=== PATIENT | female | born 1955 | race Caucasian/White ===

== ENCOUNTER 2017-01-21 05:43 | Day surgery (SDC) | payer OTHER ==
[~2017-01-21] VITALS: Ht 165.1 cm; Wt 63.5 kg
--- NOTE | ~2017-01-21 | OR ---
[facility] [address], [place] [address] Draft DATE OF OPERATION: 01/21/2017 SURGEON: Ivan Bobo MD PREOPERATIVE DIAGNOSIS: Chronic sinusitis. POSTOPERATIVE DIAGNOSIS: Chronic sinusitis with intranasal scar tissue. PROCEDURES: Exam under anesthesia, sinus lavage, bilateral and excision of intranasal lesion. ANESTHESIA: General LMA, DIANA, Chriss. PREOPERATIVE HISTORY: Ms. Etienne is a 61-year-old lady with chronic sinus problems. She has had multiple operations on her sinuses. She has had continued infections, extensive crusting, buildup of debris, filling the nasal cavities and sinuses and she has been having a difficult time lavaging this out. She is taken to the operating room for the above-mentioned procedures. OPERATIVE PROCEDURE AND FINDINGS: After informed consent, the patient was taken to the operating room, placed in a supine position, where general LMA anesthesia was induced. The patient and procedure were verified. Intranasal inspection with the headlight and speculum showed extensive greenish crusting filling the nasal cavities. The nasal cavities were cleansed with suctioning Alona, all foreign material removed. The maxillary sinus was lavaged on each side with a curved suction total of 100+ mL of saline. Copious purulent greenish material removed from the maxillary sinus in this manner. There was some scar tissue superiorly on both side, which was excised with Alona. No other abnormalities were seen. The nasal cavity and sinuses were completely cleared of foreign material. The pharynx was suctioned, clear of the debris saline and minimal bleeding occurred throughout. No packing was placed. No specimen. The patient was awakened, extubated, and transported to recovery room in good condition. No complications. Blood loss minimal. PATIENT NAME: TEREZA ETIENNE OPERATIVE REPORT DATE OF : 55 PHYSICIAN: IVAN BOBO MD REPORT #: [id number] REPORT IS CONFIDENTIAL AND NOT TO BE RELEASED WITHOUT AUTHORIZATION [address] [place] [address] Draft Ivan Bobo MD /ANTIONETTEL /[id number] PATIENT NAME: TEREZA ETIENNE OPERATIVE REPORT DATE OF : 55 PHYSICIAN: IVAN BOBO MD REPORT #: [id number] REPORT IS CONFIDENTIAL AND NOT TO BE RELEASED WITHOUT AUTHORIZATION
[~2017-01-21 05:43] MED LIST: ACYCLOVIR400 MG PO; ALBUTEROL SULFAT4 MG PO; ALLOPURINOL100 MG PO; ATIVAN1 MG PO; ATORVASTATIN CA10 MG PO; BONIVA IV; BUPROPION HCL200 MG PO; CARISOPRODOL350 MG PO; DENTIVA SOFT L1 EACH MM; DILAUDID2 MG PO; DILAUDID4 MG PO; DILAUDID8 MG PO; DOXYCYCLINE HY100 MG PO; ERY-TAB250 MG PO; ESCITALOPRAM OX10 MG PO; FUROSEMIDE80 MG PO; GABAPENTIN100 MG PO; GEMFIBROZIL600 MG PO; HYDROMORPHONE HC4 MG PO; HYDROMORPHONE HC8 MG PO; LASIX80 MG PO; LEXAPRO10 MG PO; LIDOCAINE HCL100 ML MT; MAXALT10 MG PO; METANX CAPSULE1 EACH PO; METHYLPHENIDATE20 MG PO; METOPROLOL SUC100 MG PO; METOPROLOL SUCC25 MG PO; METOPROLOL SUCC50 MG PO; MINOCYCLINE HC100 M1 PO; MIRAPEX0.125 MG PO; MIRAPEX0.25 MG PO; NADOLOL40 MG PO; NEURONTIN100 MG PO; NORCO 5-325 TA1 EACH PO; NYSTATIN100000 UN1 PO; OMEGA 3 FISH O1 EACH PO; OMEPRAZOLE40 MG PO; ONDANSETRON ODT8 MG PO; OXYCODONE HCL10 MG PO; OXYCONTIN20 MG PO; PERCOCET 7.5-31 EACH PO; POTASSIUM CHLO10 ME1 PO; PRAMIPEXOLE D0.25 MG PO; PROAIR HFA8.5 GM IH; PROMETHAZINE HC25 M1 PO; PROTONIX40 MG PO; PSEUDOEPHEDRINE60 MG PO; RIZATRIPTAN10 MG PO; SUDAFED30 MG PO; TESSALON PERLE100 MG PO; TOPROL XL50 MG PO; TRAMADOL HCL50 MG PO; TRIAMCINOLONE AC5 GM DT; ULTRAM50 MG PO; UROCIT-K10 MEQ PO; VALACYCLOVIR500 MG PO; VALTREX1000 MG; VALTREX500 MG PO; VASOTEC5 MG PO; VICTOZA 3-0.6 MG/0.1 SUB-Q; VOSPIRE ER4 MG PO; ZALEPLON10 MG PO; ZOFRAN8 MG PO; ZOFRAN8 MG SC/PO; ZYLOPRIM300 MG PO
--- NOTE | 2017-01-21 09:25 | NUR ---
PT ARRIVED FROM PACU. PT REPORTS 6/10 BURNING PAIN IN LEFT NOSTRIL BUT STATES THAT SHE DOES NOT NEED PAIN MEDCATION AT THIS TIME. PTS FAMILY CALLED TO BEDSIDE. PT RESPONDING APPROPRATLY TO QUESTIONS AND TOLERATING PO FLUIDS. BED RAILS UP. CALL LIGHT WITHIN REACH.
--- NOTE | 2017-01-21 09:48 | NUR ---
PT UP TO RESTROOM. PT STEADY ON FEET WITH ONE PERSON STAND BY ASSIST. PT ABLE TO VOID 400ML WITHOUT DIFFICULTY. PT BACK TO BED. WARM AIR ON. BED RAILS UP. CALL LIGHT WITHIN REACH
--- NOTE | 2017-01-21 10:17 | NUR ---
PT RESTING AND WATCHING TV. PT REPORTS 4/10 IMPROVED PAIN THAT "SEEMS TO BE GETTING BETTER. PT TOLERATING PO FOOD AND FLUID. BED RAILS UP. CALL LIGHT WITHIN REACH. HERE TO VISIT.
--- NOTE | 2017-01-21 10:58 | NUR ---
1055: PATIENT DRESSED AND READY TO GO HOME. IV DC'D WNL. TIP INTACT. DRESSING APPLIED. DISCHARGE INSTRUCTIONS GIVEN TO PATIENT AND . PATIENT DISCHARGED TO HOME VIA WHEELCHAIR WITH .
--- NOTE | 2017-01-22 07:14 | NUR ---
PT RESTING IN BED, WATCHING TV. SHE IS ALERT AND ORIENTED. SEEMED PREPARED, AND UNDERSTOOD HER PROCEDURE FOR TODAY. PT REQUESTED PRAYER, WILL CONTINUE TO FOLLOW
== END 2017-01-21 10:55 | disposition home or self-care (01) ==
LOC: DS 05:43 → OPS 05:43 → DS 06:45 → OPS 10:55
PROVIDERS: Otolaryngology
PROC: 0HB1XZZ Excision of Face Skin, External Approach (ICD-10-PCS; 2017-01-21)
PROC: 3E1F78Z Irrigation of Respiratory Tract using Irrigating Substance, Via Natural or Artificial Opening (ICD-10-PCS; principal; 2017-01-21 06:45)
DX: J32.9 Chronic sinusitis, unspecified (principal); J45.909 Unspecified asthma, uncomplicated; F11.90 Opioid use, unspecified, uncomplicated; I13.0 Hypertensive heart and chronic kidney disease with heart failure and stage 1 through stage 4 chronic kidney disease, or unspecified chronic kidney disease; I50.9 Heart failure, unspecified; N18.9 Chronic kidney disease, unspecified; I25.2 Old myocardial infarction; Z86.73 Personal history of transient ischemic attack (TIA), and cerebral infarction without residual deficits; Z87.891 Personal history of nicotine dependence; Z79.899 Other long term (current) 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; Z90.710 Acquired absence of both cervix and uterus; Z98.42 Cataract extraction status, left eye; Z98.41 Cataract extraction status, right eye; Z98.890 Other specified postprocedural states
CPT/HCPCS: 00160; J1100; J1720; J1885; J2250; J2405; J2704; J2765; J3010; J7120

== ENCOUNTER → 2018-01-15 | Emergency (ER) | payer BC ==
[~2018-01-15] VITALS: Ht 165.1 cm; Wt 63.5 kg
--- OUTSIDE RECORDS SUMMARY | ~2018-01-15 | XMS | Encounter Summary ---
Demographics + + + | Address | [address] | | | [place] [address] | + + + | Home Phone | | + + + | Preferred Language | Unknown | + + + | Marital Status | | + + + | Pentecostalism Affiliation | Unknown | + + + | Race | Unknown | + + + | Ethnic Group | Unknown | + + + Author + + + | Author | [facility] | | | and [place] | + + + | Organization | [facility] | | | and [place] | + + + | Address | Unknown | + + + | Phone | Unavailable | + + + Support + + + + + | Name | Relationship | Address | Phone | + + + + + | Natasha Patino J | ECON | [address] | | | Md | | [place] | | | | | [address] | | + + + + + | Danita Smart | ECON | Unknown | | + + + + + | Briseida Pedroza | ECON | Unknown | | + + + + + Care Team Providers + +------+ + | Care Military Science Instructor Name | Role | Phone | + +------+ + | Jayson Walton MD | PCP | | + +------+ + Reason for Visit + + + | Reason | Comments | + + + | Appointment | | + + + Encounter Details +--------+ + + + + | Date | Type | Department | Care Team | Description | +--------+ + + + + | 12/05/ | Telephone | [facility] | Deysi Martel | Appointment | | 2017 | | NEPHROLOGY [address] | M, DO [address] | | | | | [address] [facility] | [place], [facility] 100 | | | | | [place], [place] | [place], [place] | | | | | [address] | [address] | | | | | [phone] | | | +--------+ + + + [...] on file | | + + + as of this encounter Plan of Treatment +--------+ + + + + | Date | Type | Specialty | Care Team | Description | +--------+ + + + + | 01/19/ | Off-Site | Nephrology | Deysi Martel | | | 2017 | Visit | | DO Mega [address] [place] [address] | | | | | | [address] | | | | | | [place], [place] | | | | | | [address] | | | | | | | | +--------+ + + + + as of this encounter Visit Diagnoses Not on filein this encounter"
--- OUTSIDE RECORDS SUMMARY | ~2018-01-15 | XMS | Encounter Summary ---
Demographics + + + | Address | [address] | | | [place] [address] | + + + | Home Phone | | + + + | Preferred Language | Unknown | + + + | Marital Status | | + + + | Islam Affiliation | Unknown | + + + | Race | Unknown | + + + | Ethnic Group | Unknown | + + + Author + + + | Author | [facility] | | | and [place] | + + + | Organization | [facility] | | | and [place] | + + + | Address | Unknown | + + + | Phone | Unavailable | + + + Support + + + + + | Name | Relationship | Address | Phone | + + + + + | Natasha Patino J | ECON | [address] | | | [place] | | [place] | | | | | [address] | | + + + + + | Danita Smart | ECON | Unknown | | + + + + + | Briseida Pedroza | ECON | Unknown | | + + + + + Care Team Providers + +------+ + | Care Vine Pruner Name | Role | Phone | + +------+ + | Jayson Walton MD | PCP | | + +------+ + Reason for Visit + + + | Reason | Comments | + + + | Medication Refill | | + + + Encounter Details +--------+--------+ + + + | Date | Type | Department | Care Team | Description | +--------+--------+ + + + | 12/15/ | Refill | [facility] | Deysi Martel | Medication Refill | | 2017 | | NEPHROLOGY [address] | M, DO [address] | | | | | [address] [facility] | [place], [facility] 100 | | | | | [place], [place] | [place] | | | | | [address] | [address] | | | | | [phone] | | | +--------+--------+ + + + [...] 2017 | Visit | | DO Mega [address] [place] [address] | | | | | | [address] | | | | | | [place] | | | | | | [address] | | | | | | | | +--------+ + + + + as of this encounter Visit Diagnoses Not on filein this encounter"
--- OUTSIDE RECORDS SUMMARY | ~2018-01-15 | XMS | Clinical Summary ---
Demographics + + + | Address | [address] | | | [place] [address] | + + + | Home Phone | | + + + | Preferred Language | Unknown | + + + | Marital Status | | + + + | Sikhism Affiliation | 1013 | + + + | Race | Unknown | + + + | Ethnic Group | Unknown | + + + Author + + + | Author | [facility] | + + + | Organization | [facility] | + + + | Address | Unknown | + + + | Phone | Unavailable | + + + Support + + + + + | Name | Relationship | Address | Phone | + + + + + | Josef Patino M.D. | ECON | [address] | | | | | [place] | | | | | [address] | | + + + + + | Briseida Pedroza | ECON | [place] | | | | | [address] | | + + + + + Care Team Providers + +------+ + | Care Towel Sewer Name | Role | Phone | + [...] | ODS HEALTH PLAN | ODS | [id number] | | | | | | HEALTH [...] | Self | [birth year] | Home: | [address] | | | al/Fam | | 1955 | [phone] | [place] | | | don | | | [phone] | [address] | + +--------+ +--------+ + +
--- OUTSIDE RECORDS SUMMARY | ~2018-01-15 | XMS | Clinical Summary ---
Demographics + + + | Address | [address] | | | [place] [address] | + + + | Home Phone | | + + + | Preferred Language | Unknown | + + + | Marital Status | | + + + | Yarsanism Affiliation | CHR | + + + | Race | White | + + + | Ethnic Group | Not or | + + + Author + + + | Author | [facility] | + + + | Organization | [facility] | + + + | Address | Unknown | + + + | Phone | Unavailable | + + + Support + + + + + | Name | Relationship | Address | Phone | + + + + + | LIZETTE ETIENNE | [address] | [place] | | | | | [address] | | + + + + + Care Team Providers + +------+ + | Care Microfilm Processor Name | Role | Phone | + +------+ + PP | Unavailable | + +------+ + Source Comments GAYATRI is fully live on both [facility] Ambulatory and [facility] InPatient.[facility] Allergies + + + + + + | Active Allergy | Reactions | Severity | Noted | Comments | | | | | Date | | + + + + + + | Ibuprofen | | | 05/23/19 | | | | | | 12 | | + + + + + + | Aspirin | | | 07/16/19 | Asthma | | | | | 07 | | + + + + + + | Codeine | | | 05/23/19 | | | | | | 12 | | + + + + + + | Cephalexin | Nausea/Vomiting | Low | 07/16/19 | | | | | | 07 | | + + + + + + | Nsaids | Wheez/Dyspnea | | 07/16/19 | | | (Non-Steroidal | | | 07 | | | Anti-Inflammatory | | | | | | Drug) | | | | | + + + + + + | Prednisone | | | 05/23/19 | | | | | | 12 | | + + + + + + | Sulfa (Sulfonamide | Hives, Rash | Low | 07/16/19 | | | Antibiotics) | | | 07 | | + + + + + + Current Medications + + +--------+---------+------+------+-------+ | Prescription | Sig. | Disp. | Refills | Star | End | Statu | | | | | | t | Date | s | | | | | | Date | | | + + +--------+---------+------+------+-------+ | Tramadol HCl | take 1-2 tablet (50 | 60 | 0 | 11/2 | | Activ | | (ULTRAM) 50 mg Oral | mg) by oral route | | | 0/20 | | e | | TabletIndications: | every 6 hours as | | | 07 | | | | Hip pain | needed | | | | | | + + +--------+---------+------+------+-------+ | Bupropion HCl | 1 tab po bid | 60 | 12 | 11/2 | | Activ | | (WELLBUTRIN SR) 200 | | | | 0/20 | | e | | mg Oral Tablet | | | | 07 | | | | Sustained | | | | | | | | ReleaseIndications: | | | | | | | | Depression | | | | | | | + + +--------+---------+------+------+-------+ | albuterol 4 mg | Take 4 mg by mouth | | | | | Activ | | Oral Tablet | every twelve hours. | | | | | e | | | | | | | | | + + +--------+---------+------+------+-------+ | | Take 25 mg by mouth | | | | | Activ | | hydrochlorothiazide | once daily. | | | | | e | | 25 mg Oral Tablet | | | | | | | + + +--------+---------+------+------+-------+ | metFORMIN 500 mg | Take 500 mg by mouth | | | | | Activ | | Oral Tablet | two times daily. | | | | | e | + + +--------+---------+------+------+-------+ | pramipexole 0.25 | Take 0.125 mg by | | | | | Activ | | mg Oral Tablet | mouth once daily at | | | | | e | | | bedtime. | | | | | | + + +--------+---------+------+------+-------+ | furosemide 40 mg | Take 40 mg by mouth | | | | | Activ | | Oral Tablet | two times daily. | | | | | e | + + +--------+---------+------+------+-------+ | CARISOPRODOL (SOMA | Take by mouth. | | | | | Activ | | ORAL) | | | | | | e | + + +--------+---------+------+------+-------+ | metoprolol | Take 100 mg by mouth | | | | | Activ | | tartrate 100 mg Oral | once daily. | | | | | e | | Tablet | | | | | | | + + +--------+---------+------+------+-------+ | LORazepam 2 mg | Take 2 mg by mouth | | | | | Activ | | Oral Tablet | once daily at | | | | | e | | | bedtime. | | | | | | + + +--------+---------+------+------+-------+ | montelukast 10 mg | Take 10 mg by mouth | | | | | Activ | | Oral Tablet | once daily in the | | | | | e | | | evening. | | | | | | + + +--------+---------+------+------+-------+ | clobetasol 0.05 % | Apply to affected | 45 g | 0 | 03/1 | | Activ | | Topical Ointment | area two times | | | 5/20 | | e | | | daily. Apply for up | | | 12 | | | | | to 2 weeks. | | | | | | + + +--------+---------+------+------+-------+ Active Problems + + + | Problem | Noted Date | + + + | Depression | 12/09/2006 | + + + | Opioid dependence (HCC) | 08/27/2006 | + + + | Herpes zoster | 08/27/2006 | + + + Immunizations +------+ + + | Name | Dates Previously Given | Next Due | +------+ + + | Tdap | 01/27/2007 | | +------+ + + Family History + + +------+ + | Medical History | Relation | Name | Comments | + + +------+ + | Alcohol/Drug | Daughter | | | + + +------+ + | Alcohol/Drug | Maternal | | | | | Grandfath | | | | | er | | | + + +------+ + | Diabetes | Maternal | | | | | Grandfath | | | | | er | | | + + +------+ + | Alcohol/Drug | Maternal | | | | | Grandmoth | | | | | er | | | + + +------+ + | Heart Disease | Maternal | | | | | Grandmoth | | | | | er | | | + + +------+ + | Cancer | Mother | | Breast | + + +------+ + | Diabetes | Mother | | | + + +------+ + | Alcohol/Drug | Sister | | | + + +------+ + + +------+--------+ + | Relation | Name | Status | Comments | + +------+--------+ + | Daughter | | | | + +------+--------+ + | Maternal Grandfather | | | | + +------+--------+ + | Maternal Grandmother | | | | + +------+--------+ + | Mother | | | | + +------+--------+ + | Sister | | | | + +------+--------+ + Social History + + + +--------+ [...] + +---------+ + | No | 0 | 0.0 | | | | Standard | | | | | drinks or | | | | | | | | | | equivalen | | | | | t | | | + + +---------+ + + + + | Sex Assigned at | Date Recorded | | | | + + + | Not on file | | + + + Last Filed Vital Signs + + + + | Vital Sign | Reading | Time Taken | + + + + | Blood Pressure | 112/66 | 05/23/2011 9:53 AM PDT | + + + + | Pulse | 72 | 05/23/2011 9:53 AM PDT | + + + + | Temperature | 36.8 C (98.2 F) | 01/27/2007 10:17 AM PST | + + + + | Respiratory Rate | 16 | 10/28/2006 8:28 AM PDT | + + + + | Oxygen Saturation | - | - | + + + + | Inhaled Oxygen | - | - | | Concentration | | | + + + + | Weight | 64.4 kg (142 lb) | 05/23/2011 9:53 AM PDT | + + + + | Height | 170.8 cm (5' 7.25") | 05/23/2011 9:53 AM PDT | + + + + | Body Mass Index | 22.08 | 05/23/2011 9:53 AM PDT | + + + + Plan of Treatment + + + + + | Health Maintenance | Due Date | Last Done | Comments | + + + + + | Influenza (Flu) | | | | | vaccination (#1) | 8 | | | + + + + + Results Not on filefrom Last 3 Months Insurance + +--------+ +------+ + + | Payer | Benefi | Subscriber | Type | Phone | Address | | | t Plan | ID | | | | | | / | | | | | | | Group | | | | | + +--------+ +------+ + + | [employer] | PACIFI | [id number] | PPO | [id number] | [facility] [address] | | | [address] | | | [phone] | [place], [place] | | | E | | | | [address] | + +--------+ +------+ + + + +--------+ +--------+ + + | Guarantor Name | Accoun | Relation to | Date | Phone | Billing Address | | | t Type | Patient | of | | | | | | | | | | + +--------+ +--------+ + + | BEVERLY ETIENNE | Person | Self | [birth year] | Home: | [address] | | | al/Fam | | 1956 | [phone] | [place] [address] | | | don | | | [phone] | | + +--------+ +--------+ + +
--- OUTSIDE RECORDS SUMMARY | ~2018-01-15 | XMS | Encounter Summary ---
Demographics + + + | Address | [address] | | | [place] [address] | + + + | Home Phone | | + + + | Preferred Language | Unknown | + + + | Marital Status | | + + + | Denominational Affiliation | Unknown | + + + | Race | Unknown | + + + | Ethnic Group | Unknown | + + + Author + + + | Author | [facility] | | | and [place] | + + + | Organization | [facility] | | | and [place] | + + + | Address | Unknown | + + + | Phone | Unavailable | + + + Support + + + + + | Name | Relationship | Address | Phone | + + + + + | Natasha Patino J | ECON | [address] | | | [place] | | [place] | | | | | [address] | | + + + + + | Danita Smart | ECON | Unknown | | + + + + + | Briseida Pedroza | ECON | Unknown | | + + + + + Care Team Providers + +------+ + | Care Prize Fighter Name | Role | Phone | + +------+ + | Jayson Waltno MD | PCP | | + +------+ + Reason for Visit + + + | Reason | Comments | + + + | Medication Refill | | + + + Encounter Details +--------+--------+ + + + | Date | Type | Department | Care Team | Description | +--------+--------+ + + + | 12/15/ | Refill | [facility] | Deysi Martel | Medication Refill | | 2017 | | NEPHROLOGY [address] | M, DO [address] | | | | | [address] [facility] 100 | [place], [facility] 100 | | | | | [place], [place] | [place] | | | | | [address] | [address] | | | | | [phone] | | | +--------+--------+ + + + [...] | Visit | | DO Mega [address] [place] [address] | | | | | | [address] | | | | | | [place] | | | | | | [address] | | | | | | | | +--------+ + + + + as of this encounter Visit Diagnoses Not on filein this encounter"
--- OUTSIDE RECORDS SUMMARY | ~2018-01-15 | XMS | Encounter Summary ---
Demographics + + + | Address | [address] | | | [place] [address] | + + + | Home Phone | | + + + | Preferred Language | Unknown | + + + | Marital Status | | + + + | Presybeterian Affiliation | Unknown | + + + | Race | Unknown | + + + | Ethnic Group | Unknown | + + + Author + + + | Author | [facility] | | | and [place] | + + + | Organization | [facility] | | | and [place] | + + + | Address | Unknown | + + + | Phone | Unavailable | + + + Support + + + + + | Name | Relationship | Address | Phone | + + + + + | Natasha Patino J | ECON | [address] | | | [place] | | [place] | | | | | [address] | | + + + + + | Danita Smart | ECON | Unknown | | + + + + + | Briseida Pedroza | ECON | Unknown | | + + + + + Care Team Providers + +------+ + | Care Design Director Name | Role | Phone | + +------+ + | Jayson Walton MD | PCP | | + +------+ + Encounter Details +--------+ + + + + | Date | Type | Department | Care Team | Description | +--------+ + + + + | 11/18/ | Orders Only | [facility] [place] | Deysi Martel | CHRONIC KIDNEY | | 2018 | | NEPHROLOGY [address] | M, DO [address] | DISEASE STAGE III | | | | [address] | [place] | (MODERATE) (Primary | | | | [place], [place] | [place], [place] | Dx) | | | | [address] | [id number] | | | | | [phone] | | | +--------+ + + + [...] + + + as of this encounter Progress Carrie Zelaya RN - 11/18/2017 1632 PDTLabs for upcoming nephrology appointment sent to: Xochitl this encounter Plan of Treatment +--------+ + + + + | Date | Type | Specialty | Care Team | Description | +--------+ + + + + | 01/19/ | Off-Site | Nephrology | Deysi Martel | | | 2017 | Visit | | DO [address] | | | | | | [address] | | | | | | [place] | | | | | | [address] | | | | | | | | +--------+ + + + + + +--------+ + + | Name | Priori | Associated Diagnoses | Order Schedule | | | ty | | | + +--------+ + + | CBC with Differential | Routin | CHRONIC KIDNEY | Expected: | | | e | DISEASE STAGE III | 01/15/2018, Expires: | | | | (MODERATE) | 11/18/2018 | + +--------+ + + | Comprehensive Metabolic Panel | Routin | CHRONIC KIDNEY | Expected: | | | e | DISEASE STAGE III | 01/15/2018, Expires: | | | | (MODERATE) | 11/18/2018 | + +--------+ + + | Phosphorus | Routin | CHRONIC KIDNEY | Expected: | | | e | DISEASE STAGE III | 01/15/2018, Expires: | | | | (MODERATE) | 11/18/2018 | + +--------+ + + | Parathyroid Hormone, Intact | Routin | CHRONIC KIDNEY | Expected: | | | e | DISEASE STAGE III | 01/15/2018, Expires: | | | | (MODERATE) | 11/18/2018 | + +--------+ + + | Vitamin D, Deficiency Screen | Routin | CHRONIC KIDNEY | Expected: | | (25-Hydroxy) | e | DISEASE STAGE III | 01/15/2018, Expires: | | | | (MODERATE) | 11/18/2018 | + +--------+ + + | Protein/Creatinine Ratio, Urine | Routin | CHRONIC KIDNEY | Expected: | | | e | DISEASE STAGE III | 01/15/2018, Expires: | | | | (MODERATE) | 11/18/2018 | + +--------+ + + as of this encounter Visit Diagnoses + + | Diagnosis | + + | CHRONIC KIDNEY DISEASE STAGE III (MODERATE) - Primary | + + | Chronic kidney disease, Stage III (moderate) | + +"
--- OUTSIDE RECORDS SUMMARY | ~2018-01-15 | XMS | Clinical Summary ---
Demographics + + + | Address | [address] | | | [place] [address] | + + + | Home Phone | | + + + | Preferred Language | Unknown | + + + | Marital Status | | + + + | Voodoo Affiliation | 1013 | + + + | Race | Unknown | + + + | Ethnic Group | Unknown | + + + Author + + + | Author | [facility] | + + + | Organization | [facility] | + + + | Address | Unknown | + + + | Phone | Unavailable | + + + Support + + + + + | Name | Relationship | Address | Phone | + + + + + | Josef Patino M.D. | ECON | [address] | | | | | [place] | | | | | [address] | | + + + + + | Briseida Pedroza | ECON | [place] | | | | | [address] | | + + + + + Care Team Providers + +------+ + | Care Fast Food Crew Lead Name | Role | Phone | + [...] | ODS HEALTH PLAN | ODS | [id number] | | | | | | HEALTH [...] | Self | [birth year] | Home: | [address] | | | al/Fam | | 1955 | [phone] | [place] | | | don | | | [phone] | [address] | + +--------+ +--------+ + +
--- OUTSIDE RECORDS SUMMARY | ~2018-01-15 | XMS | Encounter Summary ---
Demographics + + + | Address | [address] | | | [place] [address] | + + + | Home Phone | | + + + | Preferred Language | Unknown | + + + | Marital Status | | + + + | Islam Affiliation | Unknown | + + + | Race | Unknown | + + + | Ethnic Group | Unknown | + + + Author + + + | Author | [facility] | | | and [place] | + + + | Organization | [facility] | | | and [place] | + + + | Address | Unknown | + + + | Phone | Unavailable | + + + Support + + + + + | Name | Relationship | Address | Phone | + + + + + | Natasha Patino J | ECON | [address] | | | Md | | [place] | | | | | [address] | | + + + + + | Danita Smart | ECON | Unknown | | + + + + + | Briseida Pedroza | ECON | Unknown | | + + + + + Care Team Providers + +------+ + | Care Digital Recruiter Name | Role | Phone | + [...] + + | 11/26/ | Ref[facility] | [facility] | Deysi Martel | Medication Refill | | 2017 | | NEPHROLOGY [address] | M, DO [address] [place] | | | | | [address] [facility] | [place], [facility] 100 | | | | | [place], [place] | [place] | | | | | [address] | [address] | | | | | [phone] | | | +--------+--------+ + + + [...] 2017 | Visit | | DO Mega [address] [place] [address] | | | | | | [address] [place] [address] | | | | | | [place] | | | | | | [address] | | | | | | | | +--------+ + + + + as of this encounter Visit Diagnoses Not on filein this encounter"
--- OUTSIDE RECORDS SUMMARY | ~2018-01-15 | XMS | Encounter Summary ---
Demographics + + + | Address | [address] | | | [place] [address] | + + + | Home Phone | | + + + | Preferred Language | Unknown | + + + | Marital Status | | + + + | Restoration Affiliation | Unknown | + + + | Race | Unknown | + + + | Ethnic Group | Unknown | + + + Author + + + | Author | [facility] | | | and [place] | + + + | Organization | [facility] | | | and [place] | + + + | Address | Unknown | + + + | Phone | Unavailable | + + + Support + + + + + | Name | Relationship | Address | Phone | + + + + + | Natasha Patino J | ECON | [address] | | | [place] | | [place] | | | | | [address] | | + + + + + | Danita Smart | ECON | Unknown | | + + + + + | Briseida Pedroza | ECON | Unknown | | + + + + + Care Team Providers + +------+ + | Care Environmental Compliance Manager Name | Role | Phone | + +------+ + | Jayson Walton MD | PCP | | + +------+ + Encounter Details +--------+ + + + + | Date | Type | Department | Care Team | Description | +--------+ + + + + | 01/15/ | Abstract | [facility] [place] | Deysi Martel | | | 2017 | | NEPHROLOGY [address] | M, DO [address] [place] | | | | | [address] [facility] 100 | [place], [facility] 100 | | | | | [place], [place] | [place] | | | | | [address] | [address] | | | | | [phone] | | | +--------+ + + + [...] 2017 | Visit | | DO Mega [address] [place] [address] | | | | | | [address] | | | | | | [place] | | | | | | [address] | | | | | | | | +--------+ + + + + as of this encounter Visit Diagnoses Not on filein this encounter"
--- OUTSIDE RECORDS SUMMARY | ~2018-01-15 | XMS | Encounter Summary ---
Demographics + + + | Address | [address] | | | [place] [address] | + + + | Home Phone | | + + + | Preferred Language | Unknown | + + + | Marital Status | | + + + | Sabianist Affiliation | Unknown | + + + | Race | Unknown | + + + | Ethnic Group | Unknown | + + + Author + + + | Author | [facility] | | | and [place] | + + + | Organization | [facility] | | | and [place] | + + + | Address | Unknown | + + + | Phone | Unavailable | + + + Support + + + + + | Name | Relationship | Address | Phone | + + + + + | Natasha Patino J | ECON | [address] | | | Md | | [place] | | | | | [address] | | + + + + + | Danita Smart | ECON | Unknown | | + + + + + | Briseida Pedroza | ECON | Unknown | | + + + + + Care Team Providers + +------+ + | Care Web Ui Software Engineer Name | Role | Phone | [...] + + | 12/05/ | Telephone | [facility] | Deysi Martel | Appointment | | 2017 | | NEPHROLOGY [address] | M, DO [address] [place] | | | | | [address] [facility] 100 | [place], [facility] 100 | | | | | [place], [place] | [place], [place] | | | | | [address] | [address] | | | | | [phone] | | | +--------+ + + + [...] 2017 | Visit | | DO Mega [address] [place] [address] | | | | | | [place] [address] | | | | | | [place], [place] | | | | | | [address] | | | | | | | | +--------+ + + + + as of this encounter Visit Diagnoses Not on filein this encounter"
--- OUTSIDE RECORDS SUMMARY | ~2018-01-15 | XMS | Encounter Summary ---
Demographics + + + | Address | [address] | | | [place] [address] | + + + | Home Phone | | + + + | Preferred Language | Unknown | + + + | Marital Status | | + + + | Sabianism Affiliation | Unknown | + + + | Race | Unknown | + + + | Ethnic Group | Unknown | + + + Author + + + | Author | [facility] | | | and [place] | + + + | Organization | [facility] | | | and [place] | + + + | Address | Unknown | + + + | Phone | Unavailable | + + + Support + + + + + | Name | Relationship | Address | Phone | + + + + + | Natasha Patino J | ECON | [address] | | | [place] | | [place] | | | | | [address] | | + + + + + | Danita Smart | ECON | Unknown | | + + + + + | Briseida Pedroza | ECON | Unknown | | + + + + + Care Team Providers + +------+ + | Care Screwhead Polisher Name | Role | Phone | + [...] Description | +--------+--------+ + + + | 11/10/ | Refill | [facility] | Deysi Martel | Medication Refill | | 2017 | | NEPHROLOGY [address] | M, DO [address] [place] | | | | | [address] [facility] 100 | [place], [facility] 100 | | | | | [place], [place] | [place] | | | | | [address] | [address] | | | | | [phone] | | | +--------+--------+ + + + [...] 2017 | Visit | | DO Mega [address] [place] [address] | | | | | | [address] | | | | | | [place] | | | | | | [address] | | | | | | | | +--------+ + + + + as of this encounter Visit Diagnoses Not on filein this encounter"
--- OUTSIDE RECORDS SUMMARY | ~2018-01-15 | XMS | Encounter Summary ---
Demographics + + + | Address | [address] | | | [place] [address] | + + + | Home Phone [...] Author | [facility] | | | and [place] | + + + | Organization | [facility] | | | and [place] | + + + | Address | Unknown | + + + | Phone | Unavailable | + + + Support + + + + + | Name | Relationship | Address | Phone | + + + + + | Natasha Patino J | ECON | [address] | | | Md | | [place] | | | | | [address] | | + + + + + | Danita Smart | ECON | Unknown | | + + + + + | Briseida Pedroza | ECON | Unknown | | + + + + + Care Team Providers + +------+ + | Care Driver Operator Name | Role | Phone | [...] NEPHROLOGY [address] | M, DO [address] [place] | DISEASE STAGE III | | | | [address] [facility] [address] | [place], [place] [address] | (MODERATE) (Primary | | | | [place], [place] | [place], [place] | Dx) | | | | [address] | [id number] | | | | | [phone] | | | +--------+ + + + [...] | Visit | | DO Mega [address] [place] | | | | | | [address] | | | | | | [place] | | | | | | [id number] | | | | | | | [...]
--- OUTSIDE RECORDS SUMMARY | ~2018-01-15 | XMS | Encounter Summary ---
Demographics + + + | Address | [address] | | | [place] [address] | + + + | Home Phone | | + + + | Preferred Language | Unknown | + + + | Marital Status | | + + + | Mormon Affiliation | Unknown | + + + | Race | Unknown | + + + | Ethnic Group | Unknown | + + + Author + + + | Author | [facility] | | | and [place] | + + + | Organization | [facility] | | | and [place] | + + + | Address | Unknown | + + + | Phone | Unavailable | + + + Support + + + + + | Name | Relationship | Address | Phone | + + + + + | Natasha Patino J | ECON | [address] | | | [place] | | [place] | | | | | [address] | | + + + + + | Danita Smart | ECON | Unknown | | + + + + + | Briseida Pedroza | ECON | Unknown | | + + + + + Care Team Providers + +------+ + | Care Aerospace Stress Engineer Name | Role | Phone | [...] + | 11/10/ | Refill | [facility] | Deysi Martel | Medication Refill | | 2017 | | NEPHROLOGY [address] | M, DO [address] [place] | | | | | [address] [facility] 100 | [place], [facility] 100 | | | | | [place], [place] | [place] | | | | | [address] | [address] | | | | | [phone] | | | +--------+--------+ + + + [...] 2017 | Visit | | DO Mega [address] [place] [address] | | | | | | [address] | | | | | | [place] | | | | | | [address] | | | | | | | | +--------+ + + + + as of this encounter Visit Diagnoses Not on filein this encounter"
--- OUTSIDE RECORDS SUMMARY | ~2018-01-15 | XMS | Encounter Summary ---
Demographics + + + | Address | [address] | | | [place] [address] | + + + | Home Phone | | + + + | Preferred Language | Unknown | + + + | Marital Status | | + + + | Shinto Affiliation | Unknown | + + + | Race | Unknown | + + + | Ethnic Group | Unknown | + + + Author + + + | Author | [facility] | | | and [place] | + + + | Organization | [facility] | | | and [place] | + + + | Address | Unknown | + + + | Phone | Unavailable | + + + Support + + + + + | Name | Relationship | Address | Phone | + + + + + | Natasha Patino J | ECON | [address] | | | Md | | [place] | | | | | [address] | | + + + + + | Danita Smart | ECON | Unknown | | + + + + + | Briseida Pedroza | ECON | Unknown | | + + + + + Care Team Providers + +------+ + | Care Cryptologist Name | Role | Phone | + [...] NEPHROLOGY [address] | M, DO [address] [place] | | | | | [address] [facility] 100 | [place], [facility] 100 | | | | | [place], [place] | [place] | | | | | [address] | [address] | | | | | [phone] | | | +--------+ + + + [...] 2017 | Visit | | DO Mega [address] [place] [address] | | | | | | [address] | | | | | | [place] | | | | | | [address] | | | | | | | | +--------+ + + + + as of this encounter Visit Diagnoses Not on filein this encounter"
--- OUTSIDE RECORDS SUMMARY | ~2018-01-15 | XMS | Encounter Summary ---
Demographics + + + | Address | [address] | | | [place] [address] | + + + | Home Phone | | + + + | Preferred Language | Unknown | + + + | Marital Status | | + + + | Yazidi Affiliation | Unknown | + + + | Race | Unknown | + + + | Ethnic Group | Unknown | + + + Author + + + | Author | [facility] | | | and [place] | + + + | Organization | [facility] | | | and [place] | + + + | Address | Unknown | + + + | Phone | Unavailable | + + + Support + + + + + | Name | Relationship | Address | Phone | + + + + + | Natasha Patino J | ECON | [address] | | | Md | | [place] | | | | | [address] | | + + + + + | Danita Smart | ECON | Unknown | | + + + + + | Briseida Pedroza | ECON | Unknown | | + + + + + Care Team Providers + +------+ + | Care Brim Pouncer Name | Role | Phone | + [...] + + | 11/26/ | Refill | [facility] | Deysi Martel | Medication Refill | | 2017 | | NEPHROLOGY [address] | M, DO [address] [place] | | | | | [address] [place] [address] | [place], [facility] 100 | | | | | [place], [place] | [place] | | | | | [address] | [address] | | | | | [phone] | | | +--------+--------+ + + + [...] 2017 | Visit | | DO Mega [address] [place] [address] | | | | | | [address] | | | | | | [place] | | | | | | [address] | | | | | | | | +--------+ + + + + as of this encounter Visit Diagnoses Not on filein this encounter"
--- OUTSIDE RECORDS SUMMARY | ~2018-01-15 | XMS | Clinical Summary ---
Demographics + + + | Address | [address] | | | [place] [address] | + + + | Home Phone | | + + + | Preferred Language | Unknown | + + + | Marital Status | | + + + | Baptism Affiliation | Unknown | + + + | Race | Unknown | + + + | Ethnic Group | Unknown | + + + Author + + + | Author | [facility] | | | and [place] | + + + | Organization | [facility] | | | and [place] | + + + | Address | Unknown | + + + | Phone | Unavailable | + + + Support + + + + + | Name | Relationship | Address | Phone | + + + + + | Natasha Patino J | ECON | [address] | | | Md | | [place] | | | | | [address] | | + + + + + | Danita Etienne | ECON | Unknown | | + + + + + | Briseida Pedroza | ECON | Unknown | | + + + + + Care Team Providers + +------+ + | Care Records Technician Name | Role | Phone | [...] Take 200 mg by mouth | | | 10/0 | | Activ | | (WELLBUTRIN SR) 200 | 2 times daily. | | | 5/20 | | e | | MG 12 hr tablet | | | | 12 | | | + + + +---------+------+------+-------+ | [place]-3 Fatty | Take 2 tablets by | | | | | Activ | | Acids (OMEGA 3 PO) | mouth 2 times daily. | | | | | e | + + + +---------+------+------+-------+ | pramipexole | Take 0.25 mg by | | | | | [...] Take 1 tablet by | 30 | PRN | 06/08 | | Activ | | (MAXALT) 10 mg | mouth as needed | tablet | | 05/27 | | e | | tabletIndications: | [...] + + +---------+------+------+-------+ | albuterol | Take 4 mg by mouth 2 | | | | | Activ | | (PROVENTIL) 4 MG | times daily. | | | | | e | | tabletIndications: | | | | | | | | Chronic kidney | | | | | | | | disease, stage III | | | | | | | | (moderate) (HCC), | | | | | | | | Acute kidney failure | | | | | | | | with lesion of | | | | | | | | tubular necrosis | | | | | | [...] Activ | | (ZYLOPRIM) 100 mg | Daily. | | | | | e | | tabletIndications: | | | | | | | | Chronic kidney | | | | | | | | disease, stage III | | | | | | | | (moderate) (HCC), | | | | | | | | Acute kidney failure | | | | | | | | with lesion of | | | | | | | | tubular necrosis | | | | | | [...] + + + +---------+------+------+-------+ | pantoprazole | take 1 tablet by | 90 | 3 | 10/ | | Activ | | (PROTONIX) 40 mg | mouth every morning | tablet | | 6/20 | | e | | tablet | before BREAKFAST | | | 17 | | | + + + +---------+------+------+-------+ | liraglutide | Inject 1.2 mg under | | | | | Activ | | (VICTOZA) 18 mg/3 mL | the skin Daily. | | | | | e | | | | | | | | | | injectionIndications | | | | [...] 1 suppository | 12 | 3 | 06/ | | Activ | | (PHENERGAN) 25 mg | rectally every 6 | supposito | | 8/ | | e | | suppositoryIndicatio | [...] tablet by | 30 | 4 | 06/2 | | Activ | | (ZOFRAN) 8 MG tablet | mouth every 8 hours | tablet | | 7/20 | | e | | | as needed for | | | 18 | | | | | Nausea. | | | | | | + + + +---------+------+------+-------+ | furosemide (LASIX) | Take 2 tablets by | 180 | 3 | 06/ | | Activ | | 80 mg | mouth Daily. | tablet | | 7/20 | | e | | tabletIndications: | [...] | Secondary hyperparathyroidism of renal origin (HCC) | 08/25/2017 | + + + | Combined hyperlipidemia | 06/28/2014 | + + + | Chronic pain syndrome | 06/28/2014 | + + + | Acute kidney failure with lesion of tubular necrosis (HCC) | 03/15/2014 | + + + | Chronic pancreatitis (HCC) | 11/15/2013 | + + + | Foot ulceration (HCC) | 08/24/2012 | + + + | [...] DM type 2 (diabetes mellitus, type 2) ([facility]) | | + +---+ + + | [...] Other and unspecified hyperlipidemia | 03/15/19 | 04/21/201 | | | 15 | 5 | [...] + + + + | Overview: PLRU [id number] Decision | + + + + + [...] + + | 01/15/ | Abstract | | Deysi Martel | | | 2017 | | | M, DO | | +--------+ + + + + | 12/15/ | Refill | | Deysi Martel | Medication Refill | | 2017 | | | M, DO | | +--------+ + + + + | 12/05/ | Telephone | | Deysi Maretl | Appointment | | 2017 | | | M, DO | | +--------+ + + + + | 11/26/ | Refill | | Deysi Martel | Medication Refill | | 2017 | | | M, DO | | +--------+ + + + + | 11/18/ | Orders Only | | Deysi Martel | CHRONIC KIDNEY | | 2017 | | | M, DO | DISEASE STAGE III | | | | | | (MODERATE) (Primary | | | | | | Dx) | +--------+ + + + + | 11/10/ | Refill | | Deysi Martel | Medication Refill | | 2017 | | | M, DO | | +--------+ + + + + from [...] + + + | Blood Pressure | 130/70 | 08/25/20171629 PDT | + + + + | Pulse | 73 | 05/17/20131034 PDT | + + + + | Temperature | 35.6 C (96 F) | 08/25/20171629 PDT | + + + + | Respiratory Rate | 16 | 05/17/20131034 PDT | + + + + | Oxygen Saturation | 97% | 05/17/20131034 PDT | + + + + | Inhaled Oxygen | - | - | | Concentration | | | + + + + | Weight | 68.7 kg (151 lb 7.3 | 08/25/20171629 PDT | | | oz) | | + + + + | Height | 167.6 cm (5' 6") | 05/17/2013 0828 PDT | + + + + | Body Mass Index | 24.45 | 08/25/20171629 PDT | + + + + Plan of Treatment +--------+ + + + + | Date | Type | Specialty | Care Team | Description | +--------+ + + + + | 01/19/ | Off-Site | | Deysi Martel | | | 2017 | Visit | | DO Mega [address] [place] | | | | | | [place], [place] [address] | | | | | | [place] | | | | | | [address] | | | | | | | [...] | + + + + + | BREAST CANCER | | | | | SCREENING (MAMM Q2 | 6 | | | | YEARS 50-74) | | | | + + + + + | Colorectal Cancer | | | | | Screening | 6 | | | | (Colonoscopy) | | | | + + + + + | Vaccine: Zoster (1 | | | | | of 2) | 6 | | | + + + + + | Vaccine: | | 01/27/2007 | | | Dtap/Tdap/Td (2 - | 7 | | | | Td) | | | | + + + + + | Hemoglobin A1c Q6 | | 04/20/2017, 11/07/2016, | | | Months | 8 | 05/02/2016, Additional history | | | | | exists | | + + + + + | Vaccine: Influenza | | 12/09/2015 | | | (#1) | 8 | | | + + + + + Results Not on filefrom Last 3 Months Insurance +-------+--------+ +------+-------+---------+ | Payer | Benefi | Subscriber | Type | Phone | Address | | | t Plan | ID | | | | | | / | | | | | | | Group | | | | | +-------+--------+ +------+-------+---------+ | BCBS | BCBS | [id number] | PPO | | | | | OUT OF | 5 | | | | | | STATE | | | | | | | PPO | | | | | +-------+--------+ +------+-------+---------+ + +--------+ +--------+ + + | Guarantor Name | Accoun | Relation to | Date | Phone | Billing Address | | | t Type | Patient | of | | | | | | | | | | + +--------+ +--------+ + + | BEVERLY ETIENNE | Person | Self | [birth year] | Home: | [address] | | | al/Fam | | 1956 | [phone] | [place] [address] | | | don | | | [phone] | | + +--------+ +--------+ + +
--- OUTSIDE RECORDS SUMMARY | ~2018-01-15 | XMS | Clinical Summary ---
Demographics + + + | Address | [address] | | | [place] [address] | + + + | Home Phone | | + + + | Preferred Language | Unknown | + + + | Marital Status | | + + + | Hinduism Affiliation | Unknown | + + + | Race | Unknown | + + + | Ethnic Group | Unknown | + + + Author + + + | Author | [facility] | | | and [place] | + + + | Organization | [facility] | | | and [place] | + + + | Address | Unknown | + + + | Phone | Unavailable | + + + Support + + + + + | Name | Relationship | Address | Phone | + + + + + | Natasha Patino J | ECON | [address] | | | Md | | [place] | | | | | [address] | | + + + + + | Danita Etienne | ECON | Unknown | | + + + + + | Briseida Pedroza | ECON | Unknown | | + + + + + Care Team Providers + +------+ + | Care Client Business Manager Name | Role | Phone | [...] | | + + + +---------+------+------+-------+ | [place]-3 Fatty | Take 2 tablets by | [...] DM type 2 (diabetes mellitus, type 2) ([facility]) | | + +---+ + + [...] + + + + | Overview: PLRU [id number] Decision | + + + + + [...] | 12/05/ | Telephone | | Deysi Martel | Appointment | | [...] | Visit | | DO [address] [place] | | | | | | [place], [address] | | | | | | [place] | | | | | | [address] | | | | | | | [...] +-------+--------+ +------+-------+---------+ | BCBS | BCBS | [id number] | PPO | | | | | [...] | Self | [birth year] | Home: | [address] | | | al/Fam | | 1956 | [phone] | [place] [address] | | | don | | | [phone] | | + +--------+ +--------+ + +
--- OUTSIDE RECORDS SUMMARY | ~2018-01-15 | XMS | Clinical Summary ---
Demographics + + + | Address | [address] | | | [place] [address] | + + + | Home Phone [...] [place] | | | | | [address] | | + + + + + Care Team Providers + +------+ + | Care Front Office Developer Name | Role | Phone | + +------+ + PP | Unavailable | + +------+ + Source Comments GAYATRI is fully live on both [facility] and [facility] InPatient.[facility] Allergies + + + + + [...] | PACIFI | [phone] | PPO | [id number] | [facility] [address] | | | [address] | | | [address] | [place], [place] | | | E | | | | [address] | + +--------+ +------+ + + + +--------+ +--------+ + + | Guarantor Name | Accoun | Relation to | Date | Phone | Billing Address | | | t Type | Patient | of | | | | | | | | | | + +--------+ +--------+ + + | BEVERLY ETIENNE | Person | Self | [birth year] | Home: | [address] | | | al/Fam | | 1956 | [phone] | [place] [address] | | | don | | | [phone] | | + +--------+ +--------+ + +
--- OUTSIDE RECORDS SUMMARY | 2018-01-15 19:32 | XMS ---
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 Karen [facility] ([address] [facility] TOTAL 3 NOTE: Visits indicate total known visits. ED/UCC VISIT TRACKING (12 MO.) 01/15/2018 19:29 [facility] [place] TYPE: Emergency COMPLAINT: - HIP PAIN 01/13/2018 06:35 [facility] [place] TYPE: Emergency DIAGNOSES: - Hip Injury - C1 - Unspecified dislocation of left hip, initial encounter 10/06/2017 16:49 [facility] [place] TYPE: Emergency COMPLAINT: - MULTIPLE FALLS DIAGNOSES: - Unspecified fall, initial encounter - Type 2 diabetes mellitus without complications - Allergy status to analgesic agent status - Hypertensive heart disease with heart failure - Unspecified abnormalities of gait and mobility - Allergy status to other drugs, medicaments and biological substances status - Allergy status to narcotic agent status - Allergy status to sulfonamides status - Other halfway (current) 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 - Personal history of nicotine dependence - Heart failure, unspecified - Pain in left hip INPATIENT VISIT TRACKING (12 MO.) 01/14/2018 05:19 [facility] [place] TYPE: Neuro Surgery DIAGNOSES: - (Idiopathic) normal pressure hydrocephalus 12/29/2017 17:30 [facility] [place] TYPE: Orthopedic DIAGNOSES: - L hip fracture 03/31/2017 08:54 [facility] TYPE: Orthopedic DIAGNOSES: - Traumatic arthropathy, left shoulder - 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
== END ==
LOC: ED 19:29
DX: T84.021A Dislocation of internal left hip prosthesis, initial encounter (principal); X58.XXXA Exposure to other specified factors, initial encounter; I10 Essential (primary) hypertension; I50.9 Heart failure, unspecified; E11.9 Type 2 diabetes mellitus without complications; Z87.891 Personal history of nicotine dependence; Z88.6 Allergy status to analgesic agent; Z88.5 Allergy status to narcotic agent; Z88.8 Allergy status to other drugs, medicaments and biological substances; Z79.899 Other long term (current) 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; Z79.891 Long term (current) use of opiate analgesic
CPT/HCPCS: 27250; 73502; 96374; 99152; 99283; J1170; J2704

== ENCOUNTER 2018-03-07 12:06 | Emergency (ER) | payer BC ==
[~2018-03-07] VITALS: Ht 165.1 cm; Wt 71.7 kg
[~2018-03-07 12:06] MED LIST changes: +PYRIDIUM200 MG PO
--- OUTSIDE RECORDS SUMMARY | 2018-03-07 12:10 | XMS ---
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 Care History Medical/Surgical 01/16/2018 [facility] - Patient is currently established with [facility]. If patient is seen in the ED during business hours. Please contact CHWs at [facility]. Care Recommendation: This patient has had 5 or more Emergency Department visits in the last 12 months.\T\nbsp; Patient requires education on the scope and purpose of the ED as an acute care provider not a Primary Care Provider and should not be utilized for chronic conditions.\T\nbsp; These are guidelines and the provider should exercise clinical judgment when providing care. [facility] MO[facility] [address] [place] [address]. TOTAL 5 NOTE: Visits indicate total known visits. ED/UCC VISIT TRACKING (12 MO.) 03/07/2018 12:06 [facility] [place] TYPE: Emergency COMPLAINT: - POST OP PAIN 01/23/2018 12:43 [facility] [place] TYPE: Emergency COMPLAINT: - POSS KIDNEY INFECTION DIAGNOSES: - Hypertensive heart disease with heart failure - Allergy status to sulfonamides status - Allergy status to analgesic agent status - Allergy status to other drugs, medicaments and biological substances status - Type 2 diabetes mellitus without complications - Personal history of nicotine dependence - Allergy status to narcotic agent status - Other custodial (current) 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 - Dysuria - Heart failure, unspecified - Other symptoms and signs involving the genitourinary system 01/15/2018 19:29 [facility] [place] TYPE: Emergency COMPLAINT: - HIP PAIN DIAGNOSES: - Type 2 diabetes mellitus without complications - Other buttermaker continuous churn (current) 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 - Allergy status to other drugs, medicaments and biological substances status - Dislocation of internal left hip prosthesis, initial encounter - Dislocation of internal left hip prosthesis, initial encounter - residential (current) use of opiate analgesic - Essential (primary) hypertension - Allergy status to analgesic agent status - Heart failure, unspecified - Exposure to other specified factors, initial encounter - Personal history of nicotine dependence - Allergy status to narcotic agent status 01/13/2018 06:35 [facility] TYPE: Emergency DIAGNOSES: - Hip Injury - [...] Allergy status to sulfonamides status - Other buttermaker continuous churn (current) 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 - Personal history of nicotine dependence - Heart failure, unspecified - Pain in left hip INPATIENT VISIT TRACKING (12 MO.) 02/02/2018 15:30 [facility] TYPE: Surgery 01/14/2018 05:19 [facility] TYPE: Neuro Surgery DIAGNOSES: - (Idiopathic) normal pressure hydrocephalus 12/29/2017 17:30 [facility] TYPE: Orthopedic DIAGNOSES: - L hip fracture [facility] DIAGNOSES: - Traumatic arthropathy, left shoulder - 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
[2018-03-07] MEDS ORDERED: HYDROMORPHONE HC2 MG PO (14:38)
== END 2018-03-07 16:06 | disposition home or self-care (01) ==
LOC: ED 12:06
PROC: 0SWBXJZ Revision of Synthetic Substitute in Left Hip Joint, External Approach (ICD-10-PCS; principal; 2018-03-07)
DX: T84.021A Dislocation of internal left hip prosthesis, initial encounter (principal); R60.0 Localized edema; E11.9 Type 2 diabetes mellitus without complications; I11.0 Hypertensive heart disease with heart failure; I50.9 Heart failure, unspecified; N19 Unspecified kidney failure; G43.909 Migraine, unspecified, not intractable, without status migrainosus; Z87.891 Personal history of nicotine dependence; Z90.710 Acquired absence of both cervix and uterus; Z96.642 Presence of left artificial hip joint; Z88.6 Allergy status to analgesic agent; Z88.2 Allergy status to sulfonamides; Z88.5 Allergy status to narcotic agent; Z88.8 Allergy status to other drugs, medicaments and biological substances; Z79.899 Other long term (current) 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; W19.XXXA Unspecified fall, initial encounter
CPT/HCPCS: 27265; 71045; 72170; 73502; 80053; 83880; 84484; 85025; 96374; 96375; 96376; 99152; 99283-25; J2060; J2270; J2405; J2704

== ENCOUNTER 2018-07-10 16:47 | Emergency (ER) | payer BC ==
[~2018-07-10] VITALS: Ht 165.1 cm; Wt 72.6 kg
--- OUTSIDE RECORDS SUMMARY | ~2018-07-10 | XMS | Clinical Summary ---
Demographics + + + | Address | [address] | | | [place] [phone] | + + + | Home Phone | | + + + | Preferred Language | Unknown | + + + | Marital Status | | + + + | Evangelical Affiliation | [id number] | + + + | Race | Unknown | + + + | Ethnic Group | Unknown | + + + Author + + + | Author | [facility] | + + + | Organization | [facility] | + + + | Address | Unknown | + + + | Phone | Unavailable | + + + Support + + + + + | Name | Relationship | Address | Phone | + + + + + | Josef Patino M.D. | ECON | [address] | | | | | [place] | | | | | [phone] | | + + + + + | Briseida Pedroza | ECON | [place] | | | | | [phone] | | + + + + + Care Team Providers + +------+ + | Care Seo Consultant Name | Role | Phone | + [...] | [employer] | ODS | [id number] | | | | | | HEALTH [...] | Self [birth year] | Home: | [address] | | | al/Fam | | [phone] | [phone] [place] | | | don | | | [phone] | [phone] | + +--------+ +--------+ + +
--- OUTSIDE RECORDS SUMMARY | ~2018-07-10 | XMS | Clinical Summary ---
Demographics + + + | Address | [address] | | | [place] [address] | + + + | Home Phone | | + + + | Preferred Language | Unknown | + + + | Marital Status | | + + + | Zoroastrianism Affiliation | Unknown | + + + | Race | Unknown | + + + | Ethnic Group | Unknown | + + + Author + + + | Author | [facility] | | | and [place] | + + + | Organization | [facility] | | | and [place] | + + + | Address | Unknown | + + + | Phone | Unavailable | + + + Support + + + + + | Name | Relationship | Address | Phone | + + + + + | Natasha Patino J | ECON | [address] | | | [place] | | [place] | | | | | [address] | | + + + + + | Danita Smart | ECON | Unknown | | + + + + + | Briseida Pedroza | ECON | Unknown | | + + + + + Care Team Providers + +------+ + | Care Electromechanical Engineer Name | Role | Phone | + +------+ + | Jayson Walton MD | PP | | + +------+ + Allergies + + + + + + | Active Allergy | Reactions | Severity | Noted | Comments | | | | | Date | | + + + + + + | Aspirin | | | | | + + + + + + | Codeine Sulfate | | | 07/02/19 | | | | | | 12 | | + + + + + + | Nsaids | | | | | + + + + + + | Propoxyphene | | | | | + + + + + + | Statins | | | 02/20 | | | | | | 16 | | + + + + + + | Sulfa Antibiotics | | | | | + + + + + + Medications + + + +---------+------+------+-------+ | Medication | Sig | Dispensed | Refills | Star | End | Statu | | | | | | t | Date | s | | | | | | Date | | | + + + +---------+------+------+-------+ | [place]-3 Fatty | Take 2 tablets by | | 0 | | | Activ | | Acids (OMEGA 3 PO) | mouth 2 times daily. | | | | | e | + + + +---------+------+------+-------+ | pramipexole | Take 0.25 mg by | | 0 | | | Activ | | (MIRAPEX) 0.25 mg | mouth nightly. | | | | | e | | tabletIndications: | | | | | | | | Chronic kidney | | | | | | | | disease, stage III | | | | | | | | (moderate) (HCC), | | | | | | | | Unspecified | | | | | | | | hypertensive kidney | | | | | | | | disease with chronic | | | | | | | | kidney disease | | | | | | | | stage I through | | | | | | | | stage IV, or | | | | | | | | unspecified(403.90), | | | | | | | | Other and | | | | | | | | unspecified | | | | | | | | hyperlipidemia, Type | | | | | | | | 2 diabetes mellitus | | | | | | | | with diabetic | | | | | | | | chronic kidney | | | | | | | | disease (HCC) | | | | | | | + + + +---------+------+------+-------+ | rizatriptan | Take 1 tablet by | 30 | 0 | 04/ | | Activ | | (MAXALT) 10 mg | mouth as needed | tablet | | 3/20 | | e | | tabletIndications: | (migraines.). May | | | 15 | | | | Chronic kidney | repeat in 2 hours if | | | | | | | disease, stage III | needed | | | | | | | (moderate) (HCC), | | | | | | | | Essential | | | | | | | | hypertension, | | | | | | | | Combined | | | | | | | | hyperlipidemia, | | | | | | | | Chronic pain | | | | | | | | syndrome | | | | | | | + + + +---------+------+------+-------+ | promethazine | Place 1 suppository | 12 | 3 | 08/08 | | Activ | | (PHENERGAN) 25 mg | rectally every 6 | supposito | | 10/27 | | e | | suppositoryIndicatio | hours as needed for | ry | | 18 | | | | ns: Chronic kidney | Nausea. | | | | | | | disease, stage III | | | | | | | | (moderate) (HCC), | | | | | | | | Secondary | | | | | | | | hyperparathyroidism | | | | | | | | of renal origin | | | | | | | | (HCC), Essential | | | | | | | | hypertension, Type 2 | | | | | | | | diabetes mellitus | | | | | | | | with hyperosmolarity | | | | | | | | without coma, | | | | | | | | without long-term | | | | | | | | current use of | | | | | | | | insulin (HCC) | | | | | | | + + + +---------+------+------+-------+ | furosemide (LASIX) | Take 2 tablets by | 180 | 3 | 08/09 | | Activ | | 80 mg | mouth Daily. | tablet | | 09/26 | | e | | tabletIndications: | | | | 18 | | | | Essential | | | | | | | | hypertension, | | | | | | | | Chronic kidney | | | | | | | | disease, stage III | | | | | | | | (moderate) (HCC), | | | | | | | | Type 2 diabetes | | | | | | | | mellitus with | | | | | | | | hyperosmolarity | | | | | | | | without coma, | | | | | | | | without long-term | | | | | | | | current use of | | | | | | | | insulin (HCC), | | | | | | | | Secondary | | | | | | | | hyperparathyroidism | | | | | | | | of renal origin | | | | | | | | (HCC) | | | | | | | + + + +---------+------+------+-------+ | ondansetron | Take 1 tablet by | 30 | 4 | 12/0 | | Activ | | (ZOFRAN) 8 MG tablet | mouth every 8 hours | tablet | | 3/20 | | e | | | as needed for | | | 18 | | | | | Nausea. | | | | | | + + + +---------+------+------+-------+ | DULoxetine | Take 20 mg by mouth | | 0 | | | Activ | | (CYMBALTA) [address] | Daily. | | | | | e | | capsuleIndications: | | | | | | | | Chronic kidney | | | | | | | | disease, stage III | | | | | | | | (moderate) (HCC), | | | | | | | | Essential | | | | | | | | hypertension with | | | | | | | | goal blood pressure | | | | | | | | less than 140/90, | | | | | | | | Combined | | | | | | | | hyperlipidemia | | | | | | | + + + +---------+------+------+-------+ | allopurinol | Take 3 tablets by | 30 | 0 | 03/0 | | Activ | | (ZYLOPRIM) 100 mg | mouth Daily. | tablet | | 4/20 | | e | | tabletIndications: | | | | 19 | | | | Chronic kidney | | | | | | | | disease, stage III | | | | | | | | (moderate) (HCC), | | | | | | | | Essential | | | | | | | | hypertension with | | | | | | | | goal blood pressure | | | | | | | | less than 140/90, | | | | | | | | Combined | | | | | | | | hyperlipidemia | | | | | | | + + + +---------+------+------+-------+ | NIFEdipine (ADALAT | Take 30 mg by mouth | | 0 | | | Activ | | CC) 30 mg 24 hr | Daily. | | | | | e | | tablet | | | | | | | + + + +---------+------+------+-------+ | buPROPion | Take 200 mg by mouth | | 0 | 10/0 | 04/2 | Disco | | (WELLBUTRIN SR) 200 | 2 times daily. | | | 07/27 | 9/20 | ntinu | | MG 12 hr tablet | | | | 12 | 19 | ed | + + + +---------+------+------+-------+ | liraglutide | Inject 1.2 mg under | | 0 | | 04/2 | Disco | | (VICTOZA) 18 mg/3 mL | the skin Daily. | | | | /20 | ntinu | | | | | | | 19 | ed | | injectionIndications | | | | | | | | : Chronic kidney | | | | | | | | disease, stage III | | | | | | | | (moderate) (HCC), | | | | | | | | Essential | | | | | | | | hypertension, Type 2 | | | | | | | | diabetes mellitus | | | | | | | | with stage 3 chronic | | | | | | | | kidney disease, | | | | | | | | without long-term | | | | | | | | current use of | | | | | | | | insulin (HCC), S/P | | | | | | | | shoulder surgery | | | | | | | + + + +---------+------+------+-------+ Active Problems + + + | Problem | Noted Date | + + + | Secondary hyperparathyroidism of renal origin | 08/25/2017 | + + + | Combined hyperlipidemia | 06/28/2014 | + + + | Chronic pain syndrome | 06/28/2014 | + + + | Acute kidney failure with lesion of tubular necrosis | 03/15/2014 | + + + | Chronic pancreatitis | 11/15/2013 | + + + | Foot ulceration | 08/24/2012 | + + + | Nausea with vomiting | 07/19/2011 | + + + + + | Overview: Early satiety. On Domperidone. | + + + + + | Hypokalemia | 07/02/2011 | + + + + + | Overview: On potassium supplementation 20meq per day. | + + + +---+ | HYPERTENSION | | + +---+ | CHRONIC KIDNEY DISEASE STAGE III (MODERATE) | | + +---+ + + | Overview: Likely due to diabetic nephropathy and hypertensive | | nephrosclerosis. Renal ultrasound (06/20/11): R 10.0cm, L 9.3cm | + + + +---+ | DM type 2 (diabetes mellitus, type 2) | | + +---+ + + | Overview: On Metformin. | + + + +---+ | Depression | | + +---+ | Restless leg syndrome | | + +---+ | History of tobacco use | | + +---+ | Osteopenia | | + +---+ Resolved Problems + + + + | Problem | Noted | Resolved | | | Date | Date | + + + + | Other and unspecified hyperlipidemia | 03/15/19 | | | | 15 | 5 | + + + + | Unspecified hypertensive kidney disease with chronic kidney | 08/25/19 | | | disease stage I through stage IV, or unspecified(403.90) | 13 | 5 | + + + + | UTI (urinary tract infection) | 08/01/19 | | | | 12 | 2 | + + + + + + | Overview: PLRU [id number] Decision | + + + + + + | ABDOMINAL PAIN-EPIGASTRIC | 07/19/19 | | | | 12 | 2 | + + + + | Anemia | | | | | | 2 | + + + + | Hypomagnesemia | | | | | | 2 | + + + + Encounters +--------+ + + + + | Date | Type | Specialty | Care Team | Description | +--------+ + + + + | 07/07/ | Abstract | | Deysi Martel | | | 2018 | | | M, DO | | +--------+ + + + + | 07/06/ | Off-Site | | Deysi Martel | CHRONIC KIDNEY | | 2018 | Visit | | M, DO | DISEASE STAGE III | | | | | | (MODERATE) (Primary | | | | | | Dx); Essential | | | | | | hypertension; Edema | | | | | | due to hypervolemia; | | | | | | Chronic pain | | | | | | syndrome | +--------+ + + + + | 07/02/ | Telephone | | Deysi Martel | Edema | | 2018 | | | M, DO | | +--------+ + + + + | 06/29/ | Telephone | | Deysi Martel | Edema | | 2018 | | | M, DO | | +--------+ + + + + | 05/11/ | Off-Site | | Deysi Martel | CHRONIC KIDNEY | | 2018 | Visit | | M, DO | DISEASE STAGE III | | | | | | (MODERATE); | | | | | | Essential | | | | | | hypertension with | | | | | | goal blood pressure | | | | | | less than 140/90; | | | | | | Combined | | | | | | hyperlipidemia | +--------+ + + + + from Last 3 Months Family History + + + + + | Medical History | Relation | Name | Comments | + + + + + | Diabetes | Brother | | | + + + + + | Rheum arthritis | Father | | | + + + + + | Kidney disease | Maternal | | | | | Grandmoth | | | | | er | | | + + + + + | Osteoporosis | Mother | | | + + + + + | Heart disease | Other | Family | | | | | history: | | + + + + + | Stroke | Paternal | | | | | Uncle | | | + + + + + + + + + + | Relation | Name | Status | Comments | + + + + + | Brother | | Alive | | + + + + + | Father | | | possible pneumonia | | | | (Age | | | | | 77) | | + + + + + | Maternal Grandmother | | | | + + + + + | Mother | | | | | | | (Age | | | | | 50) | | + + + + + | Other | Family | Alive | | | | history: | | | + + + + + | Paternal Uncle | | | | + + + + + Social History + [...] recent travel history available. | + + Last Filed Vital Signs + + + + | Vital Sign | Reading | Time Taken | + + + + | Blood Pressure | 142/80 | 07/06/20181655 PDT | + + + + | Pulse | 73 | 05/17/20131034 PDT | + + + + | Temperature | 36.4 C (97.6 F) | 07/06/20181655 PDT | + + + + | Respiratory Rate | 16 | 05/17/20131034 PDT | + + + + | Oxygen Saturation | 97% | 05/17/2013 1035 PDT | + + + + | Inhaled Oxygen | - | - | | Concentration | | | + + + + | Weight | 73.6 kg (162 lb 4.1 | 07/06/2018 1656 PDT | | | oz) | | + + + + | Height | 167.6 cm (5' 6") | 05/17/2013827 PDT | + + + + | Body Mass Index | 26.19 | 05/17/2013827 PDT | + + + + Plan of Treatment +--------+ + + + + | Date | Type | Specialty | Care Team | Description | +--------+ + + + + | 08/31/ | Off-Site | | Deysi Martel | | | 2018 | Visit | | DO [address] | | | | | | [address] | | | | | | [place] | | | | | | [id number] | | | | | | | | +--------+ + + + + + + + + + | Health Maintenance | Due Date | Last Done | Comments | + + + + + | Hepatitis C | | | | | Screening | 6 | | | + + + + + | Diabetic Eye Exam | | | | | | 4 | | | + + + + + | Diabetic Foot Exam | | | | | | 4 | | | + + + + + | Vaccine: | | | | | Dtap/Tdap/Td (1 - | 5 | | | | Tdap) | | | | + + + + + | Vaccine: | | | | | Pneumococcal 19-64 | 5 | | | | (PPSV23 only) Medium | | | | | Risk (1 of 1 - | | | | | PPSV23) | | | | + + + + + | Breast Cancer | | | | | Screening (Ages | 6 | | | | 50-74) | | | | + + + + + | Colorectal Cancer | | | | | Screening | 6 | | | | (Colonoscopy) | | | | + + + + + | Vaccine: Zoster (1 | | | | | of 2) | 6 | | | + + + + + | Hemoglobin A1c | | 04/20/2017, 11/07/2016, | | | Screening | 8 | 05/02/2016, Additional history | | | | | exists | | + + + + + | Vaccine: Influenza | | | | | (Season Ended) | 9 | | | + + + + + Procedures + +--------+ + + + | Procedure Name | Priori | Date/Time | Associated Diagnosis | Comments | | | ty | | | | + +--------+ + + + | EXTERNAL LAB: | Routin | 07/03/2018 | | Results for this | | PROTEIN/CREATININE | e | | | procedure are in the | | RATIO | | | | results section. | + +--------+ + + + | EXTERNAL LAB: | Routin | 07/03/2018 | | Results for this | | PROTEIN/CREATININE | e | | | procedure are in the | | RATIO | | | | results section. | + +--------+ + + + | EXTERNAL LAB: EGFR | Routin | 07/03/2018 | | Results for this | | | e | | | procedure are in the | | | | | | results section. | + +--------+ + + + | EXTERNAL LAB: CBC | Routin | 07/03/2018 | | Results for this | | | e | | | procedure are in the | | | | | | results section. | + +--------+ + + + | EXTERNAL LAB: | Routin | 07/03/2018 | | Results for this | | PHOSPHORUS | e | | | procedure are in the | | | | | | results section. | + +--------+ + + + | EXTERNAL LAB: | Routin | 07/03/2018 | | Results for this | | CALCIUM | e | | | procedure are in the | | | | | | results section. | + +--------+ + + + | EXTERNAL LAB: | Routin | 07/03/2018 | | Results for this | | GLUCOSE | e | | | procedure are in the | | | | | | results section. | + +--------+ + + + | EXTERNAL LAB: | Routin | 07/03/2018 | | Results for this | | CREATININE | e | | | procedure are in the | | | | | | results section. | + +--------+ + + + | EXTERNAL LAB: BUN | Routin | 07/03/2018 | | Results for this | | | e | | | procedure are in the | | | | | | results section. | + +--------+ + + + | EXTERNAL LAB: CARBON | Routin | 07/03/2018 | | Results for this | | DIOXIDE | e | | | procedure are in the | | | | | | results section. | + +--------+ + + + | EXTERNAL LAB: | Routin | 07/03/2018 | | Results for this | | CHLORIDE | e | | | procedure are in the | | | | | | results section. | + +--------+ + + + | EXTERNAL LAB: | Routin | 07/03/2018 | | Results for this | | POTASSIUM | e | | | procedure are in the | | | | | | results section. | + +--------+ + + + | EXTERNAL LAB: SODIUM | Routin | 07/03/2018 | | Results for this | | [...] section. | + +--------+ + + + from Last 3 Months Results External Lab: BUN (07/03/2018) + +-------+ + + + | Component | Value | Ref Range | Performed | Pathologist | | | | | At | Signature | + +-------+ + + + | BUN, | 28 | | | | | External | | | | | + +-------+ + + + + + | Specimen | + + | | + + External Lab: Glucose (07/03/2018) + +-------+ + + + | Component | Value | Ref Range | Performed | Pathologist | | | | | At | Signature | + +-------+ + + + | Glucose, | 108 | | | | | External | | | | | + +-------+ + + + + + | Specimen | + + | | + + External Lab: Phosphorus (07/03/2018) + +-------+ + + + | Component | Value | Ref Range | Performed | Pathologist | | | | | At | Signature | + +-------+ + + + | Phosphorus, | 4.3 | | | | | External | | | | | + +-------+ + + + + + | Specimen | + + | | + + External Lab: Calcium (07/03/2018) + +-------+ + + + | Component | Value | Ref Range | Performed | Pathologist | | | | | At | Signature | + +-------+ + + + | Calcium, | 9.8 | | | | | External | | | | | + +-------+ + + + + + | Specimen | + + | | + + External Lab: Carbon Dioxide (07/03/2018) + +-------+ + + + | Component | Value | Ref Range | Performed | Pathologist | | | | | At | Signature | + +-------+ + + + | Carbon | 31 | | | | | Dioxide, | | | | | | External | | | | | + +-------+ + + + + + | Specimen | + + | | + + External Lab: Chloride (07/03/2018) + +-------+ + + + | Component | Value | Ref Range | Performed | Pathologist | | | | | At | Signature | + +-------+ + + + | Chloride, | 96 | | | | | External | | | | | + +-------+ + + + + + | Specimen | + + | | + + External Lab: Potassium (07/03/2018) + +-------+ + + + | Component | Value | Ref Range | Performed | Pathologist | | | | | At | Signature | + +-------+ + + + | Potassium, | 3.7 | | | | | External | | | | | + +-------+ + + + + + | Specimen | + + | | + + External Lab: Sodium (07/03/2018) + +-------+ + + + | Component | Value | Ref Range | Performed | Pathologist | | | | | At | Signature | + +-------+ + + + | Sodium, | 138 | | | | | External | | | | | + +-------+ + + + + + | Specimen | + + | | + + External Lab: Protein/Creatinine Ratio (07/03/2018)Only the most recent of 2 results within the time period is included. + + + + + + | Component | Value | Ref Range | Performed | Pathologist | | | | | At | Signature | + + + + + + | Protein/Cre | <4Comment: To low to | mg/dl | | | | atinine | perform. | | | | | Ratio, | | | | | | External | | | | | + + + + + + + + | Specimen | + + | | + + External Lab: CBC (07/03/2018) + +-------+ + + + | Component | Value | Ref Range | Performed | Pathologist | | | | | At | Signature | + +-------+ + + + | WBC, | 12.1 | | | | | External | | | | | + +-------+ + + + | HGB, | 10.9 | | | | | External | | | | | + +-------+ + + + | HCT, | 35.1 | | | | | External | | | | | + +-------+ + + + | PLT, | 648 | K/ul | | | | External | | | | | + +-------+ + + + + + | Specimen | + + | | + + External Lab: eGFR (07/03/2018) + +-------+ + + + | Component | Value | Ref Range | Performed | Pathologist | | | | | At | Signature | + +-------+ + + + | eGFR, | 37 | ml /min. | | | | External | | | | | + +-------+ + + + | eGFR, | | | | | | | | | | | | [place], | | | | | | External | | | | | + +-------+ + + + + + | Specimen | + + | Blood | + + External Lab: Creatinine (07/03/2018) + +-------+ + + + | Component | Value | Ref Range | Performed | Pathologist | | | | | At | Signature | + +-------+ + + + | Creatinine, | 1.43 | | | | | External | | | | | + +-------+ + + + + + | Specimen | + + | Blood | + + LABS - EXTERNAL SCAN (05/05/2018 0:00 PST) + + + | Narrative | Performed At | + + + | Ordered by an | | | unspecified provider. | | + + + from Last 3 Months Insurance +-------+--------+ +--------+-------+---------+------+ | Payer | Benefi | Subscriber | Effect | Phone | Address | Type | | | t Plan | ID | nicole | | | | | | / | | Dates | | | | | | Group | | | | | | +-------+--------+ +--------+-------+---------+------+ | BCBS | BCBS | [id number] | 03/10/19 | | | PPO | | | OOS | 5 | 18-Pre | | | | | | PPO | | sent | | | | +-------+--------+ +--------+-------+---------+------+ + +--------+ +--------+ + + | Guarantor Name | Accoun | Relation to | Date | Phone | Billing Address | | | t Type | Patient | of | | | | | | | | | | + +--------+ +--------+ + + | Beverly Smart | Person | Self | [birth year] | [address] | | | al/Fam | | 1956 | [phone] | [place] [address] | | | don | | | 3 (Home) | | + +--------+ +--------+ + + Advance Directives Patient has advance care planning documents on file. For more information, please contact:[facility] [place] [address]
--- OUTSIDE RECORDS SUMMARY | ~2018-07-10 | XMS | Encounter Summary ---
Demographics + + + | Address | [address] | | | [place] [address] | + + + | Home Phone | | + + + | Preferred Language | Unknown | + + + | Marital Status | | + + + | Zoroastrian Affiliation | Unknown | + + + | Race | Unknown | + + + | Ethnic Group | Unknown | + + + Author + + + | Author | [facility] | | | and [place] | + + + | Organization | [facility] | | | and [place] | + + + | Address | Unknown | + + + | Phone | Unavailable | + + + Support + + + + + | Name | Relationship | Address | Phone | + + + + + | Natasha Patino J | ECON | [address] | | | [place] | | [place] | | | | | [address] | | + + + + + | Danita Smart | ECON | Unknown | | + + + + + | Briseida Pedroza | ECON | Unknown | | + + + + + Care Team Providers + +------+ + | [facility] Winder Name | Role | Phone | + +------+ + | Jayson Walton MD | PCP | | + +------+ + Encounter Details +--------+ + + + + | Date | Type | Department | Care Team | Description | +--------+ + + + + | 07/07/ | Abstract | [facility] | Deysi Martel | | | 2019 | | NEPHROLOGY [address] | M, DO [address] | | | | | [address] [facility] [address] | [place], [facility] [address] | | | | | [place], [place] | [place] | | | | | [address] | [address] | | | | | [phone] | | | +--------+ + + + [...] 2018 | Visit | | DO Mega [address] [place] [address] | | | | | | [address] | | | | | | [place] | | | | | | [address] | | | | | | | | +--------+ + + + + documented as of this encounter Visit Diagnoses Not on filedocumented in this encounter"
--- OUTSIDE RECORDS SUMMARY | ~2018-07-10 | XMS | Encounter Summary ---
Demographics + + + | Address | [address] | | | [place] [address] | + + + | Home Phone | | + + + | Preferred Language | Unknown | + + + | Marital Status | | + + + | Orthodoxy Affiliation | Unknown | + + + | Race | Unknown | + + + | Ethnic Group | Unknown | + + + Author + + + | Author | [facility] | | | and [place] | + + + | Organization | [facility] | | | and [place] | + + + | Address | Unknown | + + + | Phone | Unavailable | + + + Support + + + + + | Name | Relationship | Address | Phone | + + + + + | Natasha Patino J | ECON | [address] | | | [place] | | [place] | | | | | [address] | | + + + + + | Danita Smart | ECON | Unknown | | + + + + + | Briseida Pedroza | ECON | Unknown | | + + + + + Care Team Providers + +------+ + | Care Installer Name | Role | Phone | + [...] + + | 06/29/ | Telephone | [facility] | Deysi Martel | Edema | | 2019 | | NEPHROLOGY [address] | M, DO [address] | | | | | [address] [facility] [address] | [place], [facility] [address] | | | | | [place], [place] | [place], [place] | | | | | [address] | [address] | | | | | [phone] | | | +--------+ + + + [...] 2019 | Visit | | DO Mega [address] [place] [address] | | | | | | [address] | | | | | | [place] | | | | | | [phone] | | | | | | | | +--------+ + + + + documented as of this encounter Visit Diagnoses Not on filedocumented in this encounter"
--- OUTSIDE RECORDS SUMMARY | ~2018-07-10 | XMS | Clinical Summary ---
Demographics + + + | Address | [address] | | | [place] [address] | + + + | Home Phone [...] [place] | | | | | [address] | | + + + + + Care Team Providers + +------+ + | Care Service Desk Agent Name | Role | Phone | + +------+ + PP | Unavailable | + +------+ + Source Comments GAYATRI is fully live on both [facility] and [facility] InPatient.[facility] Allergies + + + + + + [...] | PACIFI | xxxxxxxxxxx | PPO | [phone] [facility] [address] | | | [address] | | | [phone] | [place], [place] | | | E | | | | [phone] | + +--------+ +------+ + + + +--------+ +--------+ + + | Guarantor Name | Accoun | Relation to | Date | Phone | Billing Address | | | t Type | Patient | of | | | | | | | | | | + +--------+ +--------+ + + | BEVERLY ETIENNE | Person | Self | [birth year] | Home: | [address] | | | al/Fam | | 1956 | [phone] | [place] [address] | | | don | | | [phone] | | + +--------+ +--------+ + +
--- OUTSIDE RECORDS SUMMARY | ~2018-07-10 | XMS | Encounter Summary ---
Demographics + + + | Address | [address] | | | [place] [address] | + + + | Home Phone | | + + + | Preferred Language | Unknown | + + + | Marital Status | | + + + | Moravian Affiliation | Unknown | + + + | Race | Unknown | + + + | Ethnic Group | Unknown | + + + Author + + + | Author | [facility] | | | and [place] | + + + | Organization | [facility] | | | and [place] | + + + | Address | Unknown | + + + | Phone | Unavailable | + + + Support + + + + + | Name | Relationship | Address | Phone | + + + + + | Natasha Patino J | ECON | [address] | | | [place] | | [place] | | | | | [address] | | + + + + + | Danita Smart | ECON | Unknown | | + + + + + | Briseida Pedroza | ECON | Unknown | | + + + + + Care Team Providers + +------+ + | Care Finish Grinder Name | Role | Phone | + [...] kidney | Shereen Carrington NP | [address] | | | | | disease, | [address] | [place] | | | | | stage 3 | [address] | 100 [facility] | | | | | (moderate) | [facility], | [facility], [place] | | | | | (HCC) | [place] [address] | [address] Phone: | | | | | Hypertension | Phone: | [phone] | | | | | Acute | [phone] | Fax: | | | | | kidney | Fax: | [phone] | | | | | failure with | [phone] | | | | | | lesion of | | | | | | | tubular | | | | | | | necrosis | | | | | | | (HCC) | | | | | | | Procedures | | | | | | | [place] OFFICE | | | | | | [...] NEPHROLOGY [address] | M, DO [address] | DISEASE STAGE III | | | | [address] | [place], [place] [address] | (MODERATE); | | | | [place], [place] | [place] | Essential | | | | [address] | [address] | hypertension with | | | | [phone] | | goal blood pressure | | [...] an ORIF of the left shoulder at [facility], on , which went well. She also underwent a minimally invasive laminectomy, L4-L5, 06/20/2017. She denies increased edema, SOB, nausea, anorexia or hiccups. 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 Additionally, she sustained a left femoral [...] tablets by mouth Daily. 180 tablet 3 [place]-3 Fatty Acids (OMEGA 3 PO) Take 2 [...] 12. 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 [...] Beverly and her Caregiver, to avoid NSAID's nursing home ,which could comp romise renal blood flow and acutely worsen her GFR. 4. Will plan to see her back in 5 months at the CKD Clinic at [place], [place]. She will have a CBC, CMP, PO4, HbA1c, iPTH, Vitamin D level, lipid profile, and spot Urine Pro/ Cr ratio one week prior to that. : MD Ricky Herrera MD, MD, [facility] documented in this e ncounter Plan of Treatment +--------+ + + + + | Date | Type | Specialty | Care Team | Description | +--------+ + + + + | 08/31/ | Off-Site | Nephrology | Deysi Martel | | | 2018 | Visit | | DO Mega [address] [place] [address] | | | | | | [place] [facility] 100 | | | | | | [place] | | | | | | [phone] | | | | | | | [...]
--- OUTSIDE RECORDS SUMMARY | ~2018-07-10 | XMS | Encounter Summary ---
Demographics + + + | Address | [address] | | | [place] [address] | + + + | Home Phone | | + + + | Preferred Language | Unknown | + + + | Marital Status | | + + + | Pentecostal Affiliation | Unknown | + + + | Race | Unknown | + + + | Ethnic Group | Unknown | + + + Author + + + | Author | [facility] | | | and [place] | + + + | Organization | [facility] | | | and [place] | + + + | Address | Unknown | + + + | Phone | Unavailable | + + + Support + + + + + | Name | Relationship | Address | Phone | + + + + + | Natasha Patino J | ECON | [address] | | | [place] | | [place] | | | | | [address] | | + + + + + | Danita Smart | ECON | Unknown | | + + + + + | Briseida Pedroza | ECON | Unknown | | + + + + + Care Team Providers + +------+ + | Care Certified Meeting Professional Name | Role | Phone | + [...] NEPHROLOGY [address] | M, DO [address] | | | | | [address] [facility] 100 | [place], [facility] 100 | | | | | [place], [place] | [place] | | | | | [address] | [address] | | | | | [phone] | | | +--------+ + + + [...] 2018 | Visit | | DO Mega [address] [place] [address] | | | | | | [place] [facility] | | | | | | [place] | | | | | | [address] | | | | | | | | +--------+ + + + + documented as of this encounter Visit Diagnoses Not on filedocumented in this encounter"
--- OUTSIDE RECORDS SUMMARY | ~2018-07-10 | XMS | Encounter Summary ---
Demographics + + + | Address | [address] | | | [place] [address] | + + + | Home Phone | | + + + | Preferred Language | Unknown | + + + | Marital Status | | + + + | Mormonism Affiliation | Unknown | + + + | Race | Unknown | + + + | Ethnic Group | Unknown | + + + Author + + + | Author | [facility] | | | and [place] | + + + | Organization | [facility] | | | and [place] | + + + | Address | Unknown | + + + | Phone | Unavailable | + + + Support + + + + + | Name | Relationship | Address | Phone | + + + + + | Natasha Patino J | ECON | [address] | | | [place] | | [place] | | | | | [address] | | + + + + + | Danita Smart | ECON | Unknown | | + + + + + | Briseida Pedroza | ECON | Unknown | | + + + + + Care Team Providers + +------+ + | Care Strategic Debriefing Officer Name | Role | Phone | + [...] kidney | Shereen Joe NP | [address] | | | | | disease, | [address] | [place] | | | | | stage 3 | [address] | 100 [facility] | | | | | (moderate) | [facility], | [facility], [place] | | | | | (HCC) | [place] [address] | [address] Phone: | | | | | Hypertension | Phone: | [phone] | | | | | Acute | [phone] | Fax: | | | | | kidney | Fax: | [phone] | | | | | failure with | [phone] | | | | | | lesion of | | | | | | | tubular | | | | | | | necrosis | | | | | | | (HCC) | | | | | | | Procedures | | | | | | | [place] OFFICE | | | | | | [...] | | [address] | [place], [place] [address] | (MODERATE) (Primary | | | | [place], [place] | [place], [place] | Dx); Essential | | | | [address] | [address] | hypertension; Edema | | | | [phone] | | due to hypervolemia; | | [...] 07/06/2018 14:00 PDTat the CKD Clinic at [place], [place]. documented in this encounter Progress Notes [...] her left hip " prosthesis per her survey field technician, Georgie. Beverly is disappointed as she wan ts to be more active. Denies GODDARD, hiccups, or nausea. She states that she underwent an ORIF of the left shoulder at [facility], on . . She also underwent a minimally invasive laminectomy, L4-L5, 06/20/2017. She denies i ncreased edema, SOB, nausea, anorexia or hiccups. 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 A dditionally, she sustained a left [...] tablet Take 30 mg by mouth Daily. [place]-3 Fatty Acids (OMEGA 3 PO) Take 2 [...] 07/03/2018 MGEX 2.3 10/21/2015 PTHEX 46.13 03/30/2018 IUL0OZW 5.1 04/20/2017 Lab Results Component Value Date [...] 10. Osteoporosis-- on Vitamin D. 11. s/p ASSEMBLER CORNCOB PIPES shunt, 01/14/2018-- improved clinically. Plan: 1. I [...] 2 months at the CKD Clinic at [place], [place]. She w ill have a CBC, CMP, PO4, Mg++, spot Urine Pro/Cr ratio one week prior to that. : MD Ricky Herrera MD, MD, [facility] documented in this e ncounter Plan of Treatment +--------+ + + + + | Date | Type | Specialty | Care Team | Description | +--------+ + + + + | 08/31/ | Off-Site | Nephrology | Deysi Martel | | | 2018 | Visit | | M, DO [address] | | | | | | [place] [address] | | | | | | [place] | | | | | | [address] | | | | | | | [...] | | | | | | | Macedonian, | | | | | | External [...]
--- OUTSIDE RECORDS SUMMARY | ~2018-07-10 | XMS | Encounter Summary ---
Demographics + + + | Address | [address] | | | [place] [address] | + + + | Home Phone | | + + + | Preferred Language | Unknown | + + + | Marital Status | | + + + | Sabianist Affiliation | Unknown | + + + | Race | Unknown | + + + | Ethnic Group | Unknown | + + + Author + + + | Author | [facility] | | | and [place] | + + + | Organization | [facility] | | | and [place] | + + + | Address | Unknown | + + + | Phone | Unavailable | + + + Support + + + + + | Name | Relationship | Address | Phone | + + + + + | Natasha Patino J | ECON | [address] | | | [place] | | [place] | | | | | [address] | | + + + + + | Danita Smart | ECON | Unknown | | + + + + + | Briseida Pedroza | ECON | Unknown | | + + + + + Care Team Providers + +------+ + | Care System Technologist Name | Role | Phone | [...] kidney | Shereen Joe NP | [address] | | | | | disease, | [address] | [place] | | | | | stage 3 | [address] | 100 [facility] | | | | | (moderate) | [facility], | [facility], [place] | | | | | (HCC) | [place] [address] | [address] Phone: | | | | | Hypertension | Phone: | [phone] | | | | | Acute | [phone] | Fax: | | | | | kidney | Fax: | [phone] | | | | | failure with | [phone] | | | | | | lesion of | | | | | | | tubular | | | | | | | necrosis | | | | | | | (HCC) | | | | | | | Procedures | | | | | | | CT OFFICE | | | | | | [...] | | [address] | [place], [place] [address] | (MODERATE) (Primary | | | | [place], [place] | [place], [place] | Dx); Essential | | | | [address] | [address] | hypertension; Edema | | | | [phone] | | due to hypervolemia; | | [...] 07/06/2018 14:00 PDTat the CKD Clinic at [place], [place]. documented in this encounter Progress Notes [...] her left hip " prosthesis per her histology tech, Georgie. Beverly is disappointed as she wan ts to be more active. Denies GODDARD, hiccups, or nausea. She states that she underwent an ORIF of the left shoulder at [facility], on . . She also underwent a minimally invasive laminectomy, L4-L5, 06/20/2017. She denies i ncreased edema, SOB, nausea, anorexia or hiccups. 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 A dditionally, she sustained a left [...] tablet Take 30 mg by mouth Daily. [place]-3 Fatty Acids (OMEGA 3 PO) Take 2 [...] 07/03/2018 MGEX 2.3 10/21/2015 PTHEX 46.13 03/30/2018 NNR6TEB 5.1 04/20/2017 Lab Results Component Value Date [...] 10. Osteoporosis-- on Vitamin D. 11. s/p GARMENT CUTTER shunt, 01/14/2018-- improved clinically. Plan: 1. I [...] 2 months at the CKD Clinic at [place], [place]. She w ill have a CBC, CMP, PO4, Mg++, spot Urine Pro/Cr ratio one week prior to that. : MD Ricky Herrera MD, MD, [facility] documented in this e ncounter Plan of Treatment +--------+ + + + + | Date | Type | Specialty | Care Team | Description | +--------+ + + + + | 08/31/ | Off-Site | Nephrology | Deysi Martel | | | 2018 | Visit | | M, DO [address] | | | | | | [place] [address] | | | | | | [place] | | | | | | [address] | | | | | | | [...] | | | | | | | [place]ic, | | | | | | External [...]
--- OUTSIDE RECORDS SUMMARY | ~2018-07-10 | XMS | Encounter Summary ---
Demographics + + + | Address | [address] | | | [place] [address] | + + + | Home Phone | | + + + | Preferred Language | Unknown | + + + | Marital Status | | + + + | Orthodox Affiliation | Unknown | + + + | Race | Unknown | + + + | Ethnic Group | Unknown | + + + Author + + + | Author | [facility] | | | and [place] | + + + | Organization | [facility] | | | and [place] | + + + | Address | Unknown | + + + | Phone | Unavailable | + + + Support + + + + + | Name | Relationship | Address | Phone | + + + + + | Natasha Patino J | ECON | [address] | | | [place] | | [place] | | | | | [address] | | + + + + + | Danita Smart | ECON | Unknown | | + + + + + | Briseida Pedroza | ECON | Unknown | | + + + + + Care Team Providers + +------+ + | Care Wood Flooring Specialist Name | Role | Phone | [...] + + | 07/02/ | Telephone | [facility] | Deysi Martel | [place] | | 2019 | | NEPHROLOGY [address] | M, DO [address] [place] | | | | | [address] [facility] 100 | [place], [facility] 100 | | | | | [place], [place] | [place], [place] | | | | | [address] | [address] | | | | | [phone] | | | +--------+ + + + [...] | Visit | | DO Mega [address] [place] | | | | | | [place], [address] | | | | | | [place] | | | | | | [id number] | | | | | | | [...]
--- OUTSIDE RECORDS SUMMARY | ~2018-07-10 | XMS | Encounter Summary ---
Demographics + + + | Address | [address] | | | [place] [address] | + + + | Home Phone | | + + + | Preferred Language | Unknown | + + + | Marital Status | | + + + | Jehovah'S Witness Affiliation | Unknown | + + + | Race | Unknown | + + + | Ethnic Group | Unknown | + + + Author + + + | Author | [facility] | | | and [place] | + + + | Organization | [facility] | | | and [place] | + + + | Address | Unknown | + + + | Phone | Unavailable | + + + Support + + + + + | Name | Relationship | Address | Phone | + + + + + | Natasha Patino J | ECON | [address] | | | [place] | | [place] | | | | | [address] | | + + + + + | Danita Smart | ECON | Unknown | | + + + + + | Briseida Pedroza | ECON | Unknown | | + + + + + Care Team Providers + +------+ + | Care Livestock Haulier Name | Role | Phone | + [...] + + | 07/02/ | Telephone | [facility] | Deysi Martel | [place] | | 2019 | | NEPHROLOGY [address] | M, DO [address] [place] | | | | | [address] [facility] | [place], [facility] 100 | | | | | [place], [place] | [place], [place] | | | | | [address] | [address] | | | | | [phone] | | | +--------+ + + + [...] | Visit | | DO Mega [address] [place] | | | | | | [place], [address] | | | | | | [place] | | | | | | [phone] | | | | | | | [...]
--- OUTSIDE RECORDS SUMMARY | ~2018-07-10 | XMS | Clinical Summary ---
Demographics + + + | Address | [address] | | | [place] [address] | + + + | Home Phone | | + + + | Preferred Language | Unknown | + + + | Marital Status | | + + + | Sabianism Affiliation | 1013 | + + + | Race | Unknown | + + + | Ethnic Group | Unknown | + + + Author + + + | Author | [facility] | + + + | Organization | [facility] | + + + | Address | Unknown | + + + | Phone | Unavailable | + + + Support + + + + + | Name | Relationship | Address | Phone | + + + + + | Josef Patino M.D. | ECON | [address] | | | | | [place] | | | | | [address] | | + + + + + | Briseida Pedroza | ECON | [place] | | | | | [address] | | + + + + + Care Team Providers + +------+ + | Care Poultry Killer Name | Role | Phone | + [...] | [employer] | ODS | [id number] | | | | | | HEALTH [...] | Self | [birth year] | Home: | [address] | | | al/Fam | | 1955 | [phone] [place] | | | [place] | | | [address] | [address] | + +--------+ +--------+ + +
--- OUTSIDE RECORDS SUMMARY | ~2018-07-10 | XMS | Clinical Summary ---
Demographics + + + | Address | [address] | | | [place] [address] | + + + | Home Phone | | + + + | Preferred Language | Unknown | + + + | Marital Status | | + + + | Amish Affiliation | Unknown | + + + | Race | Unknown | + + + | Ethnic Group | Unknown | + + + Author + + + | Author | [facility] | | | and [place] | + + + | Organization | [facility] | | | and [place] | + + + | Address | Unknown | + + + | Phone | Unavailable | + + + Support + + + + + | Name | Relationship | Address | Phone | + + + + + | Natasha Patino J | ECON | [address] | | | [place] | | [place] | | | | | [address] | | + + + + + | Danita Smart | ECON | Unknown | | + + + + + | Briseida Pedroza | ECON | Unknown | | + + + + + Care Team Providers + +------+ + | Care Therapy Coordinator Name | Role | Phone | [...] | | + + + +---------+------+------+-------+ | [place]-3 Fatty | Take 2 tablets by | [...] + + + + | Overview: PLRU [id number] Decision | + + + + + [...] | Visit | | DO Mega [address] [place] | | | | | | [place] [address] | | | | | | [place] | | | | | | [address] | | | | | | | [...] | | | | | | | [place], | | | | | | External [...] +-------+--------+ +--------+-------+---------+------+ | BCBS | BCBS | [id number] | 03/10/19 | | | PPO | [...] Person | Self | [birth year] | [address] | | | al/Fam | | 1956 | [phone] | [place] [address] | | | don | | | 3 (Home) | | + +--------+ +--------+ + + Advance Directives Patient has advance care planning documents on file. For more information, please contact:[facility] [place] [address]
--- OUTSIDE RECORDS SUMMARY | ~2018-07-10 | XMS | Encounter Summary ---
Demographics + + + | Address | [address] | | | [place] [address] | + + + | Home Phone | | + + + | Preferred Language | Unknown | + + + | Marital Status | | + + + | Voodoo Affiliation | Unknown | + + + | Race | Unknown | + + + | Ethnic Group | Unknown | + + + Author + + + | Author | [facility] | | | and [place] | + + + | Organization | [facility] | | | and [place] | + + + | Address | Unknown | + + + | Phone | Unavailable | + + + Support + + + + + | Name | Relationship | Address | Phone | + + + + + | Natasha Patino J | ECON | [address] | | | [place] | | [place] | | | | | [address] | | + + + + + | Danita Smart | ECON | Unknown | | + + + + + | Briseida Pedroza | ECON | Unknown | | + + + + + Care Team Providers + +------+ + | Care Autobody Technician Name | Role | Phone | [...] + + | 06/29/ | Telephone | [facility] | Deysi Martel | [place] | | 2019 | | NEPHROLOGY [address] | M, DO [address] [place] | | | | | [address] [facility] 100 | [place], [facility] 100 | | | | | [place], [place] | [place], [place] | | | | | [address] | [address] | | | | | [phone] | | | +--------+ + + + [...] 2019 | Visit | | DO Mega [address] [place] [address] | | | | | | [place] 100 | | | | | | [place] | | | | | | [phone] | | | | | | | | +--------+ + + + + documented as of this encounter Visit Diagnoses Not on filedocumented in this encounter"
--- OUTSIDE RECORDS SUMMARY | ~2018-07-10 | XMS | Encounter Summary ---
Demographics + + + | Address | [address] | | | [place] [address] | + + + | Home Phone | | + + + | Preferred Language | Unknown | + + + | Marital Status | | + + + | Confucianist Affiliation | Unknown | + + + | Race | Unknown | + + + | Ethnic Group | Unknown | + + + Author + + + | Author | [facility] | | | and [place] | + + + | Organization | [facility] | | | and [place] | + + + | Address | Unknown | + + + | Phone | Unavailable | + + + Support + + + + + | Name | Relationship | Address | Phone | + + + + + | Natasha Patino J | ECON | [address] | | | [place] | | [place] | | | | | [address] | | + + + + + | Danita Smart | ECON | Unknown | | + + + + + | Briseida Pedroza | ECON | Unknown | | + + + + + Care Team Providers + +------+ + | Care Aluminum Pourer Name | Role | Phone | + [...] kidney | Shereen Carrington NP | [address] | | | | | disease, | [address] | [place] | | | | | stage 3 | [address] | 100 [facility] | | | | | (moderate) | [facility], | [facility], [place] | | | | | (HCC) | [place] [address] | [address] Phone: | | | | | Hypertension | Phone: | [phone] | | | | | Acute | [phone] | Fax: | | | | | kidney | Fax: | [phone] | | | | | failure with | [phone] | | | | | | lesion [...] NEPHROLOGY [address] | M, DO [address] | DISEASE STAGE III | | | | [address] | [place], [place] [address] | (MODERATE); | | | | [place], [place] | [place] | Essential | | | | [address] | [address] | hypertension with | | | | [phone] | | goal blood pressure | | [...] an ORIF [facility] left shoulder at [facility], on , which went well. She also underwent a minimally invasive laminectomy, L4-L5, 06/20/2017. She denies increased edema, SOB, nausea, anorexia or hiccups. 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 Additionally, she sustained a left femoral [...] tablets by mouth Daily. 180 tablet 3 [place]-3 Fatty Acids (OMEGA 3 PO) Take 2 [...] 12. Dementia 2 to idiopathic NPH, s/p CLOCK REPAIRER shunt, 01/14/2018-- improved clinically and by Hx? Plan: 1. I reviewed with Beverly and her RN, Caregiver, that her GFR is relatively stable for now . 2. It would be ideal to target her senior care BP goal < 130/80 mmHg. She will begin a home BP log and bring it with her at next visit, or when seen by her PCP, Dr. [place]. She may require an additional agent if her readings are not consistently at t his goal? 3. I reiterated with Beverly and her Caregiver, to avoid NSAID's senior care ,which could comp romise renal blood flow and acutely worsen her GFR. 4. Will plan to see her back in 5 months at the CKD Clinic at [place], [place]. She will have a CBC, CMP, PO4, HbA1c, iPTH, Vitamin D level, lipid profile, and spot Urine Pro/ Cr ratio one week prior to that. : MD Ricky Herrera MD, MD, [facility] documented in this e ncounter Plan of Treatment +--------+ + + + + | Date | Type | Specialty | Care Team | Description | +--------+ + + + + | 08/31/ | Off-Site | Nephrology | Deysi Martel | | | 2018 | Visit | | DO Mega [address] [place] [address] | | | | | | [facility] 100 | | | | | | [place] | | | | | | [id number] | | | | | | | [...]
--- OUTSIDE RECORDS SUMMARY | ~2018-07-10 | XMS | Clinical Summary ---
Demographics + + + | Address | [address] | | | [place] [address] | + + + | Home Phone [...] [place] | | | | | [address] | | + + + + + Care Team Providers + +------+ + | Care Melt Supervisor Name | Role | Phone | + +------+ + PP | Unavailable | + +------+ + Source Comments GAYATRI is fully live on both [facility] Ambulatory and [facility] InPatient.[facility] Allergies + + + + [...] | PACIFI | [phone] | PPO | [phone] | [facility] [address] | | | [address] | | | [address] | [place], [place] | | | E | | | | [address] | + +--------+ +------+ + + + +--------+ +--------+ + + | Guarantor Name | Accoun | Relation to | Date | Phone | Billing Address | | | t Type | Patient | of | | | | | | | | | | + +--------+ +--------+ + + | BEVERLY ETIENNE | Person | Self | [birth year] | Home: | [address] | | | al/Fam | | 1956 | [phone] | [place] [address] | | | don | | | [phone] | | + +--------+ +--------+ + +
[~2018-07-10 16:47] MED LIST changes: +HYDROMORPHONE HC2 MG PO
--- OUTSIDE RECORDS SUMMARY | 2018-07-10 16:50 | XMS ---
PreManage Notification: TEREZA ETIENNE Security Regulator Tester Events No recent Security Events currently on file CRITERIA MET - [facility] Guidelines - [facility] CARE PROVIDERS [facility]Current PHONE: Unknown Les Watkins MD Primary Care Current PHONE: [phone] KRIS BRITTON Primary Care Current PHONE: Unknown [place] MATHEWS Primary Care [facility] PHONE: Unknown or_carlos Case or Spot Billing Clerk Current PHONE: Unknown Wandy has no Care Guidelines for this patient. Care History Medical/Surgical 01/16/2018 [facility] - Patient is currently established with [facility]. If patient is seen in the ED during business hours. Please contact CHWs at [facility]. Care Recommendation: This patient has had [...] care. E.D. VISIT COUNT (12 MO.) [address] TOTAL 6 NOTE: Visits indicate total known visits. ED/UCC VISIT TRACKING (12 MO.) 07/10/2018 16:48 [facility] [place] TYPE: Emergency COMPLAINT: - LEG SWELLING 03/07/2018 12:06 [facility] [place] TYPE: Emergency COMPLAINT: - POST OP PAIN DIAGNOSES: - Presence of left artificial hip joint - Dislocation of internal left hip prosthesis, initial encounter - Allergy status to analgesic agent status - Pain in left hip - Localized edema - Unspecified kidney failure - Migraine, unspecified, not intractable, without status migrainosus - Unspecified fall, initial encounter - Heart failure, unspecified - Hypertensive heart disease with heart failure - Other care home (current) 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 - Allergy status to other drugs, medicaments and biological substances status - Type 2 diabetes mellitus without complications - Personal history of nicotine dependence - Allergy status to sulfonamides status - Allergy status to narcotic agent status - Acquired absence of both cervix and uterus 01/23/2018 12:43 [facility] [place] TYPE: Emergency [...] status to narcotic agent status - Other care home (current) 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 - Dysuria - Heart failure, unspecified - Other symptoms and signs involving the genitourinary system 01/15/2018 19:29 [facility] TYPE: Emergency COMPLAINT: - HIP PAIN DIAGNOSES: - Type 2 diabetes mellitus without complications - 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) 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 - Allergy status to other drugs, medicaments and biological substances status - Dislocation of internal left hip prosthesis, initial encounter - Dislocation of internal left hip prosthesis, initial encounter - [facility] (current) use of opiate analgesic - Essential (primary) hypertension - Allergy status to analgesic agent status - Heart failure, unspecified - Exposure to other specified factors, initial encounter - Personal history of nicotine dependence - Allergy status to narcotic agent status 01/13/2018 06:35 [facility] TYPE: Emergency DIAGNOSES: - Hip Injury [...] Allergy status to sulfonamides status - 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
[2018-07-10] MEDS ORDERED: TRAMADOL HCL50 MG PO (20:01)
== END 2018-07-10 20:26 | disposition home or self-care (01) ==
LOC: ED 16:47
DX: R60.0 Localized edema (principal); E11.9 Type 2 diabetes mellitus without complications; I11.0 Hypertensive heart disease with heart failure; I50.9 Heart failure, unspecified; N19 Unspecified kidney failure; Z87.891 Personal history of nicotine dependence; Z90.710 Acquired absence of both cervix and uterus; Z88.6 Allergy status to analgesic agent; Z88.2 Allergy status to sulfonamides; Z88.5 Allergy status to narcotic agent; Z79.899 Other long term (current) 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
CPT/HCPCS: 80053; 81001; 85025; 96374; 99284-25

== ENCOUNTER 2018-07-26 18:24 | Emergency (ER) | payer BC ==
[~2018-07-26] VITALS: Ht 165.1 cm; Wt 70.3 kg
--- OUTSIDE RECORDS SUMMARY | ~2018-07-26 | XMS | Encounter Summary ---
Demographics + + + | Address | [address] | | | [place] [address] | + + + | Home Phone | | + + + | Preferred Language | Unknown | + + + | Marital Status | | + + + | Restorationism Affiliation | CHR | + + + | Race | White | + + + | Ethnic Group | Not or | + + + Author + + + | Author | [facility] | + + + | Organization | [facility] | + + + | Address | Unknown | + + + | Phone | Unavailable | + + + Support + + + + + | Name | Relationship | Address | Phone | + + + + + | Favio Smart | [address] | [place] | | | | | [address] | | + + + + + Care Team Providers + +------+ + | Care Fabric Worker Fitter Name | Role | Phone | + +------+ + | Riana Ko PA-C | PCP | | + +------+ + Encounter Details +--------+ + + + + | Date | Type | Department | Care Team | Description | +--------+ + + + + | 03/05/ | Results | Registration [id number] | | | | 1995 | Only | [address] | | | | | | [facility] Mailcode: | | | | | | [address] [place], [place] | | | | | | [address] | | | | | | [phone] | | | +--------+ + + + + Social History + +-------+ +--------+------+ | Tobacco Use | Types | Packs/Day | Years | Date | | | | | Used | | + +-------+ +--------+------+ | Never Assessed | | | | | + +-------+ +--------+------+ + + + | Sex Assigned at | Date Recorded | | | | + + + | Not on file | | + + + + + + + | Job Start Date | Occupation | Industry | + + + + | Not on file | Not on file | Not on file | + + + + + + + + | Travel History | Travel Start | Travel End | + + + + + + | No recent travel history available. | + + documented as of this encounter Plan of Treatment Not on filedocumented as of this encounter Procedures + +--------+ + + + | Procedure Name | Priori | Date/Time | Associated Diagnosis | Comments | | | ty | | | | + +--------+ + + + | MICROBIOLOGY TESTS 1 | Routin | 03/05/1996 | | Results for this | | | e | 8:35 AM | | procedure are in the | | | | PST | | results section. | + +--------+ + + + | MICROBIOLOGY TESTS 1 | Routin | 03/05/1996 | | Results for this | | | e | 8:35 AM | | procedure are in the | | | | PST | | results section. | + +--------+ + + + | SURGICAL PATHOLOGY | Routin | 03/05/1996 | | Results for this | | | e | | | procedure are in the | | | | | | results section. | + +--------+ + + + documented in this encounter Results MICROBIOLOGY TESTS 1 (03/05/1996 8:35 AM PST) + + + + + + | Component | Value | Ref Range | Performed | Pathologist | | | | | At | Signature | + + + + + + | CULTURE | Calcflr Wh Stain NO | | | | | RESULT | FUNGAL ELEMENTS | | | | | | SEENDiagnosis | | | | | | SINUSITISTest | | | | | | Ordered | | | | | | FUNGUS CULTUREOrdering | | | | | | Loc SSUSpec | | | | | | Set Up Date | | | | | | 03/05Spec Set Up | | | | | | Time 10:33Specimen | | | | | | Type SWABSpec | | | | | | imen | | | | | | Type LEFT | | | | | | MAXILLARY SINUSReport | | | | | | Status FINALP | | | | | | relim | | | | | | Result NO | | | | | | GROWTH TO DATECulture | | | | | | Result NO FUNGUS | | | | | | ISOLATED IN 4 WEEKSDate | | | | | | Of Final Re | | | | | | [id number] Culture | | | | | | # | | | | | | [id number] | | | | + + + + + + + + | Specimen | + + | | + + + + + + + | Performing | Address | City/State/Zipcode | Phone Number | | Organization | | | | + + + + + | [facility] | [address] | [place] [address] | | | PATHOLOGY | [address] | | | + + + + + MICROBIOLOGY TESTS 1 (03/05/1996 8:35 AM PST) + + + + + + | Component | Value | Ref Range | Performed | Pathologist | | | | | At | Signature | + + + + + + | CULTURE | Gram | | | | | RESULT | Smear:OrgA NO | | | | | | ORGANISMS | | | | | | SEEN | | | | | | WBC 1+Diagnos | | | | | | is SI | | | | | | NUSITISTest | | | | | | Ordered | | | | | | EXUDATE CULTUREOrdering | | | | | | Loc SSUSpec | | | | | | Set Up Date | | | | | | 03/05Spec Set Up | | | | | | Time 10:33Specimen | | | | | | Type SWABSpec | | | | | | imen | | | | | | Type LEFT | | | | | | MAXILLARY SINUSReport | | | | | | Status FINALC | | | | | | ulture Result | | | | | | GROWTH, SEE | | | | | | ISOLATE(S)Date Of Final | | | | | | Re [id number] | | | | | | ATE 01ISOLATE 01Final | | | | | | Isolate STAPH | | | | | | YLOCOCCUS SPECIES FROM | | | | | | ONE MEDIUM ONLYFinal | | | | | | Isolate FROM | | | | | | ONE MEDIUM ONLYFinal | | | | | | Isolate STAPH | | | | | | YLOCOCCUS COAGULASE | | | | | | NEGATIVE | | | | + + + + + + + + | Specimen | + + | | + + + + + + + | Performing | Address | City/State/Zipcode | Phone Number | | Organization | | | | + + + + + | [facility] | [address] | [place] [address] | | | PATHOLOGY | [address] | | | + + + + + SURGICAL PATHOLOGY (03/05/1996) + + + + + + | Component | Value | Ref Range | Performed | Pathologist | | | | | At | Signature | + + + + + + | SURGICAL | SOURCE OF SPECIMEN: SEE | | [facility] | | | PATHOLOGY | RESULTS | | DEPARTMENT | | | | Preliminary | | OF | | | | History:CLINICAL | | PATHOLOGY | | | | HISTORY Patient | | | | | | Age: [age] year old | | | | | | woman Patient | | | | | | with left axillary sinus | | | | | | fungal infection | | | | | | occurring | | | | | | insporonox. | | | | | | GROSS | | | | | | DESCRIPTION | | | | | | Specimens received: One | | | | | | in formalin #1 | | | | | | LEFT MAXILLARY SINUS | | | | | | CONTENTS: It consists of | | | | | | several fragments oftan | | | | | | to maroon, soft to bony | | | | | | tissue measuring 2 x 2 | | | | | | x 1.5 cm. inaggregate | | | | | | dimension. The specimen | | | | | | is submitted in toto in | | | | | | a singlecassette with | | | | | | decalcification | | | | | | requested. All | | | | | | tissue sections taken | | | | | | are submitted for | | | | | | microscopic | | | | | | evaluation.Dictated by: | | | | | | Ricardo Garcia MS | | | | | | III/dj FINAL | | | | | | DIAGNOSISLEFT MAXILLARY | | | | | | SINUS CONTENTS: MILD | | | | | | CHRONIC SINUSITIS NO | | | | | | FUNGUS NOTED | | | | | | Case reviewed by: Aron | | | | | | Kathryn Collins | | | | | | ModestaT:03/08/96/dj | | | | | | My electronic | | | | | | signature indicates that | | | | | | I have personally | | | | | | reviewed alldiagnostic | | | | | | slides, the gross and/or | | | | | | microscopic portion of | | | | | | thisreport and | | | | | | formulated the final | | | | | | diagnosis. | | | | + + + + + + + + | Specimen | + + | Other | + + + + + + + | Performing | Address | City/State/[facility] | Phone Number | | Organization | | | | + + + + + | [facility] | [address] | [place] [address] | | | PATHOLOGY | [address] | | | + + + + + documented in this encounter Visit Diagnoses Not on filedocumented in this encounter"
--- OUTSIDE RECORDS SUMMARY | ~2018-07-26 | XMS | Encounter Summary ---
Demographics + + + | Address | [address] | | | [place] [address] | + + + | Home Phone | | + + + | Preferred Language | Unknown | + + + | Marital Status | | + + + | Hoahaoism Affiliation | Unknown | + + + | Race | Unknown | + + + | Ethnic Group | Unknown | + + + Author + + + | Author | [facility] | | | and [place] | + + + | Organization | [facility] | | | and [place] | + + + | Address | Unknown | + + + | Phone | Unavailable | + + + Support + + + + + | Name | Relationship | Address | Phone | + + + + + | Natasha Patino J | ECON | [address] | | | [place] | | [place] | | | | | [address] | | + + + + + | Dainta Smart | ECON | Unknown | | + + + + + | Briseida Pedroza | ECON | Unknown | | + + + + + Care Team Providers + +------+ + | Care Ice Skater Name | Role | Phone | + +------+ + | Jayson Walton MD | PCP | | + +------+ + Reason for Visit Evaluate & Treat (Routine) + +--------+ + + + + | Status | Reason | Specialty | Diagnoses / | Referred By | Referred To | | | | | Procedures | Contact | Contact | + +--------+ + + + + | Authorized | | Nephrology | Diagnoses | | Stroemel, | | | | | Chronic | Marianne, | Deysi Ayoub DO | | | | | kidney | Shereen Carrington NP | [address] | | | | | disease, | [address] | [address] | | | | | stage 3 | [address] | [address] [facility] | | | | | (moderate) | [facility], | [facility], [place] | | | | | (HCC) | [place] [address] | [address] Phone: | | | | | Hypertension | Phone: | [phone] | | | | | Acute | [phone] | Fax: | | | | | kidney | Fax: | [phone] | | | | | failure with | [phone] | | | | | | lesion of | | | | | | | tubular | | | | | | | necrosis | | | | | | | (HCC) | | | | | | | Procedures | | | | | | | [place] OFFICE | | | | | | | OUTPATIENT | | | | | | | VISIT 25 | | | | | | | MINUTES | | | + +--------+ + + + + Encounter Details +--------+ + + + + | Date | Type | Department | Care Team | Description | +--------+ + + + + | 05/11/ | Off-Site | [facility] | Deysi Martel | CHRONIC KIDNEY | | 2019 | Visit | NEPHROLOGY [address] | M, DO [address] | DISEASE STAGE III | | | | [address] | [place] | (MODERATE); | | | | [place], [place] | [place] | Essential | | | | [address] | [address] | hypertension with | | | | [phone] | | goal blood pressure | | | | | | less than 140/90; | | | | | | Combined | | | | | | hyperlipidemia | +--------+ + + + + Social History + + + +--------+ + | Tobacco Use | Types | Packs/Day | Years | Date | | | | | Used | | + + + +--------+ + | Former Smoker | Cigarettes | 0.5 | 20 | Quit: 03/10/2005 | + + + +--------+ + + +---+---+---+ | Smokeless Tobacco: | | | | | Never Used | | | | + +---+---+---+ + + +---------+ + | Alcohol Use | Drinks/We | oz/Week | Comments | | | ek | | | + + +---------+ + | No | | | minimal | + + +---------+ + + + + | Sex Assigned at [...] + + documented as of this encounter Last Filed Vital Signs + + + + | Vital Sign | Reading | Time Taken | + + + + | Blood Pressure | 160/80 | 05/11/20181832 PST | + + + + | Pulse | - | - | + + + + | Temperature | 36 C (96.8 F) | 05/11/20181832 PST | + + + + | Respiratory Rate | - | - | + + + + | Oxygen Saturation | - | - | + + + + | Inhaled Oxygen | - | - | | Concentration | | | + + + + | Weight | 67.5 kg (148 lb 13 | 05/11/2018 1833 PST | | | oz) | | + + + + | Height | - | - | + + + + | Body Mass Index | 24.02 | 05/17/2013 0828 PDT | + + + + documented in this encounter Progress Notes Deysi Martel, DO - 05/11/2018 1400 PSTFormatting of this note might be different fro m the original. Subjective: NEPHROLOGY Patient ID: Beverly Smart is a 63 y.o. female. HPI Comments: Followup for this 63 YOWF with Stage 3 CKD, felt 2 to hypertensive nephros clerosis. She also has hypertension, asthma, refactory hyperlipidemia, Type II DM, diabeti c gastroparesis, history of acute pancreatitis, and chronic pain syndrome, with osteoporosis , s/p fx of her left shoulder, Jul, 2014. She states that she underwent an ORIF of the left shoulder at [facility], on , which went well. She also underwent a minimally invasive laminectomy, L4-L5, 06/20/2017. She denies increased edema, SOB, nausea, anorexia or hiccups. 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 Additionally, she sustained a left femoral neck Fx, and underwent an ORIF of th e same, on 12/30/17, prior to the shunt. Apparently, her cognitive function has improved sin ce the shunt placement. Outpatient Prescriptions Marked as Taking for the 05/11/18 encounter (Off-Site Visit) with Sven Martel, DO Medication Sig Dispense Refill allopurinol (ZYLOPRIM) 100 mg tablet Take 3 tablets by mouth Daily. 30 tablet buPROPion (WELLBUTRIN SR) 200 MG 12 hr tablet Take 200 mg by mouth 2 times daily. DULoxetine (CYMBALTA) [address] capsule Take 20 mg by mouth Daily. furosemide (LASIX) 80 mg tablet Take 2 tablets by mouth Daily. 180 tablet 3 [place]-3 Fatty Acids (OMEGA 3 PO) Take 2 tablets by mouth 2 times daily. ondansetron (ZOFRAN) 8 MG tablet Take 1 tablet by mouth every 8 hours as needed for Ryan sea. 30 tablet 4 [DISCONTINUED] pantoprazole (PROTONIX) 40 mg tablet take 1 tablet by mouth every mornin g before BREAKFAST 90 tablet 3 pramipexole (MIRAPEX) 0.25 mg tablet Take 0.25 mg by mouth nightly. promethazine (PHENERGAN) [address] 1 suppository rectally every 6 hours a s needed for Nausea. 12 suppository 3 rizatriptan (MAXALT) 10 mg tablet Take 1 tablet by mouth as needed (migraines.). May re peat in 2 hours if needed 30 tablet PRN Allergies Allergen Reactions Aspirin Codeine Sulfate Nsaids Propoxyphene Statins Sulfa Antibiotics Objective: BP 160/80 | Temp 36 C (96.8 F) | Wt 67.5 kg (148 lb 13 oz) | BMI 24.02 kg/m Heart: Regular rate and rhythm with no S3, S4, murmur or rub. Lungs: CTA in all bal. No rales or wheezes. Abdomen: soft, flat, no guarding, no rebound tenderness, NABS. Extremities: no clubbing, cyanosis, trace edema. No asterixis. LAB, (from 05/05/18): BUN 30, Cr 1.37, eGFR = 39 ml/min., K+ 4.2, HCO3 25, Ca++ 9.8, PO 4 *, GLU 103, Hbaic 5.4% %, Hb 11.0, Hct 35.6%, Vitamin D 25-OH 19, TSH 3.04. Assessment: 1. CKD Stage 3, secondary to diabetic nephropathy/ hypertension--GFR is relatively stable. 2. History of chronic pancreatitis-- clinically in remission. 3. Hypertension-- fair control. 4. Type II DM, controlled with diet-- good control. 5. History of Asthma--stable. 6. History of gastroparesis-- compensated. 7. SHPTH-- stable. 8. Hyperlipidemia-- intolerant to statins. 9. Chronic pain syndrome-- manageable on current regimen. 10. s/p left Total shoulder replacement, 03/31/17-- progressing well. 11. Osteoporosis-- may benefit form Vitamin D Rx? 12. 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 Plan: 1. I reviewed with Beverly and her RN, Caregiver, that her GFR is relatively stable for now . 2. It would be ideal to target her long-term BP goal < 130/80 mmHg. She will begin a home BP log and bring it with her at next visit, or when seen by her PCP, Dr. Walton. She may require an additional agent if her readings are not consistently at t his goal? 3. I reiterated with Beverly and her Caregiver, to avoid NSAID's halfway ,which could comp romise renal blood flow and acutely worsen her GFR. 4. Will plan to see her back in 5 months at the [facility] Clinic at [place], [place]. She will have a CBC, CMP, PO4, HbA1c, iPTH, Vitamin D level, lipid profile, and spot Urine Pro/ Cr ratio one week prior to that. : MD Ricky Herrera MD, MD, [place] [facility] documented in this e ncounter Plan of Treatment +--------+ + + + + | Date | Type | Specialty | Care Team | Description | +--------+ + + + + | 08/31/ | Off-Site | Nephrology | Deysi Martel | | | 2018 | Visit | | DO [facility] [address] [place] [address] | | | | | | [facility] [address] | | | | | | [place] | | | | | | [address] | | | | | | | | +--------+ + + + + documented as of this encounter Procedures + +--------+ + + + | Procedure Name | Priori | Date/Time | Associated Diagnosis | Comments | | | ty | | | | + +--------+ + + + | LABS - EXTERNAL SCAN | | 05/05/2018 | | Results for this | | | | 0:00 PST | | procedure are in the | | | | | | results section. | + +--------+ + + + documented in this encounter Results LABS - EXTERNAL SCAN (05/05/2018 0:00 PST) + + + | Narrative | Performed At | + + + | Ordered by an | | | unspecified provider. | | + + + documented in this encounter Visit Diagnoses + + | Diagnosis | + + | CHRONIC KIDNEY DISEASE STAGE III (MODERATE) Chronic kidney disease, Stage III | | (moderate) | + + | Essential hypertension with goal blood pressure less than 140/90 | + + | Combined hyperlipidemia Mixed hyperlipidemia | + + documented in this encounter"
--- OUTSIDE RECORDS SUMMARY | ~2018-07-26 | XMS | Encounter Summary ---
Demographics + + + | Address | [address] | | | [place] [address] | + + + | Home Phone | | + + + | Preferred Language | Unknown | + + + | Marital Status | | + + + | Restorationism Affiliation | CHR | + + + | Race | White | + + + | Ethnic Group | Not or | + + + Author + + + | Author | [facility] | + + + | Organization | [facility] | + + + | Address | Unknown | + + + | Phone | Unavailable | + + + Support + + + + + | Name | Relationship | Address | Phone | + + + + + | Favio Smart | [address] | [place] | | | | | [address] | | + + + + + Care Team Providers + +------+ + | Care Hotel And Dining Room Cashier Name | Role | Phone | + +------+ + | Riana Ko PA-C | PCP | | + +------+ + Reason for Visit + + + | Reason | Comments | + + + | Refill Request | | + + + Encounter Details +--------+--------+ + + + | Date | Type | Department | Care Team | Description | +--------+--------+ + + + | 11/26/ | Refill | Family Medicine at | Riana Ko, | Refill Request | | 2006 | | [address] | | | | | [address] | [facility] | | | | | Mailcode: NIKIA | [place], [place] | | | | | [facility] | [address] | | | | | [place], [place] | [phone] | | | | | [address] | | | | | | [phone] | | | +--------+--------+ + + + Social History + + + +--------+ + | Tobacco Use | Types | Packs/Day | Years | Date | | | | | Used | | + + + +--------+ + | Former Smoker | Cigarettes | 0.75 | 18 | Quit: 05/08/2006 | + + + +--------+ + + + +---------+ + | Alcohol Use | Drinks/Week | oz/Week | Comments | + + +---------+ + | No | 0 Standard drinks | 0.0 | | | | or equivalent | | | + + +---------+ + + + [...] Not on filedocumented as of this encounter Visit Diagnoses + + | Diagnosis | + + | Allergic rhinitis - Primary Allergic rhinitis, cause unspecified | + + documented in this encounter"
--- OUTSIDE RECORDS SUMMARY | ~2018-07-26 | XMS | Encounter Summary ---
Demographics + + + | Address | [address] | | | [place] [address] | + + + | Home Phone | | + + + | Preferred Language | Unknown | + + + | Marital Status | | + + + | Anabaptism Affiliation | CHR | + + + | Race | White | + + + | Ethnic Group | Not or | + + + Author + + + | Author | [facility] | + + + | Organization | [facility] | + + + | Address | Unknown | + + + | Phone | Unavailable | + + + Support + + + + + | Name | Relationship | Address | Phone | + + + + + | Favio Smart | [place]AINA | [place] | | | | | [address] | | + + + + + Care Team Providers + +------+ + | Care Notching Machine Operator Name | Role | Phone | + +------+ + PCP | Unavailable | + +------+ + Encounter Details +--------+ + + + + | Date | Type | Department | Care Team | Description | +--------+ + + + + | 03/12/ | Office | General Internal | Note, Outpatient | Progress Note | | 1996 | Visit-Trans | Medicine [address] | Clinic | | | | cribed | [address] | | | | | | Road Mailcode: L475 | | | | | | Outpatient Clinic | | | | | | [facility], [address] | | | | | | [place], [place] | | | | | | [address] | | | | | | [phone] | | | +--------+ + + + [...] + + documented as of this encounter Progress Notes Interface, Fire Apparatus Engineer In - 05/17/2006 3:10 AM [facility] CLINIC DATE: 03/12/96 OTOLARYNGOLOGY CLINIC SUBJECTIVE: This patient is status post a left Mars-Drew for 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 She has called several times since then. She has had expected swelling around the lips. She is complaining of numbness of her lip on the left. She says she is able to breathe through her nose. Her major complaint continues to be pain. This patient has had a rather long course of evaluation and treatment for recurrent headaches, facial pain. She lives in [place]. I talked to her yesterday on the telephone at which time she felt that her eye was nearly swollen shut, and she was still spitting up blood clots. OBJECTIVE: On examination today, patient actually looks relatively good. She has no swelling of the lower eyelid. She has some swelling inferiorly right above her left upper lip. The sutures are intact in the vestibule. Her intranasal exam shows some crusting along the inferior turbinate. This is carefully decongested, cocainized, suctioned. The upper and lower windows to the maxillary sinus are examined with a sinuscope. There appears to be minimal blood or mucus within the left maxillary sinus. Her airway actually looks relatively good. ASSESSMENT: Expected postop course. This patient is status post Mars-Drew. She seems to have extremely low threshold for pain. I did not find any fungus, and her results from Pathology so far have been negative for fungus. PLAN: 1. I did write her for Tylox. I gave her #30. I gave her #30 Vicodin. I told her to use the Tylox especially at bedtime, try to start weaning herself off. She has a contract actually with Dr. Long for a maximum of 30 Vicodin a month. We will need to get her back on this as soon as she is recovered from the postop problems. 2. Will have her return here in about two weeks. In the interim, she will continue guaifenesin and increase fluid intake. Dina Reinoso M.D. Sprigger, Otolaryngology/Head and Neck Surgery LH:xavier cc: Kameron Long M.D. Ph.D. Sprigger, Neurology and Otolaryngology LIAN VALLECILLO MD [address] [place] [address] [place] [id number] documented in this encounter Plan of Treatment Not on filedocumented as of this encounter Visit Diagnoses Not on filedocumented in this encounter"
--- OUTSIDE RECORDS SUMMARY | ~2018-07-26 | XMS | Encounter Summary ---
Demographics + + + | Address | [address] | | | [place] [address] | + + + | Home Phone | | + + + | Preferred Language | Unknown | + + + | Marital Status | | + + + | Mosque Affiliation | CHR | + + + | Race | White | + + + | Ethnic Group | Not or | + + + Author + + + | Author | [facility] | + + + | Organization | [facility] | + + + | Address | Unknown | + + + | Phone | Unavailable | + + + Support + + + + + | Name | Relationship | Address | Phone | + + + + + | Favio Smart | [place]A | [place] | | | | | [phone] | | + + + + + Care Team Providers + +------+ + | Care Manufacturing Manager Name | Role | Phone | + [...] Description | +--------+--------+ + + + | 10/30/ | Refill | Family Medicine at | Riana Ko, | Refill Request | | 2006 | | [address] | [address] | | | | | [address] | [facility] | | | | | Mailcode: NIKIA | [place], [place] | | | | | [address] [facility] | [address] | | | | | [place], [place] | [phone] | | | | | [address] | | | | | | [phone] | | | +--------+--------+ + + + [...] + | Diagnosis | + + | Depression - Primary Depressive disorder, not elsewhere classified | + + | Tobacco dependence Tobacco use disorder | + + documented in this encounter"
--- OUTSIDE RECORDS SUMMARY | ~2018-07-26 | XMS | Encounter Summary ---
Demographics + + + | Address | [address] | | | [place] [address] | + + + | Home Phone | | + + + | Preferred Language | Unknown | + + + | Marital Status | | + + + | Religion Affiliation | CHR | + + + | Race | White | + + + | Ethnic Group | Not or | + + + Author + + + | Author | [facility] | + + + | Organization | [facility] | + + + | Address | Unknown | + + + | Phone | Unavailable | + + + Support + + + + + | Name | Relationship | Address | Phone | + + + + + | Favio Smart | [place]A | [place] | | | | | [phone] | | + + + + + Care Team Providers + +------+ + | Care Software Release Manager Name | Role | Phone | + +------+ + PCP | Unavailable | + +------+ + Encounter Details +--------+ + + + + | Date | Type | Department | Care Team | Description | +--------+ + + + + | 03/17/ | Office | General Internal | Note, Outpatient | Progress Note | | 1995 | Visit-Trans | Medicine [address] | Clinic | | | | cribed | [address] | | | | | | Road Mailcode: L475 | | | | | | Outpatient Clinic | | | | | | [facility], [address] | | | | | | [place], [place] | | | | | | [address] | | | | | | [phone] | | | +--------+ + + + [...] as of this encounter Progress Notes Interface, Feedmobile Driver In - 06/12/2006 5:02 AM [place] CLINIC DATE: 03/17/95 OTOLARYNGOLOGY CLINIC SUBJECTIVE: This patient has called several times in the interim. She was seen initially on January 24 and had one return on February 14. Since that time I have talked to her on the phone several times and due to increasing symptoms I have placed her on Vantin, 200 milligrams b.i.d. She was on Prednisone, 15 milligrams a day. She states that she developed another upper respiratory infection (URI) around February 27 and developed exacerbation of the symptoms. The patient sounds extremely symptomatic over the phone with very hyponasal speech. Today she states she has cut her own Prednisone down to 10 milligrams a day because she felt too edgy. She has been using Seldane-D. She again asked for a refill of her pain medicine. PHYSICAL EXAMINATION: She is examined today, decongested, cocainized. The nasal airway is actually relatively widely patent in spite of the fact that she is very hyponasal in her speech. When she was seen last time she had obvious rhinosinusitis with mucopurulent debris. Her lower turbinates were injected with Kenalog. She says that she is not sure it made any difference. Her inferior turbinates are really not obstructive today. She has minimal postnasal drainage. Sinuses and mucosa are certainly more inflamed today, but none of them are totally obstructed. ASSESSMENT AND PLAN: Interesting apparently mucosal abnormality with minimal resistance to infection, sort of diffuse sinusitis in spite of excellent anatomy wide open sinuses. At this point, I strongly recommended that she obtain a Waterpic and I wrote her a prescription for this. I gave her Grossan nasal emerging technologies director tip. I would like the patient to use Floxin, 200 milligrams crushed in the normal saline irrigant at least once a day for her nose. I did refill her Vicodin, I gave her #20 tablets with one refill after that. She will be seeing Dr. Stringer in April. At this point I am quite amazed that the patient actually has not improved significantly for her nasal symptoms on steroids. I think that there is something that we are missing on this patient, but I am not sure what. At this point, we will have her return probably on the day she sees Dr. Stringer. She will call if she has problems prior to that. Dina Reinoso M.D. Bath Tester, Otolaryngology Head and Neck Surgery /[facility] cc: JOSÉ MIGUEL STRINGER MDTOE TRIMMER DEPARTMENT [facility] LIAN VALLECILLO MD [address] [place] [address] [address] [place] [address] documented in this encounter Plan of Treatment Not on filedocumented as of this encounter Visit Diagnoses Not on filedocumented in this encounter"
--- OUTSIDE RECORDS SUMMARY | ~2018-07-26 | XMS | Encounter Summary ---
Demographics + + + | Address | [address] | | | [place] [address] | + + + | Home Phone | | + + + | Preferred Language | Unknown | + + + | Marital Status | | + + + | Temple Affiliation | CHR | + + + | Race | White | + + + | Ethnic Group | Not or | + + + Author + + + | Author | [facility] | + + + | Organization | [facility] | + + + | Address | Unknown | + + + | Phone | Unavailable | + + + Support + + + + + | Name | Relationship | Address | Phone | + + + + + | Favio Smart | [place] | [place] | | | | | [phone] | | + + + + + Care Team Providers + +------+ + | Care Assistant To The Director Name | Role | Phone | + +------+ + | Unknown | PCP | Unavailable | + +------+ + Encounter Details +--------+ + + + + | Date | Type | Department | Care Team | Description | +--------+ + + + + | 05/22/ | Results | NON-[facility] | Tobias Gomez, | | | 2010 | Only | Department | MD | | +--------+ + + + + [...] | + +--------+ + + + | DERMATOPATHOLOGY(CON | Routin | 05/22/2010 | | Results for this | | SULT) | e | | | procedure are in the | | | | | | results section. | + +--------+ + + + documented in this encounter Results DERMATOPATHOLOGY(CONSULT) (05/22/2010) + + + + + + | Component | Value | Ref Range | Performed | Pathologist | | | | | At | Signature | + + + + + + | DERMATOPATH | SOURCE OF SPECIMEN:A | | [facility] | | | (CONSULT) | CONSULTATION | | DERMATOPATH | | | | CLINICAL | | OLOGY | | | | DESCRIPTION:Punch, Lt. | | | | | | calf; Rash persistent | | | | | | for months.1 outside | | | | | | slide and 1 block | | | | | | ([id number]) | | | | | | received. Dear | | | | | | Dr. Gomez: | | | | | | Thank you for | | | | | | asking us to review | | | | | | Beverly Smart's left | | | | | | calf biopsywhich is | | | | | | characterized by a | | | | | | sparse to moderately | | | | | | dense, superficial | | | | | | anddeep, perivascular | | | | | | and interstitial mixed | | | | | | infiltrate. The | | | | | | infiltrateconsists | | | | | | predominantly of | | | | | | neutrophils, many of | | | | | | them with fragmented | | | | | | nuclei,as well as | | | | | | lymphocytes. There | | | | | | are numerous | | | | | | extravasated red | | | | | | cells. Theepidermis | | | | | | is thinned with blurring | | | | | | of the dermal epidermal | | | | | | junction. | | | | | | DIAGNOSIS:SUPERFICIAL | | | | | | AND DEEP NEUTROPHILIC | | | | | | DERMATITIS WITH | | | | | | LEUKOCYTOCLASIS | | | | | | ANDEXTRAVASATED RED | | | | | | CELLS SUSPICIOUS FOR | | | | | | LEUKOCYTOCLASTIC | | | | | | VASCULITIS. The | | | | | | prominent | | | | | | leukocytoclasis and | | | | | | extravasated red cells | | | | | | are suspicious | | | | | | forleukocytoclastic | | | | | | vasculitis, despite the | | | | | | absence of fibrin | | | | | | deposition.Occasionally, | | | | | | urticaria may be | | | | | | characterized by | | | | | | leukocytoclasis | | | | | | althoughthe extravasated | | | | | | red cells are less | | | | | | characteristic. Arthr | | | | | | opod bitereaction is | | | | | | unlikely, with clinical | | | | | | correlation | | | | | | necessary. Thank | | | | | | you for referring this | | | | | | consultation.1 slide and | | | | | | 1 block ([id number]) | | | | | | returned to | | | | | | Jason. | | | | | | CRW:06/05/10 My | | | | | | electronic signature | | | | | | indicates that I have | | | | | | personally reviewed | | | | | | alldiagnostic slides, | | | | | | the gross and/or | | | | | | microscopic portion of | | | | | | thisreport and | | | | | | formulated the final | | | | | | diagnosis. | | | | | | Rendering | | | | | | Diagnostician: Clifto | | | | | | n Nina Felder Jr., | | | | | | M.CatyPathologistElectroni | | | | | | leisa Signed | | | | | | 06/05/2010 4:50PM | | | | + + + + + + + + | Specimen | + + | | + + + + + + + | Performing | Address | City/State/Zipcode | Phone Number | | Organization | | | | + + + + + | [facility] | [address], [address] | [place] [address] | | | DERMATOPATHOLOGY | [address] | | | + + + + + documented in this encounter Visit Diagnoses Not on filedocumented in this encounter"
--- OUTSIDE RECORDS SUMMARY | ~2018-07-26 | XMS | Encounter Summary ---
Demographics + + + | Address | [address] | | | [place] [address] | + + + | Home Phone | | + + + | Preferred Language | Unknown | + + + | Marital Status | | + + + | Sabianism Affiliation | CHR | + + + | Race | White | + + + | Ethnic Group | Not or | + + + Author + + + | Author | [facility] | + + + | Organization | [facility] | + + + | Address | Unknown | + + + | Phone | Unavailable | + + + Support + + + + + | Name | Relationship | Address | Phone | + + + + + | Favio Smart | [place] | [place] | | | | | [address] | | + + + + + Care Team Providers + +------+ + | Care Review Trainer Name | Role | Phone | + +------+ + PCP | Unavailable | + +------+ + Encounter Details +--------+ + + + + | Date | Type | Department | Care Team | Description | +--------+ + + + + | 06/10/ | Office | General Internal | Note, Outpatient | Progress Note | | 1995 | Visit-Trans | Medicine [address] | Clinic | | | | cribed | [address] | | | | | | Road Mailcode: L475 | | | | | | Outpatient Clinic | | | | | | [facility], [address] | | | | | | [place], [place] | | | | | | [address] | | | | | | [phone] | | | +--------+ + + + [...] as of this encounter Progress Notes Interface, Ordering Machine Operator In - 05/16/2006 6:56 AM [facility] CLINIC DATE: 06/11/95 OTOLARYNGOLOGY CLINIC SUBJECTIVE: The patient is seen as a pre-op evaluation for uvuloplasty, removal of nasopharyngeal cyst, possible inferior turbinoplasty. She has a long history of nasal obstruction, surprisingly, she has a hyponasal voice even when her sinus nasal airway look good. 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 She did have a scar in the nasopharynx as well as a left-sided nasopharyngeal cyst. IMPRESSION: PAR is discussed, permit is obtained. The patient is having a severe migraine today. It occurred on the drive up here. She is from [facility]. She was given Demerol, 50 mg, Vistaril, 25 mg, IM. Her paperwork is completed. She is not sent to the [facility]. Her brother comes by to pick her up. If she is having no other problems, we would like her to return in the morning. Her vital signs were stable while she was here. ADDENDUM: Surgery was performed on 06/12/95. The patient did have a uvuloplasty. The patient did have quite a long palate uvula. Nasopharyngeal cyst revealed a thick mucoid material that was yellow but not cloudy and a scar band was removed as well. Turbinates had almost a rebound effect from our decongestant. There they were injected with Kenalog diluted 40 mg per cc and also out-fractured. The patient had an uneventful recovery and was discharged home the same day. She is to return to my clinic in about 7-10 days. Dina Reinoso M.D. Hat And Cap Opener, Otolaryngology Head and Neck Surgery LH:kaylan cc: LIAN VALLECILLO MD [address] [place] [address] [address] [place] [address] JOSÉ MIGUEL STRINGER MD ALLERGY AND IMMUNOLOGY [facility] documented in this encounter Plan of Treatment Not on filedocumented as of this encounter Visit Diagnoses Not on filedocumented in this encounter"
--- OUTSIDE RECORDS SUMMARY | ~2018-07-26 | XMS | Encounter Summary ---
Demographics + + + | Address | [address] | | | [place] [address] | + + + | Home Phone | | + + + | Preferred Language | Unknown | + + + | Marital Status | | + + + | Bahai Affiliation | CHR | + + + | Race | White | + + + | Ethnic Group | Not or | + + + Author + + + | Author | [facility] | + + + | Organization | [facility] | + + + | Address | Unknown | + + + | Phone | Unavailable | + + + Support + + + + + | Name | Relationship | Address | Phone | + + + + + | Favio Smart | [place]A | [place] | | | | | [address] | | + + + + + Care Team Providers + +------+ + | Care Emergency Detail Driver Name | Role | Phone | + [...] Description | +--------+--------+ + + + | 11/22/ | Refill | Family Medicine at | Sosa Bhakta, | Refill Request | | 2006 | | [address] | Flaquito Gonzalez MD | | | | | Charly Fallon | | | | | | Mailcode: NIKIA | | | | | | [facility] | | | | | | [place], [place] | | | | | | [address] | | | | | | [phone] | | | +--------+--------+ + + + [...] + | Diagnosis | + + | Migraine - Primary Migraine, unspecified, without mention of intractable migraine | | without mention of status migrainosus | + + documented in this encounter"
--- OUTSIDE RECORDS SUMMARY | ~2018-07-26 | XMS | Encounter Summary ---
Demographics + + + | Address | [address] | | | [place] [address] | + + + | Home Phone | | + + + | Preferred Language | Unknown | + + + | Marital Status | | + + + | Faith Affiliation | Unknown | + + + | Race | Unknown | + + + | Ethnic Group | Unknown | + + + Author + + + | Author | [facility] | | | and [place] | + + + | Organization | [facility] | | | and [place] | + + + | Address | Unknown | + + + | Phone | Unavailable | + + + Support + + + + + | Name | Relationship | Address | Phone | + + + + + | Natasha Patino J | ECON | [address] | | | [place] | | [place] | | | | | [address] | | + + + + + | Danita Smart | ECON | Unknown | | + + + + + | Briseida Pedroza | ECON | Unknown | | + + + + + Care Team Providers + +------+ + | Care Performance Improvement Coordinator Name | Role | Phone | + +------+ + | Jayson Walton MD | PCP | | + +------+ + Reason for Visit +--------+ + | Reason | Comments | +--------+ + | Edema | | +--------+ + Encounter Details +--------+ + + + + | Date | Type | Department | Care Team | Description | +--------+ + + + + | 06/29/ | Telephone | [facility] | Deysi Martel | Edema | | 2019 | | NEPHROLOGY [address] | M, DO [address] | | | | | [facility] [address] | [place] [address] | | | | | [place], [place] | [place], [place] | | | | | [address] | [address] | | | | | [phone] | | | +--------+ + + + [...] as of this encounter Plan of Treatment +--------+ + + + + | Date | Type | Specialty | Care Team | Description | +--------+ + + + + | 08/31/ | Off-Site | Nephrology | Deysi Martel | | | 2019 | Visit | | DO [facility] [address] [place] [address] | | | | | | [address] | | | | | | [place] | | | | | | [phone] | | | | | | | | +--------+ + + + + documented as of this encounter Visit Diagnoses Not on filedocumented in this encounter"
--- OUTSIDE RECORDS SUMMARY | ~2018-07-26 | XMS | Encounter Summary ---
Demographics + + + | Address | [address] | | | [place] [address] | + + + | Home Phone | | + + + | Preferred Language | Unknown | + + + | Marital Status | | + + + | Advent Affiliation | CHR | + + + | Race | White | + + + | Ethnic Group | Not or | + + + Author + + + | Author | [facility] | + + + | Organization | [facility] | + + + | Address | Unknown | + + + | Phone | Unavailable | + + + Support + + + + + | Name | Relationship | Address | Phone | + + + + + | Favio Smart | [address] | [place] | | | | | [address] | | + + + + + Care Team Providers + +------+ + | Care Telephone Interviewer Name | Role | Phone | + +------+ + | Riana Ko PA-C | PCP | | + +------+ + Encounter Details +--------+ + + + + | Date | Type | Department | Care Team | Description | +--------+ + + + + | 11/12/ | Results | Registration [id number] | | | | 1994 | Only | [facility] [place] | | | | | | [facility] Mailcode: | | | | | | [address] [place], [place] | | | | | | [address] | | | | | | [phone] | | | +--------+ + + + [...] | + +--------+ + + + | PULMONARY FUNCTION | Routin | 11/12/1994 | | Results for this | | TESTS | e | 4:51 PM | | procedure are in the | | | | PDT | | results section. | + +--------+ + + + | CHEMISTRY TESTS 4 | Routin | 11/12/1994 | | Results for this | | | e | 12:28 PM | | procedure are in the | | | | PDT | | results section. | + +--------+ + + + | CBC TESTS 2 | Routin | 11/12/1994 | | Results for this | | | e | 12:28 PM | | procedure are in the | | | | PDT | | results section. | + +--------+ + + + | CHEMISTRY TESTS 2 | Routin | 11/12/1994 | | Results for this | | | e | 12:28 PM | | procedure are in the | | | | PDT | | results section. | + +--------+ + + + | IMMUNOLOGY TESTS 1 | Routin | 11/12/1994 | | Results for this | | | e | 12:28 PM | | procedure are in the | | | | PDT | | results section. | + +--------+ + + + | MISCELLANEOUS | Routin | 11/12/1994 | | Results for this | | CHEMISTRY TESTS | e | 12:28 PM | | procedure are in the | | | | PDT | | results section. | + +--------+ + + + | MISCELLANEOUS | Routin | 11/12/1994 | | Results for this | | HEMATOLOGY TESTS | e | 12:28 PM | | procedure are in the | | | | PDT | | results section. | + +--------+ + + + documented in this encounter Results PULMONARY FUNCTION TESTS (11/12/1994 4:51 PM PDT) + + + + + + | Component | Value | Ref Range | Performed | Pathologist | | | | | At | Signature | + + + + + + | FVC | 3.21 | L | | | | MEASURED | | | | | + + + + + + | FVC % PRED | 79. | % | | | + + + + + + | FEV1 | 2.25 | L/S | | | | MEASURED | | | | | + + + + + + | FEV1 % PRED | 67. | % | | | + + + + + + | FEV1/FVC | 70. | % | | | | MEASURED | | | | | + + + + + + | FEF(25-75) | 1.42 | L/S | | | + + + + + + | FEF(25-75) | 40. | % | | | | % PRED | | | | | + + + + + + | FVC POST | 3.5 | L | | | | BD'S | | | | | | MEASURED | | | | | + + + + + + | FVC POST | 86. | % | | | | BD'S % PRED | | | | | + + + + + + | FEV1 POST | 2.53 | L | | | | BD'S | | | | | | MEASURED | | | | | + + + + + + | FEV1 POST | 76. | % | | | | BD'S % PRED | | | | | + + + + + + | FEV1/FVC | 72. | % | | | | POST BD'S | | | | | | MEASURD | | | | | + + + + + + | FEF() | 1.72 | L/S | | | | POST BD'S | | | | | | MEASURD | | | | | + + + + + + | FEF() | 48. | % | | | | POST BD'S % | | | | | | PRED | | | | | + + + + + + | FEV1 BD'S % | 12. | % | | | | CHANGE | | | | | + + + + + + | REST SAT | 97. | % | | | + + + + + + + + | Specimen | + + | | + + + + + + + | Performing | Address | City/State/Zipcode | Phone Number | | Organization | | | | + + + + + | [facility] | [address] | [place] [address] | | | PATHOLOGY | [address] | | | + + + + + IMMUNOLOGY TESTS 1 (11/12/1994 12:28 PM PDT) + + + + + + | Component | Value | Ref Range | Performed | Pathologist | | | | | At | Signature | + + + + + + | JUDSON SCREEN | NEGATIVE | | | | | ON HEP | | | | | | 2,SERUM | | | | | + + + + + + | JUDSON SCRN | HEP2 CELL | | | | | SUBSTRATE | | | | | + + + + + + + + | Specimen | + + | | + + + + + + + | Performing | Address | City/State/Zipcode | Phone Number | | Organization | | | | + + + + + | [facility] | [address] | [place] [address] | | | PATHOLOGY | [address] | | | + + + + + CHEMISTRY TESTS 2 (11/12/1994 12:28 PM PDT) + + + + + + | Component | Value | Ref Range | Performed | Pathologist | | | | | At | Signature | + + + + + + | CHOLESTEROL | 151. | mg/dL | | | | (LAB) | | | | | + + + + + + + + | Specimen | + + | | + + + + + + + | Performing | Address | City/State/Zipcode | Phone Number | | Organization | | | | + + + + + | [facility] | [address] | [place] [address] | | | PATHOLOGY | [address] | | | + + + + + CHEMISTRY TESTS 4 (11/12/1994 12:28 PM PDT) + + + + + + | Component | Value | Ref Range | Performed | Pathologist | | | | | At | Signature | + + + + + + | SODIUM, | 140. | mmol/l | | | | PLASMA | | | | | | (LAB) | | | | | + + + + + + | POTASSIUM, | 4.3 | mmol/l | | | | PLASMA | | | | | | (LAB) | | | | | + + + + + + | CHLORIDE, | 105. | mmol/l | | | | PLASMA | | | | | | (LAB) | | | | | + + + + + + | TOTAL CO2, | 27. | mmol/l | | | | PLASMA | | | | | | (LAB) | | | | | + + + + + + | BUN, PLASMA | 6. | mg/dL | | | | (LAB) | | | | | + + + + + + | CREATININE | 0.9 | mg/dL | | | | PLASMA | | | | | | (LAB) | | | | | + + + + + + | GLUCOSE, | 86. | mg/dL | | | | PLASMA | | | | | | (LAB) | | | | | + + + + + + | CALCIUM, | 9.6 | mg/dL | | | | PLASMA | | | | | | (LAB) | | | | | + + + + + + | MAGNESIUM,P | 2.2 | mg/dL | | | | LASMA | | | | | + + + + + + | PHOSPHORUS, | 3.4 | mg/dL | | | | PLASMA | | | | | | (LAB) | | | | | + + + + + + | URIC ACID, | 4.1 | mg/dL | | | | PLASMA | | | | | | (LAB) | | | | | + + + + + + | AST(SGOT) | 15. | U/L | | | + + + + + + | ALT (SGPT) | 16. | U/L | | | + + + + + + | ALK PHOS | 49. | U/L | | | + + + + + + | LD TOTAL, | 119. | U/L | | | | PLASMA | | | | | + + + + + + | BILIRUBIN | 0. | mg/dL | | | | DIRECT | | | | | + + + + + + | BILIRUBIN | 0.2 | mg/dL | | | | TOTAL | | | | | + + + + + + | TOTAL | 7. | GM/DL | | | | PROTEIN, | | | | | | PLASMA | | | | | | (LAB) | | | | | + + + + + + | ALBUMIN, | 4.7 | GM/DL | | | | PLASMA | | | | | | (LAB) | | | | | + + + + + + + + | Specimen | + + | | + + + + + + + | Performing | Address | City/State/Zipcode | Phone Number | | Organization | | | | + + + + + | [facility] | [address] | [place] [address] | | | PATHOLOGY | [address] | | | + + + + + MISCELLANEOUS CHEMISTRY TESTS (11/12/1994 12:28 PM PDT) + + + + + + | Component | Value | Ref Range | Performed | Pathologist | | | | | At | Signature | + + + + + + | IGG SERUM | 705. | mg/dL | | | + + + + + + + + | Specimen | + + | | + + + + + + + | Performing | Address | City/State/Zipcode | Phone Number | | Organization | | | | + + + + + | [facility] | [address] | [place] [address] | | | PATHOLOGY | [address] | | | + + + + + CBC TESTS 2 (11/12/1994 12:28 PM PDT) + + + + + + | Component | Value | Ref Range | Performed | Pathologist | | | | | At | Signature | + + + + + + | WHITE CELL | 6.6 | K/CU MM | | | | COUNT | | | | | + + + + + + | RED CELL | 4.24 | M/CU MM | | | | COUNT | | | | | + + + + + + | HEMOGLOBIN | 13.9 | GM/DL | | | + + + + + + | HEMATOCRIT | 40.2 | % | | | + + + + + + | MCV | 94.9 | FL | | | + + + + + + | MCH | 32.8 (H) | PG | | | + + + + + + | MCHC | 34.5 (H) | GM/DL | | | + + + + + + | RDW | 12. | % | | | + + + + + + | PLATELET | 375. | K/CU MM | | | | COUNT | | | | | + + + + + + | MPV | 8.4 | FL | | | + + + + + + | NEUTROPHIL | 30. (L) | % | | | | % | | | | | + + + + + + | NEUTROPHIL | FINAL DIFF, SMEAR | % | | | | % | REVIEWED (L) | | | | + + + + + + | LYMPHOCYTE | 37. | % | | | | % | | | | | + + + + + + | MONOCYTE % | 9. | % | | | + + + + + + | EOS % | 24. (H) | % | | | + + + + + + | BASO % | 1. | % | | | + + + + + + | NEUTROPHIL | 2. | K/CU MM | | | | # | | | | | + + + + + + | LYMPHOCYTE | 2.4 | K/CU MM | | | | # | | | | | + + + + + + | MONOCYTE # | 0.6 | K/CU MM | | | + + + + + + | EOS # | 1.6 (H) | K/CU MM | | | + + + + + + | BASO # | 0. | K/CU MM | | | + + + + + + | SEDIMENTATI | 2. | MM/HR | | | | ON RATE | | | | | + + + + + + + + | Specimen | + + | | + + + + + + + | Performing | Address | City/State/Zipcode | Phone Number | | Organization | | | | + + + + + | [facility] | [address] | [place] [address] | | | PATHOLOGY | [address] | | | + + + + + MISCELLANEOUS HEMATOLOGY TESTS (11/12/1994 12:28 PM PDT) + + + + + + | Component | Value | Ref Range | Performed | Pathologist | | | | | At | Signature | + + + + + + | EOSINOPHIL | 1558. (H) | CU MM | | | | COUNT | | | | | + + + + + + + + | Specimen | + + | | + + + + + + + | Performing | Address | City/State/Zipcode | Phone Number | | Organization | | | | + + + + + | [facility] | [address] | [place] [address] | | | PATHOLOGY | [address] | | | + + + + + documented in this encounter Visit Diagnoses Not on filedocumented in this encounter"
--- OUTSIDE RECORDS SUMMARY | ~2018-07-26 | XMS | Clinical Summary ---
Demographics + + + | Address | [address] | | | [place] [address] | + + + | Home Phone | | + + + | Preferred Language | Unknown | + + + | Marital Status | | + + + | Christianity Affiliation | 1013 | + + + | Race | Unknown | + + + | Ethnic Group | Unknown | + + + Author + + + | Author | [facility] | + + + | Organization | [facility] | + + + | Address | Unknown | + + + | Phone | Unavailable | + + + Support + + + + + | Name | Relationship | Address | Phone | + + + + + | Josef Patino M.D. | ECON | [address] | | | | | [place] | | | | | [address] | | + + + + + | Briseida Pedroza | ECON | [place] | | | | | [address] | | + + + + + Care Team Providers + +------+ + | Care Rn Liaison Name | Role | Phone | + +------+ + | Les Watkins MD | PP | | + +------+ + Allergies + + + + + + | Active Allergy | Reactions | Severity | Noted | Comments | | | | | Date | | + + + + + + | Ibuprofen | Anaphylaxis | High | 01/16/20 | | | | | | 13 | | + + + + + + | Aspirin | Shortness of Breath | High | 07/15/19 | Induced asthma | | | | | 12 | throat closes | + + + + + + | Codeine | Itching, Nausea and | Medium | 07/15/19 | Pt states it also | | | Vomiting, Swelling | | 12 | make her in a bad | | | | | | mood | + + + + + + | Hydrocodone-Acetamin | Itching, Nausea and | Medium | 07/15/19 | Bad mood | | ophen | Vomiting | | 12 | | + + + + + + | Sulfacetamide | Itching, Swelling | Medium | 07/15/19 | | | | | | 12 | | + + + + + + Current Medications + + + +---------+------+------+-------+ | Prescription | Sig. | Disp. | Refills | Star | End | Statu | | | | | | t | Date | s | | | | | | Date | | | + + + +---------+------+------+-------+ | pseudoephedrine | Take 60 mg by mouth | | | | | Activ | | (SUDOGEST) 60 MG | every 4 (four) hours | | | | | e | | tablet | as needed. | | | | | | + + + +---------+------+------+-------+ | pramipexole | Take 0.125 mg by | | | | | Activ | | (MIRAPEX) 0.25 MG | mouth daily. | | | | | e | | tablet | | | | | | | + + + +---------+------+------+-------+ | albuterol | Take by mouth 2 | | | | | Activ | | (PROVENTIL) 4 MG | (two) times daily. | | | | | e | | tablet | | | | | | | + + + +---------+------+------+-------+ | buPROPion | Take 1 tablet by | 60 | 1 | 11/2 | | Activ | | (WELLBUTRIN SR) 200 | mouth 2 (two) times | tablet | | 2/20 | | e | | MG 12 hr tablet | daily. | | | 13 | | | + + + +---------+------+------+-------+ | docosanol (ABREVA) | Apply topically 5 | 1 Tube | 1 | 11/2 | | Activ | | 10 % CREA | (five) times daily. | | | 2/20 | | e | | | | | | 13 | | | + + + +---------+------+------+-------+ | ondansetron | Take 1 tablet by | 30 | 1 | 11/2 | | Activ | | (ZOFRAN) 4 MG tablet | mouth 3 (three) | tablet | | 2/20 | | e | | | times daily as | | | 13 | | | | | needed for Nausea. | | | | | | + + + +---------+------+------+-------+ | rizatriptan | Take 1 tablet by | 30 | 1 | 11/2 | | Activ | | (MAXALT) 10 MG | mouth as needed. May | tablet | | 2/20 | | e | | tablet | repeat in 2 hours | | | 13 | | | | | if needed | | | | | | + + + +---------+------+------+-------+ | pantoprazole | Take 40 mg by mouth | | | | | Activ | | (PROTONIX) 40 MG | every morning before | | | | | e | | tablet | breakfast. | | | | | | + + + +---------+------+------+-------+ | allopurinol | Take 100 mg by mouth | | | | | Activ | | (ZYLOPRIM) 100 MG | daily. | | | | | e | | tablet | | | | | | | + + + +---------+------+------+-------+ | gabapentin | Take 100 mg by mouth | | | | | Activ | | (NEURONTIN) 100 MG | 3 (three) times | | | | | e | | capsule | daily. | | | | | | + + + +---------+------+------+-------+ | escitalopram | Take 10 mg by mouth | | | | | Activ | | (LEXAPRO) 10 MG | daily. | | | | | e | | tablet | | | | | | | + + + +---------+------+------+-------+ | acyclovir | Take 1 capsule by | 20 | 0 | 10/0 | | Activ | | (ZOVIRAX) 200 MG | mouth 5 (five) times | capsule | | 4/20 | | e | | capsuleIndications: | daily. 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 | | | 4/20 | | e | | | | | | 16 | | | + + + +---------+------+------+-------+ | metoprolol | Take 1 tablet by | 30 | 0 | 10/0 | | Activ | | (TOPROL-XL) 100 MG | mouth daily. | tablet | | 4/20 | | e | | 24 hr tablet | | | | 16 | | | + + + +---------+------+------+-------+ Active Problems + + + | Problem | Noted Date | + + + | Spleen hematoma | 12/03/2015 | + + + | SIRS (systemic inflammatory response syndrome) | 01/15/2013 | + + + | UTI (lower urinary tract infection) | 01/15/2013 | + + + | Renal failure (ARF), acute on chronic | 01/15/2013 | + + + | Thrombocytopenia, unspecified | 01/15/2013 | + + + | Leukocytosis, unspecified | 01/15/2013 | + + + | Abdominal pain, acute | 01/15/2013 | + + + | Nausea alone | 01/15/2013 | + + + | Edema | 01/15/2013 | + + + | Oliguria | 01/15/2013 | + + + | Asthma | 01/15/2013 | + + + | CKD (chronic kidney disease), stage III | 07/15/2011 | + + + | Hypokalemia | 07/15/2011 | + + + | Anemia | 07/15/2011 | + + + | Proteinuria | 07/15/2011 | + + + + + | Overview: Minimal. | + + + + + | Diabetes mellitus (HCC) | 07/15/2011 | + + + | Essential hypertension, benign | 07/15/2011 | + + + | Leukocytoclastic vasculitis (HCC) | 07/15/2011 | + + + | Migraine | 07/15/2011 | + + + | Depression | 07/15/2011 | + + + | Fibromyalgia | 07/15/2011 | + + + | GERD (gastroesophageal reflux disease) | | + + + | Gastroparesis | | + + + | Chronic pain disorder | | + + + + + | Overview: right hip | + + + +---+ | Diabetes mellitus (HCC) | | + +---+ | Hypertension | | + +---+ Resolved Problems + + + + | Problem | Noted | Resolved | | | Date | Date | + + + + | RICKEY (acute kidney injury) | 12/03/19 | | | | 16 | 6 | + + + + | Colitis | 12/03/19 | | | | 16 | 6 | + + + + | Acute pancreatitis | 01/16/20 | | | | 13 | 6 | + + + + Immunizations + + + + | Name | Dates Previously Given | Next Due | + + + + | INFLUENZA PF, | 12/09/2015 | | | QUADRIVALENT | | | | (PED/ADOL/ADULT) | | | + + + + Family History + + +------+ + | Medical History | Relation | Name | Comments | + + +------+ + | Parkinson's disease | Father | | | + + +------+ + | Cancer | Mother | | | + + +------+ + | Diabetes | Mother | | | + + +------+ + | Heart disease | Mother | | | + + +------+ + | Hypertension | Mother | | | + + +------+ + + +------+ + + | Relation | Name | Status | Comments | + +------+ + + | Father | | | | + +------+ + + | Mother | | Alive | | + +------+ + + Social History + +-------+ +--------+ + | Tobacco Use | Types | Packs/Day | Years | Date | | | | | Used | | + +-------+ +--------+ + | Former Smoker | | 1 | 20 | Quit: 01/15/2006 | + +-------+ +--------+ + + +---+---+---+ | Smokeless Tobacco: | | | | | Never Used | | | | + +---+---+---+ + + | Tobacco Cessation: Counseling Given: No | | Comments: quit 2005 | + + + + +---------+ + | Alcohol Use | Drinks/We | oz/Week | Comments | | | ek | | | + + +---------+ + | No | | | | + + +---------+ + + + + | Sex Assigned at | Date Recorded | | | | + + + | Not on file | | + + + Last Filed Vital Signs + + + + | Vital Sign | Reading | Time Taken | + + + + | Blood Pressure | 109/73 | 12/12/2015 12:21 PM PDT | + + + + | Pulse | 75 | 12/12/2015 12:21 PM PDT | + + + + | Temperature | 36.6 C (97.9 F) | 12/12/2015 12:21 PM PDT | + + + + | Respiratory Rate | 16 | 12/12/2015 12:21 PM PDT | + + + + | Oxygen Saturation | 98% | 12/12/2015 12:21 PM PDT | + + + + | Inhaled Oxygen | - | - | | Concentration | | | + + + + | Weight | 100.1 kg (220 lb | 12/11/2015 4:34 AM PDT | | | 10.9 oz) | | + + + + | Height | 167.6 cm (5' 6") | 12/03/2015 4:22 PM PDT | + + + + | Body Mass Index | 35.62 | 12/11/2015 4:34 AM PDT | + + + + Plan of Treatment Not on file Results Not on filefrom Last 3 Months Insurance + +--------+ +------+-------+---------+ | Payer | Benefi | Subscriber | Type | Phone | Address | | | t Plan | ID | | | | | | / | | | | | | | Group | | | | | + +--------+ +------+-------+---------+ | [employer] | [employer] | [id number] | | | | | | HEALTH | | | | | | | PLAN | | | | | + +--------+ +------+-------+---------+ + +--------+ +--------+ + + | Guarantor Name | Accoun | Relation to | Date | Phone | Billing Address | | | t Type | Patient | of | | | | | | | | | | + +--------+ +--------+ + + | BEVERLY ETIENNE | Person | Self [birth year] | Home: | [address] | | | al/Fam | | 1955 | [phone] [place] | | | don | | | [phone] | [phone] | + +--------+ +--------+ + +
--- OUTSIDE RECORDS SUMMARY | ~2018-07-26 | XMS | Encounter Summary ---
Demographics + + + | Address | [address] | | | [place] [address] | + + + | Home Phone | | + + + | Preferred Language | Unknown | + + + | Marital Status | | + + + | Caodaism Affiliation | CHR | + + + | Race | White | + + + | Ethnic Group | Not or | + + + Author + + + | Author | [facility] | + + + | Organization | [facility] | + + + | Address | Unknown | + + + | Phone | Unavailable | + + + Support + + + + + | Name | Relationship | Address | Phone | + + + + + | Favio Smart | [place] | [place] | | | | | [address] | | + + + + + Care Team Providers + +------+ + | Care Doughnut Icer Machine Name | Role | Phone | + +------+ + PCP | Unavailable | + +------+ + Encounter Details +--------+ + + + + | Date | Type | Department | Care Team | Description | +--------+ + + + + | 01/24/ | Office | General Internal | Note, Outpatient | Progress Note | | 1994 | Visit-Trans | Medicine [address] | Clinic | | | | cribed | [address] | | | | | | Road Mailcode: L475 | | | | | | Outpatient Clinic | | | | | | [facility], [address] | | | | | | [place], [place] | | | | | | [address] | | | | | | [phone] | | | +--------+ + + + [...] as of this encounter Progress Notes Interface, Muck Miner In - 06/16/2006 3:09 AM PDT CLINIC DATE: 01/24/95 OTOLARYNGOLOGY CLINIC REFERRAL SOURCE: Ismael Jacob M.D. CHIEF COMPLAINT: Exacerbating asthma with probable sinusitis. SUBJECTIVE: This 39-year-old, white female was referred by Dr. Ismael Jacob for evaluation of sinusitis. She has been evaluated by Dr. Jacob for postnasal drainage, continued cough, poor control of her asthma. She has had IgG subclasses drawn and a repeat sinus computed tomography (CT) scan is scheduled for this afternoon. She is currently on AeroBid inhaler along with Serevent and was recently placed on Zithromax for exacerbation of sinusitis. She has used intranasal steroids with little benefit. This patient has had three surgeries previously by Dr. Joaquín Nath at the [facility]. She feels that she really had no significant improvement with surgery. She says she does have a history of nasal polyps. She had a CT scan after her last surgery in July and that CT scan apparently was dated August which she was told looked fine. She does not have both films. Her original surgery on the sinuses was bilateral and she has had the left side revised twice. She has had no Emergency Room visits for asthma. She has had an apparent allergy evaluation which the patient describes as being negative for allergens. The patient feels that she may have recently developed a very mild flu-like upper respiratory infection (URI). She now is having thick, yellow mucus with her cough. She is having a lot of left facial pain and pressure. She has a paroxysmal cough sometimes exacerbated by eating. The patient describes the sensation of a brick on her chest and she has been up for the last two nights without any sleep. She looks exhausted. Her was up with her all night last night. She ran out of her Hydromet cough syrup and was unable to have it refilled. She saw Dr. Jacob in December. ALLERGIES TO MEDICATIONS: Sulfa and Codeine. CURRENT MEDICATIONS: 1. Flonase, two puffs to each nostril twice a day. 2. Serevent, two puffs per mouth twice a day. 3. AeroBid, two puffs per mouth twice a day. 4. Seldane D, twice a day. 5. Estrace, two milligrams once a day. 6. Zithromax, five day course, the patient is on day three. PRIOR SURGERIES: Intranasal ethmoid maxillary surgery in April of 1993, left-sided ethmoid maxillary surgery in June of 1993, July of 1994. The patient is a nonsmoker. She avoids all alcohol. Her last dental exam was . She had no dental problems diagnosed at that time. MEDICAL PROBLEMS: Asthma. The patient denies heart, kidney, liver or gastrointestinal (GI) disease. PHYSICAL EXAMINATION: Cranial nerves III-XII are grossly intact. Intranasal exam shows yellow mucus coming from the anterior ethmoid region on the left. Her mucosa actually looks very healthy posteriorly bilaterally, no evidence of polypoid disease. Maxillary sinuses also look healthy from upper lower windows, no postnasal drainage is seen. The patient has a frequent cough throughout the examination which sounds moist. She does not bring up mucus, however. Her neck has no adenopathy. Tympanic membranes are entirely normal. Teeth are in good repair. Larynx is not examined due to her severe cough. Her voice is minimally hoarse today. Lungs are very tight with wheezing, slightly worse on the left. Dr. Mora was contacted, Dr. Jacob and Dr. Vallejo are both out of town. The patient is ordered to have an Albuterol treatment, 0.5 cc in two and a half cc of Normal Saline. A respiratory therapist is called. She is given Lortab elixir for cough control, 5 milligrams. The patient is given 60 milligrams of Prednisone orally. She is observed. Lung tightness does improve somewhat. She still continues to wheeze. The patient actually looks quite exhausted. She, however, is moving air. After about one hour she is sent to the CT scanner and has the CT scan done. The patient returns to the clinic after I have left for another commitment. Phone conversation the patient is feeling better. She and her will head back to [place]. She is written for Prednisone, 20 milligrams tonight, then 20 milligrams b.i.d. for two days, 20 milligrams once a day for two days. I also wrote her for Hydrocodone elixir to be used ten cc po q4-6 hours as needed for cough. She will finish the Zithromax. I will review the CT scan. I asked the patient to call if she has any escalation of symptoms or does not improve. CT scan is reviewed from January 24, 1995. This shows surprisingly clear sinuses. The patient has a very minimal residual ethmoid tissue in the anterior ethmoid region on the left. Her maxillary sinuses actually look very clear. Natural ostia are widely patent. She has a small perforation in her septum high, slightly posterior. The right side actually looks completely free of disease. The sphenoid sinuses are also widely patent. ASSESSMENT AND PLAN: Acute exacerbation of asthma today with very worrisome cough, probable bronchitis perpetuating the problem as well. The patient was treated acutely. She is now on a steroid taper. I will need to contact Dr. Jacob and inform her of the results. At this point, I really feel the patient has minimal sinus disease. She has a very small amount of residual ethmoid tissue on the left, possibly this could be improved with surgery, although at this point I also put her on Gentamicin and saline to be used as a spray twice a day. I would like to follow her clinically for a period of time and see if we really think any additional surgery on her sinuses would be beneficial. After looking at her CT today, I feel strongly that 95 percent of her sinuses are actually widely patent and draining well. Dina Reinoso M.D. Reeling Machine Setup Operator, Otolaryngology Head and Neck Surgery/bm cc: Ismael Jacob M.D. Allergy Clinic [facility] [address] [place] [address] [place] [address] documented in this encounter Plan of Treatment Not on filedocumented as of this encounter Visit Diagnoses Not on filedocumented in this encounter"
--- OUTSIDE RECORDS SUMMARY | ~2018-07-26 | XMS | Encounter Summary ---
Demographics + + + | Address | [address] | | | [place] [address] | + + + | Home Phone | | + + + | Preferred Language | Unknown | + + + | Marital Status | | + + + | Sikh Affiliation | CHR | + + + | Race | White | + + + | Ethnic Group | Not or | + + + Author + + + | Author | [facility] | + + + | Organization | [facility] | + + + | Address | Unknown | + + + | Phone | Unavailable | + + + Support + + + + + | Name | Relationship | Address | Phone | + + + + + | Favio Smart | [place] | [place] | | | | | [address] | | + + + + + Care Team Providers + +------+ + | Care Heel Cementer Name | Role | Phone | + +------+ + | Unknown | PCP | Unavailable | + +------+ + Reason for Visit + + + | Reason | Comments | + + + | Medical Records | | | Review | | + + + Encounter Details +--------+ + + + + | Date | Type | Department | Care Team | Description | +--------+ + + + + | 04/01/ | Abstract | Digestive Health | Clinic, | Medical Records | | 2011 | | [place] [facility] [address] | Gastroenterology | Review | | | | [place] | | | | | | Mailcode: Center | | | | | | [facility] and | | | | | | [facility] [address] | | | | | | [place], [place] | | | | | | [address] | | | | | | [phone] | | | +--------+ + + + [...]
--- OUTSIDE RECORDS SUMMARY | ~2018-07-26 | XMS | Encounter Summary ---
Demographics + + + | Address | [address] | | | [place] [address] | + + + | Home Phone | | + + + | Preferred Language | Unknown | + + + | Marital Status | | + + + | Adventist Affiliation | CHR | + + + | Race | White | + + + | Ethnic Group | Not or | + + + Author + + + | Author | [facility] | + + + | Organization | [facility] | + + + | Address | Unknown | + + + | Phone | Unavailable | + + + Support + + + + + | Name | Relationship | Address | Phone | + + + + + | Favio Smart | [place] | [place] | | | | | [address] | | + + + + + Care Team Providers + +------+ + | Care Barrel Tester Name | Role | Phone | + +------+ + | Riana Ko PA-C | PCP | | + +------+ + Encounter Details +--------+ + + + + | Date | Type | Department | Care Team | Description | +--------+ + + + + | 01/27/ | Orders Only | Family Medicine at | Riana Ko, | Fatigue; Need for | | 2006 | | [address] | Tdap Vaccination; | | | | [address] [place] | [facility] | Shopping Centre Manager Exam; Screen for | | | | Mailcode: G[facility] | [place], [place] | Colon Cancer; Hip | | | | [facility] | [address] | Pain; Depression; | | | | [place], [place] | [phone] | Screening | | | | [address] | | Cholesterol Level | | | | [phone] | | | +--------+ + + + [...] as of this encounter Plan of Treatment + + +--------+ + + | Name | Type | Priori | Associated Diagnoses | Order Schedule | | | | ty | | | + + +--------+ + + | [place] | Procedures | Routin | Fatigue Need for | Ordered: 01/27/2007 | | VENIPUNCTURE | | e | Tdap Vaccination | | | | | | Shopping Centre Manager Exam Screen for | | | | | | Colon Cancer Hip | | | | | | Pain Depression | | | | | | Screening | | | | | | Cholesterol Level | | + + +--------+ + + documented as of this encounter Procedures + +--------+ + + + | Procedure Name | Priori | Date/Time | Associated Diagnosis | Comments | | | ty | | | | + +--------+ + + + | COMPLETE METABOLIC | Routin | 01/27/2007 | Fatigue | Results for this | | SET | e | 11:35 AM | | procedure are in the | | (NA,K,CL,CO2,BUN,CRE | | PST | | results section. | | AT,GLUC,CA,AST,ALT,B | | | | | | [place] TOTAL,ALK | | | | | | PHOS,ALB,PROT TOTAL) | | | | | + +--------+ + + + | METHYLMALONIC ACID, | Routin | 01/27/2007 | Fatigue | Results for this | | SERUM | e | 11:35 AM | | procedure are in the | | | | PST | | results section. | + +--------+ + + + | CBC ONLY | Routin | 01/27/2007 | Fatigue | Results for this | | | e | 11:35 AM | | procedure are in the | | | | PST | | results section. | + +--------+ + + + | TSH | Routin | 01/27/2007 | Fatigue | Results for this | | | e | 11:35 AM | | procedure are in the | | | | PST | | results section. | + +--------+ + + + | LIPID SET (TRIG, T | Routin | 01/27/2007 | Screening | Results for this | | CHOL, HDL, CALC LDL) | e | 11:35 AM | Cholesterol Level | procedure are in the | | | | PST | | results section. | + +--------+ + + + | VITAMIN B-12 | Routin | 01/27/2007 | Fatigue | Results for this | | | e | 11:35 AM | | procedure are in the | | | | PST | | results section. | + +--------+ + + + documented in this encounter Results LIPID SET (01/27/2007 11:35 AM PST) + + + + + + | Component | Value | Ref Range | Performed | Pathologist | | | | | At | Signature | + + + + + + | CHOLESTEROL | 199Comment: | <200 mg/dL | [facility] | | | (LAB) | Cholesterol Reference | | DEPARTMENT | | | | Range: | | OF | | | | | | PATHOLOGY | | | | Desirable: | | | | | | <200 | | | | | | Borderline | | | | | | High: 200 - | | | | | | 239 | | | | | | High: | | | | | | >=240 LDL | | | | | | Cholesterol Reference | | | | | | Range: | | | | | | | | | | | | Optimal: | | | | | | <100 | | | | | | Near | | | | | | Optimal: 100 - | | | | | | 129 | | | | | | Borderline | | | | | | High: 130 - | | | | | | 159 | | | | | | High: | | | | | | 160 - | | | | | | 189 | | | | | | Very High: | | | | | | >=190 | | | | + + + + + + | TRIGLYCERID | 162Comment: | <200 mg/dL | [facility] | | | ES | Triglyceride Reference | | DEPARTMENT | | | | Range: | | OF | | | | Normal | | PATHOLOGY | | | | : | | | | | | <150 | | | | | | Borderline | | | | | | High: 150 - | | | | | | 199 | | | | | | High: | | | | | | 200 - | | | | | | 499 | | | | | | Very High: | | | | | | >=500 | | | | + + + + + + | HDL | 58Comment: | >40 mg/dL | [facility] | | | CHOLESTEROL | HDL Reference | | DEPARTMENT | | | | Range: | | OF | | | | High | | PATHOLOGY | | | | Risk: | | | | | | <40 | | | | | | Desirable: | | | | | | >=60 | | | | + + + + + + | LDL | 109 | <130 mg/dL | [facility] | | | CHOLESTEROL | | | DEPARTMENT | | | , | | | OF | | | CALCULATED | | | PATHOLOGY | | + + + + + + | VLDL | 32 (H) | <31 mg/dL | [facility] | | | CHOLESTEROL | | | DEPARTMENT | | | , | | | OF | | | CALCULATED | | | PATHOLOGY | | + + + + + + + + | Specimen | + + | | + + + + + | Narrative | Performed At | + + + | [id number] Estimated GFR = 50 mL/min/1.73 sq m if non- | [facility] | | [id number] Estimated GFR > 60 mL/min/1.73 sq m if GFR | DEPARTMENT OF | | is estimated using the MDRD equation recommended by the National | PATHOLOGY | | Kidney Disease Education Program. Estimated GFR Interpretive | | | Information: <60 mL/min/1.73 sq m Chronic Kidney Disease | | | <15 mL/mon/1.73 sq m Kidney Failure Estimated GFR greater | | | than 60mL/min/1.73 is of limited clinical Value. The MDRD equation | | | is not valid in the following situations: - Patients under 18 years | | | of age - Severe malnutrition or obesity - Vegetarian diet - | | | Rapidly changing kidney function | | + + + + + + + + | Performing | Address | City/State/Zipcode | Phone Number | | Organization | | | | + + + + + | [facility] DEPARTMENT | [facility] [facility] | [place] [address] | | | PATHOLOGY | [address] | | | + + + + + | [facility] DEPARTMENT OF | [address] [address] | [place] [address] | | | PATHOLOGY | [address] | | | + + + + + COMP METABOLIC SET (01/27/2007 11:35 AM PST) + +---------+ + + + | Component | Value | Ref Range | Performed | Pathologist | | | | | At | Signature | + +---------+ + + + | GLUCOSE, | 100 (H) | 60 - 99 mg/dL | [facility] | | | PLASMA | | | DEPARTMENT | | | (LAB) | | | OF | | | | | | PATHOLOGY | | + +---------+ + + + | BUN, PLASMA | 10 | 6 - 20 mg/dL | [facility] | | | (LAB) | | | DEPARTMENT | | | | | | OF | | | | | | PATHOLOGY | | + +---------+ + + + | CREATININE | 1.2 (H) | 0.6 - 1.1 mg/dL | [facility] | | | PLASMA | | | DEPARTMENT | | | (LAB) | | | OF | | | | | | PATHOLOGY | | + +---------+ + + + | TOTAL | 6.8 | 6.1 - 7.9 g/dL | [facility] | | | PROTEIN, | | | DEPARTMENT | | | PLASMA | | | OF | | | (LAB) | | | PATHOLOGY | | + +---------+ + + + | ALBUMIN, | 4.0 | 3.5 - 4.7 g/dL | [facility] | | | PLASMA | | | DEPARTMENT | | | (LAB) | | | OF | | | | | | PATHOLOGY | | + +---------+ + + + | CALCIUM, | 9.6 | 8.5 - 10.5 | [facility] | | | PLASMA | | mg/dL | DEPARTMENT | | | (LAB) | | | OF | | | | | | PATHOLOGY | | + +---------+ + + + | BILIRUBIN | 0.4 | 0.3 - 1.2 mg/dL | [facility] | | | TOTAL | | | DEPARTMENT | | | | | | OF | | | | | | PATHOLOGY | | + +---------+ + + + | ALK PHOS | 75 | 42 - 98 U/L | [facility] | | | | | | DEPARTMENT | | | | | | OF | | | | | | PATHOLOGY | | + +---------+ + + + | AST(SGOT) | 30 | 15 - 41 U/L | [facility] | | | | | | DEPARTMENT | | | | | | OF | | | | | | PATHOLOGY | | + +---------+ + + + | SODIUM, | 139 | 136 - 145 | [facility] | | | PLASMA | | mmol/L | DEPARTMENT | | | (LAB) | | | OF | | | | | | PATHOLOGY | | + +---------+ + + + | POTASSIUM, | 4.3 | 3.5 - 5.1 | [facility] | | | PLASMA | | mmol/L | DEPARTMENT | | | (LAB) | | | OF | | | | | | PATHOLOGY | | + +---------+ + + + | CHLORIDE, | 99 | 98 - 107 mmol/L | [facility] | | | PLASMA | | | DEPARTMENT | | | (LAB) | | | OF | | | | | | PATHOLOGY | | + +---------+ + + + | TOTAL CO2, | 32 (H) | 23 - 29 mmol/L | [facility] | | | PLASMA | | | DEPARTMENT | | | (LAB) | | | OF | | | | | | PATHOLOGY | | + +---------+ + + + | ALT (SGPT) | 32 | 13 - 48 U/L | [facility] | | | | | | DEPARTMENT | | | | | | OF | | | | | | PATHOLOGY | | + +---------+ + + + + + | Specimen | + + | | + + + + + | Narrative | Performed At | + + + | [id number] Estimated GFR = 50 mL/min/1.73 sq m if non- | [facility] | | [id number] Estimated GFR > 60 mL/min/1.73 sq m if GFR | DEPARTMENT OF | | is estimated using the MDRD equation recommended by the National | PATHOLOGY | | Kidney Disease Education Program. Estimated GFR Interpretive | | | Information: <60 mL/min/1.73 sq m Chronic Kidney Disease | | | <15 mL/mon/1.73 sq m Kidney Failure Estimated GFR greater | | | than 60mL/min/1.73 is of limited clinical Value. The MDRD equation | | | is not valid in the following situations: - Patients under 18 years | | | of age - Severe malnutrition or obesity - Vegetarian diet - | | | Rapidly changing kidney function | | + + + + + + + + | Performing | Address | City/State/Zipcode | Phone Number | | Organization | | | | + + + + + | [facility] | [address] [address] | [place] [address] | | | PATHOLOGY | [address] | | | + + + + + | [facility] | [address] | [place] [address] | | | PATHOLOGY | [address] | | | + + + + + METHYLMALONIC ACID, SERUM (01/27/2007 11:35 AM PST) + + + + + + | Component | Value | Ref Range | Performed | Pathologist | | | | | At | Signature | + + + + + + | METHYLMALON | 0.25Comment: Performed | <0.41 umol/L | | | | IC ACID | by [employer] | | | | | | Dawn Elliott, [facility], [place] | | | | | | [address] | | | | | | [phone] | | | | | | Abdulaziz wilson | | | | | | MD [facility]. | | | | | | Director | | | | + + + + + + + + | Specimen | + + | | + + + + + + + | Performing | Address | City/State/Zipcode | Phone Number | | Organization | | | | + + + + + | [facility] | [address] | [place], [place] | | | [facility] | | [address] | | + + + + + VITAMIN B-12, SERUM (01/27/2007 11:35 AM PST) + +-------+ + + + | Component | Value | Ref Range | Performed | Pathologist | | | | | At | Signature | + +-------+ + + + | VITAMIN | 358 | 180 - 914 pg/ml | | | | B12, SERUM | | | | | + +-------+ + + + + + | Specimen | + + | | + + + + + | Narrative | Performed At | + + + | Reference Range change | | | effective 12/29/06 [facility]) | | | [facility] [place] [address] | | | [place] [address] | | + + + + + + + + | Performing | Address | City/State/Zipcode | Phone Number | | Organization | | | | + + + + + | [facility] | [address] [facility] [place] [address] | | | LABORATORY | | | | + + + + + CBC ONLY WITH PLATELET (01/27/2007 11:35 AM PST) + +---------+ + + + | Component | Value | Ref Range | Performed | Pathologist | | | | | At | Signature | + +---------+ + + + | WHITE CELL | 7.2 | 4.4 - 11.0 K/cu | [facility] | | | COUNT | | mm | DEPARTMENT | | | | | | OF | | | | | | PATHOLOGY | | + +---------+ + + + | RED CELL | 4.31 | 4.00 - 5.20 | [facility] | | | COUNT | | M/cu mm | DEPARTMENT | | | | | | OF | | | | | | PATHOLOGY | | + +---------+ + + + | HEMOGLOBIN | 13.3 | 12.0 - 16.0 | [facility] | | | | | g/dL | DEPARTMENT | | | | | | OF | | | | | | PATHOLOGY | | + +---------+ + + + | HEMATOCRIT | 38.5 | 36.0 - 46.0 % | [facility] | | | | | | DEPARTMENT | | | | | | OF | | | | | | PATHOLOGY | | + +---------+ + + + | MCV | 89.2 | 80.0 - 96.0 fL | [facility] | | | | | | DEPARTMENT | | | | | | OF | | | | | | PATHOLOGY | | + +---------+ + + + | MCHC | 34.5 | 33.4 - 35.5 | [facility] | | | | | g/dL | DEPARTMENT | | | | | | OF | | | | | | PATHOLOGY | | + +---------+ + + + | RDW | 12.1 | 11.5 - 15.0 % | [facility] | | | | | | DEPARTMENT | | | | | | OF | | | | | | PATHOLOGY | | + +---------+ + + + | PLATELET | 418 (H) | 150 - 400 K/cu | [facility] | | | COUNT | | mm | DEPARTMENT | | | | | | OF | | | | | | PATHOLOGY | | + +---------+ + + + + + | Specimen | + + | | + + + + + + + | Performing | Address | City/State/Zipcode | Phone Number | | Organization | | | | + + + + + | [facility] | [address] | [place] [address] | | | PATHOLOGY | [address] | | | + + + + + | [facility] | [facility] | [place] [address] | | | PATHOLOGY | [address] | | | + + + + + TSH-THYROID STIM HORMONE (01/27/2007 11:35 AM PST) + +-------+ + + + | Component | Value | Ref Range | Performed | Pathologist | | | | | At | Signature | + +-------+ + + + | TSH | 1.60 | 0.34 - 5.60 | | | | | | uIU/ml | | | + +-------+ + + + + + | Specimen | + + | | + + + + + | Narrative | Performed At | + + + | Reference range change effective | | | 12/29/06 [facility]) | | | [facility] | | | [address] [facility] [address] | | | [place] [address] | | + + + + + + + + | Performing | Address | City/State/Zipcode | Phone Number | | Organization | | | | + + + + + | [facility] | [address] [facility] | [place] [address] | | | LABORATORY | | | | + + + + + documented in this encounter Visit Diagnoses + + | Diagnosis | + + | Fatigue Other malaise and fatigue | + + | Need for Tdap vaccination Need for prophylactic vaccination with combined | | lqqfuydpyr-cskbpjq-nbqkviqwq (DTP) vaccine | + + | Shopping Centre Manager exam Routine gynecological examination | + + | Screen for colon cancer Special screening for malignant neoplasms, colon | + + | Hip pain Pain in joint, pelvic region and thigh | + + | Depression Depressive disorder, not elsewhere classified | + + | Screening cholesterol level Screening for lipoid disorders | + + documented in this encounter"
--- OUTSIDE RECORDS SUMMARY | ~2018-07-26 | XMS | Encounter Summary ---
Demographics + + + | Address | [address] | | | [place] [address] | + + + | Home Phone | | + + + | Preferred Language | Unknown | + + + | Marital Status | | + + + | Hoahaoism Affiliation | CHR | + + + [...] [place] | | | | | [address] | | + + + + + Care Team Providers + +------+ + | Care Final Block Press Operator Name | Role | Phone | + +------+ + PCP | Unavailable | + +------+ + Encounter Details +--------+ + + + + | Date | Type | Department | Care Team | Description | +--------+ + + + + | 04/07/ | Office | General Internal | Note, Outpatient | Progress Note | | 1996 | Visit-Trans | Medicine [address] | Clinic | | | | cribed | [address] | | | | | | Road Mailcode: L475 | | | | | | Outpatient Clinic | | | | | | [facility], [address] | | | | | | [place], [place] | | | | | | [address] | | | | | | [phone] | | | +--------+ + + + [...] as of this encounter Progress Notes Interface, Heel Cover Softener In - 05/15/2006 5:04 AM [facility] DATE: 04/07/96 OTOLARYNGOLOGY CLINIC: SUBJECTIVE: This patient called again. She is very concerned about her numb cheek on the left. She continues to describe pressure when she chews and says that she is still having significant pain. She has called for additional Vicodin which I had refused recently. She has received multiple prescriptions for Vicodin including 50 on March 08, 12 on March 21 by one of our residents on-call and again 40 on March 24. I had also called in 35 Vicodin on March 17. When she called on the we discussed the need for her to taper this medicine and that it actually has a rebound effect causing headaches if it is used in a prolonged manner. The patient continues to be quite frustrated about the pain and numbness. She says she is not doing well trying to taper her pain medicine. She is unable to work a full day. She still feels she is having a lot of discomfort when she chews. She describes being very thirsty most of the time but is not losing weight or having any other problems. She is reexamined today. The vestibule on the left actually looks quite good. There are two vicryl sutures there which are removed. There is no evidence of foreign body granuloma or any kind of infection. Her cheeks are beginning to look quite symmetric. There is minimal difference between the two sides. No obvious swelling is seen on intranasal examination. The patient is decongested and cocainized. A 30-degree scope is used. She actually has a widely patent natural ostium which is well healed and the nasal antral window is healing fine. She has minimal granulation around it. The curved suction is also used to confirm we are not missing any mucus or other abnormality in the sinus. ASSESSMENT AND PLAN: Really disappointing postoperative result in this patient who had a Mars Drew on the left for history of fungal infection. We grew no fungus at surgery and have seen none postoperatively. She continues to complain of the sequelae of pressure around her infraorbital nerve during surgery and probably a neuralgia. PLAN: I have strongly recommended she try Kenalog and Orabase in the oral vestibule to see if this will decrease the discomfort there. She is going to continue her usual saline rinses. I encouraged her to finish using the Peridex that she had been given after her throat surgery and she asked for Naldecon tablets. They are to be taken t.i.d. I wrote it for 60 with four refills. This is a combination decongestant and antihistamine which she thought helped her significantly. She will return here in two weeks. I did write for Vicodin, 30 tablets with one refill. I asked her to use a maximum of 5 a day for the next 5 days and then 4 a day for the next 5 days and then get down to 3 a day until she comes back to see me. I am quite concerned about this patient's dependence on pain medicine. Dina Reinoso M.D. Mailmaster, Otolaryngology/Head and Neck Surgery LH:angie cc: Christy Alexander., Ph.D. Mailmaster Neurology and Otolaryngology LIAN VALLECILLO MD [facility] [address] [place] [address] [address] [place] [address] documented in this encounter Plan of Treatment Not on filedocumented as of this encounter Visit Diagnoses Not on filedocumented in this encounter"
--- OUTSIDE RECORDS SUMMARY | ~2018-07-26 | XMS | Encounter Summary ---
Demographics + + + | Address | [address] | | | [place] [address] | + + + | Home Phone | | + + + | Preferred Language | Unknown | + + + | Marital Status | | + + + | Zoroastrianism Affiliation | CHR | + + + [...] [place] | | | | | [address] | | + + + + + Care Team Providers + +------+ + | Care Police Communications Operator Name | Role | Phone | [...] Clinic | | | | | | [facility], [address] | | | | | | [place], [place] | | | | | | [address] | | | | | | [phone] | | | +--------+ + + + [...] as of this encounter Progress Notes Interface, Research Associate Professor In - 05/16/2006 6:56 AM [facility] DATE: 06/11/95 OTOLARYNGOLOGY CLINIC SUBJECTIVE: The [...] the drive up here. She is from [place]. She was given Demerol, 50 mg, Vistaril, 25 mg, IM. Her paperwork is completed. She is not sent to the [facility] clinic. Her brother comes by to pick [...] in about 7-10 days. Dina Reinoso M.D. Immunohematologist, Otolaryngology Head and Neck Surgery LH:kaylan cc: LIAN VALLECILLO MD [address] [place] [address] [address] [place] [address] JOSÉ MIGUEL STRINGER MD ALLERGY AND IMMUNOLOGY [facility] documented in this encounter Plan of Treatment Not on filedocumented as of this encounter Visit Diagnoses Not on filedocumented in this encounter"
--- OUTSIDE RECORDS SUMMARY | ~2018-07-26 | XMS | Encounter Summary ---
Demographics + + + | Address | [address] | | | [place] [address] | + + + | Home Phone [...] + + + | Author | [facility] | + + + | Organization | [facility] | + + + | Address | Unknown | + + + | Phone | Unavailable | + + + Support + + + + + | Name | Relationship | Address | Phone | + + + + + | Favio Smart | [place] | [place] | | | | | [address] | | + + + + + Care Team Providers + +------+ + | Care Motor Setter Name | Role | Phone | + +------+ + | iRana Ko PA-C | PCP | | + +------+ + Reason for Visit + + + | Reason | Comments | + + + | Refill Request | Maxalt 10mg | + + + Encounter Details +--------+--------+ + + + | Date | Type | Department | Care Team | Description | +--------+--------+ + + + | 03/11/ | Refill | Family Medicine at | Ko, Riana F, | Refill Request | | 2007 | | [address] | [address] | (Maxalt 10mg) | | | | [address] | [facility] | | | | | Mailcode: GPC | [place], [place] | | | | | [address] [facility] | [address] | | | | | [place], [place] | [phone] | | | | | [address] | | | | | | [phone] | | | +--------+--------+ + + + [...]
--- OUTSIDE RECORDS SUMMARY | ~2018-07-26 | XMS | Encounter Summary ---
Demographics + + + | Address | [address] | | | [place] [address] | + + + | Home Phone | | + + + | Preferred Language | Unknown | + + + | Marital Status | | + + + | Pentecostal Affiliation | CHR | + + + | Race | White | + + + | Ethnic Group | Not or | + + + Author + + + | Author | [facility] | + + + | Organization | [facility] | + + + | Address | Unknown | + + + | Phone | Unavailable | + + + Support + + + + + | Name | Relationship | Address | Phone | + + + + + | Favio Smart | [address] | [place] | | | | | [address] | | + + + + + Care Team Providers + +------+ + | Care Communications Superintendent Name | Role | Phone | + [...] | | | | | | [facility] | | | | | | [place], [place] | | | | | | [address] | | | | | | [phone] | | | +--------+--------+ + + + [...]
--- OUTSIDE RECORDS SUMMARY | ~2018-07-26 | XMS | Encounter Summary ---
Demographics + + + | Address | [address] | | | [place] [address] | + + + | Home Phone | | + + + | Preferred Language | Unknown | + + + | Marital Status | | + + + | Yarsani Affiliation | Unknown | + + + | Race | Unknown | + + + | Ethnic Group | Unknown | + + + Author + + + | Author | [facility] | | | and [place] | + + + | Organization | [facility] | | | and [place] | + + + | Address | Unknown | + + + | Phone | Unavailable | + + + Support + + + + + | Name | Relationship | Address | Phone | + + + + + | Natasha Patino J | ECON | [address] | | | [place] | | [place] | | | | | [address] | | + + + + + | Danita Smart | ECON | Unknown | | + + + + + | Briseida Pedroza | ECON | Unknown | | + + + + + Care Team Providers + +------+ + | Care Auto Parts Salesperson Name | Role | Phone | + +------+ + | Jayson Walton MD | PCP | | + +------+ + Reason for Visit +--------+ + | Reason | Comments | +--------+ + | Edema | | +--------+ + Encounter Details +--------+ + + + + | Date | Type | Department | Care Team | Description | +--------+ + + + + | 07/02/ | Telephone | [facility] | Deysi Martel | Edema | | 2019 | | NEPHROLOGY [address] | M, DO [address] | | | | | [address] [facility] [address] | [place], [facility] [address] | | | | | [place], [place] | [place], [place] | | | | | [address] | [address] | | | | | [phone] | | | +--------+ + + + [...] +--------+ + + + + | 08/31/ Off-Site | Nephrology | Deysi Martel | | | 2018 | Visit | | DO [address] | | | | | | [place] | | | | | | [place] | | | | | | [address] | | | | | | | | +--------+ + + + + + +--------+ + + | Name | Priori | Associated Diagnoses | Order Schedule | | | ty | | | + +--------+ + + | CBC with Differential | Routin | CHRONIC KIDNEY | 1 Occurrences | | | e | DISEASE STAGE III | starting 07/02/2018 | | | | (MODERATE) | until 07/03/2019 | + +--------+ + + | Comprehensive Metabolic Panel | Routin | CHRONIC KIDNEY | 1 Occurrences | | | e | DISEASE STAGE III | starting 07/02/2018 | | | | (MODERATE) | until 07/03/2019 | + +--------+ + + | Phosphorus | Routin | CHRONIC KIDNEY | 1 Occurrences | | | e | DISEASE STAGE III | starting 07/02/2018 | | | | (MODERATE) | until 07/03/2019 | + +--------+ + + | Protein/Creatinine Ratio, Urine | Routin | CHRONIC KIDNEY | 1 Occurrences | | | e | DISEASE STAGE III | starting 07/02/2018 | | | | (MODERATE) | until 07/03/2019 | + +--------+ + + documented as of this encounter Visit Diagnoses + + | Diagnosis | + + | CHRONIC KIDNEY DISEASE STAGE III (MODERATE) - Primary Chronic kidney disease, Stage | | III (moderate) | + + documented in this encounter"
--- OUTSIDE RECORDS SUMMARY | ~2018-07-26 | XMS | Encounter Summary ---
Demographics + + + | Address | [address] | | | [place] [address] | + + + | Home Phone | | + + + | Preferred Language | Unknown | + + + | Marital Status | | + + + | Buddhist Affiliation | CHR | + + + | Race | White | + + + | Ethnic Group | Not or | + + + Author + + + | Author | [facility] | + + + | Organization | [facility] | + + + | Address | Unknown | + + + | Phone | Unavailable | + + + Support + + + + + | Name | Relationship | Address | Phone | + + + + + | Favio Smart | [address] | [place] | | | | | [address] | | + + + + + Care Team Providers + +------+ + | Care Miner Helper Name | Role | Phone | + +------+ + | Riana Ko PA-C | PCP | | + +------+ + Reason for Referral Physical Therapy (Routine) +--------+ + + + + + | Status | Reason | Specialty | Diagnoses / | Referred By | Referred To | | | | | Procedures | Contact | Contact | +--------+ + + + + + | Closed | Specialty | | Diagnoses | Maikel, | Non-[facility] | | | Services | | Hip | Riana Luna, | Epic Dept | | | Required | | fracture | [address] | | | | Other | | ([facility]) | [facility] | | | | | | Procedures | St | | | | | | CONSULT TO | [place], [place] | | | | | | REHABILITATI | [address] | | | | | | ON PHYSICAL | Phone: | | | | | | THERAPY (PT | [phone] | | | | | | EVAL AND | Fax: | | | | | | TREAT) | [phone] | | +--------+ + + + + + Reason for Visit + + + | Reason | Comments | + + + | Follow-up visit | | + + + | Medication requested | Refills | + + + Encounter Details +--------+---------+ + + + | Date | Type | Department | Care Team | Description | +--------+---------+ + + + | 09/25/ | Office | Family Medicine at | Riana Ko, | Hip Fracture (HCC) | | 2006 | Visit | [address] | [address] | (Primary Dx); | | | | [address] | [facility] | Menopause; HTN | | | | Mailcode: NIKIA | [place], [place] | (Hypertension); | | | | [facility] | [address] | Allergic Rhinitis; | | | | [place], [place] | [phone] | Depression | | | | [address] | | | | | | [phone] | | | +--------+---------+ + + + Social History + + [...] Filed Vital Signs + + + + + | Vital Sign | Reading | Time Taken | Comments | + + + + + | Blood Pressure | 120/76 | 09/25/2006 1:03 PM | | | | | PDT | | + + + + + | Pulse | 80 | 09/25/2006 1:03 PM | | | | | PDT | | + + + + + | Temperature | 37.2 C (98.9 F) | 09/25/2006 1:03 PM | | | | | PDT | | + + + + + | Respiratory Rate | 8 | 09/25/2006 1:03 PM | | | | | PDT | | + + + + + | Oxygen Saturation | - | - | | + + + + + | Inhaled Oxygen | - | - | | | Concentration | | | | + + + + + | Weight | 75.1 kg (165 lb 8 | 09/25/2006 1:03 PM | | | | oz) | PDT | | + + + + + | Height | - | - | | + + + + + | Body Mass Index | 26.71 | 08/27/2006 12:54 PM | | | | | PDT | | + + + + + documented in this encounter Patient Instructions Patient Instructions Riana Ko - 09/25/2006 2:25 PM PDTKeep going to PT. Things lo ok good! Increase the Abilify to 5 mg daily. Hopefully, this will help with concentration and sleep . Return to see me when you need to! Riana Ko PA-C documented in this encounter Progress Notes Riana Ko - 09/25/2006 2:37 PM PDTFormatting of this note might be different from t he original. SUBJECTIVE: 1. R hip pain improving with PT. 7 mos s/p trochanteric fracture. Would like to see PT in [place] when she goes there. [facility], [address], [place] [address]. P: [phone] F: [phone] Going back to [place] to return to work on 10/06/06. 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 2. Dr. Pascual at [facility] took care of hip fx. DEXA scan results never given to pt. LM at clinic to have results sent here. 3. Saw Dr. Ortiz recently for MH issues. He discontinued Wellbutrin and Trazadone and s tarted Abilify and Seroquel. Pt feels slightly "out of sorts" today and is still have probl ems with concentration. 4. Done with IOP for opioid dependence. Plans to continue once weekly support program when moves back to [place]. Pt is off all transitioning medications. 5. HM: Needs meds refilled today. Last mamm early 03/16. ATA, cannot recall last pap. Not sexually active. Needs colon ca screening. OBJECTIVE: BP 120/76 | Pulse 80 | Temp (Src) 98.9 F (37.2 C) (Oral) | Resp 8 | Wt 75.070 kg (165 l bs 8.0 oz) Gen: NAD Gait improved. Well-groomed, smiling, forward thinking, nl affect. A/P: Encounter Diagnoses Code Name Primary? 820.8Q Hip Fracture Yes Plan: HIP 2 VIEWS RIGHT, evidence of callous at fracture site. Hardware in good position. Staffed with Dr. Somers, awaiting final read by radiology. Continue PT once weekly. New consult to [facility] entered. Dr. Pascual's office contacted for DEXA results. Will notify pt. 627.2Q Menopause Plan: ESTRADIOL 2 MG TAB 401.9AE HTN (Hypertension) Plan: HYDROCHLOROTHIAZIDE 12.5 MG CAP 477.9AD Allergic Rhinitis Plan: SEMPREX-D 8 MG-60 MG CAP 311G Depression Plan: ABILIFY 5 MG TAB, SEROQUEL 25 MG TAB Take ability 5mg daily, start seroquel 25mg qhs and only titrate up if functioning at basel ine during the day F/u prn when back in [facility] metro or 6 weeks, sooner prn. Riana Ko PA-C [facility] Plan of Treatment Not on filedocumented as of this encounter Procedures + +--------+ + + + | Procedure Name | Priori | Date/Time | Associated Diagnosis | Comments | | | ty | | | | + +--------+ + + + | X-RAY HIP 2 VIEWS | Routin | 09/25/2006 | Hip Fracture (HCC) | Results for this | | RIGHT | e | 1:30 PM | | procedure are in the | | | | PDT | | results section. | + +--------+ + + + documented in this encounter Results HIP 2 VIEWS RIGHT (09/25/2006 1:30 PM PDT) + + + + + + | Component | Value | Ref Range | Performed | Pathologist | | | | | At | Signature | + + + + + + | HIP 2 VIEWS | Radiologist 1: | | | | | RIGHT | [facility]AN[facility] FOUNTAIN, | | | | | | M.D.-Radiologist 2: | | | | | | AYANNA JAIN | | | | | | M.CatySTUDY: HIP 2 VIEWS | | | | | | RT 09/25/06 13:30:00 | | | | | | COMPARISON: NONE | | | | | | DISCUSSION: There is a | | | | | | healing right femoral | | | | | | neck fracture transfixed | | | | | | by adynamic hip screw | | | | | | and a lateral blade | | | | | | plate in near | | | | | | anatomicalignment. No | | | | | | hardware failure or | | | | | | loosening is | | | | | | present. Hipjoint | | | | | | space and alignment is | | | | | | anatomic. The femoral | | | | | | head is smoothand | | | | | | round. There is | | | | | | heterotopic ossification | | | | | | medial to the | | | | | | lessertrochanter. Rig | | | | | | ht sacroiliac joint | | | | | | spurring is | | | | | | present.Radiopaque | | | | | | suture line is noted | | | | | | within the soft tissues | | | | | | of thepelvis.IMPRESSION: | | | | | | Healing internally | | | | | | fixed right femoral neck | | | | | | fracture in | | | | | | nearanatomic alignment. | | | | + + + + + + + + | Specimen | + + | | + + + +---------+ + + | Performing | Address | City/State/Zipcode | Phone Number | | Organization | | | | + +---------+ + + | [place] [facility] | | | | | [facility]Y | | | | + +---------+ + + documented in this encounter Visit Diagnoses + + | Diagnosis | + + | Hip fracture (HCC) - Primary Closed fracture of unspecified part of neck of femur | + + | Menopause Symptomatic menopausal or female climacteric states | + + | HTN (hypertension) Unspecified essential hypertension | + + | Allergic rhinitis Allergic rhinitis, cause unspecified | + + | Depression Depressive disorder, not elsewhere classified | + + documented in this encounter
--- OUTSIDE RECORDS SUMMARY | ~2018-07-26 | XMS | Encounter Summary ---
Demographics + + + | Address | [address] | | | [place] [address] | + + + | Home Phone | | + + + | Preferred Language | Unknown | + + + | Marital Status | | + + + | Quaker Affiliation | CHR | + + + | Race | White | + + + | Ethnic Group | Not or | + + + Author + + + | Author | [facility] | + + + | Organization | [facility] | + + + | Address | Unknown | + + + | Phone | Unavailable | + + + Support + + + + + | Name | Relationship | Address | Phone | + + + + + | Favio Smart | [place] | [place] | | | | | [address] | | + + + + + Care Team Providers + +------+ + | Care Van Loader Name | Role | Phone | + +------+ + | Riana Ko PA-C | PCP | | + +------+ + Reason for Visit + + + | Reason | Comments | + + + | Follow-up visit | | + + + | Hip pain | | + + + | Physical Therapy | | | Evaluation | | + + + | Medication | | | management | | + + + | X-ray | | + + + | Shingles | | + + + Encounter Details +--------+---------+ + + + | Date | Type | Department | Care Team | Description | +--------+---------+ + + + | 08/27/ | Office | Family Medicine at | Riana Ko, | Herpes Zoster; | | 2006 | Visit | Krystian Abraham [facility] | [facility]ANIEL[facility]O [facility] [address] | Opioid Dependence | | | | [address] | ([facility] Fatigue; | | | | Mailcode: GPC | [place], [place] | Fractured Hip ([facility]) | | | | [facility] | [address] | | | | | [place], [place] | [phone] | | | | | [address] | | | | | | [phone] | | | +--------+---------+ + + + [...] + + + | Blood Pressure | 120/72 | 08/27/2006 12:54 PM | | | | | PDT | | + + + + + | Pulse | 80 | 08/27/2006 12:54 PM | | | | | PDT | | + + + + + | Temperature | 36.7 C (98.1 F) | 08/27/2006 12:54 PM | | | | | PDT | | + + + + + | Respiratory Rate | - | - | | + + + + + | Oxygen Saturation | - | - | | + + + + + | Inhaled Oxygen | - | - | | | Concentration | | | | + + + + + | Weight | 77 kg (169 lb 11.2 | 08/27/2006 12:54 PM | | | | oz) | PDT | | + + + + + | Height | 167.6 cm (5' 6") | 08/27/2006 12:54 PM | | | | | PDT | | + + + + + | Body Mass Index | 27.39 | 08/27/2006 12:54 PM | | | | | PDT | | + + + + + documented in this encounter Patient Instructions Patient Instructions Riana Ko - 08/27/2006 1:38 PM PDTSince we haven't done blood work since you established here, I would like to get some today. Depending on the results, you may need the vit B12 shot. I want to rule out other causes f or decreased energy and fatigue. Good work on everything else! I'll see you soon. Riana documented in this encounter Progress Notes Riana Ko F - 08/27/2006 1:55 PM PDTFormatting of this note might be different from t he original. SUBJECTIVE: Beverly Smart is a 51 y.o. female here for follow up to hip pain and with several other i ssues to disuss. 1. R hip pain improving with physical therapy twice weekly. Would like to continue. Now a ble to walk greater distances, gait has improved. Depending on further improvement is consi dering return to work in 6 weeks. 2. Pt saw Dr. Ortiz, DO yesterday who is managing her opioid dependence/withdrawal with Suboxone. She is now tapering this and is currently taking 8mg bid. Beverly also plans to c ontinue seeing Dr. Ortiz after she is off Suboxone and done with IOP for mental health is sues. Finishes IOP for opioid dependence in few weeks. Then will have therapy once weekly. Dr. Ortiz wrote last rx for Suboxone #90 and lactulose for associated constipation bernardinogely Paul plans to fill at our pharm today. 3. R low back burning pain started 5 days ago. + itch, then red, irritated rash appears. Fluid filled blisters have popped. Has never had anything like this before. No known expos ure to varicella (had as child), but under increased stress recently. No rashes elsewhere o n body. 4. C/o low energy x several months. On Wellbutrin for depression and Trazadone qhs for sle ep. Treated with B12 shots in past and wonders if she needs another today. Cannot recall w hen last blood tests were drawn. Has decreased motivation for both fun activities and respo nsibilities. Increased frequency night wakening. Decreased appetite. Feels as though depr ession is at baseline. Walking few times per week for fun. Denies SI. Gradual weight gain over last several years. OBJECTIVE: BP 120/72 | Pulse 80 | Temp (Src) 98.1 F (36.7 C) (Oral) | Ht 1.676 m (5' 6") | Wt 76.9 75 kg (169 lbs 11.2 oz) Gen: NAD, tanned. MS: Gait improved compared to last visit. Skin: + erythematous, raised rash following R lumbar dermatome. + fluid filled blisters. No rashes elsewhere on body. Psych: bright affect A/P: Encounter Diagnoses Code Name Primary? 053.9H Herpes Zoster Plan: VALACYCLOVIR 1 G TAB tid x 7 days CAPSAICIN 0.025 % TOPICAL CREAM - wary of other pain meds due to dependence issues RTC if no improvement or worsens, discussed PHN 304.00A Opioid Dependence Plan: LACTULOSE 10 G/15 ML ORAL SOLN, SUBOXONE 8 MG-[address] Ortiz' prescriptions filled today 780.79B Fatigue Plan: COMP METABOLIC SET, TSH-THYROID STIM HORMONE, CBC, PLATELET AND DIFFERENTIAL, ISAK ABRAHAM VENIPUNCTURE Can discuss B12 tx pending lab results Discuss depression with Dr. Ortiz at next visit if he plans to manage mental health issu es 820.8AD Fractured Hip Pt therapy progress note reviewed yesterday. Pt is improving and should continue therapy u ntil she plateaus. Recommend twice weely x 1 month. - re-eval x 1 month, sooner with problems in meantime Riana Ko PA-C documented in this encou nter Plan of Treatment + + +--------+ + + | Name | Type | Priori | Associated Diagnoses | Order Schedule | | | | ty | | | + + +--------+ + + | KRYSTIAN ABRAHAM | Procedures | Routin | Fatigue | Ordered: 08/27/2006 | | VENIPUNCTURE | | e | | | + + +--------+ + + documented as of this encounter Procedures + +--------+ + + + | Procedure Name | Priori | Date/Time | Associated Diagnosis | Comments | | | ty | | | | + +--------+ + + + | COMPLETE METABOLIC | Routin | 08/27/2006 | Fatigue | Results for this | | SET | e | 1:46 PM | | procedure are in the | | (NA,K,CL,CO2,BUN,CRE | | PDT | | results section. | | AT,GLUC,CA,AST,ALT,B | | | | | | [place] TOTAL,ALK | | | | | | PHOS,ALB,PROT TOTAL) | | | | | + +--------+ + + + | TSH | Routin | 08/27/2006 | Fatigue | Results for this | | | e | 1:46 PM | | procedure are in the | | | | PDT | | results section. | + +--------+ + + + | DIFFERENTIAL | Routin | 08/27/2006 | | Results for this | | | e | 1:45 PM | | procedure are in the | | | | PDT | | results section. | + +--------+ + + + | SLIDE REVIEW | Routin | 08/27/2006 | | Results for this | | | e | 1:45 PM | | procedure are in the | | | | PDT | | results section. | + +--------+ + + + | CBC, WITH | Routin | 08/27/2006 | Fatigue | Results for this | | DIFFERENTIAL | e | 1:45 PM | | procedure are in the | | | | PDT | | results section. | + +--------+ + + + documented in this encounter Results TSH-THYROID STIM HORMONE (08/27/2006 1:46 PM PDT) + + + + + + | Component | Value | Ref Range | Performed | Pathologist | | | | | At | Signature | + + + + + + | TSH | 1.80Comment: Test | 0.28 - 5.00 | | | | | performed by [facility] | uIU/ml | | | | | [facility] | | | | | | Laboratories. | | | | + + + + + + + + | Specimen | + + | Blood | + + + + + + + | Performing | Address | City/State/Zipcode | Phone Number | | Organization | | | | + + + + + | [facility] | [address] | [place] [address] | | | LABORATORY | | | | + + + + + COMP METABOLIC SET (08/27/2006 1:46 PM PDT) + + + + + + | Component | Value | Ref Range | Performed | Pathologist | | | | | At | Signature | + + + + + + | GLUCOSE, | 92Comment: | 60 - 99 mg/dL | [facility] | | | PLASMA | Reference range change | | DEPARTMENT | | | (LAB) | for Glucose, Plasma | | OF | | | | effective 06/19/06. | | PATHOLOGY | | + + + + + + | BUN, PLASMA | 5 (L) | 6 - 20 mg/dL | [facility] | | | (LAB) | | | DEPARTMENT | | | | | | OF | | | | | | PATHOLOGY | | + + + + + + | CREATININE | 1.0 | 0.6 - 1.1 mg/dL | [facility] | | | PLASMA | | | DEPARTMENT | | | (LAB) | | | OF | | | | | | PATHOLOGY | | + + + + + + | TOTAL | 6.9 | 6.1 - 7.9 g/dL | [facility] | | | PROTEIN, | | | DEPARTMENT | | | PLASMA | | | OF | | | (LAB) | | | PATHOLOGY | | + + + + + + | ALBUMIN, | 4.2 | 3.5 - 4.7 g/dL | [facility] | | | PLASMA | | | DEPARTMENT | | | (LAB) | | | OF | | | | | | PATHOLOGY | | + + + + + + | CALCIUM, | 9.9 | 8.5 - 10.5 | [facility] | | | PLASMA | | mg/dL | DEPARTMENT | | | (LAB) | | | OF | | | | | | PATHOLOGY | | + + + + + + | BILIRUBIN | 0.5 | 0.3 - 1.2 mg/dL | [facility] | | | TOTAL | | | DEPARTMENT | | | | | | OF | | | | | | PATHOLOGY | | + + + + + + | ALK PHOS | 62 | 42 - 98 U/L | [facility] | | | | | | DEPARTMENT | | | | | | OF | | | | | | PATHOLOGY | | + + + + + + | AST(SGOT) | 18 | 15 - 41 U/L | [facility] | | | | | | DEPARTMENT | | | | | | OF | | | | | | PATHOLOGY | | + + + + + + | SODIUM, | 133 (L) | 136 - 145 | [facility] | | | PLASMA | | mmol/L | DEPARTMENT | | | (LAB) | | | OF | | | | | | PATHOLOGY | | + + + + + + | POTASSIUM, | 4.1 | 3.5 - 5.1 | [facility] | | | PLASMA | | mmol/L | DEPARTMENT | | | (LAB) | | | OF | | | | | | PATHOLOGY | | + + + + + + | CHLORIDE, | 93 (L) | 98 - 107 mmol/L | [facility] | | | PLASMA | | | DEPARTMENT | | | (LAB) | | | OF | | | | | | PATHOLOGY | | + + + + + + | TOTAL CO2, | 31 (H) | 23 - 29 mmol/L | [facility] | | | PLASMA | | | DEPARTMENT | | | (LAB) | | | OF | | | | | | PATHOLOGY | | + + + + + + | ALT (SGPT) | 16 | 13 - 48 U/L | [facility] | | | | | | DEPARTMENT | | | | | | OF | | | | | | PATHOLOGY | | + + + + + + + + | Specimen | + + | Blood | + + + + + | Narrative | Performed At | + + + | [id number] Estimated GFR > 60 mL/min/1.73 sq m if non- | [facility] | | [id number] Estimated GFR > 60 mL/min/1.73 sq m [...] | + + + + + | [facility] DEPARTMENT | [address] | [place] [address] | | | PATHOLOGY | [address] | | | + + + + + | [facility] DEPARTMENT OF | [address] | [place] [address] | | | PATHOLOGY | [address] | | | + + + + + SLIDE REVIEW (08/27/2006 1:45 PM PDT) + + | Specimen | + + | | + + + + + | Narrative | Performed At | + + + | * Corrected 08/27/06 18:20: JOSE M COMMENTS, prev report: Slide | [facility] | | review pending. | DEPARTMENT OF | | | PATHOLOGY | + + + + + + + + | Performing | Address | City/State/Zipcode | Phone Number | | Organization | | | | + + + + + | [facility] DEPARTMENT OF | [address] | [place] [address] | | | PATHOLOGY | [address] | | | + + + + + | [facility] DEPARTMENT OF | [address] | [place] [address] | | | PATHOLOGY | [address] | | | + + + + + DIFFERENTIAL (08/27/2006 1:45 PM PDT) + +--------+ + + + | Component | Value | Ref Range | Performed | Pathologist | | | | | At | Signature | + +--------+ + + + | NEUTROPHIL | 40 (L) | 50 - 70 % | [facility] | | | % | | | DEPARTMENT | | | | | | OF | | | | | | PATHOLOGY | | + +--------+ + + + | LYMPHOCYTE | 52 (H) | 18 - 42 % | [facility] | | | % | | | DEPARTMENT | | | | | | OF | | | | | | PATHOLOGY | | + +--------+ + + + | MONOCYTE % | 6 | 2 - 8 % | [facility] | | | | | | DEPARTMENT | | | | | | OF | | | | | | PATHOLOGY | | + +--------+ + + + | EOS % | 2 | 1 - 3 % | [facility] | | | | | | DEPARTMENT | | | | | | OF | | | | | | PATHOLOGY | | + +--------+ + + + | BASO % | 1 | <3 % | [facility] | | | | | | DEPARTMENT | | | | | | OF | | | | | | PATHOLOGY | | + +--------+ + + + | NEUTROPHIL | 2.8 | 1.8 - 7.7 K/cu | [facility] | | | # | | mm | DEPARTMENT | | | | | | OF | | | | | | PATHOLOGY | | + +--------+ + + + | LYMPHOCYTE | 3.6 | 1.0 - 4.8 K/cu | [facility] | | | # | | mm | DEPARTMENT | | | | | | OF | | | | | | PATHOLOGY | | + +--------+ + + + | MONOCYTE # | 0.4 | <0.9 K/cu mm | [facility] | | | | | | DEPARTMENT | | | | | | OF | | | | | | PATHOLOGY | | + +--------+ + + + | EOS # | 0.1 | <0.6 K/cu mm | [facility] | | | | | | DEPARTMENT | | | | | | OF | | | | | | PATHOLOGY | | + +--------+ + + + | BASO # | 0.1 | <0.3 | [facility] | | | | | | DEPARTMENT | | | | | | OF | | | | | | PATHOLOGY | | + +--------+ + + + + + | Specimen | + + | | + + + + + | Narrative | Performed At | + + + | * Corrected 08/27/06 18:20: JOSE M COMMENTS, prev report: Slide | [facility] | | review pending. | DEPARTMENT OF | | | PATHOLOGY | + + + + + + + + | Performing | Address | City/State/Zipcode | Phone Number | | Organization | | | | + + + + + | [facility] DEPARTMENT OF | [address] | [place] [address] | | | PATHOLOGY | [address] | | | + + + + + | [facility] DEPARTMENT OF | [address] | [place] [address] | | | PATHOLOGY | [address] | | | + + + + + CBC, WITH DIFFERENTIAL (08/27/2006 1:45 PM PDT) + + + + + + | Component | Value | Ref Range | Performed | Pathologist | | | | | At | Signature | + + + + + + | WHITE CELL | 6.9 | 4.4 - 11.0 K/cu | [facility] | | | COUNT | | mm | DEPARTMENT | | | | | | OF | | | | | | PATHOLOGY | | + + + + + + | RED CELL | 3.86 (L) | 4.00 - 5.20 | [facility] | | | COUNT | | M/cu mm | DEPARTMENT | | | | | | OF | | | | | | PATHOLOGY | | + + + + + + | HEMOGLOBIN | 12.1 | 12.0 - 16.0 | [facility] | | | | | g/dL | DEPARTMENT | | | | | | OF | | | | | | PATHOLOGY | | + + + + + + | HEMATOCRIT | 34.7 (L) | 36.0 - 46.0 % | [facility] | | | | | | DEPARTMENT | | | | | | OF | | | | | | PATHOLOGY | | + + + + + + | MCV | 89.8 | 80.0 - 96.0 fL | [facility] | | | | | | DEPARTMENT | | | | | | OF | | | | | | PATHOLOGY | | + + + + + + | MCHC | 34.8 | 33.4 - 35.5 | [facility] | | | | | g/dL | DEPARTMENT | | | | | | OF | | | | | | PATHOLOGY | | + + + + + + | RDW | 12.1 | 11.5 - 15.0 % | [facility] | | | | | | DEPARTMENT | | | | | | OF | | | | | | PATHOLOGY | | + + + + + + | PLATELET | 377 | 150 - 400 K/cu | [facility] | | | COUNT | | mm | DEPARTMENT | | | | | | OF | | | | | | PATHOLOGY | | + + + + + + | CBC | Final automated | | [facility] | | | COMMENTS | differential report. | | DEPARTMENT | | | | Smear reviewed. | | OF | | | | | | PATHOLOGY | | + + + + + + + + | Specimen | + + | Blood | + + + + + | Narrative | Performed At | + + + | * Corrected 08/27/06 18:20: JOSE M COMMENTS, prev report: Slide | [facility] | | review pending. | DEPARTMENT OF | | | PATHOLOGY | + + + + + + + + | Performing | Address | City/State/Zipcode | Phone Number | | Organization | | | | + + + + + | [facility] DEPARTMENT OF | [address] | [place] [address] | | | PATHOLOGY | [address] | | | + + + + + | [facility] | [address] | [place] [address] | | | PATHOLOGY | [address] | | | + + + + + documented in this encounter Visit Diagnoses + + | Diagnosis | + + | Herpes zoster Herpes zoster without mention of complication | + + | Opioid dependence (HCC) Opioid type dependence, unspecified | + + | Fatigue Other malaise and fatigue | + + | Fractured hip (HCC) Closed fracture of unspecified part of neck of femur | + + documented in this encounter
--- OUTSIDE RECORDS SUMMARY | ~2018-07-26 | XMS | Encounter Summary ---
Demographics + + + | Address | [address] | | | [place] [address] | + + + | Home Phone | | + + + | Preferred Language | Unknown | + + + | Marital Status | | + + + | Anglican Affiliation | CHR | + + + | Race | White | + + + | Ethnic Group | Not or | + + + Author + + + | Author | [facility] | + + + | Organization | [facility] | + + + | Address | Unknown | + + + | Phone | Unavailable | + + + Support + + + + + | Name | Relationship | Address | Phone | + + + + + | Favio Smart | [address] | [place] | | | | | [address] | | + + + + + Care Team Providers + +------+ + | Care Wheel Loader Operator Name | Role | Phone | + +------+ + PCP | Unavailable | + +------+ + Encounter Details +--------+ + + + + | Date | Type | Department | Care Team | Description | +--------+ + + + + | 08/27/ | Transcribed | Allergy Clinic at | Dictation, Other | Transcribed | | 1995 | | [facility] [address] | | | | | | [facility] | | | | | | Mailcode: [address] | | | | | | [place] | | | | | | [facility] | | | | | | [place] [address] | | | | | | [phone] | | | +--------+ + + + [...] as of this encounter Progress Notes Interface, Animal Shelter Clerk In - 06/04/2006 1:09 AM PDT [address] [address] or August 28, 1995 Dina Reinoso M.D. Twister Hand, Otolaryngology Head and Neck Surgery RE:Beverly Smart MR#:[id number] Dear Physicians: Beverly Smart returns for follow-up. After some initial fumbling around and multiple telephone contacts over the past month or so, she finally successfully tapered off her Vicodin and has been off for two weeks. Her headaches have continued essentially unchanged. They continue to occur about three or four times per week, superimposed on rather chronic sinus-type headaches which are more constant. At this point, I think it is imperative to reintroduce some antimigrainous therapy. She has started herself on Prozac which I have not found to be that helpful for migraines. I will start her on Cyproheptadine 4 mg t.i.d. to q.i.d. This has both antihistamine and antiserotonergic activity which may help both with her sinusitis and her vascular headaches. I have given her twenty Vicodin with no refills to be used extremely sparingly and which must last at least one month. I have asked that no other refills of narcotics other than those I provide be filled during this interval. I will see her back again in three weeks to one month. Kameron Long M.D. Ph.D. Twister Hand, Neurology and Otolaryngology LIONEL /young A cc: RAYMUNDO POSEY MD PROFESSOR OF OTOLARYNGOLOGY HEAD AND NECK SURGERY LIAN VALLECILLO MD [address] [place] [address] JOSÉ MIGUEL STRINGER MD [facility] RECRUITER HEAD ALLERGY AND CLINICAL IMMUNOLOGY documented in this encounter Plan of Treatment Not on filedocumented as of this encounter Visit Diagnoses Not on filedocumented in this encounter"
--- OUTSIDE RECORDS SUMMARY | ~2018-07-26 | XMS | Encounter Summary ---
Demographics + + + | Address | [address] | | | [place] [address] | + + + | Home Phone | | + + + | Preferred Language | Unknown | + + + | Marital Status | | + + + | Adventism Affiliation | CHR | + + + | Race | White | + + + | Ethnic Group | Not or | + + + Author + + + | Author | [facility] | + + + | Organization | [facility] | + + + | Address | Unknown | + + + | Phone | Unavailable | + + + Support + + + + + | Name | Relationship | Address | Phone | + + + + + | Favio Smart | [address] | [place] | | | | | [address] | | + + + + + Care Team Providers + +------+ + | Care Host/Hostess Restaurant Name | Role | Phone | + [...] Medical Records | | 2011 | | [place] [facility] [address] | Gastroenterology | Review | | | | [address] | | | | | | Mailcode: Center | | | | | | [facility] | | | | | | [facility] [address] | | | | | | [place], [place] | | | | | | [address] | | | | | | [phone] | | | +--------+ + + + [...]
--- OUTSIDE RECORDS SUMMARY | ~2018-07-26 | XMS | Encounter Summary ---
Demographics + + + | Address | [address] | | | [place] [address] | + + + | Home Phone | | + + + | Preferred Language | Unknown | + + + | Marital Status | | + + + | Buddhism Affiliation | CHR | + + + | Race | White | + + + | Ethnic Group | Not or | + + + Author + + + | Author | [facility] | + + + | Organization | [facility] | + + + | Address | Unknown | + + + | Phone | Unavailable | + + + Support + + + + + | Name | Relationship | Address | Phone | + + + + + | Favio Smart | [address] | [place] | | | | | [address] | | + + + + + Care Team Providers + +------+ + | Care Firearms Expert Name | Role | Phone | + [...] Clinic | | | | | | [facility], [address] | | | | | | [place], [place] | | | | | | [address] | | | | | | [phone] | | | +--------+ + + + [...] as of this encounter Progress Notes Interface, Spindraw Operator In - 05/15/2006 5:04 AM [facility] DATE: 04/07/96 OTOLARYNGOLOGY CLINIC: SUBJECTIVE: [...] dependence on pain medicine. Dina Reinoso M.D. Booky, Otolaryngology/Head and Neck Surgery LH:angie cc: Christy Alexander., Ph.D. Booky Neurology and Otolaryngology LIAN VALLECILLO MD [facility] [address] [place] [address] [address] [place] [address] documented in this encounter Plan of Treatment Not on filedocumented as of this encounter Visit Diagnoses Not on filedocumented in this encounter"
--- OUTSIDE RECORDS SUMMARY | ~2018-07-26 | XMS | Clinical Summary ---
Demographics + + + | Address | [address] | | | [place] [address] | + + + | Home Phone | | + + + | Preferred Language | Unknown | + + + | Marital Status | | + + + | Sabianism Affiliation | Unknown | + + + | Race | Unknown | + + + | Ethnic Group | Unknown | + + + Author + + + | Author | [facility] | | | and [place] | + + + | Organization | [facility] | | | and [place] | + + + | Address | Unknown | + + + | Phone | Unavailable | + + + Support + + + + + | Name | Relationship | Address | Phone | + + + + + | Natasha Patino J | ECON | [address] | | | Md | | [place] | | | | | [address] | | + + + + + | Danita Smart | ECON | Unknown | | + + + + + | Briseida Pedroza | ECON | Unknown | | + + + + + Care Team Providers + +------+ + | Care Career Technical Education Instructor Name | Role | Phone | [...] | | + + + +---------+------+------+-------+ | Frederic-3 Fatty | Take 2 tablets by | [...] 1 suppository | 12 | 3 | 06/1 | | Activ | | (PHENERGAN) 25 mg | rectally every 6 | supposito | | 8/20 | | e | | suppositoryIndicatio | [...] | | + + + +---------+------+------+-------+ | metOLazone | Take 1 tablet by | 2 | 0 | 05/1 | | Activ | | (ZAROXOLYN) 10 MG | mouth Daily. (for 2 | tablet | | 03/29 | | e | | tablet | days only). | | | 19 | | | + + + +---------+------+------+-------+ | furosemide (LASIX) | Take 3 tablets by | 180 | 3 | 05/1 | | Activ | | 80 mg | mouth 2 times daily. | tablet | | /20 | | e | | tabletIndications: | | | | 19 | | | | Essential | | [...] times daily. | | | 07/27 | 20 | ntinu | | MG 12 hr tablet | | | | 12 | 19 | ed | + + + +---------+------+------+-------+ | liraglutide | Inject 1.2 mg under | | 0 | | /2 | Disco | | (VICTOZA) 18 mg/3 mL | the skin Daily. | | | | 11/27 | ntinu | | | | | | | 19 | ed | | injectionIndications | | | | | | | | : Chronic kidney | | | | | | | | disease, stage III | | | | | | | | (moderate) ([facility]), | | | | | | | [...] | | | | | | insulin ([facility]), S/P | | | | | | | | shoulder surgery | | | | | | | + + + +---------+------+------+-------+ | furosemide (LASIX) | Take 2 tablets by | 180 | 3 | 06 | 05 | Disco | | 80 mg | mouth Daily. | tablet | | 09/26 | 03/29 | ntinu | | tabletIndications: | | | | 18 | 19 | ed | | Essential | | | | [...] + + + + + | Overview: TANA [id number] Decision | + + + + + [...] | +--------+ + + + + | 07/18/ | Orders Only | | Deysi Martel | Essential | | 2018 | | | M, DO | hypertension; | | | | | | CHRONIC KIDNEY | | | | | | DISEASE STAGE III | | | | | | (MODERATE); Type 2 | | | | | | diabetes mellitus | | | | | | with hyperosmolarity | | | | | | without coma, | | | | | | without long-term | | | | | | current use of | | | | | | insulin (HCC); | | | | | | Secondary | | | | | | hyperparathyroidism | | | | | | of renal origin | | | | | | (HCC) | +--------+ + + + + | [...] | Edema | | 2019 | | | M, DO | | +--------+ + + + + | 05/11/ | Off-Site | | Deysi Martel | CHRONIC KIDNEY | | 2019 | Visit | | M, DO | [...] + | Blood Pressure | 142/80 | 07/06/2018 1656 PDT | + + + + | Pulse | 73 | 05/17/20131034 PDT | + + + + | Temperature | 36.4 C (97.6 F) | 07/06/20181655 PDT | + + + + | Respiratory Rate | 16 | 05/17/20131034 PDT | + + + + | Oxygen Saturation | 97% | 05/17/20131034 PDT | + + + + | Inhaled Oxygen | - | - | | Concentration | | | + + + + | Weight | 73.6 kg (162 lb 4.1 | 07/06/20181655 PDT | | | oz) | | [...] | | Deysi Martel | | | 2019 | Visit | | DO [facility] [address] [place] [address] | | | | | | [place] | | | | | | [place] | | | | | | [address] | | | | | | | [...] | | | | Risk (1 of - | | | | | PPSV23) [...] from Last 3 Months Results External Lab: ANGELIQUE (07/03/2018) + +-------+ + + + | [...] | | | | | | | Malaysian, | | | | | | External [...] +-------+--------+ +--------+-------+---------+------+ | BCBS | BCBS | [id number] | 03/10/19 | | | PPO | [...] Person | Self | [birth year] | [address] | | | al/Fam | | 1956 | [phone] | [place] [address] | | | don | | | 3 (Home) | | + +--------+ +--------+ + + Advance Directives Patient has advance care planning documents on file. For more information, please contact:[facility] [place] [address]
--- OUTSIDE RECORDS SUMMARY | ~2018-07-26 | XMS | Encounter Summary ---
Demographics + + + | Address | [address] | | | [place] [address] | + + + | Home Phone | | + + + | Preferred Language | Unknown | + + + | Marital Status | | + + + | Temple Affiliation | CHR | + + + | Race | White | + + + | Ethnic Group | Not or | + + + Author + + + | Author | [facility] | + + + | Organization | [facility] | + + + | Address | Unknown | + + + | Phone | Unavailable | + + + Support + + + + + | Name | Relationship | Address | Phone | + + + + + | Favio Smart | [address] | [place] | | | | | [address] | | + + + + + Care Team Providers + +------+ + | Care Salt Lifter Name | Role | Phone | + +------+ + | Shereen Lopes NP | PCP | | + +------+ + Reason for Visit + + + | Reason | Comments | + + + | New patient | Pt. here for skin lesions all over body. | | consultation | | + + + Consultation (Urgent) +--------+ + + + + + | Status | Reason | Specialty | Diagnoses / | Referred By | Referred To | | | | | Procedures | Contact | Contact | +--------+ + + + + + | Closed | Specialty | Dermatology | Diagnoses | Xander | Krysten Kelly [facility] | | | Services | | Rash and | MD Bairon | [address] | | | Required | | nonspecific | [address] | | | | | skin | [address] [place] | Mail Code: | | | | | eruption | 2010 | [facility] | | | | | Arthralgia | [place], [place] | for Health | | | | | Procedures | [address] | and Healing, | | | | | CONSULT TO | Phone: | 16th floor | | | | | DERM & DERM | [phone] | [place], [place] | | | | | SURGERY | Fax: | [address] | | | | | eval & tx | [phone] | Phone: | | | | | | | [phone] | | | | | | | Fax: | | | | | | | [phone] | +--------+ + + + + + Encounter Details +--------+---------+ + + + | Date | Type | Department | Care Team | Description | +--------+---------+ + + + | 05/22/ | Office | Dermatology | Philipp Herrera, | Rash and other | | 2011 | Visit | [facility] at [place] | MD [address] | nonspecific skin | | | | Floor [address] | [place], [place] | eruption (Primary | | | | Ave Mail Code: | [address] | Dx) | | | | [facility] [facility] | [phone] | | | | | Health and Healing, | | | | | | 16 floor | | | | | | [place], [place] | | | | | | [address] | | | | | | [phone] | | | +--------+---------+ + + + [...] + + documented as of this encounter Patient Instructions Patient Instructions Filomena Herring MA - 05/23/2011 1:29 PM PDTPrevent Winter Itch The winter time usually means forced dry heat in the home and hot showers- two major causes of dry skin. Here are some tips that can prevent you from developing dry and itchy skin ov er the winter time. Do not use hot water. Hot water removes your natural skin oils more quickly. Warm water is best for bathing. Use a gentle cleanser. Soaps can strip oils from the skin. Stop using deodorant bars, antib acterial soaps, perfumed soaps, and skin care products containing alcohol, like hand sanitiz ers. Look for either a mild, fragrance-free soap or a soap substitute that moisturizes. Limit time in the bathtub or shower. A 5- to 10-minute bath or shower adds moisture to the skin. Spending more time in the water often leaves your skin less hydrated than before you s tarted unless you use a thick moisturizer on your skin after bathing. Do not bathe more ofte n than once a day. Moisturize right after baths and showers. To lock in moisture from a bath or shower, apply a moisturizer while the skin is still damp. The thicker the moisturizer, the better. Before you shave, soften skin. It is best to shave right after bathing, when hairs are soft . To lessen the irritating effects of shaving your face or legs, use a shaving cream or gel. Leave the product on your skin about 3 minutes before starting to shave. Shave in the direc tion that the hair grows. Change razor blades after 5 to 7 shaves. A dull blade bothers dry skin. Use a humidifier. Keep the air in your home moist with a humidifier. Soothe chapped lips. At bedtime, apply a lip balm that contains petrolatum. Other names for this ingredient are petroleum jelly and mineral oil. Cover up outdoors in the winter. In the cold, wear a scarf to help prevent chapped lips and gloves to protect hands and help prevent chapped hands. Be good to your face. If you have very dry skin, cleanse your face just once a day, at nigh t. In the morning, rinse your face with cool water. THE "ABCDE" RULE AND MELANOMA DETECTION Asymmetry - compare one half of the growth to the other half to determine if the halves are equal in size. Border - If the mole's border is irregular, notched, scalloped, or indistinct, it should be checked by a doctor. Color - Variation of color (e.g., more than one color or shade) within a mole is a suspicio us finding. Diameter - Any mole that has a diameter larger than a pencil's eraser should be checked by a doctor. Evolving - If a mole is changing in size, shape, color, elevation, surface texture or becom es itchy or painful, it should be checked by a doctor. 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 Little see on skin mostly small excoriated lesions arms Clobetasol oint bid I performed a history and physical examination of the patient and discussed his management with the resident. I reviewed the resident's note and agree with the documented findings a nd plan of care. I was present for the entire procedure as described in this note for this encounter. Prior to beginning the procedure, patient identity was verified, as well as the procedure t o be performed and the site. All equipment required was ready and available. The patient wa s positioned appropriately. Punch Biopsy-4 mm from R forearm. After PARQ addressed and scar factors discussed, the area was prepped with ETOH. 1.5ml of 1 % Lidocaine with Epinephrine was used for local anesthesia. A punch biopsy was performed and closed with 4.0 nylonsuture. The site was dressed with petrolatum and a bandage. Wound care instructions given. Patient reports no pain after the procedure. See 2 weeks Justina Andrew April Gonzalez - 05/23/2011 1:48 PM PDTFormatting of this note might be different from the orig inal. DERMATOLOGY NEW PATIENT VISIT, HISTORY AND PHYSICAL CHIEF COMPLAINT: referral for eval of rash PRIMARY CARE PROVIDER: Shereen Lopes NP REFERRED BY: Bairon Terrell HISTORY OF PRESENT ILLNESS: Beverly Smart is a 56 y.o. female who referred by Rheumatology for eval of rash. This be jeermias two years ago after a fall in November 2009. After the trauma developed swelling of leg s and feet. Since has had a rash on the legs which has been persistent. Also a rash on the f sridhar which comes and goes. Symptoms include some itching on her mid back but has no rash ther e. C/o pain and weakness in the legs constantly. Also fatigue, muscle aches, dry eyes, dry m outh. AI work up thus far has been negative. Was seen today by rheum who ordered repeat labw ork - pending. The patient has no personal history of skin cancer. Whitt skin type II. The patient's dermatology intake form was reviewed, signed, and dated. Her relevant PMH, F H, and SH includes: PAST MEDICAL HISTORY: Past Medical History Diagnosis Date Narcotic abuse 2005 Treated in [facility] 05/14-06/14, in IOP currently Chronic pain R hip Asthma induced by NSAID Arthritis Shingles Hypertension Diabetes mellitus FAMILY HISTORY: No history of melanoma, no other family history of other dermatologic conditions. SOCIAL HISTORY: No tobacco. Minimal alcohol. MEDICATIONS: Current Outpatient Prescriptions on File Prior to Visit Medication Sig Dispense Refill albuterol 4 mg Oral Tablet Take 4 mg by mouth every twelve hours. Bupropion HCl (WELLBUTRIN SR) 200 mg Oral Tablet Sustained Release 1 tab po bid 60 12 CARISOPRODOL (SOMA ORAL) Take by mouth. furosemide 40 mg Oral Tablet Take 40 mg by mouth two times daily. hydrochlorothiazide 25 mg Oral Tablet Take 25 mg by mouth once daily. LORazepam 2 mg Oral Tablet Take 2 mg by mouth once daily at bedtime. metFORMIN 500 mg Oral Tablet Take 500 mg by mouth two times daily. metoprolol tartrate 100 mg Oral Tablet Take 100 mg by mouth once daily. montelukast 10 mg Oral Tablet Take 10 mg by mouth once daily in the evening. pramipexole 0.25 mg Oral Tablet Take 0.125 mg by mouth once daily at bedtime. Tramadol HCl (ULTRAM) 50 mg Oral Tablet take 1-2 tablet (50 mg) by oral route every 6 h ours as needed 60 0 ALLERGIES: Allergies Allergen Reactions Advil (Ibuprofen) Aspirin Asthma Codeine Nsaids Wheez/Dyspnea Prednisone Keflex (Cephalexin) Nausea/Vomiting Sulfa (Sulfonamide Antibiotics) Hives and Rash REVIEW OF SYSTEMS: Please see HPI and PMH. In addition, she denies fever, chills, sweats, weight loss or loss of appetite, and has no further skin complaints. PHYSICAL EXAMINATION: There were no vitals taken for this visit. The patient is a well appearing female who is alert with normal mood and affect. Awake, a lert and oriented. Pleasant and cooperative mood. A skin examination was performed including the scalp, face, eyelids, ears, lips, neck, ches t, back, abdomen, buttocks, R+L arms and hands, R+L legs and feet, and nails. Findings were within normal limits except for the following: --pink, violaceous papules scattered over the b/l forearms, lower legs and central chest, m any appear excoriated with angular erosions --generally very whitley, w/ generalized actinic damage, no xerosis --no purpura or petechiae ASSESSMENT AND PLAN: 1. Erythematous to violaceous papules, many with angular erosions - most of the lesions bagley ve significant secondary change making it challenging to determine the primary morphology to day. Has one lesion on the left forearm that appears to be less altered. Will re-biopsy toda y to further evaluate. No signs of LCV on exam today. --3 mm punch biopsy performed today; will contact patient with results and arrange for furt her care if needed --start clobetasol oint BID Procedure Note - Punch Biopsy right forearm Prior to beginning the procedure the team paused to verify the patient's identity, as well as the procedure to be performed and the biopsy site. All equipment required was ready and available. The patient was positioned appropriately. After PARQ addressed and scar factors discussed, the area was prepped with an isopropyl alcohol pad. Anesthesia was obtained by breaux bcutaneous infusion of buffered 1% lidocaine with 1:100,000 epinephrine. The punch biopsy w as performed and the resultant defect closed with 4-0 nylon suture. Blood loss was minimal. The site was dressed with white petrolatum jelly and a bandage. Verbal and written wound c are instructions were given to the patient. Patient reports no pain after the procedure. -Suture(s) to be removed in 7-14 days. RTC: 1-2 weeks or sooner PRN if lesions or symptoms worsen or fail to resolve APRIL BALL MD Resident, Department of Dermatology [facility] [place] documented in this en counter Plan of Treatment Not on filedocumented as of this encounter Procedures + +--------+ + + + | Procedure Name | Priori | Date/Time | Associated Diagnosis | Comments | | | ty | | | | + +--------+ + + + | ID BIOPSY OF SKIN | Routin | 05/24/2011 | Rash and other | | | LESION | e | 4:24 AM | nonspecific skin | | | | | PDT | eruption | | + +--------+ + + + | DERMATOPATHOLOGY(WET | Routin | 05/23/2011 | | Results for this | | [facility]) | e | | | procedure are in the | | | | | | results section. | + +--------+ + + + documented in this encounter Results DERMATOPATHOLOGY(WET [facility]) (05/23/2011) + + + + + + | Component | Value | Ref Range | Performed | Pathologist | | | | | At | Signature | + + + + + + | DERMATOPATH | SOURCE OF SPECIMEN:A Rt. | | [facility] | | | OLOGY(WET | arm, punch | | DERMATOPATH | | | MNT) | biopsy CLINICAL | | OLOGY | | | | DESCRIPTION:Small | | | | | | papule. GROSS | | | | | | DESCRIPTION:Received in | | | | | | formalin is a specimen | | | | | | labeled Beverly Smart | | | | | | L:A: Specimen is labeled | | | | | | "R forearm" and | | | | | | consists of a 3mm punch | | | | | | of whiteskin cut to a | | | | | | depth of 3mm and an | | | | | | irregular mass of white | | | | | | skin [id number]. | | | | | | Thesurgical margin of | | | | | | the punch is inked blue | | | | | | and the mass is inked | | | | | | green;both pieces are | | | | | | entirely submitted in | | | | | | cassette A1. | | | | | | MICROSCOPIC | | | | | | DESCRIPTION:There is | | | | | | focal parakeratosis | | | | | | overlying irregular | | | | | | epidermal hyperplasia | | | | | | witha sparse lymphocytic | | | | | | infiltrate in the upper | | | | | | dermis and abundant | | | | | | solarelastosis. On | | | | | | deeper sections, there | | | | | | is ulceration and | | | | | | crust. | | | | | | DIAGNOSIS:EPIDERMAL | | | | | | HYPERPLASIA WITH | | | | | | FIBROSIS AND | | | | | | ULCER. NOTE: The | | | | | | changes are not | | | | | | entirely diagnostic, | | | | | | where the cause of the | | | | | | ulceris not apparent | | | | | | although the findings | | | | | | suggest external trauma. | | | | | | There is noevidence of | | | | | | a neoplasm. A sampling | | | | | | situation may be | | | | | | present. If thecondition | | | | | | persists or extends, | | | | | | additional biopsy may be | | | | | | helpful. | | | | | | KPW:emr05/28/11 | | | | | | My electronic signature | | | | | [...] | | | | | | Diagnostician: Ricky | | | | | | Emerita | | | | | | ModestaPathologistElectroni | | | | | | leisa Signed | | | | | | 05/28/2011 2:25PM | | | | + + + + + + + + | Specimen | + + | | + + + + + + + | Performing | Address | City/State/Zipcode | Phone Number | | Organization | | | | + + + + + | [facility] | [id number] | [place] [address] | | | DERMATOPATHOLOGY | [address] | | | + + + + + documented in this encounter Visit Diagnoses + + | Diagnosis | + + | Rash and other nonspecific skin eruption - Primary | + + documented in this encounter
--- OUTSIDE RECORDS SUMMARY | ~2018-07-26 | XMS | Clinical Summary ---
Demographics + + + | Address | [address] | | | [place] [address] | + + + | Home Phone | | + + + | Preferred Language | Unknown | + + + | Marital Status | | + + + | Catholic Affiliation | CHR | + + + [...] [place] | | | | | [address] | | + + + + + Care Team Providers + +------+ + | Care Field Sampling Technician Name | Role | Phone | + +------+ + PP | Unavailable | + +------+ + Source Comments GAYATRI is fully live on both [facility] and [facility] Allergies + + + + + + [...] | | + + + +---------+------+------+-------+ | Tramadol HCl | take 1-2 tablet [...] | | + + + +---------+------+------+-------+ | Bupropion HCl | 1 tab po [...] | + + + +---------+------+------+-------+ | albuterol 4 mg | Take 4 mg by mouth | | 0 | | | Activ | | Oral Tablet | every twelve hours. | | | | | e | | | | | | | | | + + + +---------+------+------+-------+ | | Take 25 mg by mouth | | 0 | | | Activ | | hydrochlorothiazide | once daily. | | | | | e | | 25 mg Oral Tablet | | | | | | | + + + +---------+------+------+-------+ | metFORMIN 500 mg | Take 500 mg by mouth | | 0 | | | Activ | | Oral Tablet | two times daily. | | | | | e | + + + +---------+------+------+-------+ | pramipexole 0.25 | Take 0.125 mg by | | 0 | | | Activ | | mg Oral Tablet | mouth once daily at | | | | | e | | | bedtime. | | | | | | + + + +---------+------+------+-------+ | furosemide 40 mg | Take 40 mg by mouth | | 0 | | | Activ | | Oral Tablet | two times daily. | | | | | e | + + + +---------+------+------+-------+ | CARISOPRODOL (SOMA | Take by mouth. | | 0 | | | Activ | | ORAL) | | | | | | e | + + + +---------+------+------+-------+ | metoprolol | Take 100 mg by mouth | | 0 | | | Activ | | tartrate 100 mg Oral | once daily. | | | | | e | | Tablet | | | | | | | + + + +---------+------+------+-------+ | LORazepam 2 mg | Take 2 mg by mouth | | 0 | | | Activ | | Oral Tablet | once daily at | | | | | e | | | bedtime. | | | | | | + + + +---------+------+------+-------+ | montelukast 10 mg | Take 10 mg by mouth | | 0 | | | Activ | | Oral Tablet | once daily in the | | | | | e | | | evening. | | | | | | + + + +---------+------+------+-------+ | clobetasol 0.05 % | Apply to [...] | + + + | Opioid dependence | 08/27/2006 | + + + | Herpes zoster | 08/27/2006 | + + + Immunizations +------+ + + | Name | Administration Dates | Next Due | +------+ + + [...] Pressure | 112/66 | 05/23/2011 9:53 AM | | | | | PDT | | + + + + + | Pulse | 72 | 05/23/2011 9:53 AM | | | | | PDT | | + + + + + | Temperature | 36.8 C (98.2 F) | 01/27/2007 10:17 AM | | | | | PST | | + + + + + | Respiratory Rate | 16 | 10/28/2006 8:28 AM | | | | | PDT | | + + + + + | Oxygen Saturation | - | - | | + + + + + | Inhaled Oxygen | - | - | | | Concentration | | | | + + + + + | Weight | 64.4 kg (142 lb) | 05/23/2011 9:53 AM | | | | | PDT | | + + + + + | Height | 170.8 cm (5' 7.25") | 05/23/2011 9:53 AM | | | | | PDT | | + + + + + | Body Mass Index | 22.08 | 05/23/2011 9:53 AM | | | | | PDT | | + + + + + Plan of Treatment + + + + + | Health Maintenance | Due Date | Last Done | Comments | + + + + + | Influenza (Flu) | 09/01/201 | | | | vaccination (Season | 9 | | | | Ended) | | | | + + + + + Results Not on filefrom Last 3 Months Insurance + +--------+ +--------+ + +------+ | Payer | Benefi | Subscriber | Effect | Phone | Address | Type | | | t Plan | ID | nicole | | | | | | / | | Dates | | | | | | Group | | | | | | + +--------+ +--------+ + +------+ | [employer] | PACIFI | [phone] | | [phone] | [address] | PPO | | | [address] | | [phone] | | | [address] | | [address]ent | | [place] | | | | | | | | , [place] | | | | | | | | [phone] | | + +--------+ +--------+ + +------+ + +--------+ +--------+ + + | Guarantor Name | Accoun | Relation to | Date | Phone | Billing Address | | | t Type | Patient | of | | | | | | | | | | + +--------+ +--------+ + + | Beverly Smart | Person | Self | [birth year] | [address] | | | al/Fam | | 6 | [phone] | [place] [address] | | | don | | | 3 (Home) | | + +--------+ +--------+ + +
--- OUTSIDE RECORDS SUMMARY | ~2018-07-26 | XMS | Encounter Summary ---
Demographics + + + | Address | [address] | | | [place] [address] | + + + | Home Phone | | + + + | Preferred Language | Unknown | + + + | Marital Status | | + + + | Jainism Affiliation | CHR | + + + [...] [place] | | | | | [address] | | + + + + + Care Team Providers + +------+ + | Care Barrel Coater Name | Role | Phone | + [...] [place] | | | | | | [facility] Mailcode: | | | | | | [address] [place], [place] | | | | | | [address] | | | | | | [phone] | | | +--------+ + + + [...] Re | | | | | | [id number] Culture | | | | | | # | | | | | | [phone] | | | | + + + + + + + + | Specimen | + + | | + + + + + + + | Performing | Address | City/State/Zipcode | Phone Number | | Organization | | | | + + + + + | [facility] | [address] | [place] [address] | | | PATHOLOGY | [address] [...] | | | | | | Re [id number] | | | | | | ATE [...] | + + + + + | [facility] | [address] | [place] [address] | | | PATHOLOGY | [address] [...] + + | Performing | Address | City/State/[facility] | Phone Number | | Organization | | | | + + + + + | [facility] | [address] | [place] [address] | | | PATHOLOGY | [address] | | | + + + + + documented in this encounter Visit Diagnoses Not on filedocumented in this encounter"
--- OUTSIDE RECORDS SUMMARY | ~2018-07-26 | XMS | Encounter Summary ---
Demographics + + + | Address | [address] | | | [place] [address] | + + + | Home Phone | | + + + | Preferred Language | Unknown | + + + | Marital Status | | + + + | Hindu Affiliation | CHR | + + + [...] + + + + + | Favio Smatr | [place] | [place] | | | | | [address] | | + + + + + Care Team Providers + +------+ + | Care Insulation Extruder Operator Name | Role | Phone | + +------+ + PCP | Unavailable | + +------+ + Encounter Details +--------+ + + + + | Date | Type | Department | Care Team | Description | +--------+ + + + + | 03/05/ | Procedure - | Digestive Health | Record, Operation | Operative Report | | 1995 | | Center at [facility] [address] | | | | | Transcribed | Masoud Serrano | | | | | | Mailcode: Center | | | | | | for [facility] and | | | | | | Healing, Building [address] | | | | | | [facility] [place] | | | | | | [address] | | | | | | [phone] | | | +--------+ + + + [...] | + +--------+ + + + | OPERATION RECORD | | 03/05/1996 | | Results for this | | | | 12:00 AM | | procedure are in the | | | | PST | | results section. | + +--------+ + + + documented in this encounter Results OPERATION RECORD (03/05/1996 12:00 AM [facility]) + + | Procedure Note | + + | 03/05/1996 12:00 AM [facility] | | [facility] | | [address], [place] [address] | | [facility] | | | | OPERATION RECORD | | | | Med Rec No.: [id number] Date: 03/05/96 | | | | Name: Beverly Smart Lisa | | | | | | ATTENDING SURGEON: Dina Reinoso M.D. | | Pbx Supervisor, Otolaryngology | | Head and Neck Surgery | | | | WASTE SPECIALIST(S): None. | | | | POSTOPERATIVE DIAGNOSIS(ES): | | | | OPERATION(S) PERFORMED: Left maxillary sinus Mars-Drew with nasal | | endoscopy. | | Right nasal endoscopy with removal of | | inflamed tissue from the right maxillary | | sinus. | | | | ANESTHESIA: General. | | | | FINDINGS: The left maxillary sinus actually looked | | fairly healthy. What appeared to be a cyst | | on the posterior wall was | | actually the contour of the bone. She did not have a nasal antral window | | previously and this was placed for a 1 x 2 cm opening. Her upper window | | actually was healthy and the remainder of her sphenoid, ethmoid and frontal | | sinus looked fine on the left. The right side was also examined with nasal | | endoscopy. She has a natural osteal window with a small amount of inflamed | | tissue on the posterior wall of the right maxillary sinus, and this was | | removed with a Daily curet. The bone underlying this inflamed tissue | | looked normal. Estimated blood loss: 20 cc. | | | | SPECIMEN(S) REMOVED: Left maxillary sinus contents. | | Left maxillary culture for bacteria and | | fungus. | | | | INDICATIONS: This patient is a 40-year-old white female | | who has required three previous sinus | | surgeries. She developed increasing | | pain in her Left maxillary sinus and was noted to have fungal growth within | | the maxillary sinus on the left. 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 She has been treated with Sporanox for about six weeks. On | | her last examination, no additional fungus was found, but due to the | | patient's persistent symptoms for about six to eight months, surgery was | | planned. | | | | PROCEDURE: Under satisfactory general anesthesia using | | orotracheal intubation, the patient was | | draped in the usual manner. | | 1% Lidocaine and 1:100,000 Epinephrine was used to inject the upper lid | | vestibule and her lateral nasal wall was also injected on the left. Cocaine | | soaked neuropatties were placed on each side of her nose for further | | decongestion. The patient was then examined with the 30 degree sinuscope | | and a small amount of purulence was seen in the posterior ethmoid region. | | This was suctioned. The tissue looked entirely normal around it. The 15 | | blade was then used to make an incision under her upper lip, down to bone | | and to the canine fossa region. A 2 mm osteotome was used to remove the | | bone in the canine fossa and then the incision was enlarged and bone was | | removed using a Kerrison. The periosteum was carefully stripped first. The | | infraorbital nerve was identified and carefully dissected free of the | | inferior bone and all of the bone up to the level of the nerve was removed. | | | | The inside of the sinus was then examined with the sinuscope. The area that | | had the appearance of a cyst was carefully opened using a dissecting | | instrument under direct vision with the sinuscope. The tissue looked | | slightly inflamed, but there was no evidence of mucous retention cyst or | | trapped pus. All of this tissue was sent for Pathology. Additional tissue | | was removed from the posterior wall of the maxillary sinus and sent for | | bacteria and fungal culture. After the sinus was carefully examined, a | | nasal antral window was created from the nasal side with an osteotome, | | removing bone. Direct vision with the sinuscope was used to remove all bony | | fragments and the posterior edge of the inferior turbinate on the left. | | This was carefully cauterized to control bleeding. The upper window looked | | excellent and was not disrupted. Kenalog diluted 40 mg/cc was then injected | | lightly into the mucosa surrounding the lower window and the back wall of | | the maxillary sinus mucosa. The sinus was again irrigated. No evidence of | | fungus was seen from all angles, using the sinuscope. | | | | The vestibular incision was then closed with 4-0 Vicryl suture, initially | | with interrupted stitches and then in a running fashion. The intranasal | | exam was repeated with the sinuscope. The inferior turbinate was slightly | | outfractured to give the patient a good airway. Good access to the nasal | | antral window could be seen with the turbinate repositioned. This side was | | thoroughly suctioned. | | | | The right side of the nose was then carefully examined. The natural osteal | | window was used to examine the sinus. A small curet was then placed into | | the maxillary sinus on the right and a small amount of inflammatory tissue | | was removed from the back wall. There was no evidence of any abnormal bone | | under this and no additional procedure was done on this side. The remainder | | of the right side was examined. The sphenoid and ethmoids were widely | | patent. The nasopharynx looked fine as well. The patient's nose was | | thoroughly suctioned. A small Telfa pack was placed on the left side of the | | | | nose and the patient was then slowly awakened from anesthesia, extubated, | | and taken to the Post Anesthesia Care Unit in satisfactory condition. There | | were no complications during the operation. | | | | | | | | | | | | | | | | | | Dina Reinoso M.D. | | Pbx Supervisor, Otolaryngology | | Head and Neck Surgery | | | | LINNEA /jzeny | | | | P | | | | cc: | | | + + documented in this encounter Visit Diagnoses Not on filedocumented in this encounter"
--- OUTSIDE RECORDS SUMMARY | ~2018-07-26 | XMS | Encounter Summary ---
Demographics + + + | Address | [address] | | | [place] [address] | + + + | Home Phone | | + + + | Preferred Language | Unknown | + + + | Marital Status | | + + + | Hinduism Affiliation | CHR | + + + [...] [place] | | | | | [address] | | + + + + + Care Team Providers + +------+ + | Care Computer Builder Name | Role | Phone | + +------+ + | Shereen Lopes NP | PCP | | + +------+ + Encounter Details +--------+------+ + + + | Date | Type | Department | Care Team | Description | +--------+------+ + + + | 05/22/ | Lab | Laboratory, | | Rash and nonspecific | | 2011 | | Specimen Collection | | skin eruption; | | | | at [facility] 3rd Floor | | Arthralgia | | | | [address] | | | | | | [address] | | | | | | [place], [place] | | | | | | [address] | | | | | | [phone] | | | +--------+------+ + + + Social History + + [...] | + +--------+ + + + | KERWIN ANTIBODIES | Routin | 05/23/2011 | Rash and | Results for this | | IDENTIFICATION, | e | 11:31 AM | nonspecific skin | procedure are in the | | SERUM | | PDT | eruption Arthralgia | results section. | + +--------+ + + + | SEDIMENTATION RATE | Routin | 05/23/2011 | Rash and | Results for this | | | e | 11:31 AM | nonspecific skin | procedure are in the | | | | PDT | eruption Arthralgia | results section. | + +--------+ + + + | TSH | Routin | 05/23/2011 | Rash and | Results for this | | | e | 11:31 AM | nonspecific skin | procedure are in the | | | | PDT | eruption Arthralgia | results section. | + +--------+ + + + | ALDOLASE, SERUM | Routin | 05/23/2011 | Rash and | Results for this | | | e | 11:31 AM | nonspecific skin | procedure are in the | | | | PDT | eruption Arthralgia | results section. | + +--------+ + + + | CK, PLASMA | Routin | 05/23/2011 | Rash and | Results for this | | | e | 11:31 AM | nonspecific skin | procedure are in the | | | | PDT | eruption Arthralgia | results section. | + +--------+ + + + documented in this encounter Results TSH (05/23/2011 11:31 AM PDT) + +-------+ + + + | Component | Value | Ref Range | Performed | Pathologist | | | | | At | Signature | + +-------+ + + + | TSH | 3.70 | 0.34 - 5.60 | [facility] | | | | | uIU/ml | REGIONAL | | | | | | LABORATORY | | + +-------+ + + + + + | Specimen | + + | Blood - Blood | + + + + + | Narrative | Performed At | + + + | [facility] ([facility]) | [facility] | | [facility] | REGIONAL | | [address] | LABORATORY | | [place] [address] | | + + + + + + + + | Performing | Address | City/State/Zipcode | Phone Number | | Organization | | | | + + + + + | [facility] | [address] | [place] [address] | | | LABORATORY | | | | + + + + + ALDOLASE, SERUM (05/23/2011 11:31 AM PDT) + + + + + + | Component | Value | Ref Range | Performed | Pathologist | | | | | At | Signature | + + + + + + | ALDOLASE | 6.5Comment: This | 1.5 - 8.1 U/L | [facility] | | | SERUM | specimen is hemolyzed. | | REG UNIV | | | | This may cause the | | PTH - [facility] | | | | result foraldolase to be | | | | | | falsely | | | | | | increased.Performed by | | | | | | [facility] | | | | | | [facility], | | | | | | | | | | | | [address] | | | | | | [address], [facility],[place] | | | | | | [address] | | | | | | [phone] | | | | | | | | | | | | [email or web address], [email or web address] | | | | | | Angela Marcum, - Lab. | | | | | | Director | | | | + + + + + + + + | Specimen | + + | Blood - Blood | + + + + + + + | Performing | Address | City/State/Zipcode | Phone Number | | Organization | | | | + + + + + | [facility] | [address] | [place], [place] | | | UNIV PTH - INT[facility] | | [address] | | + + + + + CK, PLASMA (05/23/2011 11:31 AM PDT) + +-------+ + + + | Component | Value | Ref Range | Performed | Pathologist | | | | | At | Signature | + +-------+ + + + | CK | 53 | 38 - 234 U/L | [facility] | | | | | | DEPARTMENT | | | | | | OF | | | | | | PATHOLOGY | | + +-------+ + + + + + | Specimen | + + | Blood - Blood | + + + + + + + | Performing | Address | City/State/Zipcode | Phone Number | | Organization | | | | + + + + + | [facility] DEPARTMENT OF | [address] | [place] [address] | | | PATHOLOGY | [address] | | | + + + + + SEDIMENTATION RATE (05/23/2011 11:31 AM PDT) + +-------+ + + + | Component | Value | Ref Range | Performed | Pathologist | | | | | At | Signature | + +-------+ + + + | SEDIMENTATI | 26 | <31 mm/hr | [facility] | | | ON RATE | | | DEPARTMENT | | | | | | OF | | | | | | PATHOLOGY | | + +-------+ + + + + + | Specimen | + + | Blood - Blood | + + + + + + + | Performing | Address | City/State/Zipcode | Phone Number | | Organization | | | | + + + + + | [facility] | [address] | [place] [address] | | | PATHOLOGY | [address] | | | + + + + + KERWIN ANTIBODIES IDENTIFICATION, SERUM (05/23/2011 11:31 AM PDT) + + + + + + | Component | Value | Ref Range | Performed | Pathologist | | | | | At | Signature | + + + + + + | UPSCALE SECURITY OFFICER AB | Negative | Negative | [facility] | | | | | | DEPARTMENT | | | | | | OF | | | | | | PATHOLOGY | | + + + + + + | SM AB | Negative | Negative | [facility] | | | | | | DEPARTMENT | | | | | | OF | | | | | | PATHOLOGY | | + + + + + + | SSA AB | Negative | Negative | [facility] | | | | | | DEPARTMENT | | | | | | OF | | | | | | PATHOLOGY | | + + + + + + | SSB AB | Negative | Negative | [facility] | | | | | | DEPARTMENT | | | | | | OF | | | | | | PATHOLOGY | | + + + + + + | SCL-70 AB | Negative | Negative | [facility] | | | | | | DEPARTMENT | | | | | | OF | | | | | | PATHOLOGY | | + + + + + + | CENTROMERE | Negative | Negative | [facility] | | | AB | | | DEPARTMENT | | | | | | OF | | | | | | PATHOLOGY | | + + + + + + | CARMELA-1 AB | Negative | Negative | [facility] | | | | | | DEPARTMENT | | | | | | OF | | | | | | PATHOLOGY | | + + + + + + + + | Specimen | + + | Blood - Blood | + + + + + | Narrative | Performed At | + + + | KERWIN Antibody Identification | [facility] | | | DEPARTMENT OF | | | PATHOLOGY | + + + + + + + + | Performing | Address | City/State/Zipcode | Phone Number | | Organization | | | | + + + + + | [facility] | [address] | [place] [address] | | | PATHOLOGY | [address] | | | + + + + + documented in this encounter Visit Diagnoses + + | Diagnosis | + + | Rash and nonspecific skin eruption Rash and other nonspecific skin eruption | + + | Arthralgia Pain in joint, site unspecified | + + documented in this encounter"
--- OUTSIDE RECORDS SUMMARY | ~2018-07-26 | XMS | Encounter Summary ---
Demographics + + + | Address | [address] | | | [place] [address] | + + + | Home Phone | | + + + | Preferred Language | Unknown | + + + | Marital Status | | + + + | Catholic Affiliation | CHR | + + + | Race | White | + + + | Ethnic Group | Not or | + + + Author + + + | Author | [facility] | + + + | Organization | [facility] | + + + | Address | Unknown | + + + | Phone | Unavailable | + + + Support + + + + + | Name | Relationship | Address | Phone | + + + + + | Favio Smart | [address] | [place] | | | | | [address] | | + + + + + Care Team Providers + +------+ + | Care Rail Engineer Name | Role | Phone | + +------+ + | Riana Ko PA-C | PCP | | + +------+ + Encounter Details +--------+ + + + + | Date | Type | Department | Care Team | Description | +--------+ + + + + | 07/21/ | Abstract | Family Medicine at | Unknown . | | | 2006 | | [facility] [address] | | | | | | [address] | | | | | | Mailcode: NIKIA | | | | | | [facility] [facility] | | | | | | [place], [place] | | | | | | [address] | | | | | | [phone] | | | +--------+ + + + [...]
--- OUTSIDE RECORDS SUMMARY | ~2018-07-26 | XMS | Encounter Summary ---
Demographics + + + | Address | [address] | | | [place] [address] | + + + | Home Phone | | + + + | Preferred Language | Unknown | + + + | Marital Status | | + + + | Latter-Day Affiliation | CHR | + + + | Race | White | + + + | Ethnic Group | Not or | + + + Author + + + | Author | [facility] | + + + | Organization | [facility] | + + + | Address | Unknown | + + + | Phone | Unavailable | + + + Support + + + + + | Name | Relationship | Address | Phone | + + + + + | Favio Smart | [address] | [place] | | | | | [address] | | + + + + + Care Team Providers + +------+ + | Care Airport Guide Name | Role | Phone | + +------+ + | Riana Ko PA-C | PCP | | + +------+ + Encounter Details +--------+ + + + + | Date | Type | Department | Care Team | Description | +--------+ + + + + | 03/17/ | Office | Radiology/Imaging | Radiologist, | Rad Interface | | 2007 | Visit-ECX | at [facility] | [facility] | | | | | [address] | | | | | | Mailcode: GPC | | | | | | [facility] | | | | | | [place], [place] | | | | | | [address] | | | | | | [phone] | | | +--------+ + + + [...] + documented as of this encounter Progress Lester Jean-Baptiste - 03/17/2007 8:55 PM PSTI am Lester Paz, MS3, acting as a scribe for Dr. Esquivel. Subjective Beverly Smart is a 51 yo woman with the chief complaint of right hip pain. She states that she fractured her hip in 12/13, and it was surgically repaired in 02/12 by insertion of a me wander cheri. She states that rapid walking, as well as walking up and down stairs worsen the donald n. She has been taking Tramadol on an as-needed basis to manage the pain. She describes her pain as stabbing, and it radiates back to the buttocks, and down the lateral side of the thi gh. Currently she rates the pain as 3/10. Over the course of the day, the pain is worst in t he morning, improves with activity during the day, but becomes worse again in the evening. Her past medical history is unremarkable. Her ROS is significant for musculoskeletal pain a ssociated with the chief complaint, and lower back pain. Objective Vitals were not obtained for the visit. Physical exam reveals lateral right hip pain with external rotation of the right thigh. documented in this encounter Plan of Treatment Not on filedocumented as of this encounter Visit Diagnoses + + | Diagnosis | + + | Hip pain Pain in joint, pelvic region and thigh | + + documented in this encounter"
--- OUTSIDE RECORDS SUMMARY | ~2018-07-26 | XMS | Encounter Summary ---
Demographics + + + | Address | [address] | | | [place] [address] | + + + | Home Phone | | + + + | Preferred Language | Unknown | + + + | Marital Status | | + + + | Orthodox Affiliation | CHR | + + + | Race | White | + + + | Ethnic Group | Not or | + + + Author + + + | Author | [facility] | + + + | Organization | [facility] | + + + | Address | Unknown | + + + | Phone | Unavailable | + + + Support + + + + + | Name | Relationship | Address | Phone | + + + + + | Favio Smart | [address] | [place] | | | | | [address] | | + + + + + Care Team Providers + +------+ + | Care Overedger Name | Role | Phone | + [...] Vaccination; | | | | [address] | [facility] | Garment Finisher Exam; Screen for | | | | Mailcode: GPC | [place], [place] | Colon Cancer; Hip | | | | [facility] | [address] | Pain; Depression; | | | | [place], [place] | [phone] | Screening | | | | [address] | | Cholesterol Level | | | | [phone] | | | +--------+ + + + [...] Vaccination | | | | | | Garment Finisher Exam Screen for | | | | [...] Performed At | + + + | [id number] Estimated GFR = 50 mL/min/1.73 sq m if non- | [facility] | | [id number] Estimated GFR > 60 mL/min/1.73 sq m [...] | + + + + + | [facility] DEPARTMENT | [facility] [facility] | [place] [address] | | | PATHOLOGY | [address] | | | + + + + + | [facility] DEPARTMENT OF | [address] [facility] | [place] [address] | | | PATHOLOGY | [address] [...] Performed At | + + + | [id number] Estimated GFR = 50 mL/min/1.73 sq m if non- | [facility] | | [id number] Estimated GFR > 60 mL/min/1.73 sq m [...] | + + + + + | [facility] | [address] [facility] | [place] [address] | | | PATHOLOGY | [address] | | | + + + + + | [facility] | [address] [facility] | [place] [address] | | | PATHOLOGY | [address] [...] | | | IC ACID | by [facility],[address] | | | | | | [address] [place], [facility] [place] | | | | | | [address] | | | | | | [phone].[facility]. | | | | | | Abdulaziz [...] [facility] | [address] | [place], [place] | | | UNIV PTH - [facility] | | [address] | | + + + + + [...] [facility] ([facility]) | | | [facility] [place] [address] | | | [place] [address] | | + + + + + + + + | Performing | Address | City/State/Zipcode | Phone Number | | Organization | | | | + + + + + | [facility] | [address] [place] [address] | | | LABORATORY | | | [...] | + + + + + | [facility] | [address] | [place] [address] | | | PATHOLOGY | [address] | | | + + + + + | [facility] | [facility] | [place] [address] | | | PATHOLOGY | [address] [...] [facility] ([facility]) | | | [facility] | | | [address] | | | [place] [address] | | + + + + + + + + | Performing | Address | City/State/Zipcode | Phone Number | | Organization | | | | + + + + + | [facility] | [address] [facility] | [place] [address] | | | LABORATORY | | | | + + + + + documented in this encounter Visit Diagnoses + + | Diagnosis | + + | Fatigue Other malaise and fatigue | + + | Need for Tdap vaccination Need for prophylactic vaccination with combined | | qbynybgeqb-fmbtgrq-qgtkodkux (DTP) vaccine | + + | Garment Finisher exam Routine gynecological examination | + + [...]
--- OUTSIDE RECORDS SUMMARY | ~2018-07-26 | XMS | Encounter Summary ---
Demographics + + + | Address | [address] | | | [place] [address] | + + + | Home Phone | | + + + | Preferred Language | Unknown | + + + | Marital Status | | + + + | Roman Catholic Affiliation | CHR | + + + | Race | White | + + + | Ethnic Group | Not or | + + + Author + + + | Author | [facility] | + + + | Organization | [facility] | + + + | Address | Unknown | + + + | Phone | Unavailable | + + + Support + + + + + | Name | Relationship | Address | Phone | + + + + + | Favio Smart | [place] | [place] | | | | | [address] | | + + + + + Care Team Providers + +------+ + | Care Mechanic And Welder Name | Role | Phone | + +------+ + PCP | Unavailable | + +------+ + Encounter Details +--------+ + + + + | Date | Type | Department | Care Team | Description | +--------+ + + + + | 02/17/ | Office | General Internal | Note, Outpatient | Progress Note | | 1995 | Visit-Trans | Medicine [address] | Clinic | | | | cribed | [address] | | | | | | Road Mailcode: L475 | | | | | | Outpatient Clinic | | | | | | [facility], [address] | | | | | | [place], [place] | | | | | | [address] | | | | | | [phone] | | | +--------+ + + + [...] as of this encounter Progress Notes Interface, Annealer Helper In - 05/20/2006 1:07 AM PDT CLINIC DATE: 02/18/96 OTOLARYNGOLOGY CLINIC SUBJECTIVE: This patient lives in [place]. 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 Her speech has actually improved significantly. She no longer has hypernasal speech, and her snoring has also improved significantly. She saw Dr. Steele in August, at which time he saw fungus in her left maxillary sinus, irrigated her and saw her two days later. She then went to [place] for three months and saw an ENT doctor there, who diagnosed recurrent left fungal sinusitis and placed her on Sporanox 100 mg b.i.d. She has been on that for about two months. She was also put on Cipro. She called last week, and I discontinued the Cipro due to a rash. The patient states that she is unable to get anything out of her nose. OBJECTIVE: On examination today, her nose was decongested and cocainized. The 30-degree scope was used. She has a large natural ostial window. Fungal material was seen, and it was carefully removed with forceps and suction. Eventually, her sinus was irrigated with saline with Mycelex. This was irrigated until clear. Some pus was removed from the sinus. The remainder of her nose on the left actually looks quite good. She is well healed. Amphotericin B cream was then placed into the left maxillary sinus using the 30-degree sinoscope for visualization. ASSESSMENT AND PLAN: Left fungal sinusitis with a fungus ball removed today. This patient is having recurrent episodes in spite of Sporanox. I have been on sabbatical at this point. I would like to see her back on February 26. If she has recurrence of the fungus, I will go ahead and schedule her for surgery, possibly a Mars-Drew. She is aware of this and actually would like this to be taken care of before the end of the year if possible. I also asked the patient if she would decrease her prednisone to 5 mg and taper off to 5 mg every other day. I refilled her Sporanox today, gave her 40 tablets. Dina Reinoso M.D. Seismic Engineer, Otolaryngology/Head and Neck Surgery LINNEA/danielle cc: LIAN VALLECILLO MD [address] [place] [address] [place] [address] documented in this encounter Plan of Treatment Not on filedocumented as of this encounter Visit Diagnoses Not on filedocumented in this encounter"
--- OUTSIDE RECORDS SUMMARY | ~2018-07-26 | XMS | Encounter Summary ---
Demographics + + + | Address | [address] | | | [place] [address] | + + + | Home Phone | | + + + | Preferred Language | Unknown | + + + | Marital Status | | + + + | Druze Affiliation | CHR | + + + | Race | White | + + + | Ethnic Group | Not or | + + + Author + + + | Author | [facility] | + + + | Organization | [facility] | + + + | Address | Unknown | + + + | Phone | Unavailable | + + + Support + + + + + | Name | Relationship | Address | Phone | + + + + + | Favio Smart | [place] | [place] | | | | | [address] | | + + + + + Care Team Providers + +------+ + | Care Traveling Plant Operator Name | Role | Phone | + +------+ + | Riana Ko PA-C | PCP | | + +------+ + Reason for Referral Consultation (Routine) +--------+ + + + + + | Status | Reason | Specialty | Diagnoses / | Referred By | Referred To | | | | | Procedures | Contact | Contact | +--------+ + + + + + | Closed | Specialty | Family | Diagnoses | Maikel, | Alvin, | | | Services | Practice | Hip pain | Riana Luna, | Delvin Vera DO | | | Required | | Procedures | [address] | | | | | CONSULT TO | [facility] | [address] | | | | | FM SPEC PROG | St | [address] | | | | | [facility] ([facility]THO) | [place], [place] | [place], [place] | | | | | | [address] | [address] | | | | | | Phone: | Phone: | | | | | | [phone] | [phone] | | | | | | Fax: | Fax: | | | | | | | [phone] | +--------+ + + + + + Consultation (Routine) +--------+ + + + + + | Status | Reason | Specialty | Diagnoses / | Referred By | Referred To | | | | | Procedures | Contact | Contact | +--------+ + + + + + | Closed | Specialty | Gastroenterol | Diagnoses | Ko, | [facility] | | | Services | ogy | Screen for | Riana F, | [facility] [address] | | | Required | | colon cancer | [address] | [address] | | | | | Procedures | [facility] | [facility] | | | | | CONSULT TO | St | Mailcode: | | | | | GI | [place], [place] | [address] | | | | | PROCEDURE | [address] | [place] | | | | | UNIT: | Phone: | [address] | | | | | COLONOSCOPY | [phone] | [place], | | | | | | Fax: | [place] [address] | | | | | | [phone] | Phone: | | | | | | | [phone] | | | | | | | Fax: | | | | | | | [phone] | +--------+ + + + + + Reason for Visit + + + | Reason | Comments | + + + | Follow-up visit | | + + + | Pap smear | | + + + Encounter Details +--------+---------+ + + + | Date | Type | Department | Care Team | Description | +--------+---------+ + + + | 01/27/ | Office | Family Medicine at | Riana Ko, | Typing Pool Supervisor Exam (Primary | | 2006 | Visit | [address] | [address] | Dx); Need for Tdap | | | | [address] [place] | [facility] | Vaccination; Screen | | | | Mailcode: [facility] | [place], [place] | for Colon Cancer; | | | | [facility] | [address] | Hip Pain; | | | | [place], [place] | [phone] | Depression; Fatigue; | | | | [address] | | Screening | | | | [phone] | | Cholesterol Level | +--------+---------+ + + + Social History [...] + + + | Blood Pressure | 118/76 | 01/27/2007 10:17 AM | | | | | PST | | + + + + + | Pulse | 88 | 01/27/2007 10:17 AM | | | [...] + + + + | Weight | 79.3 kg (174 lb 13.2 | 01/27/2007 10:17 AM | | | | oz) | PST | | + + + + + | Height | - | - | | + + + + + | Body Mass Index | 28.22 | 12/09/2006 8:42 AM | | | | | PDT | | + + + + + documented in this encounter Progress Notes Riana Ko - 01/27/2007 7:53 AM PSTFormatting of this note might be different from t he original. SUBJECTIVE: Beverly Smart is a 51 y.o. 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 Occupation: She works for [employer]. Currently working 4 hour shifts, but would like to try increasing to 6 hours. She is single with one, infrequent sexual partner. . S/p hysterectomy 16 years ago d/ t abnormal paps. Current concerns: 1. Follow up weight/Abilify taper - Beverly remains very concerned about her weight. She bagley s tried to decrease her Abilify dose to less than 5mg daily, but notices definite increase i n anxiety when does not taking it. She walks and rides bicycle, but cannot run due to hip. Eats small meals throughout the day and has been counting calories. 2. Colon ca screen - has never done. No FH hx colon disease. 3. Td - cannot recall last 4. Flu shot done at home this fall. 5. Mammogram last month. WNL. 6. Depression - Lost father due to carotid artery disease within last few months. Helping care for mother. We discussed increasing Wellbutrin at last visit, currently taking 150 SR bid. Denies SI/HI. 7. Pain. - Not doing PT any longer as she has maximized insurance benefit. Pain has incre ased. However, Beverly feels like she is strong enough to work 6 hour shifts and requests pa per stating she can. Takes Ultram 100mg q6h for pain. Needs narcotic contract. Pt in town for the week and forgot her prescription. Requesting extra today for holiday week. Plans to fill rx at [facility] in [place]. Last hip x-ray 09/13. 8. Fatigue - mild anemia noted on screening lab 08/14. Continues to feel tired, but does no t sleep well. No hx anemia or vitamin deficiency, but she is concerned re: vit B12 deficien cy. Denies fever, chills, night sweats, weight loss, n/v, black or tarry stools. 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 STD hx: none BCM: surgical Allergies Allergen Reactions Aspirin Asthma Nsaids Wheez/Dyspnea Sulfa (sulfonamides) Hives and Rash Keflex (cephalexin) Nausea/Vomiting See history grids for remainder of medical history. Health Habits: Tob use: quit Alcohol use: none. Exercise: walks and rides stationary bicy cherie. ROS: negative for all systems. Physical Examination: Neck: no masses. Thyroid symmetrical and not enlarged. Lungs: clear to ausultation bilaterally. Heart: RRR without murmurs Breasts: No masses or color changes. No nipple discharge. Abdomen: no organomegaly appreciated. Pelvic: Ext Gen: pink, without lesion or rash Vagina: pink, moist, decreased rugae. No vaginal prolapse noted. Cervix: absent Uterus: absent Adnexae: absent The following were examined and found to be normal with the exception of the commentary: Normal on exam: Breast exam, External genitalia, Urethral meatus, Urethra, Bladder,Vagina, , Anus and perineum. Uterus, cervix, and adnexa absent. Exceptions or comments to the above normal exam include: none A/P: Encounter Diagnoses Code Name Primary? V72.31H Typing Pool Supervisor Exam Yes Plan: LOGISTICS ANALYTICS MANAGER CYTOLOGY (PAP), PAP SMEAR ZCOLLECT/HANDLING-BACK OFFICE V06.1P Need for Tdap Vaccination Plan: ADACEL (ADOLESCENT & ADULT) 2 LF-2.5 MCG-5 LF/0.5ML IM SUSP, STAFF TO GIVE: TDAP (AD ACEL) V76.51D Screen for Colon Cancer Plan: FECAL OCCULT BLOOD TESTING - TAKE HOME, CONSULT TO GI PROCEDURE UNIT: COLONOSCOPY 719.45F Hip Pain Plan: ULTRAM 50 MG TAB, CONSULT TO FM SPEC PROG [facility] (ORTHO) Narcotic contract signed. Discussed abuse potential of Ultram. Given Beverly's history, I would rather not have her on this medicaiton correction. Will have ortho evaluate for persis tent injury. 311G Depression Plan: WELLBUTRIN SR 200 MG TAB bid, increased from 150mg bid. Should increase Wellbutrin before continuing to decrease Abilify. Monitor for AE. Weight gain, sleep issue and fatigue likely related to current life situation. 780.79B Fatigue Plan: TSH-THYROID STIM HORMONE, CBC ONLY WITH PLATELET, VITAMIN B-12, SERUM, METHYLMALONIC ACID, SERUM, COMP METABOLIC SET V77.91A Screening Cholesterol Level Plan: LIPID SET RTC x 2-3 months, sooner prn. Riana Ko PA-C documented in this encou nter Plan of Treatment + + +--------+ + + | Name | Type | Priori | Associated Diagnoses | Order Schedule | | | | ty | | | + + +--------+ + + | FECAL OCCULT BLOOD | Lab | Routin | Screen for Colon | Ordered: 01/27/2007 | | TESTING - TAKE HOME | | e | Cancer | | + + +--------+ + + | PAP SMEAR | Procedures | Routin | Typing Pool Supervisor Exam | Ordered: 01/27/2007 | | ZCOLLECT/HANDLING-BA | | e | | | | CK OFFICE | | | | | + + +--------+ + + documented as of this encounter Procedures + +--------+ + + + | Procedure Name | Priori | Date/Time | Associated Diagnosis | Comments | | | ty | | | | + +--------+ + + + | CONTROLLED SUBSTANCE | | 01/27/2007 | | Results for this | | AGREEMENT | | 12:00 AM | | procedure are in the | | | | PST | | results section. | + +--------+ + + + | LOGISTICS ANALYTICS MANAGER CYTOLOGY (PAP) | Routin | 01/27/2007 | Typing Pool Supervisor Exam | Results for this | | | [...] Performed At | + + + | [id number] Estimated GFR = 50 mL/min/1.73 sq m if non- | [facility] | | [id number] Estimated GFR > 60 mL/min/1.73 sq m [...] | + + + + + | [facility]PART[facility] | [address] [facility] | [place] [address] | | | PATHOLOGY | [address] | | | + + + + + | [facility] | [address] [facility] | [place] [address] | | | PATHOLOGY | [address] [...] Performed At | + + + | [id number] Estimated GFR = 50 mL/min/1.73 sq m if non- | [facility] | | [id number] Estimated GFR > 60 mL/min/1.73 sq m [...] | + + + + + | [facility] | [facility] | [place] [address] | | | PATHOLOGY | [address] | | | + + + + + | [facility]MENT [facility] | [address] | [place] [address] | | | PATHOLOGY | [address] [...] | | | IC ACID | [address] | | | | | | [place], [place] | | | | | | [address] | | | | | | [phone].Drivr. | | | | | | Abdulaziz [...] [facility] | [address] | [place], [place] | | | [facility] | | [address] | | + + + + + [...] [facility] ([facility]) | | | [facility] [place] [address] | | | [place] [address] | | + + + + + + + + | Performing | Address | City/State/Zipcode | Phone Number | | Organization | | | | + + + + + | [facility] | [address] | [place] [address] | | | LABORATORY | | | [...] + + | [facility] DEPARTMENT OF | [address] | [place] [address] | | | PATHOLOGY | [address] | | | + + + + + | [facility] | [address] | [facility] [place] [address] | | | PATHOLOGY | [address] [...] [facility] ([facility]) | | | [facility] [address] | | | [address] [facility] | | | [place] [address] | | + + + + + + + + | Performing | Address | City/State/Zipcode | Phone Number | | Organization | | | | + + + + + | [facility] | [address] | [place] [address] | | | LABORATORY | | | | + + + + + CONTROLLED SUBSTANCE AGREEMENT (01/27/2007 12:00 AM PST) + + + | Narrative | Performed At | + + + | Ordered by an | | | unspecified provider. | | + + + + + | Transcriptions | + + | 01/27/2007 12:00 AM PST | | | + + LOGISTICS ANALYTICS MANAGER CYTOLOGY (PAP) (01/27/2007) + + + + + + | Component | Value | Ref Range | Performed | Pathologist | | | | | At | Signature | + + + + + + | LOGISTICS ANALYTICS MANAGER | SOURCE OF SPECIMEN: | | [facility] | | | CYTOLOGY | CervicalReason for | | DEPARTMENT | | | | Examination: Screenin | | OF | | | | g Pap (High | | PATHOLOGY | | | | Risk)CLINICAL HISTORY: | | | | | | LMP: [id number], | | | | | | OtherPrevious Diagnosis | | | | | | and/or Therapy: IUD: | | | | | | N | | | | | | Interpretation:Negative | | | | | | for Intraepithelial | | | | | | Lesion or Malignancy. | | | | | | Adequacy:Satisfactory | | | | | | for | | | | | | evaluation. Transform | | | | | | ation zone | | | | | | absent.Rendering | | | | | | Diagnostician: Sly | | | | | | Alicia | | | | | | CT(ASC)Personal Injury Attorney | | | | | | Electronically Signed | | | | | | 02/02/2007Rendering | | | | | | Diagnostician: Trang | | | | | | [place] | | | | | | ModestaCytotechnologEduard | | | | | | mahesh Signed | | | | | | 02/04/2007 | | | | + + + + + + + + | Specimen | + + | Brushing - Cervix | + + + + + + + | Performing | Address | City/State/Zipcode | Phone Number | | Organization | | | | + + + + + | [facility] | [address] | [place] [address] | | | PATHOLOGY | [address] | | | + + + + + | [facility] DEPARTMENT OF | [address] | [place] [address] | | | PATHOLOGY | [address] | | | + + + + + documented in this encounter Visit Diagnoses + + | Diagnosis | + + | Typing Pool Supervisor exam - Primary Routine gynecological examination | + + | Need for Tdap vaccination Need for prophylactic vaccination with combined | | ewnmkixyvn-icvbcep-hbfmrnyzi (DTP) vaccine | + + | Screen for colon cancer Special screening for malignant neoplasms, colon | + + | Hip pain Pain in joint, pelvic region and thigh | + + | Depression Depressive disorder, not elsewhere classified | + + | Fatigue Other malaise and fatigue | + + | Screening cholesterol level Screening for lipoid disorders | + + documented in this encounter"
--- OUTSIDE RECORDS SUMMARY | ~2018-07-26 | XMS | Encounter Summary ---
Demographics + + + | Address | [address] | | | [place] [address] | + + + | Home Phone | | + + + | Preferred Language | Unknown | + + + | Marital Status | | + + + | Congregational Affiliation | CHR | + + + | Race | White | + + + | Ethnic Group | Not or | + + + Author + + + | Author | [facility] | + + + | Organization | [facility] | + + + | Address | Unknown | + + + | Phone | Unavailable | + + + Support + + + + + | Name | Relationship | Address | Phone | + + + + + | Favio Smart | [address] | [place] | | | | | [address] | | + + + + + Care Team Providers + +------+ + | Care Cloth Finishing Range Back Tender Name | Role | Phone | + +------+ + PCP | Unavailable | + +------+ + Encounter Details +--------+ + + + + | Date | Type | Department | Care Team | Description | +--------+ + + + + | 02/26/ | Office | General Internal | Note, Outpatient | Progress Note | | 1995 | Visit-Trans | Medicine [address] | Clinic | | | | cribed | [address] | | | | | | Road Mailcode: L475 | | | | | | Outpatient Clinic | | | | | | [facility], [address] | | | | | | [place], [place] | | | | | | [address] | | | | | | [phone] | | | +--------+ + + + [...] as of this encounter Progress Notes Interface, Veneer Sorter In - 05/20/2006 1:07 AM PDT CLINIC DATE: 02/27/96 OTOLARYNGOLOGY CLINIC SUBJECTIVE: The patient returns for evaluation of 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 When she was last seen February 17, some fungus was removed from the left maxillary sinus to reveal the natural ostium. I put Amphotericin-B cream in the sinus. The patient continues to describe extreme discomfort. She is on Sporanox. I recently received a letter from Dr. Kameron Long in which the patient is under contract for a total of #90 Vicodin for a three month period. She still seems to feel that is not adequate. She is down on her Prednisone to 5 milligrams every other day. PHYSICAL EXAMINATION: On examination today, the patient's nose is decongested, cocainized. A 30 degree scope was used. I could find no fungus in the maxillary sinus. I used the rigid and fiberoptic scope. She does have a mucus retention cyst along the posterior wall of the left maxillary sinus. Her right maxillary sinus actually looks like she has a small amount of osteitis on the posterior wall. ASSESSMENT AND PLAN: The patient is currently on Sporanox. She has had recurrent episodes of fungal sinusitis in this sinus for about three months. At this point I will schedule her for March 05 to do a probable -Drew on this side. I would also like to look at the right maxillary sinus to confirm that this area does not have any infection in the bone. Dina Reinoso M.D. Fruit Buyer, Otolaryngology/Head and Neck Surgery /[facility] cc: Kameron Long M.D., Ph.D. Fruit Buyer, Neurology and Otolaryngology documented in this encounter Plan of Treatment Not on filedocumented as of this encounter Visit Diagnoses Not on filedocumented in this encounter"
--- OUTSIDE RECORDS SUMMARY | ~2018-07-26 | XMS | Encounter Summary ---
Demographics + + + | Address | [address] | | | [place] [address] | + + + | Home Phone [...] + + + | Author | [facility] | + + + | Organization | [facility] | + + + | Address | Unknown | + + + | Phone | Unavailable | + + + Support + + + + + | Name | Relationship | Address | Phone | + + + + + | Favio Smart | SHAINA | [place] | | | | | [address] | | + + + + + Care Team Providers + +------+ + | Care Aerial Installer Name | Role | Phone | + +------+ + | Riana Ko PA-C | PCP | | + +------+ + Reason for Visit + + + | Reason | Comments | + + + | New patient | Establish Care | | consultation | | + + + | Medication requested | | + + + | Hip pain | had fractured hip, had surgery on right hip in February, | | | painful, numbness and tingling in 3rd, 4th and 5th toes | + + + Encounter Details +--------+---------+ + + + | Date | Type | Department | Care Team | Description | +--------+---------+ + + + | 07/15/ | Office | Family Medicine at | Riana Ko, | Menopause; | | 2006 | Visit | [address] | [address] | Insomnia; | | | | [address] | [facility] | Depression; | | | | Mailcode: NIKIA | [place], [place] | Migraine; | | | | [facility] | [address] | HTN (Hypertension); | | | | [facility] [place] | [phone] | Allergic Rhinitis; | | | | [phone] | (Fax) | Smoking; | | | | [phone] | | Narcotic Abuse; | | | | | | Hip Pain | +--------+---------+ + + + Social History [...] + + + | Blood Pressure | 150/88 | 07/15/2006 9:29 AM | | | | | PDT | | + + + + + | Pulse | 64 | 07/15/2006 9:29 AM | | | | | PDT | | + + + + + | Temperature | 37.2 C (99 F) | 07/15/2006 9:29 AM | | | | | PDT | | + + + + + | Respiratory Rate | 12 | 07/15/2006 9:29 AM | | | | | PDT | | + + + + + | Oxygen Saturation | - | - | | + + + + + | Inhaled Oxygen | - | - | | | Concentration | | | | + + + + + | Weight | 77.3 kg (170 lb 6.4 | 07/15/2006 9:29 AM | | | | oz) | PDT | | + + + + + | Height | 167.6 cm (5' 6") | 07/15/2006 9:29 AM | | | | | PDT | | + + + + + | Body Mass Index | 27.5 | 07/15/2006 9:29 AM | | | | | PDT | | + + + + + documented in this encounter Patient Instructions Patient Instructions Riana Ko - 07/15/2006 10:16 AM PDTWe covered a lot of ground t beti! I have refilled your medications for you to get started (except the Subutex, which I'm su g to let Dr. Ortiz prescribe for you). Let's meet again within the next two weeks to come up with an action plan regarding your hi p. We will continue to discuss your other medical issues and will make head way, I promise! Congratulations on your recovery and on quitting smoking. I am here to help any way I can. Nice to meet you today. Amanda documented in this encounter Progress Notes Riana Ko - 07/15/2006 10:19 AM PDTFormatting of this note might be different from tigist abdullahi original. 4hpi 2ros 1pfsh 5-7exam Antalgic gait SUBJECTIVE: Beverly Smart is a 51 y.o. female presenting to [facility]. CHIEF COMPLAINT: Chief Complaint Patient presents with New patient consultation Establish Care Medication requested Hip pain had fractured hip, had surgery on right hip in February, still painful, numbness and ting ling in 3rd, 4th and 5th toes Current concerns: She has multiple medical issues and complicated medical history, but primary concern today is refilling prescriptions. Other concerns include: 1. Hx narcotic abuse - Pt has been out of in-house treatment program at [facility] in [place] x 2 weeks. Now living in [place], [place] with daugther while involved in IOP treatment. IOP treatment is 3 times weekly, for 3 hours per day. Under care of Dr. Carlos Mayen at [facility]. [email or web address], p:[phone], . Plans to see Dr. Walter Ortiz today. He specializes in addiction treatment. Pt on Subutex 8mg sublingual tid for chronic pain and opiate withdrawal. Plans to discuss how to wean off. 2. R hip pain - fell while at work in 12/13. Mild hip pain eventually diagnosed as fractur e and treated surgically 02/12. Pt with chronic pain since surgery. Walked with cane up to 2 weeks ago. Now with antalgic limp. Has been on short term disability since 02/12. Need s rehab program to return to work. Must be able to walk without assistance and be able to l ift 10-25 lbs to return to work. Has done no PT. Most recent x-rays taken while in [place] last month. C/o R toe numbness and occasional R LE swelling that resolves with elevation an d rest. Denies bowel or bladder dysfunction. 3. Menopause - surgical menopause 15 years ago. Now on estradiol 2 mg daily. + hot flashe s several times daily, no night sweats. Denies vaginal dryness. Has tried to decrease estr ogen dose and hot flashes immediately worsen. 4. HM: Last CPE approx 1 year ago. Last mamm fall 2005, nl. No hx abnormals. Can't recal l last fasting labs. Last Td within last 5 years. No colon cancer screening. 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 Living with daughter in [place] while in [facility]. PCP was Dr. Mercado in [place]. MEDICATIONS: Current outpatient prescriptions Medication Sig Dispense Refill Estradiol 2 mg OR TABS take 1 tablet (2mg) by oral route once daily for 21 days off for 7 days, repeat cycle 21 2 Trazodone HCl 100 mg OR TABS take 1 tablet (100mg) by oral route qhs 30 2 Rizatriptan Benzoate (MAXALT) 5 mg OR TABS take 1 tablet (5mg) by oral route x1 dose, m ay repeat at 2 hour intervals; do not exceed 30mg in 24 hours 5 1 Hydrochlorothiazide 12.5 mg OR CAPS take 1 capsules by oral route once daily 30 2 Cetirizine-Pseudoephedrine (ZYRTEC-D) 5-120 mg OR TB12 take 1 tablet by oral route ever y 12 hours 60 1 Varenicline (CHANTIX) 1 mg OR TABS take 1 tablet (1 mg) with a glass of water by oral r oute 2 times per day after meals 60 2 Bupropion HCl (WELLBUTRIN SR) 150 mg OR TbSR 1 tab po bid 60 2 ALLERGIES: Aspirin, Nsaids, Sulfa (sulfonamides) and Keflex ROS: Feeling well. No dyspnea or chest pain on exertion. No neurological complaints. No ab dominal pain, change in bowel habits, black or bloody stools. No urinary tract symptoms. OBJECTIVE: Gen: WDWN. NAD. BP 150/88 | Pulse 64 | Temp (Src) 99 F (37.2 C) (Oral) | Resp 12 | Ht 1.676 m (5' 6") | Wt 77.293 kg (170 lbs 6.4 oz) Lungs: CTAB, good air entry, no wheezes, rhonchi or crackles. Heart: RRR. No murmurs, rubs, or gallops. Extremities: No edema. Antalgic gait. DP and PT pulses 2+ and equal bilat. ASSESSMENT/PLAN: Encounter Diagnoses Code Name Primary? 627.2Q Menopause Plan: ESTRADIOL 2 MG TAB 780.52A Insomnia Plan: TRAZODONE 100 MG TAB 311G Depression Plan: WELLBUTRIN SR 150 MG TAB 346.90A Migraine Plan: MAXALT 5 MG TAB 401.9AE HTN (Hypertension) Plan: HYDROCHLOROTHIAZIDE 12.5 MG CAP - recheck bp next visit 477.9AD Allergic Rhinitis Plan: ZYRTEC-D 5 MG-120 MG 12 HR TAB 305.1AD Smoking Plan: CHANTIX 1 MG TAB - encouragement/support given 304.00BM Narcotic Abuse - continue IOP - no narcs for chronic pain 719.45F Hip Pain - briefly discussed RICE therapy - rtc to discuss issue further - will re-xray if no improvement, refer to PT - RTC x 1-2 weeks, pt to bring FMLA paperwork to complete Pt completed medical records release to obtain records from other providers. Riana Ko PA-C documented in this encou nter Plan of Treatment Not on filedocumented as of this encounter Visit Diagnoses + + | Diagnosis | + + | Menopause Symptomatic menopausal or female climacteric states | + + | Insomnia Insomnia, unspecified | + + | Depression Depressive disorder, not elsewhere classified | + + | Migraine Migraine, unspecified, without mention of intractable migraine without | | mention of status migrainosus | + + | HTN (hypertension) Unspecified essential hypertension | + + | Allergic rhinitis Allergic rhinitis, cause unspecified | + + | Smoking Tobacco use disorder | + + | Narcotic abuse Opioid type dependence, unspecified | + + | Hip pain Pain in joint, pelvic region and thigh | + + documented in this encounter
--- OUTSIDE RECORDS SUMMARY | ~2018-07-26 | XMS | Encounter Summary ---
Demographics + + + | Address | [address] | | | [place] [address] | + + + | Home Phone | | + + + | Preferred Language | Unknown | + + + | Marital Status | | + + + | Orthodoxy Affiliation | CHR | + + + | Race | White | + + + | Ethnic Group | Not or | + + + Author + + + | Author | [facility] | + + + | Organization | [facility] | + + + | Address | Unknown | + + + | Phone | Unavailable | + + + Support + + + + + | Name | Relationship | Address | Phone | + + + + + | Favio Smart | [place]A | [place] | | | | | [address] | | + + + + + Care Team Providers + +------+ + | Care Automobile Detailer Name | Role | Phone | + +------+ + PCP | Unavailable | + +------+ + Encounter Details +--------+ + + + + | Date | Type | Department | Care Team | Description | +--------+ + + + + | 05/13/ | Office | General Internal | Note, Outpatient | Progress Note | | 1996 | Visit-Trans | Medicine [address] | Clinic | | | | cribed | [address] | | | | | | Road Mailcode: L475 | | | | | | Outpatient Clinic | | | | | | [facility], [address] | | | | | | [place], [place] | | | | | | [address] | | | | | | [phone] | | | +--------+ + + + [...] as of this encounter Progress Notes Interface, Accounting Lecturer In - 05/12/2006 5:10 AM [facility] CLINIC DATE: 05/13/96 OTOLARYNGOLOGY CLINIC: Beverly returns today again with multiple complaints. She apparently called last Friday saying she was having severe pain on the left face. She was having nausea, vomiting. She now feels like she is having recurrent migraine headaches. She drove herself here today. Had her grandmother accompany her. Weight today is 135 lb. She is examined. Her nose is decongested. Left side cocainized, examined. There is 1 mm area of granulation tissue on the anterior lip of the natural ostium. The maxillary sinuses are examined with a rigid scope and a flexible fiberoptic scope; no evidence of any fungus or other abnormality can be seen. She has one area of crusting posteriorly in the maxillary sinus, which is healing over. Superior part of her nose, natural ostium actually look excellent. On palpation around the region of the infraorbital nerve patient still has numbness and dysesthesias. The region of the Mars-Drew incision is examined; she has one area of thickened tissue, probably related to a stitch. I had a long discussion with this patient about the dysesthesias, the fact that infraorbital nerve will probably improve slowly over time. The region where we incised the mucosa will have to heal and small nerves there will grow across. Her nose actually looks excellent in spite of all the pain complaints. She asked me to refill her Vicodin. I will do it per Dr. Long's recommendations: 100 tablets for an entire three months; therefore, she can not request a refill before August 13, 1996. She has tried multiple headache medicines including Imitrex, Depakote, and cyproheptadine without any benefit. I would like her to return here in about three to four weeks. She has follow-up with Dr. Long on June 03. Dina Reinoso M.D. Tiller Worker, Otolaryngology/Head and Neck Surgery /lizzette cc: Kameron Long M.D. Ph.D. Tiller Worker, Neurology and Otolaryngology LIAN VALLECILLO MD [address] [place] [address] [address] [place] [address] documented in this encounter Plan of Treatment Not on filedocumented as of this encounter Visit Diagnoses Not on filedocumented in this encounter"
--- OUTSIDE RECORDS SUMMARY | ~2018-07-26 | XMS | Encounter Summary ---
Demographics + + + | Address | [address] | | | [place] [address] | + + + | Home Phone | | + + + | Preferred Language | Unknown | + + + | Marital Status | | + + + | Oriental Orthodox Affiliation | CHR | + + + | Race | White | + + + | Ethnic Group | Not or | + + + Author + + + | Author | [facility] | + + + | Organization | [facility] | + + + | Address | Unknown | + + + | Phone | Unavailable | + + + Support + + + + + | Name | Relationship | Address | Phone | + + + + + | Favio Smart | [place] | [place] | | | | | [address] | | + + + + + Care Team Providers + +------+ + | Care Histology Technologist Name | Role | Phone | + +------+ + | Shereen Lopes NP | PCP | | + +------+ + Encounter Details +--------+ + + + + | Date | Type | Department | Care Team | Description | +--------+ + + + + | 05/26/ | MyChart | Dermatology | Philipp Herrera, | RE: Lab work and | | 2011 | Encounter | Surgery at [facility] [address] | [address] | vitals from visit | | | | [address] | [place], [place] | | | | | Code: [facility] | [address] | | | | | for Health and | [phone] | | | | | Healing, 5th floor | | | | | | [place], [place] | | | | | | [address] | | | | | | [phone] | | | +--------+ + + + [...]
--- OUTSIDE RECORDS SUMMARY | ~2018-07-26 | XMS | Encounter Summary ---
Demographics + + + | Address | [address] | | | [place] [address] | + + + | Home Phone | | + + + | Preferred Language | Unknown | + + + | Marital Status | | + + + | Jain Affiliation | CHR | + + + | Race | White | + + + | Ethnic Group | Not or | + + + Author + + + | Author | [facility] | + + + | Organization | [facility] | + + + | Address | Unknown | + + + | Phone | Unavailable | + + + Support + + + + + | Name | Relationship | Address | Phone | + + + + + | Favio Smart | [place] | [place] | | | | | [address] | | + + + + + Care Team Providers + +------+ + | Care Parks And Recreation Manager Name | Role | Phone | [...] Clinic | | | | | | [facility], [address] | | | | | | [place], [place] | | | | | | [address] | | | | | | [phone] | | | +--------+ + + + [...] as of this encounter Progress Notes Interface, Student Development Dean In - 05/12/2006 5:10 AM [facility] CLINIC DATE: 05/13/96 OTOLARYNGOLOGY CLINIC: Beverly returns [...] Long on June 03. Dina Reinoso M.D. Cargo And Container Inspector, Otolaryngology/Head and Neck Surgery /lizzette cc: Kameron Long M.D. Ph.D. Cargo And Container Inspector, Neurology and Otolaryngology LIAN VALLECILLO MD [address] [place] [address] [address] [place] [address] documented in this encounter Plan of Treatment Not on filedocumented as of this encounter Visit Diagnoses Not on filedocumented in this encounter"
--- OUTSIDE RECORDS SUMMARY | ~2018-07-26 | XMS | Encounter Summary ---
Demographics + + + | Address | [address] | | | [place] [address] | + + + | Home Phone | | + + + | Preferred Language | Unknown | + + + | Marital Status | | + + + | Mu-Ism Affiliation | Unknown | + + + | Race | Unknown | + + + | Ethnic Group | Unknown | + + + Author + + + | Author | [facility] | | | and [place] | + + + | Organization | [facility] | | | and [place] | + + + | Address | Unknown | + + + | Phone | Unavailable | + + + Support + + + + + | Name | Relationship | Address | Phone | + + + + + | Natasha Patino J | ECON | [address] | | | [place] | | [place] | | | | | [address] | | + + + + + | Danita Smart | ECON | Unknown | | + + + + + | Briseida Pedroza | ECON | Unknown | | + + + + + Care Team Providers + +------+ + | Care Family Law Specialist Name | Role | Phone | + [...] + + | 06/29/ | Telephone | [facility] | Deysi Martel | Edema | | 2019 | | NEPHROLOGY [address] | M, DO [address] | | | | | [address] [facility] [address] | [place], [facility] [address] | | | | | [place], [place] | [place], [place] | | | | | [address] | [address] | | | | | [phone] | | | +--------+ + + + [...] 2019 | Visit | | DO [facility] [address] [place] [address] | | | | | | [address] | | | | | | [place] | | | | | | [phone] | | | | | | | | +--------+ + + + + documented as of this encounter Visit Diagnoses Not on filedocumented in this encounter"
--- OUTSIDE RECORDS SUMMARY | ~2018-07-26 | XMS | Encounter Summary ---
Demographics + + + | Address | [address] | | | [place] [address] | + + + | Home Phone | | + + + | Preferred Language | Unknown | + + + | Marital Status | | + + + | Pentecostalism Affiliation | CHR | + + + | Race | White | + + + | Ethnic Group | Not or | + + + Author + + + | Author | [facility] | + + + | Organization | [facility] | + + + | Address | Unknown | + + + | Phone | Unavailable | + + + Support + + + + + | Name | Relationship | Address | Phone | + + + + + | Favio Smart | [place] | [place] | | | | | [address] | | + + + + + Care Team Providers + +------+ + | Care Associate Professor Of Geography Name | Role | Phone | + +------+ + PCP | Unavailable | + +------+ + Encounter Details +--------+ + + + + | Date | Type | Department | Care Team | Description | +--------+ + + + + | 05/01/ | Office | General Internal | Note, Outpatient | Progress Note | | 1996 | Visit-Trans | Medicine [address] | Clinic | | | | cribed | [address] | | | | | | Road Mailcode: [address]475 | | | | | | Outpatient Clinic | | | | | | [facility], [address] | | | | | | [place], [place] | | | | | | [address] | | | | | | [phone] | | | +--------+ + + + [...] as of this encounter Progress Notes Interface, Security Risk Analyst In - 05/15/2006 5:04 AM [facility] CLINIC DATE: 05/01/96 OTOLARYNGOLOGY CLINIC Beverly continues to have chronic complaints about the left Mars-Drew incision with numbness, dysesthesias from the infraorbital nerve. She is also quite concerned about the area of healing ridge on the vestibule incision. She has had a recent cough and I have treated her with some Tussionex at night only. She saw the dentist who determined that she was having no tooth problems in the area of 9, 10, and 11; apparently this was fine. It still bothers her a lot to talk. She complains of a drawing sensation of the upper lip. She says that her left ear has been stuffy. PHYSICAL EXAMINATION: The left ear looks fine. It is actually mobile. Her nose is examined. She is decongested and cocainized. The nasal antral window is widely patent. She has a 1 mm area of granulation tissue at the anterior edge of the natural ostium; the upper window is actually fine. There is no evidence of purulence or any inflammation inside of the maxillary sinus. The ethmoid region looks excellent on this side. She does have very mild lymphedema immediately above the incision. All the sutures have dissolved. The healing ridge area is palpated under her lip. There is no evidence of any kind of foreign body reaction or stitch abscess is found. ASSESSMENT AND PLAN: Examination is actually relatively good with only one small area of granulation tissue yet to heal. I have encouraged the patient to massage the incision under her lip. I told her that the lymphedema would improve as she develops recannulated channels for lymphatic drainage. The dysesthesia of the infraorbital nerve will probably improve, but I cannot give her a time line and I cannot guarantee a 100%. At this point, she is going to continue the Bactroban-saline along with her normal saline. She was started on Velocef for her bad cough, and she will finish that. I had previously written her for Tussionex. She asked for Vicodin, 30 tablets, to last her for a two week period. I am going to have her return in two weeks. We will need to taper her Vicodin down significantly, in spite of the dysesthesia. I am going to start her on Nasalcrom for springtime allergies as well. Dina Reinoso M.D. Building Carpenter, Otolaryngology/Head and Neck Surgery LH/wts cc: LIAN VALLECILLO MD [address] [place] [address] [address] [place] [address] documented in this encounter Plan of Treatment Not on filedocumented as of this encounter Visit Diagnoses Not on filedocumented in this encounter"
--- OUTSIDE RECORDS SUMMARY | ~2018-07-26 | XMS | Encounter Summary ---
Demographics + + + | Address | [address] | | | [place] [address] | + + + | Home Phone | | + + + | Preferred Language | Unknown | + + + | Marital Status | | + + + | Presybeterian Affiliation | CHR | + + + [...] [place] | | | | | [address] | | + + + + + Care Team Providers + +------+ + | Care Pricing Supervisor Name | Role | Phone | + +------+ + PCP | Unavailable | + +------+ + Encounter Details +--------+ + + + + | Date | Type | Department | Care Team | Description | +--------+ + + + + | 05/29/ | Office | General Internal | Note, Outpatient | Progress Note | | 1995 | Visit-Trans | Medicine [address] | Clinic | | | | cribed | [address] | | | | | | Road Mailcode: L475 | | | | | | Outpatient Clinic | | | | | | [facility], [address] | | | | | | [place], [place] | | | | | | [address] | | | | | | [phone] | | | +--------+ + + + [...] as of this encounter Progress Notes Interface, Hot Baller In - 06/08/2006 5:09 AM PDT CLINIC DATE: 05/30/95 OTOLARYNGOLOGY CLINIC SUBJECTIVE: The patient returns for evaluation of nasal obstruction of her sinuses. She says she actually improved slightly after last time she was seen, when I put a triple cream combination in her left maxillary sinus. She says she actually had increased symptoms for about a week and a half. She is using a water pick with Floxin crushed in it. She is also on Entex LA and Flonase. She states she is having bilateral symptoms with congestion, feels like she is gagging and coughing and has a hard time breathing. PLAN: She is decongested and cocainized. She has minimal mucus in and around her sinuses. A flexible scope was used. She has an interesting, dome-shaped, cyst adjacent to the eustachian tube on the left with scar in the midline and a central perforation, probably from prior adenoid surgery. In addition, her nasopharynx is fairly narrow, which was noted last time as well. The patient has an extremely hyponasal voice in spite of a relatively good airway back to the level of the choanae. Her uvula is long. The patient has a long history of snoring. A small amount of mucus is suctioned from the left maxillary sinus; the right actually looks good front to back of her sinuses. ASSESSMENT AND PLAN: A long discussion with the patient. 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 Possibly a lot of her symptoms are actually due to nasopharyngeal obstruction. Again, I do not think that surgery would improve her sinuses at all. At this point we discussed my findings and I would recommend we consider doing a modified uvuloplasty, excise the left nasopharyngeal cyst and remove the scar from the adenoid under general anesthesia and anticipate this will take one hour fifteen minutes. I explained to the patient this would not guarantee removal of any of her headaches, but would really be done to improve her nasal breathing. She is currently on prednisone. I would like to set her up for a preoperative appointment the day before surgery to include a chemistry screen, chest x-ray, PTT and CBC. I will call the patient and see if we can tentatively set her up for next week. Dina Reinoso M.D. New Car Make Ready Mechanic, Otolaryngology Head and Neck Clinic LH/cf cc: JOSÉ MIGUEL STRINGER MD PROFESSOR MEDICINE HEAD ALLERGY AND CLINICAL IMMUNOLOGY LIAN VALLECILLO MD [address] [place] [address] documented in this encounter Plan of Treatment Not on filedocumented as of this encounter Visit Diagnoses Not on filedocumented in this encounter"
--- OUTSIDE RECORDS SUMMARY | ~2018-07-26 | XMS | Encounter Summary ---
Demographics + + + | Address | [address] | | | [place] [address] | + + + | Home Phone | | + + + | Preferred Language | Unknown | + + + | Marital Status | | + + + | Moravian Affiliation | CHR | + + + [...] [place] | | | | | [address] | | + + + + + Care Team Providers + +------+ + | Care Coke Handling Supervisor Name | Role | Phone | + +------+ + | Riana Ko PA-C | PCP | | + +------+ + Reason for Visit + + + | Reason | Comments | + + + | Medication requested | wants Ultram time release | + + + Encounter Details +--------+ + + + + | Date | Type | Department | Care Team | Description | +--------+ + + + + | 01/22/ | Telephone | Family Medicine at | Riana Ko, | Medication requested | | 2006 | | [address] | [address] | ([facility] Ultra time | | | | [facility] | [facility] | release) | | | | Mailcode: GPC | [place], [place] | | | | | [facility] | [address] | | | | | [place], [place] | [phone] | | | | | [address] | | | | | | [phone] | | | +--------+ + + + [...]
--- OUTSIDE RECORDS SUMMARY | ~2018-07-26 | XMS | Encounter Summary ---
Demographics + + + | Address | [address] | | | [place] [address] | + + + | Home Phone | | + + + | Preferred Language | Unknown | + + + | Marital Status | | + + + | Mu-Ism Affiliation | CHR | + + + [...] [place] | | | | | [address] | | + + + + + Care Team Providers + +------+ + | Care Cost Analyst Name | Role | Phone | + +------+ + | Riana Ko PA-C | PCP | | + +------+ + Encounter Details +--------+ + + + + | Date | Type | Department | Care Team | Description | +--------+ + + + + | 03/14/ | Results | Registration [id number] | | | | 1995 | Only | [address] | | | | | | [facility] Mailcode: | | | | | | [address] [place], [place] | | | | | | [address] | | | | | | [phone] | | | +--------+ + + + [...] | MICROBIOLOGY TESTS 1 | Routin | 03/14/1995 | | Results for this | | | e | 4:15 PM | | procedure are in the | | | | PST | | results section. | + +--------+ + + + documented in this encounter Results MICROBIOLOGY TESTS 1 (03/14/1995 4:15 PM PST) + + + + + + [...] SEEN | | | | | | Epi 1+Diagnos | | | | | | is SI | | | | | | NUSITISTest | | | | | | Ordered | | | | | | SINUS CULTUREOrdering | | | | | | Loc | | | | | | 131Spec Set Up | | | | | | Date 03/14Spec Set Up | | | | | | Time 18:17Source | | | | | | Body Site SWAB LEFT | | | | | | ETHMOIDReport | | | | | | Status FINALP | | | | | | relim | | | | | | Result NO | | | | | | GROWTHDate Of Final | | | | | | Re [id number] | | | | + + + + + + + + | Specimen | + + | | + + + + + + + | Performing | Address | City/State/Zipcode | Phone Number | | Organization | | | | + + + + + | [facility] | [address] | [place] [address] | | | PATHOLOGY | [address] | | | + + + + + documented in this encounter Visit Diagnoses Not on filedocumented in this encounter"
--- OUTSIDE RECORDS SUMMARY | ~2018-07-26 | XMS | Encounter Summary ---
Demographics + + + | Address | [address] | | | [place] [address] | + + + | Home Phone | | + + + | Preferred Language | Unknown | + + + | Marital Status | | + + + | Caodaism Affiliation | CHR | + + + | Race | White | + + + | Ethnic Group | Not or | + + + Author + + + | Author | [facility] | + + + | Organization | [facility] | + + + | Address | Unknown | + + + | Phone | Unavailable | + + + Support + + + + + | Name | Relationship | Address | Phone | + + + + + | Favio Smart | [address] | [place] | | | | | [address] | | + + + + + Care Team Providers + +------+ + | Care Surveillance Systems Engineer Name | Role | Phone | + +------+ + | Riana Ko PA-C | PCP | | + +------+ + Encounter Details +--------+ + + + + | Date | Type | Department | Care Team | Description | +--------+ + + + + | 01/27/ | DELETED | Family Medicine at | Riana Ko, | CONSENTS | | 2006 | TRANSCRIPTI | [address] | [address] | | | | ON | [address] | [facility] | | | | | Mailcode: NIKIA | [place], [place] | | | | | [facility] | [address] | | | | | [place], [place] | [phone] | | | | | [address] | | | | | | [phone] | | | +--------+ + + + [...]
--- OUTSIDE RECORDS SUMMARY | ~2018-07-26 | XMS | Encounter Summary ---
Demographics + + + | Address | [address] | | | [place] [address] | + + + | Home Phone | | + + + | Preferred Language | Unknown | + + + | Marital Status | | + + + | Samaritan Affiliation | CHR | + + + [...] [place] | | | | | [address] | | + + + + + Care Team Providers + +------+ + | Care Naval Surface Fire Support Planner Name | Role | Phone | + +------+ + PCP | Unavailable | + +------+ + Encounter Details +--------+ + + + + | Date | Type | Department | Care Team | Description | +--------+ + + + + | 06/26/ | Office | General Internal | Note, Outpatient | Progress Note | | 1995 | Visit-Trans | Medicine [address] | Clinic | | | | cribed | [address] | | | | | | Road Mailcode: L475 | | | | | | Outpatient Clinic | | | | | | [facility], [address] | | | | | | [place], [place] | | | | | | [address] | | | | | | [phone] | | | +--------+ + + + [...] as of this encounter Progress Notes Interface, Textiles And Clothing Teacher In - 05/16/2006 6:56 AM [facility] CLINIC DATE: 06/27/95 OTOLARYNGOLOGY HEAD AND NECK SURGERY CLINIC SUBJECTIVE: This patient is a postoperative visit after removal of a nasopharyngeal cyst, trimming of the inferior turbinates and doing a modified uvulopalatoplasty. Her snoring has improved significantly. She is a patient who has had long-term sinus problems and headaches, who has been on Vicodin apparently for years. At this point, we continue to try to decrease the frequency; she says she is probably using it about six times a day. The patient states that she still feels like she has a stuffy nose. I talked to her a few days ago. She is getting a lot of mucus out of the back of her nose. OBJECTIVE: She is examined today. Her nose is decongested, cocainized. There is some thick mucus in the ethmoid region bilaterally. The sphenoid sinus is actually clear. There is a small amount of mucus in her nasopharynx; this is suctioned under direct vision. There is some crusting in the right maxillary sinus which is also removed with suction. She is then carefully examined with the sinuscope, curved suction is used and there is absolutely no mucus in the maxillary sinuses. Airway actually looks quite good although the patient continues to mouth breathe frequently. Flexible fiberoptic scope is used to examine the nasopharynx. She has no scar in the nasopharynx. The uvula palate is healing up although there is still some mild eschar in the area where the cyst was. There is still some inflammation, it is marsupialized, however. After discussion with her, she was placed in the supine position and a solution of Gentamicin/Kenalog is dripped into her nose to allow it to set in the posterior ethmoid/sphenoid region in the nasopharynx. This set there for about five to ten minutes and was all carefully removed with suction. ASSESSMENT AND PLAN: Continued healing two weeks status post surgery including a uvula palatoplasty. The patient appears to have a very good airway. She still unfortunately continues to mouth breathe periodically. At this point, she again asks for hydrocodone; I did write her for 30. I told her she absolutely has to wean this. I finally agreed to give her Darvocet N 100; I think I wrote for 20. I would like her to try to switch over to this. I am afraid she is totally acclimated to the Vicodin and may actually be having rebound discomfort. The patient seems to understand this. At this point, I will have her follow up with me and have her see Dr. Lester Long as a new patient for headache follow-up. She knows I am leaving at the end of July and at that point will follow up with Dr. Long for headache and any of my other partners for sinus problems. Dina Reinoso M.D. Adjunct Sociology Professor, Otolaryngology Head and Neck Surgery LINNEA/bing documented in this encounter Plan of Treatment Not on filedocumented as of this encounter Visit Diagnoses Not on filedocumented in this encounter"
--- OUTSIDE RECORDS SUMMARY | ~2018-07-26 | XMS | Encounter Summary ---
Demographics + + + | Address | [address] | | | [place] [address] | + + + | Home Phone [...] + + + | Author | [facility] | + + + | Organization | [facility] | + + + | Address | Unknown | + + + | Phone | Unavailable | + + + Support + + + + + | Name | Relationship | Address | Phone | + + + + + | Favio Smart | [address] | [place] | | | | | [address] | | + + + + + Care Team Providers + +------+ + | Care Online Banking Specialist Name | Role | Phone | [...] Clinic | | | | | | [facility], [address] | | | | | | [place], [place] | | | | | | [address] | | | | | | [phone] | | | +--------+ + + + [...] as of this encounter Progress Notes Interface, State Editor In - 05/16/2006 6:56 AM [facility] CLINIC DATE: 06/27/95 OTOLARYNGOLOGY HEAD AND NECK [...] partners for sinus problems. Dina Reinoso M.D. Transportation Assistant, Otolaryngology Head and Neck Surgery LINNEA/bing documented in this encounter Plan of Treatment Not on filedocumented as of this encounter Visit Diagnoses Not on filedocumented in this encounter"
--- OUTSIDE RECORDS SUMMARY | ~2018-07-26 | XMS | Encounter Summary ---
Demographics + + + | Address | [address] | | | [place] [address] | + + + | Home Phone | | + + + | Preferred Language | Unknown | + + + | Marital Status | | + + + | Jain Affiliation | CHR | + + + | Race | White | + + + | Ethnic Group | Not or | + + + Author + + + | Author | [facility] | + + + | Organization | [facility] | + + + | Address | Unknown | + + + | Phone | Unavailable | + + + Support + + + + + | Name | Relationship | Address | Phone | + + + + + | Favio Smart | [address] | [place] | | | | | [address] | | + + + + + Care Team Providers + +------+ + | Care Staff Physical Therapy Assistant Name | Role | Phone | + +------+ + PCP | Unavailable | + +------+ + Encounter Details +--------+ + + + + | Date | Type | Department | Care Team | Description | +--------+ + + + + | 04/16/ | Office | General Internal | Note, Outpatient | Progress Note | | 1996 | Visit-Trans | Medicine [address] | Clinic | | | | cribed | [address] | | | | | | Road Mailcode: L475 | | | | | | Outpatient Clinic | | | | | | [facility], [address] | | | | | | [place], [place] | | | | | | [address] | | | | | | [phone] | | | +--------+ + + + [...] as of this encounter Progress Notes Interface, Grievance And Appeals Specialist In - 05/15/2006 5:04 AM [facility] CLINIC DATE: 04/16/96 OTOLARYNGOLOGY CLINIC: POSTOPERATIVE VISIT: SUBJECTIVE: The patient is being followed regularly postop for a left Mars-Drew operation. She called yesterday with complaints of possible bronchitis, sore throat, fever, and night sweats. She says it had been present for two days. She is having chest tightness and coughing. This patient does have a history of reactive airway disease. She is currently trying to taper herself off of Vicodin. This has been a significant problem for us. When I talked to her on her last visit, we asked her to taper her Vicodin to a maximum of three per day by her next appointment, and discussed the possible rebound headache, etc. She returns today, and says she has been able to taper her Vicodin down to a maximum of three per day. She took her last one today. Her major complaints today include the severe cough and fever. She is examined. OBJECTIVE: HEENT: The left maxillary sinus is examined after total decongestion cocainization of the inferior window. She has one small area of granulation tissue by scope exam. The interior of the sinus shows minimal inflammation. There is absolutely no evidence of fungus. The upper portion of the maxillary sinus and natural ostium ethmoids actually look excellent on the left. She still is complaining of numbness from the infraorbital nerve. Incision: The vestibular incision is examined. Above her canine, she has one retained suture which cannot be removed today. It may be causing a slight foreign body reaction, but actually, the majority of this area looks quite good. She has no obvious swelling to visual examination. She still, in fact, feels like she has a very fat cheek. She has no postnasal drainage today. In the left vestibule, she may be developing a small abscess ulcer, and she has had a significant problem with these in the past. Neck: The neck has no adenopathy. There is no evidence of any abnormality in or around the larynx. ASSESSMENT/PLAN: Probable bronchitis, and this patient is now staying awake most of the night due to cough. In addition she is healing up from her sinus surgery. She has expected sequela with the left infraorbital nerve. I do feel that probably the numbness complaints have been improved significantly, but there is nothing I can do to speed this up. 1. At this point, we will write her a prescription for Tussionex, to be used one teaspoon at bedtime. I would like her to use it regularly for seven days to suppress the cough. 2. She was given Vicodin, #30 tablets, which need to last her until her next visit. The plan would be that she would use a maximum of three per day, hopefully tapering off this medication completely. 3. She was also given Biaxin, 500 mg b.i.d., #20 dispensed, and was asked to use her Kenalog in [place] on the probable abscessed ulcer in her left oral vestibule. 4. We will see the patient back here in 10 to 12 days. Dina Reinoso M.D. White Hat Hacker, Otolaryngology/Head and Neck Surgery LINNEA/wander cc: Kameron Long M.D. Ph.D. White Hat Hacker, Neurology and Otolaryngology LIAN VALLECILLO MD [address] [place] [address] [address] [place] [address] documented in this encounter Plan of Treatment Not on filedocumented as of this encounter Visit Diagnoses Not on filedocumented in this encounter"
--- OUTSIDE RECORDS SUMMARY | ~2018-07-26 | XMS | Encounter Summary ---
Demographics + + + | Address | [address] | | | [place] [address] | + + + | Home Phone | | + + + | Preferred Language | Unknown | + + + | Marital Status | | + + + | Catholic Affiliation | CHR | + + + | Race | White | + + + | Ethnic Group | Not or | + + + Author + + + | Author | [facility] | + + + | Organization | [facility] | + + + | Address | Unknown | + + + | Phone | Unavailable | + + + Support + + + + + | Name | Relationship | Address | Phone | + + + + + | Favio Smart | [address] | [place] | | | | | [address] | | + + + + + Care Team Providers + +------+ + | Care Beauty Counselor Name | Role | Phone | + +------+ + PCP | Unavailable | + +------+ + Encounter Details +--------+ + + + + | Date | Type | Department | Care Team | Description | +--------+ + + + + | 06/17/ | Office | General Internal | Note, Outpatient | Progress Note | | 1995 | Visit-Trans | Medicine [address] | Clinic | | | | cribed | [address] | | | | | | Road Mailcode: [address]475 | | | | | | Outpatient Clinic | | | | | | [facility], [address] | | | | | | [place], [place] | | | | | | [address] | | | | | | [phone] | | | +--------+ + + + [...] as of this encounter Progress Notes Interface, Z Os Mainframe Systems Programmer In - 05/16/2006 6:56 AM [facility] CLINIC DATE: 06/18/95 OTOLARYNGOLOGY CLINIC: The patient is one week status post uvuloplasty, removal of a nasopharyngeal cyst and inferior turbinate reduction. She has had a very severe sore throat. I talked to her once on the phone no acute distress switched her over to Lortab elixir from pills. She said that actually she could not tolerate that. It made her itch and she went back to the hydrocodone pills. She also has a sensation of hair on the right side of her tongue. She has been eating, but it is very hard to swallow. She says she has not been getting much sleep. She says she has actually been breathing through her nose and has not had any severe headaches since her last visit. OBJECTIVE: She is examined today. Her oropharynx shows a raw but healing symmetric palate. The lateral incisions are healing well. They are not scarring together. The nose is examined. She is decongested and cocainized. Thick mucus is suctioned from the right side at the back of her nose. NASOPHARYNX: The turbinate shows a small amount of bleeding. A sinoscope is used. Curve suction is used to remove mucus and old blood from the right maxillary sinus. The windows actually look good. The remainder of the nose looks fine. The nasopharynx is examined with a flexible scope. She shows healing here. The scar and cyst were removed and it has not reformed. ASSESSMENT: She is actually doing relatively well. I expected severe discomfort with swallowing. The nose is healing well. The nasopharynx appears to be healing well. She has mucus that was collecting in the nasopharynx which was helped cleared by suction today. PLAN: At this point, I wrote a prescription for Magic Mouth Wash, which is 1/3 Benadryl elixir, 1/3 2% viscous Xylocaine and 1/3 Maalox to be used as a swish, gargle and spit before meals. I did write her for Vicodin 30 tablets with one refill. I would like her to use the saline. She asked for a refill of her prednisone. She was put on 5 mg a day. She is followed by Dr. Jacob for that. At this point, I would like her to return in two weeks to reevaluate her. If her usual headaches persist, I am going to request follow up with Dr. Kameron Long, Neurologist, who sees patients in the Otolaryngology Clinic supervisor sleeping bag department. Dina Reinoso M.D. Wick Tender, Otolaryngology Head and Neck Surgery LH:milvia cc: Ismael Jacob M.D. Professor, Medicine Head, Allergy and Clinical Immunology Kameron Long M.D. Ph.D. Wick Tender, Neurology and Otolaryngology documented in this encounter Plan of Treatment Not on filedocumented as of this encounter Visit Diagnoses Not on filedocumented in this encounter"
--- OUTSIDE RECORDS SUMMARY | ~2018-07-26 | XMS | Encounter Summary ---
Demographics + + + | Address | [address] | | | [place] [address] | + + + | Home Phone | | + + + | Preferred Language | Unknown | + + + | Marital Status | | + + + | Baptist Affiliation | CHR | + + + | Race | White | + + + | Ethnic Group | Not or | + + + Author + + + | Author | [facility] | + + + | Organization | [facility] | + + + | Address | Unknown | + + + | Phone | Unavailable | + + + Support + + + + + | Name | Relationship | Address | Phone | + + + + + | Favio Smart | [place] | [place] | | | | | [address] | | + + + + + Care Team Providers + +------+ + | Care Strategy Associate Name | Role | Phone | + +------+ + | Riana Ko PA-C | PCP | | + +------+ + Encounter Details +--------+ + + + + | Date | Type | Department | Care Team | Description | +--------+ + + + + | 12/24/ | Results | Registration [id number] | | | | 1994 | Only | [address] | | | | | | [facility] Mailcode: | | | | | | [address] [place], [place] | | | | | | [address] | | | | | | [phone] | | | +--------+ + + + [...] | IMMUNOLOGY TESTS 1 | Routin | 12/24/1994 | | Results for this | | | e | 12:30 PM | | procedure are in the | | | | PDT | | results section. | + +--------+ + + + | MISCELLANEOUS | Routin | 12/24/1994 | | Results for this | | CHEMISTRY TESTS | e | 12:30 PM | | procedure are in the | | | | PDT | | results section. | + +--------+ + + + documented in this encounter Results IMMUNOLOGY TESTS 1 (12/24/1994 12:30 PM PDT) + + + + + + | Component | Value | Ref Range | Performed | Pathologist | | | | | At | Signature | + + + + + + | ANTI-NEUT. | NEGATIVE | | | | | CYTO. AB | | | | | + + + + + + + + | Specimen | + + | | + + + + + + + | Performing | Address | City/State/Zipcode | Phone Number | | Organization | | | | + + + + + | [facility] | [address] | [place] [address] | | | PATHOLOGY | [address] | | | + + + + + MISCELLANEOUS CHEMISTRY TESTS (12/24/1994 12:30 PM PDT) + + + + + + | Component | Value | Ref Range | Performed | Pathologist | | | | | At | Signature | + + + + + + | IGG 1 | 809.3 | mg/dL | | | | SUBCLASS | | | | | + + + + + + | IGG 2 | 180.3 | mg/dL | | | | SUBCLASS | | | | | + + + + + + | IGG 3 | 47.6 | mg/dL | | | | SUBCLASS | | | | | + + + + + + | IGG 4 | 14.9 | mg/dL | | | | SUBCLASS | | | | | + + + + + + + + | Specimen | + + | | + + + + + + + | Performing | Address | City/State/Zipcode | Phone Number | | Organization | | | | + + + + + | [facility] | [address] | [place] [address] | | | PATHOLOGY | [address] | | | + + + + + documented in this encounter Visit Diagnoses Not on filedocumented in this encounter"
--- OUTSIDE RECORDS SUMMARY | ~2018-07-26 | XMS | Encounter Summary ---
Demographics + + + | Address | [address] | | | [place] [address] | + + + | Home Phone | | + + + | Preferred Language | Unknown | + + + | Marital Status | | + + + | Pentecostalism Affiliation | Unknown | + + + | Race | Unknown | + + + | Ethnic Group | Unknown | + + + Author + + + | Author | [facility] | | | and [place] | + + + | Organization | [facility] | | | and [place] | + + + | Address | Unknown | + + + | Phone | Unavailable | + + + Support + + + + + | Name | Relationship | Address | Phone | + + + + + | Natasha Patino J | ECON | [address] | | | [place] | | [place] | | | | | [address] | | + + + + + | Danita Smart | ECON | Unknown | | + + + + + | Briseida Pedroza | ECON | Unknown | | + + + + + Care Team Providers + +------+ + | Care Sales And Catering Coordinator Name | Role | Phone | [...] NEPHROLOGY [address] | M, DO [address] | | | | | [address] [facility] | [place], [facility] | | | | | [place], [place] | [place] | | | | | [address] | [address] | | | | | [phone] | | | +--------+ + + + [...] 2018 | Visit | | DO Mega [address] [place] [address] | | | | | | Oscar Boyer [facility] | | | | | | [place] | | | | | | [address] | | | | | | | | +--------+ + + + + documented as of this encounter Visit Diagnoses Not on filedocumented in this encounter"
--- OUTSIDE RECORDS SUMMARY | ~2018-07-26 | XMS | Encounter Summary ---
Demographics + + + | Address | [address] | | | [place] [address] | + + + | Home Phone | | + + + | Preferred Language | Unknown | + + + | Marital Status | | + + + | Rastafarian Affiliation | CHR | + + + | Race | White | + + + | Ethnic Group | Not or | + + + Author + + + | Author | [facility] | + + + | Organization | [facility] | + + + | Address | Unknown | + + + | Phone | Unavailable | + + + Support + + + + + | Name | Relationship | Address | Phone | + + + + + | Favio Smart | [place] | [place] | | | | | [address] | | + + + + + Care Team Providers + +------+ + | Care Director Home Name | Role | Phone | + [...] skin eruption; | | | | at [facility] 3rd Floor | | Arthralgia | | | | [address] | | | | | | [address] | | | | | | [place], [place] | | | | | | [address] | | | | | | [phone] | | | +--------+------+ + + + [...] Way Lab) | [facility] | | [facility] | REGIONAL | | [address] | LABORATORY | | [place] [address] | | + + + + + + + + | Performing | Address | City/State/Zipcode | Phone Number | | Organization | | | | + + + + + | [facility] | [address] | [place] [address] | | | LABORATORY | | | [...] | | | | | Dawn Elliott, [facility] [place] | | | | | | [address] | | | | | | [phone] | | | | | | | | | | | | [email or web address].[employer], Veronica | | | | | | [...] [facility] | [address] | [place], [place] | | | [facility] | | [address] | | + + + + + [...] DEPARTMENT OF | [address] | [place] [address] | | | PATHOLOGY | [address] [...] + + + + | [facility] | [address] | [place] [address] | | | PATHOLOGY | [address] | | | + + + + + KERWIN ANTIBODIES IDENTIFICATION, SERUM (05/23/2011 11:31 AM PDT) + + + + + + | Component | Value | Ref Range | Performed | Pathologist | | | | | At | Signature | + + + + + + | BUS DRIVER/MONITOR AB | Negative | Negative | [facility] [...] + + + + | [facility] | [address] | [place] [address] | | | PATHOLOGY | [address] [...]
--- OUTSIDE RECORDS SUMMARY | ~2018-07-26 | XMS | Encounter Summary ---
Demographics + + + | Address | [address] | | | [place] [address] | + + + | Home Phone [...] [place] | | | | | [address] | | + + + + + Care Team Providers + +------+ + | Care Egg Worker Name | Role | Phone | + +------+ + PCP | Unavailable | + +------+ + Encounter Details +--------+ + + + + | Date | Type | Department | Care Team | Description | +--------+ + + + + | 04/18/ | Office | General Internal | Note, Outpatient | Progress Note | | 1995 | Visit-Trans | Medicine [address] | Clinic | | | | cribed | [address] | | | | | | Road Mailcode: L475 | | | | | | Outpatient Clinic | | | | | | [facility], [address] | | | | | | [place], [place] | | | | | | [address] | | | | | | [phone] | | | +--------+ + + + [...] as of this encounter Progress Notes Interface, Revolving Inventory Clerk In - 06/11/2006 5:39 AM PDT CLINIC DATE: 04/18/95 OTOLARYNGOLOGY CLINIC SUBJECTIVE: This patient has been talked to on the phone several times. She continues to have complaints of hyponasal speech, severe congestion and pain. This has been going on for about three weeks and I have given her many refills of Vicodin. She says that she did see a neurologist, i.e. Dr. Del Rio, in [place], [place] for her migraines. This was before she had a new sinus surgery. She had a CT scan when she was first here in January. This is reviewed and shows surprisingly clear sinuses. The patient is currently on Prozac for depression. She says she has tried Elavil in the past and it had no benefit. She has also tried Darvocet N-100, Fioricet, and Tylenol with codeine, all of which were provided no benefit or caused nausea. PHYSICAL EXAMINATION: She is examined today, the patient is decongested cocainized, and a thirty degree scope is used. Her sinuses look surprisingly good. She feels she has a very poor airway especially on the right. In spite of having an excellent airway to the level of the posterior choana she still describes nasal dyspnea. 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 After discussion with her, a triple cream using gentamicin, amphotericin B and hydrocortisone is injected in the left maxillary sinus and into the ethmoid region. I gave her a left infraorbital nerve block to see if it would remove the pain. It definitely numbed her but gave her no pain relief. ASSESSMENT: Concern for possible neuralgia is certainly not at the level of the distal infraorbital nerve. The patient's hyponasal speech is quite interesting. I am wondering now if she may have slight nasopharyngeal stenosis. If that was the case, she might actually benefit from a modified uvuloplasty. At this point I see very little evidence of sinusitis although when she was here last time she really had significant rhinosinusitis. She also has had Kenalog injections in her inferior turbinates so this did not help either with her airway. PLAN: At this point, I have recommended that she return in two to three weeks, have a combined appointment with Dr. Kameron Long, for evaluation of headaches neuralgia. I did give her Vicodin 20 tablets with two refills to last throughout that time. I am very concerned that at this point I am in a bit of a quandary about how to control her chronic pain. I do not think any additional sinus surgery would be of benefit although I think it would be interesting to entertain the possibility of uvuloplasty. Dina Reinoso M.D. Foot Orthopedist Otolaryngology, Head and Neck Surgery LH/vs cc: LIAN VALLECILLO MD [address] [place] [address] 2 [place] [address] Ismael Jacob M.D. Professor, Medicine Head, Allergy and Clinical Immunology [facility] Charis Garcia M.D. Developmental Pediatrics [facility] Otolaryngology Department Attn: New Patient Referral [facility] documented in this encounter Plan of Treatment Not on filedocumented as of this encounter Visit Diagnoses Not on filedocumented in this encounter"
--- OUTSIDE RECORDS SUMMARY | ~2018-07-26 | XMS | Encounter Summary ---
Demographics + + + | Address | [address] | | | [place] [address] | + + + | Home Phone [...] [place] | | | | | [address] | | + + + + + Care Team Providers + +------+ + | Care Graphic Design Teacher Name | Role | Phone | + +------+ + PCP | Unavailable | + +------+ + Encounter Details +--------+ + + + + | Date | Type | Department | Care Team | Description | +--------+ + + + + | 03/24/ | Office | General Internal | Note, [...] [address] | | | | | | [place], [place] | | | | | | [address] | | | | | | [phone] | | | +--------+ + + + [...] as of this encounter Progress Notes Interface, Radio Tester In - 05/17/2006 3:10 AM [facility] CLINIC DATE: 03/24/96 OTOLARYNGOLOGY CLINIC: SUBJECTIVE: This patient is 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 The patient has had a lot of postoperative pain. She has had the expected cheek swelling and nasal congestion from the inferior turbinectomy of the nasal antral window. She says that she has got a lot of crusting out. She says that she is having some type of a very bad odor. She is very worried that she has got an infection. Previously she had had a little bit of aspergillus, although at the time of the surgery they found one, and the cultures have been negative. She was examined today. OBJECTIVE: NOSE: The nose was decongested. On the right side, she has a small amount of sticky mucous. The posterior nose, however, looks fine. On the left, the nasal antral window is widely patent. This was carefully suctioned. She had very sensitive tissue, which is granulation tissue, along the floor. The natural ostium was also widely patent. There was a minimal amount of crust in the sinus, that did not look like fungus. The posterior airway looks fine. The vicryl sutures were removed from the under the lip, the anterior three. There was no evidence of infection seen here. The swelling actually has improved. She is having no lower eyelid swelling, although it still bothers her a lot to move her lip. Her nose was examined with a 30 degree scope, suctioned with a curved suction. PLAN: Eventually Amphotericin was mixed up with one liter of sterile water, and she was irrigated with 200 ccs in the left side. In addition, she was given the remaining Amphotericin solution in a brown paper bag to be used with her water pick on this side once a day until it is gone. She needs to return to see me in two weeks. I did refill her Vicodin. I gave her #40, with one refill. This should last her for two weeks. She is using Bactroban and saline. I am quite concerned that the patient is having a rebound headache. She had previously seen Dr. Long, and before we did the surgery, she had an agreement with him that she would have a maximum of 20 Vicodin a month. As soon as she heals from her recent surgery, we need to get her back on that regimen. Dina Reinoso M.D. Chemical Plant Operator, Otolaryngology/Head and Neck Surgery /meera cc: LIAN VALLECILLO MD [address] [place] [address] 2 [place] [address] Kameron Long M.D., Ph.D. Chemical Plant Operator, Neurology and Otolaryngology documented in this encounter Plan of Treatment Not on filedocumented as of this encounter Visit Diagnoses Not on filedocumented in this encounter"
--- OUTSIDE RECORDS SUMMARY | ~2018-07-26 | XMS | Encounter Summary ---
Demographics + + + | Address | [address] | | | [place] [address] | + + + | Home Phone | | + + + | Preferred Language | Unknown | + + + | Marital Status | | + + + | Sikhism Affiliation | CHR | + + + [...] [place] | | | | | [address] | | + + + + + Care Team Providers + +------+ + | Care Qc Scientist Name | Role | Phone | + +------+ + PCP | Unavailable | + +------+ + Encounter Details +--------+ + + + + | Date | Type | Department | Care Team | Description | +--------+ + + + + | 02/14/ | Office | General Internal | Note, Outpatient | Progress Note | | 1994 | Visit-Trans | Medicine [address] | Clinic | | | | cribed | [address] | | | | | | Road Mailcode: L475 | | | | | | Outpatient Clinic | | | | | | [facility], [address] | | | | | | [place], [place] | | | | | | [address] | | | | | | [phone] | | | +--------+ + + + [...] as of this encounter Progress Notes Interface, Dock Operations Supervisor In - 06/14/2006 3:04 AM PDT CLINIC DATE: 02/14/95 OTOLARYNGOLOGY CLINIC SUBJECTIVE: This patient was initially seen on January 24. She has been referred by Dr. Ismael Jacob and during the time of that visit was actually having a rather acute asthma attack. She was treated with nebulized treatments and started on prednisone. I did refill her (Hydromic) cough syrup. She said shortly after she was here her asthma improved but she developed increasing sinus symptoms i.e., rhinosinusitis and was treated with Biaxin. She says the mucus has still remained thick. The CT scan from January 24 was reviewed. It looked incredibly clear at that point. She has had three previous sinus surgeries. OBJECTIVE: Examination today: Patient's decongested . Her nose shows impressive amounts of thick yellow to white mucus throughout. None of this is loculated. It can be sectioned freely from within the windows. Her surgical sites are actually well healed. There is no crusting and she has patent natural ostium, sphenoid ostia, etc. She does have hypertrophied inferior turbinates and after discussion with her, Kenalog diluted 20 mg per cc and 1 percent Lidocaine 1:100,000 was then injected into her inferior turbinates. A small amount was used, i.e., approximately 0.3 cc on the side. ASSESSMENT/PLAN: Impressive rhinosinusitis in spite of very good surgical results with open sinuses. At this point I think we need to take a more long-term approach and I am going to place her on Vantin 200 mg b.i.d. for (seven) days. I would like her to use one tablet i.e., 200 mg, once a day for 14 days. I gave her 30 tablets with one refill. I would like her to continue the Gentamicin and saline and the Flonase. We will need to see if she improves with the injections into her inferior turbinates. I would like her to return here in about four weeks. My understanding is that she is seeing Dr. Jacob in April. She is currently on prednisone 15 mg a day and she has remained on steroids since her last visit. She says her pulmonary function tests were somewhat improved although she does not have the numbers. I think this patient has very refractory problems, impressive cough, rhinosinusitis in spite of good surgical result. I think we will have to follow her closely. Dina Reinoso M.D. Business Asst, Otolaryngology Head and Neck Surgery LH/imani cc: Ismael Jacob M.D. Allergy and Clinical Immunology [facility] LIAN VALLECILLO MD [address] [place] [address] 2 [place] [address] documented in this encounter Plan of Treatment Not on filedocumented as of this encounter Visit Diagnoses Not on filedocumented in this encounter"
--- OUTSIDE RECORDS SUMMARY | ~2018-07-26 | XMS | Encounter Summary ---
Demographics + + + | Address | [address] | | | [place] [address] | + + + | Home Phone | | + + + | Preferred Language | Unknown | + + + | Marital Status | | + + + | Druze Affiliation | CHR | + + + | Race | White | + + + | Ethnic Group | Not or | + + + Author + + + | Author | [facility] | + + + | Organization | [facility] | + + + | Address | Unknown | + + + | Phone | Unavailable | + + + Support + + + + + | Name | Relationship | Address | Phone | + + + + + | Favio Smart | [address] | [place] | | | | | [address] | | + + + + + Care Team Providers + +------+ + | Care Assistant Press Operator Name | Role | Phone [...] Clinic | | | | | | [facility], [address] | | | | | | [place], [place] | | | | | | [address] | | | | | | [phone] | | | +--------+ + + + [...] as of this encounter Progress Notes Interface, Glazier Structural Glass In - 06/11/2006 5:39 AM PDT CLINIC [...] a neurologist, i.e. Dr. Del Rio, in [place], [place] for her migraines. This was before [...] the possibility of uvuloplasty. Dina Reinoso M.D. Surgery Assistant Otolaryngology, Head and Neck Surgery LH/vs cc: LIAN VALLECILLO MD [address] [place] [address] 2 [place] [address] Ismael Jacob M.D. Professor, Medicine Head, Allergy and Clinical Immunology [facility] Charis Garcia M.D. Developmental Pediatrics [facility] Otolaryngology Department Attn: New Patient Referral [facility] documented in this encounter Plan of Treatment Not on filedocumented as of this encounter Visit Diagnoses Not on filedocumented in this encounter"
--- OUTSIDE RECORDS SUMMARY | ~2018-07-26 | XMS | Encounter Summary ---
Demographics + + + | Address | [address] | | | [place] [address] | + + + | Home Phone [...] + + + | Author | [facility] | + + + | Organization | [facility] | + + + | Address | Unknown | + + + | Phone | Unavailable | + + + Support + + + + + | Name | Relationship | Address | Phone | + + + + + | Favio Smart | [address] | [place] | | | | | [address] | | + + + + + Care Team Providers + +------+ + | Care Pick Pulling Machine Tender Name | Role | Phone | + +------+ + PCP | Unavailable | + +------+ + Encounter Details +--------+ + + + + | Date | Type | Department | Care Team | Description | +--------+ + + + + | 07/08/ | Office | General Internal | Note, Outpatient | Progress Note | | 1995 | Visit-Trans | Medicine [address] | Clinic | | | | cribed | [address] | | | | | | Road Mailcode: L475 | | | | | | Outpatient Clinic | | | | | | [facility], [address] | | | | | | [place], [place] | | | | | | [address] | | | | | | [phone] | | | +--------+ + + + [...] as of this encounter Progress Notes Interface, Bisque Ware Dipper In - 06/06/2006 3:08 AM PDT CLINIC DATE: 07/09/95 OTOLARYNGOLOGY CLINIC: The patient called on the and stated that she had a series of blisters on the roof of her mouth. She was coughing up some green mucous. She requested some pain medicine and I called her in some Vicodin #20 tablets. I also called her in Magic mouthwash with Benadryl, Maalox and viscous Xylocaine. The patient states that she still feels like her nose is stuffy. She has been coughing up some green mucous. I had her continue the Mycelex. She has been off antibiotics since surgery. She says that she has noted some white spots on her uvula as well. She is status post a uvuloplasty as well as removal of a nasopharyngeal cyst. EXAMINATION: Her airway actually looks very good. Her turbinates are all well healed. Her nasopharynx appears healed. She is decongested and cocainized. The 30 degree scope is used. She is collecting some mucous in the nasopharynx at the level of the palate, but no crusting is seen. She has one area of whiteness on her uvula and she has some enlarged vessels along the roof of her mouth which may have been due to coxsackie or other virus. She has been using the mouthwash as well. The patient continues to have headaches. She continues to have hyponasal speech in spite of an excellent airway. ASSESSMENT AND PLAN: Good healing after surgery: The patient continues to use the Water pik saline rinses. Her uvuloplasty is nearly healed. She may still be having some snoring and I am wondering about a little bit of yeast. She continues to have complaints of migraine, and had a severe migraine recently. She has never been able to tolerate Imitrex in the past, and she says that she has been having headaches since her first menstrual period as a teenager. She is currently taking Vicodin 4-6 a day. Again we discussed this. I wrote her out a taper where she would use one Q6H with a maximum of 6 per day for a week, then one Q8H with a maximum of 4 a day for a week, and then one bid for a week and then once a day for a week. This prescription included 30 tablets with two refills. I think she has to taper off the Vicodin. I had tried to switch her over to Darvocet N-100 and she said that it made her feel "spacy" and gave her the sensation of a lump in her throat. She currently has an appointment with Dr. Lester Long on 08/13/95. I will see if there is any chance that he has a new patient appointment sooner than that. I think part of her hyponasal speech is due to habit and mouth breathing, in spite of a good airway now. I am concerned that she does have migraine plus possibly other triggers and/or neuralgia, and I am quite anxious for her to get in with Dr. Long. Dina Reinoso M.D. Cleat Thrower, Otolaryngology Head and Neck Surgery LH/mrd cc: Kameron Long M.D. Ph.D. Cleat Thrower, Neurology and Otolaryngology Ismael Jacob M.D. Professor, Medicine Head, Allergy and Clinical Immunology documented in this encounter Plan of Treatment Not on filedocumented as of this encounter Visit Diagnoses Not on filedocumented in this encounter
--- OUTSIDE RECORDS SUMMARY | ~2018-07-26 | XMS | Encounter Summary ---
Demographics + + + | Address | [address] | | | [place] [address] | + + + | Home Phone | | + + + | Preferred Language | Unknown | + + + | Marital Status | | + + + | Anabaptist Affiliation | CHR | + + + [...] [place] | | | | | [address] | | + + + + + Care Team Providers + +------+ + | Care Labor Relations Representative Name | Role | Phone | + +------+ + | Riana Ko PA-C | PCP | | + +------+ + Reason for Visit + + + | Reason | Comments | + + + | Refill Request | HCTZ 12.5mg | + + + Encounter Details +--------+--------+ + + + | Date | Type | Department | Care Team | Description | +--------+--------+ + + + | 04/15/ | Refill | Family Medicine at | Riana Ko, | Refill Request (HCTZ | | 2007 | | [address] | [address] | 12.5mg) | | | | [address] | [facility] | | | | | Mailcode: GPC | [place], [place] | | | | | [facility] | [address] | | | | | [place], [place] | [phone] | | | | | [address] | | | | | | [phone] | | | +--------+--------+ + + + [...] + | Diagnosis | + + | HTN (hypertension) - Primary Unspecified essential hypertension | + + documented in this encounter"
--- OUTSIDE RECORDS SUMMARY | ~2018-07-26 | XMS | Encounter Summary ---
Demographics + + + | Address | [address] | | | [place] [address] | + + + | Home Phone | | + + + | Preferred Language | Unknown | + + + | Marital Status | | + + + | Gnosticist Affiliation | CHR | + + + | Race | White | + + + | Ethnic Group | Not or | + + + Author + + + | Author | [facility] | + + + | Organization | [facility] | + + + | Address | Unknown | + + + | Phone | Unavailable | + + + Support + + + + + | Name | Relationship | Address | Phone | + + + + + | Favio Smart | [address] | [place] | | | | | [address] | | + + + + + Care Team Providers + +------+ + | Care Tar Chaser Name | Role | Phone | + [...] Clinic | | | | | | [facility], [address] | | | | | | [place], [place] | | | | | | [address] | | | | | | [phone] | | | +--------+ + + + [...] as of this encounter Progress Notes Interface, Secured Entrance Monitor In - 06/06/2006 3:08 AM PDT CLINIC [...] in with Dr. Long. Dina Reinoso M.D. Distance Learning Program Coordinator, Otolaryngology Head and Neck Surgery LH/mrd cc: Kameron Long M.D. Ph.D. Distance Learning Program Coordinator, Neurology and Otolaryngology Ismael Jacob M.D. Professor, Medicine Head, Allergy and Clinical Immunology documented in this encounter Plan of Treatment Not on filedocumented as of this encounter Visit Diagnoses Not on filedocumented in this encounter
--- OUTSIDE RECORDS SUMMARY | ~2018-07-26 | XMS | Encounter Summary ---
Demographics + + + | Address | [address] | | | [place] [address] | + + + | Home Phone | | + + + | Preferred Language | Unknown | + + + | Marital Status | | + + + | Lutheran Affiliation | CHR | + + + | Race | White | + + + | Ethnic Group | Not or | + + + Author + + + | Author | [facility] | + + + | Organization | [facility] | + + + | Address | Unknown | + + + | Phone | Unavailable | + + + Support + + + + + | Name | Relationship | Address | Phone | + + + + + | Favio Smart | [address] | [place] | | | | | [address] | | + + + + + Care Team Providers + +------+ + | Care Sighter Name | Role | Phone | + +------+ + | Riana Ko PA-C | PCP | | + +------+ + Reason for Visit + + + | Reason | Comments | + + + | Follow-up encounter | R hip pain | + + + | Tingling | & numbness R arm and shoulder | + + + Encounter Details +--------+---------+ + + + | Date | Type | Department | Care Team | Description | +--------+---------+ + + + | 10/28/ | Office | Family Medicine at | Riana Ko, | Cervical | | 2006 | Visit | [address] | [address] | Radiculopathy | | | | [address] | [facility] | (Primary Dx); | | | | Mailcode: GPC | [place], [place] | Tobacco Dependence; | | | | [facility] | [address] | Hip Fracture (HCC) | | | | [place], [place] | [phone] | | | | | [address] | | | | | | [phone] | | | +--------+---------+ + + + [...] + + + | Blood Pressure | 136/64 | 10/28/2006 8:28 AM | | | | | PDT | | + + + + + | Pulse | 80 | 10/28/2006 8:28 AM | | | | | PDT | | + + + + + | Temperature | 36.4 C (97.6 F) | 10/28/2006 8:28 AM | | | [...] + + + + | Weight | 77.1 kg (170 lb) | 10/28/2006 8:28 AM | | | | | PDT | | + + + + + | Height | - | - | | + + + + + | Body Mass Index | 27.44 | 08/27/2006 12:54 PM | | | | | PDT | | + + + + + documented in this encounter Patient Instructions Patient Instructions Riana Ko - 10/28/2006 9:03 AM PDTChantix directions: First month give a Starter Pack: 0.5mg once daily for three days Then 0.5mg twice daily for four days Stop smoking once on the medicine for 7 days. Then take 1mg twice daily for for the remainder of the pack The refill should be in 1mg tablets for 1 month with one refill: directions: Take 1mg twice daily for 4 weeks with one refill Take for a total of 12 weeks if needed. documented in this encounter Progress Notes MaikelRaina F - 10/28/2006 8:45 AM PDTFormatting of this note might be different from t he original. SUBJECTIVE: Beverly Smart is a 51 y.o. female here for follow up to R hip fracture healing and with n ew R shoulder and arm pain x 2 weeks. Doing PT for R hip three times per week in [place], includes hydrotherapy. Continues to have R leg pain that radiates down the back of her leg and intermittent generalized swelling especially after rigorous PT session and after standing at work. She does feel that she is progessing slowly. She is working 4 hour shifts, but after 3 hours she has to sit down and take a break. Pt needs most recent program note (from today) faxed for disability update. Part-time disability recently improved. [facility] [employer] [place] Disability Claim Office [address] [place] [address] F: [phone] P: [phone] ext [phone] R arm and shoulder pain, pain radiates from scapula occasionally up her neck and down her a rm to her hand, through thumb index and long finger x 2 weeks. Describes whole arm as painf ul and tingly. 7 years bilat [facility]. Pain and numbness feels similar to this, but through who le arm. No known trauma. Only thing she can attribute it to is weed-eating approx two week s ago. Has tried heating pad, ice, and capsaicin cream with no improvement. Has tried Advi l which seems to help, but she is not supposed to take this medication. Ultram prescribed f or pain control by Dr. Ortiz yesterday over the telephone. Pt with known hx opioid depen dence. Denies UE weakness, headache, change in vision. OBJECTIVE: BP 136/64 | Pulse 80 | Temp (Src) 97.6 F (36.4 C) (Oral) | Resp 16 | Wt 77.111 kg (170 lbs) Gen: NAD, able to undress without difficulty R hip: mild swelling around site of well-healed incision, mildly tender to palp. Gait nl, no limp, using no assistive devices. Mild swelling at ankle compared to L. Neck: Full AROM, although pt winces in pain with lateral bending and twisting to the right. R Trapezius muscle tender to palpation. Adson's negative. R shoulder: Full AROM without pain or limitation. Scapula diffusely tender. UE muscle str ength 4/5 and equal bilat. Mate First strength 5/5 bilat. Radial pulses 2+ and equal, UE DTRs 2+ and equal. A/P: Encounter Diagnoses Code Name Primary? 723.4AS Cervical Radiculopathy Yes Plan: CONSULT TO REHABILITATION PHYSICAL THERAPY (PT EVAL AND TREAT) - may use ultram as prescribed by Dr. Ortiz. Will continue to follow his recs regarding pain medication management. - Unable to obtain MRI due to metal in hip reconstruction - if no improvement with PT, will consider EMG and neuro consult - RTC x 1 month, sooner prn 305.1M Tobacco Dependence - Chantix refilled, 1 mg bid x 2 months - Congratulated Beverly on continuing to abstain, despite recent temptation Plan: CHANTIX 1 MG TAB 820.8Q Hip Fracture - Continue PT, include deep tissue massage and TENS to lateral swelling near incision - RTC x 1 month for re-eval. Encouraged to work no more than 4 hours daily until able to tolerate being on her feet for longer periods of time. - Feet up, low sodium diet encouraged. Riana Ko PA-C documented in this encou nter Plan of Treatment Not on filedocumented as of this encounter Visit Diagnoses + + | Diagnosis | + + | Cervical radiculopathy - Primary Brachial neuritis or radiculitis nos | + + | Tobacco dependence Tobacco use disorder | + + | Hip fracture (HCC) Closed fracture of unspecified part of neck of femur | + + documented in this encounter"
--- OUTSIDE RECORDS SUMMARY | ~2018-07-26 | XMS | Encounter Summary ---
Demographics + + + | Address | [address] | | | [place] [address] | + + + | Home Phone | | + + + | Preferred Language | Unknown | + + + | Marital Status | | + + + | Yazidism Affiliation | CHR | + + + | Race | White | + + + | Ethnic Group | Not or | + + + Author + + + | Author | [facility] | + + + | Organization | [facility] | + + + | Address | Unknown | + + + | Phone | Unavailable | + + + Support + + + + + | Name | Relationship | Address | Phone | + + + + + | Favio Smart | [address] | [place] | | | | | [address] | | + + + + + Care Team Providers + +------+ + | Care Nickel Plater Name | Role | Phone | + +------+ + PCP | Unavailable | + +------+ + Encounter Details +--------+ + + + + | Date | Type | Department | Care Team | Description | +--------+ + + + + | 09/16/ | Office | General Internal | Note, Outpatient | Progress Note | | 1995 | Visit-Trans | Medicine [address] | Clinic | | | | cribed | [address] | | | | | | Road Mailcode: L475 | | | | | | Outpatient Clinic | | | | | | [facility], [address] | | | | | | [place], [place] | | | | | | [address] | | | | | | [phone] | | | +--------+ + + + [...] as of this encounter Progress Notes Interface, Soccer Commentator In - 06/01/2006 3:12 AM PDT CLINIC DATE: 09/17/95 NEUROLOGY CLINIC SUBJECTIVE: This note is to document multiple telephone contacts with Aye Smart. She has called on several occasions to report that the cyproheptadine previously tried has not been effective and asking for refills of Vicodin. One of these was given one week ago, in which she has already used this up. I told her in no uncertain terms this was excessive usage, and that 20 Vicodin should last her approximately three weeks. We discussed where else to go. PLAN: 1. I recommended that we try a therapeutic trial of Depakote, taken 250 mg titrated up to a t.i.d. dosage. We discussed the adverse effects of this: rashes, gastrointestinal distress, tremor, etc. She will call me back with the results of this. 2. New refills were called in for Vicodin, #20, with no refills. I asked the pharmacist to notify me if these were requested or refilled within three weeks. 3. Depakote, #50, was also given with one refill. Kameron Long M.D. Ph.D. Lacrosse Coach, Neurology and Otolaryngology [place]:xavier documented in this encounter Plan of Treatment Not on filedocumented as of this encounter Visit Diagnoses Not on filedocumented in this encounter"
--- OUTSIDE RECORDS SUMMARY | ~2018-07-26 | XMS | Encounter Summary ---
Demographics + + + | Address | [address] | | | [place] [address] | + + + | Home Phone [...] + + + | Author | [facility] | + + + | Organization | [facility] | + + + | Address | Unknown | + + + | Phone | Unavailable | + + + Support + + + + + | Name | Relationship | Address | Phone | + + + + + | Favio Etienne | [address] | [place] | | | | | [address] | | + + + + + Care Team Providers + +------+ + | Care Programming Engineer Name | Role | Phone | + +------+ + PCP | Unavailable | + +------+ + Encounter Details +--------+ + + + + | Date | Type | Department | Care Team | Description | +--------+ + + + + | 02/17/ | Transcribed | Allergy Clinic at | Dictation, Other | Transcribed | | 1995 | | [facility] [address] | | | | | | [facility] | | | | | | Mailcode: [address] | | | | | | [place] | | | | | | [facility] | | | | | | [place] [address] | | | | | | [phone] | | | +--------+ + + + [...] as of this encounter Progress Notes Interface, Outside Sales In - 05/20/2006 1:07 AM PDT [address] [address] or Department of Otolaryngology - PV01 February 18, 1996 Dina Reinoso M.D. Boat Outboard Engine Mechanic, Otolaryngology, Head and Neck Surgery RE:BEVERLY ETIENNE MR#:[id number] Arroyo: Beverly Etienne was seen in follow-up for her complaints of chronic headaches and facial pain. As you know, we have a strict contractural agreement with her that she will have a maximum supply of Vicodin #100 every three months with no interval refills. Unfortunately, this has been sabotaged a bit by her being out of town and we have had a bit of confusion with refills. To settle the issue, I called all of the pharmacies in [place] and certified that she has been receiving her prescriptions only from one of these. Although she did have one refill in 1994 at [facility], she has not had refills at [facility] or at the medical center in [place]. You did write her a prescription on 02/09/96 for #20 of these and so I refilled these for #80 with is a maximum supply at this point until 05/09/96. She must keep her appointments. I think she was impressed with the thoroughness of my checking up after her and will be honest about her refills. She did receive from another provider somewhere in [place] #15 at one point which was called to me by the pharmacy which I appreciated and I okayed. I want to avoid increasing the dosages if at all possible as the only time I permit patients to be on chronic narcotics is when we have such a contractural arrangement and we have conceded that there is no other way to treat their chronic condition. My plan is to see her back again on or about 05/09/96 and will not honor any refill requests until that time. We need to keep very strict records about this up here at [facility] in our charts. Please document any refills that you give her. Sincerely, Kameron Long M.D., Ph.D. Boat Outboard Engine Mechanic, Neurology and Otolaryngology [place]/narayan cc: [facility] [address] [facility] [place] [address] documented in this encounter Plan of Treatment Not on filedocumented as of this encounter Visit Diagnoses Not on filedocumented in this encounter"
--- OUTSIDE RECORDS SUMMARY | ~2018-07-26 | XMS | Encounter Summary ---
Demographics + + + | Address | [address] | | | [place] [address] | + + + | Home Phone | | + + + | Preferred Language | Unknown | + + + | Marital Status | | + + + | Confucianism Affiliation | Unknown | + + + | Race | Unknown | + + + | Ethnic Group | Unknown | + + + Author + + + | Author | [facility] | | | and [place] | + + + | Organization | [facility] | | | and [place] | + + + | Address | Unknown | + + + | Phone | Unavailable | + + + Support + + + + + | Name | Relationship | Address | Phone | + + + + + | Natasha Patino J | ECON | [address] | | | [place] | | [place] | | | | | [address] | | + + + + + | Danita Smart | ECON | Unknown | | + + + + + | Briseida Pedroza | ECON | Unknown | | + + + + + Care Team Providers + +------+ + | Care Leather Piece Inspector Name | Role | Phone | + [...] | | Chronic | [place], | Deysi Thomason DO | | | | | kidney | Shereen Joe NP | [address] | | | | | disease, | [address] | [place] | | | | | stage 3 | [address] | [address] [facility] | | | | | (moderate) | [facility], | [facility] | | | | | (HCC) | [place] [address] | [address] Phone: | | | | | Hypertension | Phone: | [phone] | | | | | Acute | [phone] | Fax: | | | | | kidney | Fax: | [phone] | | | | | failure with | [phone] | | | | | | lesion of | | | | | | | tubular | | | | | | | necrosis | | | | | | | (HCC) | | | | | | | Procedures | | | | | | | [facility] OFFICE | | | | | | [...] + + | 07/06/ | Off-Site | [facility] [place] | Deysi Martel | CHRONIC KIDNEY | | 2019 | Visit | NEPHROLOGY [address] | M, DO [address] | DISEASE STAGE III | | | | [address] | [place] | (MODERATE) (Primary | | | | [place], [place] | [place], [place] | Dx); Essential | | | | [address] | [address] | hypertension; Edema | | | | [phone] | | due to hypervolemia; | | | | | | Chronic pain | | | | | | syndrome | +--------+ + + + + Social [...] | Body Mass Index | 26.19 | 05/17/2013 0828 PDT | + + + + documented in this encounter Patient Instructions Patient Instructions Deysi Martel DO - 07/06/2018 14:00 PDTat the CKD Clinic at [place], [place]. documented in this encounter Progress Notes Deysi Martel DO - 07/06/2018 1400 PDTFormatting of this note might be different leonor thomason the original. Subjective: NEPHROLOGY Patient ID: Beverly Smart is a 63 y.o. female. HPI Comments: Followup for this 63 YOWF with Stage 3 CKD, felt 2 to hypertensive nephros clerosis. She also has hypertension, asthma, refactory hyperlipidemia, Type II DM, diabeti c gastroparesis, history of acute pancreatitis, and chronic pain syndrome, with osteoporosis , s/p fx of her left shoulder, Jul, 2014. She is c/o increased lower extremity edema sinc e starting on Nifedipine ER approximately for Rx of her Raynaud's of both hands. She does e at some pre-prepared food such as canned soup, or occasional TV dinners, but not daily. Her wt. is increased 14 lbs from the last visit. She is tearful and somewhat despondent about chronic Left hip discomfort and not being able to exercise. Apparently, since her last hip procedure she has inadvertently "dislocated her left hip " prosthesis per her heel turner, Georgie. Beverly is disappointed as she wan ts to be more active. Denies GODDARD, hiccups, or nausea. She states that she underwent an ORIF of the left shoulder at [facility], on . . She also underwent a minimally invasive laminectomy, L4-L5, 06/20/2017. She denies i ncreased edema, SOB, nausea, anorexia or hiccups. 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 A dditionally, she sustained a left femoral neck Fx, and underwent an ORIF of the same, on , prior to the shunt. Outpatient Medications Marked as Taking for the 07/06/18 encounter (Appointment) with Martínez Martel, DO Medication Sig Dispense Refill allopurinol (ZYLOPRIM) 100 mg tablet Take 3 tablets by mouth Daily. 30 tablet [DISCONTINUED] buPROPion (WELLBUTRIN SR) 200 MG 12 hr tablet Take 200 mg by mouth 2 praveen es daily. DULoxetine (CYMBALTA) [address] capsule Take 20 mg by mouth Daily. furosemide (LASIX) 80 mg tablet Take 2 tablets by mouth Daily. 180 tablet 3 [DISCONTINUED] liraglutide (VICTOZA) 18 mg/3 mL injection Inject 1.2 mg under the skin Daily. NIFEdipine (ADALAT CC) 30 mg 24 hr tablet Take 30 mg by mouth Daily. [place]-3 Fatty Acids (OMEGA 3 PO) Take 2 tablets by mouth 2 times daily. ondansetron (ZOFRAN) 8 MG tablet Take 1 tablet by mouth every 8 hours as needed for Ryan sea. 30 tablet 4 pramipexole (MIRAPEX) 0.25 mg tablet Take 0.25 [...] Nsaids Propoxyphene Statins Sulfa Antibiotics Objective: BP 142/80 | Temp 36.4 C (97.6 F) | Wt 73.6 kg (162 lb 4.1 oz) | BMI 26. 19 kg/m Heart: Regular rate and rhythm with no S3, S4, murmur or rub. Lungs: CTA in all bal. No rales or wheezes. Abdomen: soft, flat, no guarding, no rebound tenderness, NABS. Extremities: favors left hip with ambulation?, 2-3+ edema bilaterally, no cyanosis, no ast erixis. Lab Results Component Value Date NAEX 138 07/03/2018 KEX 3.7 07/03/2018 CLEX 96 07/03/2018 CO2EX 31 07/03/2018 BUNEX 28 07/03/2018 CREEX 1.43 07/03/2018 EGFREX 37 07/03/2018 GLUEX 108 07/03/2018 PHOSEX 4.3 07/03/2018 MGEX 2.3 10/21/2015 PTHEX 46.13 03/30/2018 YVU8RFU 5.1 04/20/2017 Lab Results Component Value Date WBCEX 12.1 07/03/2018 HGBEX 10.9 07/03/2018 HCTEX 35.1 07/03/2018 PLTEX 648 07/03/2018 Urine Pro/Cr ratio = Lab Results Component Value Date PROTEX NA 07/03/2018 PROTEX <4 07/03/2018 Assessment: 1. CKD Stage 3, secondary to diabetic nephropathy/ hypertension-- Scr is slightly above ba seline. 2. peripheral edema-- suspect that this is reflex fluid retention form Nifedipine ER , whi ch is not an uncommon problem? 2. History of chronic pancreatitis-- in remission. 3. Hypertension-- good control. 4. Type II DM, controlled with diet-- good control. 5. History of Asthma--stable. 6. History of gastroparesis-- compensated. 7. SHPTH-- stable. 8. Hyperlipidemia-- intolerant to statins. 9. Chronic pain syndrome-- now with some chronic Left hip pain. 10. Osteoporosis-- on Vitamin D. 11. s/p CITRIX ARCHITECT shunt, 01/14/2018-- improved clinically. Plan: 1. I reviewed with Beverly that her change in GFR does not explain her overall fatigue. Svetlana joe does appear to have a moderate amount of edema from the previous visit. 2. She wishes to stop the Nifedipine ER , but I asked her to call Dr. Walton before mely estevez that. In that regard , will have her increase her lasix to 160 mg, BID for 5 days only, t hen, back to 160 mg, daily. 3. She or her RN are to call my Office, with her weight next 07/13/18. 4. I encouraged her to avoid canned soup, TV dinners ,and pre-prepared food for now. 5. Will plan to see her back in 2 months at the CKD Clinic at [place], [place]. She w ill have a CBC, CMP, PO4, Mg++, spot Urine Pro/Cr ratio one week prior to that. : MD Ricky Herrera MD, MD, [facility] documented in this e ncounter Plan of Treatment +--------+ + + + + | Date | Type | Specialty | Care Team | Description | +--------+ + + + + | 08/31/ | Off-Site | Nephrology | Deysi Martel | | | 2018 | Visit | | M, DO [address] | | | | | | [place] [address] | | | | | | [place] | | | | | | [address] | | | | | | | | +--------+ + + + + documented as of this encounter Procedures + +--------+ + + + | Procedure Name | Priori | Date/Time | Associated Diagnosis | Comments | | | ty | | | | + +--------+ + + + | EXTERNAL LAB: ANGELIQUE | Routin | 07/03/2018 | | Results [...] + + documented in this encounter Results External Lab: Protein/Creatinine Ratio (07/03/2018) + + + + + + | [...] | + + External Lab: Protein/Creatinine Ratio (07/03/2018) + + + + + + | Component | Value | Ref Range | Performed | Pathologist | | | | | At | Signature | + + + + + + | Protein/Cre | NAComment: Not | | | | | atinine | performed. | | | | | Ratio, | [...] | | | | | | | Filipino, | | | | | | External | | | | | + +-------+ + + + + + | Specimen | + + | Blood | + + External Lab: CBC (07/03/2018) [...] + | | + + External Lab: Creatinine (07/03/2018) [...] | Blood | + + External Lab: BUN (07/03/2018) + +-------+ + [...] | + + | | + + documented in this encounter Visit Diagnoses + + | Diagnosis | + + | CHRONIC KIDNEY DISEASE STAGE III (MODERATE) - Primary Chronic kidney disease, Stage | | III (moderate) | + + | Essential hypertension Unspecified essential hypertension | + + | Edema due to hypervolemia | + + | Chronic pain syndrome | + + documented in this encounter
--- OUTSIDE RECORDS SUMMARY | ~2018-07-26 | XMS | Encounter Summary ---
Demographics + + + | Address | [address] | | | [place] [address] | + + + | Home Phone [...] + + + | Author | [facility] | + + + | Organization | [facility] | + + + | Address | Unknown | + + + | Phone | Unavailable | + + + Support + + + + + | Name | Relationship | Address | Phone | + + + + + | Favio Smart | [address] | [place] | | | | | [address] | | + + + + + Care Team Providers + +------+ + | Care District Representative Name | Role | Phone | + +------+ + | Riana Ko PA-C | PCP | | + +------+ + Reason for Visit + + + | Reason | Comments | + + + | Refill Request | Semprex-D 8-60mg | + + + Encounter Details +--------+--------+ + + + | Date | Type | Department | Care Team | Description | +--------+--------+ + + + | 02/05/ | Refill | Family Medicine at | Riana Ko, | Refill Request | | 2006 | | [address] | [address] | (Semprex-D 8-60mg) | | | | [address] [place] | [facility] | | | | | Mailcode: GPC | [place], [place] | | | | | [facility] | [address] | | | | | [place], [place] | [phone] | | | | | [address] | | | | | | [phone] | | | +--------+--------+ + + + [...]
--- OUTSIDE RECORDS SUMMARY | ~2018-07-26 | XMS | Encounter Summary ---
Demographics + + + | Address | [address] | | | [place] [address] | + + + | Home Phone | | + + + | Preferred Language | Unknown | + + + | Marital Status | | + + + | Evangelical Affiliation | CHR | + + + | Race | White | + + + | Ethnic Group | Not or | + + + Author + + + | Author | [facility] | + + + | Organization | [facility] | + + + | Address | Unknown | + + + | Phone | Unavailable | + + + Support + + + + + | Name | Relationship | Address | Phone | + + + + + | Favio Smart | [address] | [place] | | | | | [address] | | + + + + + Care Team Providers + +------+ + | Care Sand Temperer Name | Role | Phone | + [...] Clinic | | | | | | [facility], [address] | | | | | | [place], [place] | | | | | | [address] | | | | | | [phone] | | | +--------+ + + + [...] as of this encounter Progress Notes Interface, Mechanical Systems Control Engineer In - 05/16/2006 6:56 AM [facility] CLINIC DATE: 06/18/95 OTOLARYNGOLOGY CLINIC: The patient [...] who sees patients in the Otolaryngology Clinic strategic partner development manager. Dina Reinoso M.D. Director Of Quality, Otolaryngology Head and Neck Surgery LH:milvia cc: Ismael Jacob M.D. Professor, Medicine Head, Allergy and Clinical Immunology Kameron Long M.D. Ph.D. Director Of Quality, Neurology and Otolaryngology documented in this encounter Plan of Treatment Not on filedocumented as of this encounter Visit Diagnoses Not on filedocumented in this encounter"
--- OUTSIDE RECORDS SUMMARY | ~2018-07-26 | XMS | Encounter Summary ---
Demographics + + + | Address | [address] | | | [place] [address] | + + + | Home Phone | | + + + | Preferred Language | Unknown | + + + | Marital Status | | + + + | Yazdanism Affiliation | CHR | + + + | Race | White | + + + | Ethnic Group | Not or | + + + Author + + + | Author | [facility] | + + + | Organization | [facility] | + + + | Address | Unknown | + + + | Phone | Unavailable | + + + Support + + + + + | Name | Relationship | Address | Phone | + + + + + | Favio Smart | [address] | [place] | | | | | [address] | | + + + + + Care Team Providers + +------+ + | Care Pharmacy Technician Per Diem Name | Role | Phone | + [...] | 2011 | Encounter | Surgery at [facility] [address] | [address] | vitals from visit | | | | [address] | [place], [place] | | | | | Code: CH16D Center | [address] | | | | | for Health and | [phone] | | | | | Healing, 5th floor | | | | | | [place], [place] | | | | | | [address] | | | | | | [phone] | | | +--------+ + + + [...]
--- OUTSIDE RECORDS SUMMARY | ~2018-07-26 | XMS | Encounter Summary ---
Demographics + + + | Address | [address] | | | [place] [address] | + + + | Home Phone | | + + + | Preferred Language | Unknown | + + + | Marital Status | | + + + | Taoism Affiliation | CHR | + + + [...] [place] | | | | | [address] | | + + + + + Care Team Providers + +------+ + | Care Weaver Wire Loom Name | Role | Phone | + +------+ + | Riana Ko PA-C | PCP | | + +------+ + Reason for Visit +--------+ + | Reason | Comments | +--------+ + | Other | needs short term benefits reinstated | +--------+ + Encounter Details +--------+ + + + + | Date | Type | Department | Care Team | Description | +--------+ + + + + | 08/05/ | Telephone | Family Medicine at | Riana Ko, | Other (needs short | | 2006 | | [address] | [address] | term benefits | | | | [address] [place] [address] | reinstated) | | | | Mailcode: GPC | [place], [place] | | | | | [facility] | [address] | | | | | [place], [place] | [phone] | | | | | [address] | | | | | | [phone] | | | +--------+ + + + [...]
--- OUTSIDE RECORDS SUMMARY | ~2018-07-26 | XMS | Encounter Summary ---
Demographics + + + | Address | [address] | | | [place] [address] | + + + | Home Phone | | + + + | Preferred Language | Unknown | + + + | Marital Status | | + + + | Alevism Affiliation | CHR | + + + | Race | White | + + + | Ethnic Group | Not or | + + + Author + + + | Author | [facility] | + + + | Organization | [facility] | + + + | Address | Unknown | + + + | Phone | Unavailable | + + + Support + + + + + | Name | Relationship | Address | Phone | + + + + + | Favio Smart | [address] | [place] | | | | | [address] | | + + + + + Care Team Providers + +------+ + | Care Instructor Ground Services Name | Role | Phone | + [...] [place] | | | | | | [facility] Mailcode: | | | | | | [id number] [place], [place] | | | | | | [address] | | | | | | [phone] | | | +--------+ + + + [...] | + + + + + | [facility] | [address] | [place] [address] | | | PATHOLOGY | [address] [...] | + + + + + | [facility] | [address] | [place] [address] | | | PATHOLOGY | [address] | | | + + + + + documented in this encounter Visit Diagnoses Not on filedocumented in this encounter"
--- OUTSIDE RECORDS SUMMARY | ~2018-07-26 | XMS | Encounter Summary ---
Demographics + + + | Address | [address] | | | [place] [address] | + + + | Home Phone | | + + + | Preferred Language | Unknown | + + + | Marital Status | | + + + | Mandaeism Affiliation | CHR | + + + [...] [place] | | | | | [address] | | + + + + + Care Team Providers + +------+ + | Care Clock Repairer Name | Role | Phone | + +------+ + PCP | Unavailable | + +------+ + Encounter Details +--------+ + + + + | Date | Type | Department | Care Team | Description | +--------+ + + + + | 06/11/ | Procedure - | Digestive Health | Record, Operation | Operative Report | | 1995 | | Center at [facility] [address] | | | | | Transcribed | [address] | | | | | | Mailcode: Center | | | | | | for Health and | | | | | | Healing, [address] | | | | | | [facility] [place] | | | | | | [address] | | | | | | [phone] | | | +--------+ + + + [...] + + | OPERATION RECORD | | 06/12/1995 | | Results for this | | | | 12:00 AM | | procedure are in the | | | | PST | | results section. | + +--------+ + + + documented in this encounter Results OPERATION RECORD (06/12/1995 12:00 AM PST) + + | Procedure Note | + + | 06/12/1995 12:00 AM [facility] | | [facility] | | [address], [place] [address] | | [facility] | | | | OPERATION RECORD | | | | Med Rec No.: [id number] Date: 06/12/95 | | | | Name: Beverly Smart | | | | | | ATTENDING SURGEON: Dina Reinoso M.D. | | Alcohol And Drug Counselor, Otolaryngology | | Head and Neck Surgery | | | | GROUNDS AND NURSERY SPECIALIST(S): Tony Blake M.D. | | Resident, Otolaryngology | | Head and Neck Surgery | | | | POSTOPERATIVE DIAGNOSIS(ES): 1. Nasopharyngeal cyst. | | 2. 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 | | 3. Nasal obstruction. | | | | OPERATION(S) PERFORMED: 1. Excision of nasopharyngeal cyst. | | 2. Uvuloplasty. | | 3. Turbinoplasty. | | 4. Lysis of nasopharyngeal scar band. | | | | ANESTHESIA: General. | | | | SPECIMEN(S) REMOVED: None. | | | | INDICATIONS: The patient is a 42-year-old female with a | | history of a nasal obstruction. The patient | | has had sinus disease treated | | with multiple previous surgeries. The patient has been still complaining of | | nasal obstruction. Examination in clinic identified a cyst and scar band in | | the posterior nasopharynx. The patient is also noted to have an elongated | | uvula as well as some boggy turbinates. | | | | FINDINGS: 1. 8 mm nasopharyngeal cyst just to the | | left side of the midline. | | 2. Scar band of the nasopharynx which was | | lysed. | | 3. Elongated uvula and soft palate. | | 4. Hypertrophied turbinates with rebound | | congestion. | | | | PROCEDURE: The patient was properly identified and | | taken to the Operating Room. The nose was | | packed with neurosurgical | | cotton patties soaked with Oxymetazoline. Her residual turbinates were also | | infiltrated with 1% Lidocaine with 1:100,000 of Epinephrine. | | | | The patient was then prepped and draped in the usual fashion. Working with | | a red rubber catheter placed through the nose then pulled out through the | | mouth, the soft palate was retracted using the Leslie-Manish mouth retractor. | | The patient was suspended from the [place] with a mirror. The nasopharynx | | could clearly be identified along with the cyst. The cyst was removed with | | a adenoid curette with multiple passes. There was a scar band which overlay | | part of the cyst. This was lysed by cutting it with a #12 blade. This area | | was then packed off with a tonsil pack for hemostasis. The uvula and soft | | palate were then infiltrated with 0.5% Marcaine plain. | | | | Working with the needlepoint Bovie electrocautery the uvula was amputated | | and two small wedges of palate were excised just laterally to the attachment | | of the uvula. This resulted in the creation of somewhat of a evelin-uvula. | | There was no active bleeding noted. The packs were removed and the | | nasopharynx examined. There was no bleeding noted there. | | | | The nasal cavity was then examined and despite the injection, was noted to | | be boggy and congested. The turbinates were injected with Kenalog. The | | turbinates were then out-fractured using the nasal speculum. The nasal | | cavity was then packed with Telfa packs after the red rubber catheter had | | been removed. The Leslie-Manish mouth gag was removed. The patient awakened | | and was taken to the Post-Anesthesia Care Unit in stable condition. | | | | COMPLICATIONS: None. | | | | ESTIMATED BLOOD LOSS: 30 cc. | | | | | | | | Tony Blake M.D. | | Resident, Otolaryngology | | Head and Neck Surgery | | Dina Reinoso M.D. | | Alcohol And Drug Counselor, Otolaryngology | | Head and Neck Surgery | | AYANA/robby | | | | A | | | | cc: | | | + + documented in this encounter Visit Diagnoses Not on filedocumented in this encounter"
--- OUTSIDE RECORDS SUMMARY | ~2018-07-26 | XMS | Encounter Summary ---
Demographics + + + | Address | [address] | | | [place] [address] | + + + | Home Phone | | + + + | Preferred Language | Unknown | + + + | Marital Status | | + + + | Sabianist Affiliation | CHR | + + + | Race | White | + + + | Ethnic Group | Not or | + + + Author + + + | Author | [facility] | + + + | Organization | [facility] | + + + | Address | Unknown | + + + | Phone | Unavailable | + + + Support + + + + + | Name | Relationship | Address | Phone | + + + + + | Favio Smart | [address] | [place] | | | | | [address] | | + + + + + Care Team Providers + +------+ + | Care Animal Care Assistant Name | Role | Phone | [...] | | | | | [address] [place] | [facility] | | | | | Mailcode: [address] | [place], [place] | | | | | [address] [facility] | [address] | | | | | [place], [place] | [phone] | | | | | [address] | | | | | | [phone] | | | +--------+--------+ + + + [...]
--- OUTSIDE RECORDS SUMMARY | ~2018-07-26 | XMS | Encounter Summary ---
Demographics + + + | Address | [address] | | | [place] [address] | + + + | Home Phone | | + + + | Preferred Language | Unknown | + + + | Marital Status | | + + + | Caodaism Affiliation | CHR | + + + | Race | White | + + + | Ethnic Group | Not or | + + + Author + + + | Author | [facility] | + + + | Organization | [facility] | + + + | Address | Unknown | + + + | Phone | Unavailable | + + + Support + + + + + | Name | Relationship | Address | Phone | + + + + + | Favio Smart | [address] | [place] | | | | | [address] | | + + + + + Care Team Providers + +------+ + | Care Patent Legal Assistant Name | Role | Phone | + +------+ + PCP | Unavailable | + +------+ + Encounter Details +--------+ + + + + | Date | Type | Department | Care Team | Description | +--------+ + + + + | 03/05/ | Procedure - | Digestive Health | Record, Operation | Operative Report | | 1995 | | Center at [facility] [address] | | | | | Transcribed | [address] | | | | | | Mailcode: Center | | | | | | for Health and | | | | | | Healing, [address] | | | | | | [facility] [place] | | | | | | [address] | | | | | | [phone] | | | +--------+ + + + [...] encounter Results OPERATION RECORD (03/05/1996 12:00 AM [facility]) + + | Procedure Note | + + | 03/05/1996 12:00 AM [facility] | | [facility] | | [address], [place] [address] | | [facility] | | | | OPERATION RECORD | | | | Med Rec No.: [id number] Date: 03/05/96 | | | | Name: Beverly Smart Lisa | | | | | | ATTENDING SURGEON: Dina Reinoso M.D. | | Brusher Operator, Otolaryngology | | Head and Neck Surgery | | | | COOK PRESSURE(S): None. | | | | POSTOPERATIVE DIAGNOSIS(ES): | | | | OPERATION(S) PERFORMED: Left maxillary sinus Mras-Drew with nasal | | endoscopy. | | [...] | | Dina Reinoso M.D. | | Brusher Operator, Otolaryngology | | Head and Neck Surgery | | | | LINNEA /jzeny | | | | P | | | | cc: | | | + + documented in this encounter Visit Diagnoses Not on filedocumented in this encounter"
--- OUTSIDE RECORDS SUMMARY | ~2018-07-26 | XMS | Encounter Summary ---
Demographics + + + | Address | [address] | | | [place] [address] | + + + | Home Phone [...] [place] | | | | | [address] | | + + + + + Care Team Providers + +------+ + | Care Acetylene Torch Solderer Name | Role | Phone | + +------+ + PCP | Unavailable | + +------+ + Encounter Details +--------+ + + + + | Date | Type | Department | Care Team | Description | +--------+ + + + + | 08/25/ | Office | General Internal | Note, Outpatient | Progress Note | | 1995 | Visit-Trans | Medicine [address] | Clinic | | | | cribed | [address] | | | | | | Road Mailcode: [address] | | | | | | Outpatient Clinic | | | | | | [facility], [address] | | | | | | [place], [place] | | | | | | [address] | | | | | | [phone] | | | +--------+ + + + [...] as of this encounter Progress Notes Interface, Solderer Production Line In - 06/04/2006 1:09 AM PDT CLINIC DATE: 08/26/95 OTOLARYNGOLOGY CLINIC SUBJECTIVE: The patient returns today for follow-up of her sinusitis. She has had a problem with pain, and Dr. Long is following her and seeing her for probable migraine headaches. She is not sure whether the medication he has had her on has helped, but they are trying to get her off the Vicodin. About 2 to 3 weeks ago she started having increasing nasal congestion, pain over her left eye, left face and feels like she has difficulty breathing through her nose. There has been some increase in her discharge which is yellowish green color. She has had maybe a low grade fever associated with this. She is not on any antibiotics at this point. OBJECTIVE: Nose showed moderate congestion. The patient was sprayed with ephedrine and Xylocaine solution. Both sides actually looked quite good, with nothing to aspirate. She was then examined with a flexible nasopharyngoscope. On the right side the sphenoid, ethmoid and maxillary sinus mucosa all looked reasonably normal without any evidence of infection. On the left side, the patient had normal sphenoid sinus. The ethmoid block looked good. I would get into the maxillary sinus ostium and when I did, there was a large clump of fungal material with whitish debris on it. This was on the medial and inferior wall of the sinus. Mouth and oropharynx with no lesions seen. The patient was numbed with cocaine in the nose. She was then irrigated with about 300 cc of amphotericin solution and water. I was able to partially dislodge the material after the first set of irrigation; however, it was then a clump that was laying on the floor of the nose and I tried to use a suction nasopharyngoscope to get it out. However, when looking in with the suction nasopharyngoscope, the material was gone and I suspect it probably came up the sucker as I was sucking out the irrigant. She was reexamined with the smaller flexible nasopharyngoscope and again I could not longer see anything. The mucosa, other than being somewhat edematous did not look too bad at that point. IMPRESSION: Left maxillary fungal sinusitis. RECOMMENDATIONS: The patient is to use the residual of the amphotericin and irrigate twice daily after using saline irrigations. I also placed her on clindamycin 150 mg po t.i.d. for 10 days. She is going back to see Dr. Long on and I will see her at the same time to recheck and see how she is doing. Benito Steele M.D. Professor, Otolaryngology Head and Neck Surgery VANESSA/jef documented in this encounter Plan of Treatment Not on filedocumented as of this encounter Visit Diagnoses Not on filedocumented in this encounter"
--- OUTSIDE RECORDS SUMMARY | ~2018-07-26 | XMS | Clinical Summary ---
Demographics + + + | Address | [address] | | | [place] [address] | + + + | Home Phone | | + + + | Preferred Language | Unknown | + + + | Marital Status | | + + + | Episcopalian Affiliation | 1013 | + + + | Race | Unknown | + + + | Ethnic Group | Unknown | + + + Author + + + | Author | [facility] | + + + | Organization | [facility] | + + + | Address | Unknown | + + + | Phone | Unavailable | + + + Support + + + + + | Name | Relationship | Address | Phone | + + + + + | Josef Patino M.D. | ECON | [address] | | | | | [place] | | | | | [address] | | + + + + + | Briseida Pedroza | ECON | [place] | | | | | [address] | | + + + + + Care Team Providers + +------+ + | Care Mortgage Processor Name | Role | Phone | [...] | [employer] | [facility]DS | [id number] | | | | | | HEALTH [...] | Self | [birth year] | Home: | [address] | | | al/Fam | | 1955 | [phone] [place] | | | don | | | [address] | [address] | + +--------+ +--------+ + +
--- OUTSIDE RECORDS SUMMARY | ~2018-07-26 | XMS | Encounter Summary ---
Demographics + + + | Address | [address] | | | [place] [address] | + + + | Home Phone | | + + + | Preferred Language | Unknown | + + + | Marital Status | | + + + | Episcopalian Affiliation | CHR | + + + [...] [place] | | | | | [address] | | + + + + + Care Team Providers + +------+ + | Care Stringing Machine Operator Name | Role | Phone [...] | Telephone | Family Medicine at | Rina[place] Ko, | Medication requested | | 2006 | | [address] | [address] | ([facility] | | | | [facility] | [facility] | release) | | | | Mailcode: GPC | [place], [place] | | | | | [facility] | [address] | | | | | [place], [place] | [phone] | | | | | [address] | | | | | | [phone] | | | +--------+ + + + [...]
--- OUTSIDE RECORDS SUMMARY | ~2018-07-26 | XMS | Encounter Summary ---
Demographics + + + | Address | [address] | | | [place] [address] | + + + | Home Phone [...] + + + | Author | [facility] | + + + | Organization | [facility] | + + + | Address | Unknown | + + + | Phone | Unavailable | + + + Support + + + + + | Name | Relationship | Address | Phone | + + + + + | Favio Smart | SHAINA | [place] | | | | | [address] | | + + + + + Care Team Providers + +------+ + | Care Grant Coordinator Name | Role | Phone | + +------+ + | Shereen Lopes NP | PCP | | + +------+ + Reason for Referral Consultation (Urgent) +--------+ + + + + + | Status | Reason | Specialty | Diagnoses / | Referred By | Referred To | | | | | Procedures | Contact | Contact | +--------+ + + + + + | Closed | Specialty | Dermatology | Diagnoses | Xander | [facility] | | | Services | | Rash and | MD Larry | [address] | | | Required | | nonspecific | [address] | [address] [place] | | | | | skin | [address] [place] | Mail Code: | | | | | eruption | 2010 | [facility] | | | | | Arthralgia | [place], [place] | for Health | | | | | Procedures | [address] | and Healing, | | | | | CONSULT TO | Phone: | 16th floor | | | | | DERM & DERM | [phone] | [facility] [place] | | | | | SURGERY | Fax: | [address] | | | | | eval & tx | [phone] | Phone: | | | | | | | [phone] | | | | | | | Fax: | | | | | | | [phone] | +--------+ + + + + + Reason for Visit + + + | Reason | Comments | + + + | New patient | | | consultation | | + + + Encounter Details +--------+---------+ + + + | Date | Type | Department | Care Team | Description | +--------+---------+ + + + | 05/22/ | Office | Rheumatology at | Wanchu, Larry, MD | Rash and nonspecific | | 2012 | Visit | [facility] | [address] | skin eruption | | | | [address] | [place] [address] [facility], | (Primary Dx); | | | | [facility] | [place] [address] | Arthralgia | | | | Mailcode: OP09 | [phone] | | | | | [facility], | | | | | | 4th Floor | | | | | | [place], [place] | | | | | | [address] | | | | | | [phone] | | | +--------+---------+ + + + [...] + + + + | Temperature | - | - | | + [...] + documented in this encounter Progress Notes Larry Terrell MD - 05/23/2011 1:01 PM PDTI have repeated faye portions of the history and p hysical exam with the rheumatology Resident and was directly involved in the management of the care of the patient. Please refer to the resident's note for details of the history, exa m and plan of care. From the Rheumatology perspective, she could have Sjogren's syndrome giv en the dry mouth and eyes. It can potentially explain the fatigue and skin rash too. She cou ld see our Lead Teller to see what they think about the skin lesions and the interpretatio n of the skin biopsy. LARRY TERRELL MD RHEUMATOLOGY ATTENDING [address] [place] [address] Mailcode: Pv35 [facility] [address] SANDRToLes davis MD - 10:00 AM PDT Rheumatology Clinic Office Visit on 05/23/2011 with Larry Terrell PCP is Shereen Lopes NP ID and Chief Complaint: Beverly Smart is a 56 y.o. female with a history of skin rash, depression who comes in [facility] for evaluation of rash suspicious for leukocytoclastic vasculitis. Her concerns recorded by the medical planner today include: New patient consultation History from Today's Visit: 56 yo F here for evaluation of possible LCV. By her report, she was in her usual state of health prior to 11/2009 at which time she developed a diffuse "splotchy" rash that spared no body area. This rash was itchy, painful, bled at times. She denies starting any new medica tion at the time the rash started. Around the same time, she developed myriad symptoms incl uding fatigue, weight loss, pain "all over", nausea, vomiting. The rash has slowly improved over time, but her other symptoms have not by her report. She has seen multiple providers for this, workup has included (at the time of her worst symptoms) negative ESR, CRP, JUDSON, RF , CK, Hep A/B/C, HIV, CMV, ANCA. She had the skin biopsy originally read as no vasculitis, but over-read here as possible LCV. She has tried hydrocortisone cream on the rash which di d not help. ROS: Gen - + weight loss, + fatigue, + muscle aches "like the flu", + night sweats over 2 year p eriod HEENT - +Dry eyes/mouth, frequent sinus issues, + mouth sores CV - + wheezing and SOB, + cough GI - Nausea/vomiting/diarrhea/constipation - No hematuria or dysuria MSK - + all over pains (no specific joint), hasn't noted increased swelling or redness of a ny particular joint Neuro - + problems with memory, poor balance Skin - + rash, + hair loss Active problems are also reviewed: Patient Active Problem List Diagnoses Opioid Dependence Herpes Zoster Depression Current outpatient prescriptions:albuterol 4 mg Oral Tablet, Take 4 mg by mouth every twelv e hours. , Disp: , Rfl: Bupropion HCl (WELLBUTRIN SR) 200 mg Oral Tablet Sustained Release , 1 tab po bid, Disp: 60, Rfl: 12 CARISOPRODOL (SOMA ORAL), Take by mouth. , Disp: , Rfl: furosemide 40 mg Oral Tablet, Take 40 mg by mouth two times daily. , Disp: , Rfl: hydroch lorothiazide 25 mg Oral Tablet, Take 25 mg by mouth once daily. , Disp: , Rfl: LORazepam 2 mg Oral Tablet, Take 2 mg by mouth once daily at bedtime. , Disp: , Rfl: metF ORMIN 500 mg Oral Tablet, Take 500 mg by mouth two times daily. , Disp: , Rfl: metoprolol tartrate 100 mg Oral Tablet, Take 100 mg by mouth once daily. , Disp: , Rfl: montelukast 1 0 mg Oral Tablet, Take 10 mg by mouth once daily in the evening. , Disp: , Rfl: pramipexole 0.25 mg Oral Tablet, Take 0.125 mg by mouth once daily at bedtime. , Disp: , R fl: Tramadol HCl (ULTRAM) 50 mg Oral Tablet, take 1-2 tablet (50 mg) by oral route every 6 hours as needed, Disp: 60, Rfl: 0 Allergies Allergen Reactions Advil (Ibuprofen) Aspirin Asthma Codeine Nsaids Wheez/Dyspnea Prednisone Keflex (Cephalexin) Nausea/Vomiting Sulfa (Sulfonamide Antibiotics) Hives and Rash Filed Vitals: 05/23/2011 9:53 AM Height: 1.708 m (5' 7.25") Weight: 64.411 kg (142 lb) BP: 112/66 Pulse: 72 PainSc: 07 - Severe to Very Severe BMI: 22.08 kg/(m^2) Gen: Appears older than stated age, intermittently tearful HEENT: Dry eyes and mouth, red beefy tongue, no cervical LAD, no facial rash Neck: Supple, no LAD Pulm: CTAB CV: RRR, no m/g/r Abd: Soft, nd, nttp, bs+ Ext: No peripheral edema. On the extremities, she has scattered small (1-2cm) splotchy, we ll demarcated, erythematous patches. Normal-appearing joints of the hands, wrists, elbows, shoulders, hips, knees, ankles. No s welling or effusions in any of the aforementioned joints. She has normal, painless range of motion, actively and passively in the joints listed above. She has 15-16/18 fibromyalgia pressure points that are tender. Labs from outside (from March-June,) JUDSON negative 2007 ANCA neg 2008 ESR 8 (03/2010) RF <10 (03/2010) CK 86 (04/2010) CRP <5 (04/2010) Assessment and Plan: 56 yo F with h/o HTN, DM, asthma who presents for evaluation of skin r tal with biopsy suspicious for LCV in the setting of a wide range of symptoms without clear unifying diagnosis at this point. Her normal inflammatory markers and CK at times in the mt st when her symptoms have been most severe argue against a systemic inflammatory illness. S he does give a history of dry mouth/eyes with exam consistent, and fatigue, aches, and skin rash can sometimes be associated with Sjogren's syndrome. Would also like for her to see a camp guard here to weigh in on the skin biopsy as well as any further diagnoses to add to the differential for her symptoms. Plan: -- KERWIN panel, ESR, CK, aldolase, TSH -- Consult to dermatology, will request an appt today or tomorrow as they are from [place], and are only here through the weekend. Orders Placed This Encounter KERWIN ANTIBODIES IDENTIFICATION, SERUM Standing Status: Future Standing Expiration Date: 06/22/2012 SEDIMENTATION RATE Standing Status: Future Standing Expiration Date: 06/22/2012 CK, PLASMA Standing Status: Future Standing Expiration Date: 06/22/2012 ALDOLASE, SERUM Standing Status: Future Standing Expiration Date: 06/22/2012 TSH Standing Status: Future Standing Expiration Date: 06/22/2012 CONSULT TO DERM & DERM SURGERY Order Comments: 56 yo F with 2 year hx of rash read as "suspicious for leukocytoclastic vasculitis". Ass'd with fatigue, diffuse pain, weight loss. Slides available at [facility]. Pt lives in [place], is it possible for her to be seen today? (05/23/11) albuterol 4 mg Oral Tablet Sig: Take 4 mg by mouth every twelve hours. hydrochlorothiazide 25 mg Oral Tablet Sig: Take 25 mg by mouth once daily. metFORMIN 500 mg Oral Tablet Sig: Take 500 mg by mouth two times daily. pramipexole 0.25 mg Oral Tablet Sig: Take 0.125 mg by mouth once daily at bedtime. furosemide 40 mg Oral Tablet Sig: Take 40 mg by mouth two times daily. CARISOPRODOL (SOMA ORAL) Sig: Take by mouth. metoprolol tartrate 100 mg Oral Tablet Sig: Take 100 mg by mouth once daily. LORazepam 2 mg Oral Tablet Sig: Take 2 mg by mouth once daily at bedtime. montelukast 10 mg Oral Tablet Sig: Take 10 mg by mouth once daily in the evening. No follow-up information. The history, findings, diagnoses and treatment plan that I have documented were reviewed [facility] staff physician Larry Terrell MD at the time of this visit. The staff physician agrees karis t my assessment, plan and services provided are appropriate. LES AMAYA MD documented in this enc ounter Plan of Treatment Not on filedocumented as of this encounter Results TSH (05/23/2011 11:31 AM [...] ([facility]) | [facility] | | [facility] | REGIONAL | | [address] | LABORATORY | | [place] [address] | | + + + + + + + + | Performing | Address | City/State/Zipcode | Phone Number | | Organization | | | | + + + + + | [facility] | [address] | [place] [address] | | | LABORATORY | | | [...] | | | | | Dawn Elliott, [facility] [place] | | | | | | [address] | | | | | | [phone] | | | | | | | | | | | | [email or web address], Veronica | | | | | | Angela Marcum MD - Juan R. | | | | | | Director [...] [facility] | [address] | [place], [place] | | | [facility] | | [address] | | + + + + + [...] + + + + + | [facility] DEPARTMENT | [address] | [place] [address] | | | PATHOLOGY | [address] [...] + + + + + | [facility] DEPARTMENT OF | [address] | [place] [address] | | | PATHOLOGY | [address] | | | + + + + + KERWIN ANTIBODIES IDENTIFICATION, SERUM (05/23/2011 11:31 AM PDT) + + + + + + | Component | Value | Ref Range | Performed | Pathologist | | | | | At | Signature | + + + + + + | EVAPORATOR SUPERVISOR AB | Negative | Negative | [facility] [...] + + | [facility] DEPARTMENT OF | [address] | [place] [address] | | | PATHOLOGY | [address] | | | + + + + + documented in this encounter Visit Diagnoses + + | Diagnosis | + + | Rash and nonspecific skin eruption - Primary Rash and other nonspecific skin eruption | + + | Arthralgia Pain in joint, site unspecified | + + documented in this encounter
--- OUTSIDE RECORDS SUMMARY | ~2018-07-26 | XMS | Encounter Summary ---
Demographics + + + | Address | [address] | | | [place] [address] | + + + | Home Phone | | + + + | Preferred Language | Unknown | + + + | Marital Status | | + + + | Methodist Affiliation | CHR | + + + | Race | White | + + + | Ethnic Group | Not or | + + + Author + + + | Author | [facility] | + + + | Organization | [facility] | + + + | Address | Unknown | + + + | Phone | Unavailable | + + + Support + + + + + | Name | Relationship | Address | Phone | + + + + + | Favio Smart | [address]A | [place] | | | | | [address] | | + + + + + Care Team Providers + +------+ + | Care Cob Sawyer Name | Role | Phone | + [...] | Diagnoses | Xander | [facility]en [facility] | | | Services | | Rash and | MD Bairon | [address] | | | Required | | nonspecific | [address] | [address] | | | | | skin | [address] [place] | Mail Code: | | | | | eruption | 2010 | [facility] | | | | | Arthralgia | [place], [place] | for Health | | | | | Procedures | [address] | and Healing, | | | | | CONSULT TO | Phone: | 16th floor | | | | | DERM & DERM | [phone] | [place], [place] | | | | | SURGERY | Fax: | [address] | | | | | eval & tx | [phone] | Phone: | | | | | | | [phone] | | | | | | | Fax: | | | | | | | [phone] | +--------+ + + + + + Encounter Details +--------+---------+ + + + | Date | Type | Department | Care Team | Description | +--------+---------+ + + + | 05/22/ | Office | Dermatology | Philipp Herrera, | Rash and other | | 2011 | Visit | Medical at [facility] | [address] | nonspecific skin | | | | Floor [address] | [place], [place] | eruption (Primary | | | | Ave Mail Code: | [address] | Dx) | | | | [address] [facility] | [phone] | | | | | Health and Healing, | | | | | | 16 floor | | | | | | [place], [place] | | | | | | [address] | | | | | | [phone] | | | +--------+---------+ + + + [...] information is available at the following websites: [email or web address] - [facility] Derm atology [email or web address] - [facility] Website documented in this encounter Progress Notes Philipp Herrera MD - 05/23/2011 2:10 PM PDTPatient referred by Bairon Terrell MD Arthritis and Rheumatic Disease [address] [place] [address] 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 This be jeremias two years ago after a fall in [...] Diagnosis Date Narcotic abuse 2005 Treated in [facility] 05/14-06/14, in IOP currently Chronic pain R [...] APRIL BALL MD Resident, Department of Dermatology [facility] [place] documented in this en counter Plan of Treatment Not on filedocumented as of this encounter Procedures + +--------+ + + + | Procedure Name | Priori | Date/Time | Associated Diagnosis | Comments | | | ty | | | | + +--------+ + + + | AR BIOPSY OF SKIN | Routin | 05/24/2011 [...] | | | | | | skin [id number]. | | | | | | Thesurgical [...] + + + | [facility] | [address] | [place] [address] | | | DERMATOPATHOLOGY | [address] | | | + + + + + documented in this encounter Visit Diagnoses + + | Diagnosis | + + | Rash and other nonspecific skin eruption - Primary | + + documented in this encounter
--- OUTSIDE RECORDS SUMMARY | ~2018-07-26 | XMS | Encounter Summary ---
Demographics + + + | Address | [address] | | | [place] [address] | + + + | Home Phone | | + + + | Preferred Language | Unknown | + + + | Marital Status | | + + + | Gnosticism Affiliation | CHR | + + + [...] [place] | | | | | [address] | | + + + + + Care Team Providers + +------+ + | Care Appliance Installer Name | Role | Phone | + +------+ + | Riana Ko PA-C | PCP | | + +------+ + Reason for Visit +--------+ + | Reason | Comments | +--------+ + | Other | swelling rt lateral thigh | +--------+ + Encounter Details +--------+ + + + + | Date | Type | Department | Care Team | Description | +--------+ + + + + | 10/16/ | Telephone | Family Medicine at | Riana Ko, | Other (swelling rt | | 2006 | | [address] | lateral thigh) | | | | [address] | [address] | | | | | Mailcode: GPC | [place], [place] | | | | | [facility] | [address] | | | | | [place], [place] | [phone] | | | | | [address] | | | | | | [phone] | | | +--------+ + + + [...]
--- OUTSIDE RECORDS SUMMARY | ~2018-07-26 | XMS | Encounter Summary ---
Demographics + + + | Address | [address] | | | [place] [address] | + + + | Home Phone | | + + + | Preferred Language | Unknown | + + + | Marital Status | | + + + | Rastafari Affiliation | CHR | + + + | Race | White | + + + | Ethnic Group | Not or | + + + Author + + + | Author | [facility] | + + + | Organization | [facility] | + + + | Address | Unknown | + + + | Phone | Unavailable | + + + Support + + + + + | Name | Relationship | Address | Phone | + + + + + | Favio Smart | [place] | [place] | | | | | [address] | | + + + + + Care Team Providers + +------+ + | Care Nursing Project Coordinator Name | Role | Phone | [...] Insomnia; | | | | [address] | [facility] | Depression; | | | | Mailcode: NIKIA | [place], [place] | Migraine; | | | | [facility] | [address] | HTN (Hypertension); | | | | [facility] [place] | [phone] | Allergic Rhinitis; | | | | [address] | (Fax) | Smoking; | | | | [phone] | | Narcotic Abuse; | | | [...] is a 51 y.o. female presenting to [facility]. CHIEF COMPLAINT: Chief Complaint Patient presents with [...] been out of in-house treatment program at [facility] in [place] x 2 weeks. Now living in [place], [place] with daugther while involved in IOP treatment. IOP treatment is 3 times weekly, for 3 hours per day. Under care of Dr. Carlos Mayen at [facility]. [email or web address], p:[phone], . Plans to see Dr. Waletr Ortiz today. He specializes in addiction treatment. [...] PT. Most recent x-rays taken while in [place] last month. 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 Living with daughter in [place] while in [facility]. PCP was Dr. Mercado in [place]. MEDICATIONS: Current outpatient prescriptions Medication Sig Dispense [...]
--- OUTSIDE RECORDS SUMMARY | ~2018-07-26 | XMS | Encounter Summary ---
Demographics + + + | Address | [address] | | | [place] [address] | + + + | Home Phone [...] [place] | | | | | [address] | | + + + + + Care Team Providers + +------+ + | Care C Software Engineer Name | Role | Phone [...] Hip pain | Riana Luna, | Delvin Vear DO | | | Required | | Procedures | [address] | | | | | CONSULT TO | [facility] | [address] | | | | | FM SPEC PROG | St | [address] | | | | | [facility] (ORTHO) | [place], [place] | [place], [place] | | | | | | [address] | [address] | | | | | | Phone: | Phone: | | | | | | [phone] | [phone] | | | | | | Fax: | Fax: | | | | | | | [phone] | +--------+ + + + + + [...] Required | | colon cancer | [address] | [place] | | | | | Procedures | [facility] | [facility] | | | | | CONSULT TO | St | Mailcode: | | | | | GI | [place], [place] | [address] | | | | | PROCEDURE | [address] | [place] | | | | | UNIT: | Phone: | [address] | | | | | COLONOSCOPY | [phone] | [place], | | | | | | Fax: | [place] [address] | | | | | | [phone] | Phone: | | | | | | | [phone] | | | | | | | Fax: | | | | | | | [phone] | +--------+ + + + + + [...] Family Medicine at | Riana Ko, | Service Delivery Analyst Exam (Primary | | 2006 | Visit | [address] | [address] | Dx); Need for Tdap | | | | [address] | [facility] | Vaccination; Screen | | | | Mailcode: GPC | [place], [place] | for Colon Cancer; | | | | [facility] | [address] | Hip Pain; | | | | [place], [place] | [phone] | Depression; Fatigue; | | | | [address] | | Screening | | | | [phone] | | Cholesterol Level | +--------+---------+ + [...] a 51 y.o. 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 Occupation: She works for [employer]. Currently working 4 hour shifts, but would [...] Plans to fill rx at [facility] in [place]. Last hip x-ray 09/13. 8. Fatigue - mild anemia noted on screening lab 08/14. Continues to feel tired, but does no t sleep well. No hx anemia or vitamin deficiency, but she is concerned re: vit B12 deficien cy. Denies fever, chills, night sweats, weight loss, n/v, black or tarry stools. Service Delivery Analyst History LMP 16 years ago, s/p hysterectomy [...] A/P: Encounter Diagnoses Code Name Primary? V72.31H Service Delivery Analyst Exam Yes Plan: CITY LIBRARY DIRECTOR CYTOLOGY (PAP), PAP SMEAR ZCOLLECT/HANDLING-BACK OFFICE V06.1P [...] rather not have her on this medicaiton retirement. Will have ortho evaluate for persis tent [...] PAP SMEAR | Procedures | Routin | Service Delivery Analyst Exam | Ordered: 01/27/2007 | | ZCOLLECT/HANDLING-BA [...] | + +--------+ + + + | CITY LIBRARY DIRECTOR CYTOLOGY (PAP) | Routin | 01/27/2007 | Service Delivery Analyst Exam | Results for this | | [...] Performed At | + + + | [id number] Estimated GFR = 50 mL/min/1.73 sq m if non- | [facility] | | [id number] Estimated GFR > 60 mL/min/1.73 sq m [...] | + + + + + | [facility] DEPARTMENT [facility] | [address] [facility] | [place] [address] | | | PATHOLOGY | [address] | | | + + + + + | [facility] DEPARTMENT [facility] | [address] [facility] | [place] [address] | | | PATHOLOGY | [address] [...] Performed At | + + + | [id number] Estimated GFR = 50 mL/min/1.73 sq m if non- | [facility] | | [id number] Estimated GFR > 60 mL/min/1.73 sq m [...] | + + + + + | [facility] DEPARTMENT [facility] | [facility] | [place] [address] | | | PATHOLOGY | [address] | | | + + + + + | [facility] DEPARTMENT [facility] | [address] | [place] [address] | | | PATHOLOGY | [address] [...] | | | IC ACID | by [facility],[address] | | | | | | [place], [place] | | | | | | [address] | | | | | | [phone][employer]. | | | | | | Abdulaziz [...] [facility] | [address] | [place], [place] | | | [facility] | | [address] | | + + + + + [...] [facility] ([facility]) | | | [facility] [place] [address] | | | [place] [address] | | + + + + + + + + | Performing | Address | City/State/Zipcode | Phone Number | | Organization | | | | + + + + + | [facility] | [address] | [place] [address] | | | LABORATORY | | | [...] + + | [facility] DEPARTMENT OF | [address] | [place] [address] | | | PATHOLOGY | [address] | | | + + + + + | [facility] DEPARTMENT | [address] | [place] [address] | | | PATHOLOGY | [address] [...] [facility]LB ([facility]) | | | [facility] [address] | | | [address] [facility] | | | [place] [address] | | + + + + + + + + | Performing | Address | City/State/Zipcode | Phone Number | | Organization | | | | + + + + + | [facility] | [address] | [place] [address] | | | LABORATORY | | | | + + + + + CONTROLLED SUBSTANCE AGREEMENT (01/27/2007 12:00 AM PST) + + + | Narrative | Performed At | + + + | Ordered by an | | | unspecified provider. | | + + + + + | Transcriptions | + + | 01/27/2007 12:00 AM PST | | | + + CITY LIBRARY DIRECTOR CYTOLOGY (PAP) (01/27/2007) + + + + + + | Component | Value | Ref Range | Performed | Pathologist | | | | | At | Signature | + + + + + + | CITY LIBRARY DIRECTOR | SOURCE OF SPECIMEN: | | [facility] [...] Alicia | | | | | | CT(ASC)Steam Station Supervisor | | | | | | Electronically [...] | + + + + + | [facility] DEPART[facility] | [address] | [place] [address] | | | PATHOLOGY | [address] | | | + + + + + | [facility] DEPARTMENT OF | [address] | [place] [address] | | | PATHOLOGY | [address] | | | + + + + + documented in this encounter Visit Diagnoses + + | Diagnosis | + + | Service Delivery Analyst exam - Primary Routine gynecological examination | + + | Need for Tdap vaccination Need for prophylactic vaccination with combined | | lftldnukzk-bgdgkhg-iunfyqpgh (DTP) vaccine | + + | Screen [...]
--- OUTSIDE RECORDS SUMMARY | ~2018-07-26 | XMS | Encounter Summary ---
Demographics + + + | Address | [address] | | | [place] [address] | + + + | Home Phone | | + + + | Preferred Language | Unknown | + + + | Marital Status | | + + + | Episcopal Affiliation | CHR | + + + | Race | White | + + + | Ethnic Group | Not or | + + + Author + + + | Author | [facility] | + + + | Organization | [facility] | + + + | Address | Unknown | + + + | Phone | Unavailable | + + + Support + + + + + | Name | Relationship | Address | Phone | + + + + + | Favio Smart | [place] | [place] | | | | | [address] | | + + + + + Care Team Providers + +------+ + | Care Central Services Tech Name | Role | Phone | + +------+ + | Riana Ko PA-C | PCP | | + +------+ + Encounter Details +--------+ + + + + | Date | Type | Department | Care Team | Description | +--------+ + + + + | 05/18/ | Sausage Machine Operator | Family Medicine at | Riana Ko, | Cervical | | 2007 | | [address] | [address] | Radiculopathy | | | | [address] | (Primary Dx) | | | | Mailcode: GPC | [place], [place] | | | | | Krystian [facility] | [address] | | | | | [place], [place] | [phone] | | | | | [address] | | | | | | [phone] | | | +--------+ + + + [...] of this encounter Plan of Treatment + +---------+--------+ + + | Name | Type | Priori | Associated Diagnoses | Order Schedule | | | | ty | | | + +---------+--------+ + + | MRI SPINE CERVICAL | Imaging | Routin | Cervical | Ordered: 05/19/2007 | | WWO CONTR | | e | Radiculopathy | | + +---------+--------+ + + documented as of this encounter Visit Diagnoses + + | Diagnosis | + + | Cervical radiculopathy - Primary Brachial neuritis or radiculitis nos | + + documented in this encounter"
--- OUTSIDE RECORDS SUMMARY | ~2018-07-26 | XMS | Encounter Summary ---
Demographics + + + | Address | [address] | | | [place] [address] | + + + | Home Phone [...] [place] | | | | | [address] | | + + + + + Care Team Providers + +------+ + | Care Bearing Inspector Name | Role | Phone | [...] Clinic | | | | | | [facility], [address] | | | | | | [place], [place] | | | | | | [address] | | | | | | [phone] | | | +--------+ + + + [...] as of this encounter Progress Notes Interface, Director Community Center In - 05/17/2006 3:10 AM [facility] CLINIC DATE: 03/24/96 OTOLARYNGOLOGY CLINIC: SUBJECTIVE: This [...] back on that regimen. Dina Reinoso M.D. Junior Electrical Engineer, Otolaryngology/Head and Neck Surgery /meera cc: LIAN VALLECILLO MD [address] [place] [address] [address] [place] [address] Kameron Long M.D., Ph.D. Junior Electrical Engineer, Neurology and Otolaryngology documented in this encounter Plan of Treatment Not on filedocumented as of this encounter Visit Diagnoses Not on filedocumented in this encounter"
--- OUTSIDE RECORDS SUMMARY | ~2018-07-26 | XMS | Encounter Summary ---
Demographics + + + | Address | [address] | | | [place] [address] | + + + | Home Phone | | + + + | Preferred Language | Unknown | + + + | Marital Status | | + + + | Protestant Affiliation | CHR | + + + | Race | White | + + + | Ethnic Group | Not or | + + + Author + + + | Author | [facility] | + + + | Organization | [facility] | + + + | Address | Unknown | + + + | Phone | Unavailable | + + + Support + + + + + | Name | Relationship | Address | Phone | + + + + + | Favio Smart | [address] | [place] | | | | | [address] | | + + + + + Care Team Providers + +------+ + | Care Masonry Inspector Name | Role | Phone | [...] block | | | | | | ([id number]) | | | | | | received. [...] | | | | | 1 block ([id number]) | | | | | | returned [...] GAYATRI | [address], [address] | [place] [address] | | | DERMATOPATHOLOGY | [address] | | | + + + + + documented in this encounter Visit Diagnoses Not on filedocumented in this encounter"
--- OUTSIDE RECORDS SUMMARY | ~2018-07-26 | XMS | Encounter Summary ---
Demographics + + + | Address | [address] | | | [place] [address] | + + + | Home Phone | | + + + | Preferred Language | Unknown | + + + | Marital Status | | + + + | Christianity Affiliation | CHR | + + + [...] [place] | | | | | [address] | | + + + + + Care Team Providers + +------+ + | Care Machine Zipper Trimmer Name | Role | Phone | + +------+ + PCP | Unavailable | + +------+ + Encounter Details +--------+ + + + + | Date | Type | Department | Care Team | Description | +--------+ + + + + | 08/27/ | Office | General Internal | Note, Outpatient | Progress Note | | 1995 | Visit-Trans | Medicine [address] | Clinic | | | | cribed | [address] | | | | | | Road Mailcode: L475 | | | | | | Outpatient Clinic | | | | | | [facility], [address] | | | | | | [place], [place] | | | | | | [address] | | | | | | [phone] | | | +--------+ + + + [...] as of this encounter Progress Notes Interface, Deputy County Clerk In - 06/04/2006 1:09 AM PDT CLINIC DATE: 08/28/95 OTOLARYNGOLOGY CLINIC SUBJECTIVE: Ms. Smart was seen two days ago because of pain in her left maxillary sinus. Her nose actually looked pretty good but when I examined the sinus, she had a large clump of fungus present. We irrigated it with amphotericin and were eventually able to get it out. She was to return today and see Dr. Long and I said I would see her at the same time to make sure it was doing OK. She doesn't really think she is much better. I also put her on clindamycin. OBJECTIVE: Patient had moderate congestion. She was sprayed with nefedrine and xylocaine solution. There was no pus or polyps noted. Small amount of clear mucus was aspirated. She was examined with flexible scope and the right side was normal. On the left side, the sphenoid, ethmoid blocks are clear. I could get into the natural ostium. There is edema and inflamed hemorrhages of the mucosa to which I am sure is secondary to the irrigation. On the real medial wall I could just see the edge of what looked like a small blood clot but there was no evidence of fungus or other lesions. MOUTH/OROPHARYNX: No lesions seen. ASSESSMENT: Fungal sinusitis under control. PLAN: Finish clindamycin. She is to continue irrigations with saline but use amphotericin until it is gone. She is to return to see me in one month when she sees Dr. Long. Benito Steele M.D. Professor, Otolaryngology Head and Neck Surgery ADELINA/eusebio documented in this encounter Plan of Treatment Not on filedocumented as of this encounter Visit Diagnoses Not on filedocumented in this encounter"
--- OUTSIDE RECORDS SUMMARY | ~2018-07-26 | XMS | Encounter Summary ---
Demographics + + + | Address | [address] | | | [place] [address] | + + + | Home Phone [...] [place] | | | | | [address] | | + + + + + Care Team Providers + +------+ + | Care Dock Or Pier Laborer Name | Role | Phone | + [...] Refill | Family Medicine at | Ko, Rinaa F, | Refill Request | | 2007 | | [address] | [address] | (Maxalt 10mg) | | | | [address] | [facility] | | | | | Mailcode: GPC | [place], [place] | | | | | [address] [facility] | [address] | | | | | [place], [place] | [phone] | | | | | [address] | | | | | | [phone] | | | +--------+--------+ + + + [...]
--- OUTSIDE RECORDS SUMMARY | ~2018-07-26 | XMS | Encounter Summary ---
Demographics + + + | Address | [address] | | | [place] [address] | + + + | Home Phone [...] + + + | Favio Etienne | [address] | [place] | | | | | [address] | | + + + + + Care Team Providers + +------+ + | Care Deputy Attorney General Name | Role | Phone | + +------+ + PCP | Unavailable | + +------+ + Encounter Details +--------+ + + + + | Date | Type | Department | Care Team | Description | +--------+ + + + + | 02/17/ | Transcribed | Allergy Clinic at | Dictation, Other | Transcribed | | 1995 | | [facility] [address] | | | | | | [facility] | | | | | | Mailcode: OP34 [address] | | | | | | [place] | | | | | | [facility] | | | | | | [place] [address] | | | | | | [phone] | | | +--------+ + + + [...] as of this encounter Progress Notes Interface, Division Chief In - 05/20/2006 1:07 AM PDT [address] [place] [address] [address] or Department of Otolaryngology - PV01 February 18, 1996 Dina Reinoso M.D. Inlayer, Otolaryngology, Head and Neck Surgery RE:BEVERLY ETIENNE [...] I called all of the pharmacies in [place] and certified that she has been receiving her prescriptions only from one of these. Although she did have one refill in 1994 at [facility], she has not had refills at [facility] or at the medical center in [place]. You did write her a prescription on 02/09/96 for #20 of these and so I refilled these for #80 with is a maximum supply at this point until 05/09/96. She must keep her appointments. I think she was impressed with the thoroughness of my checking up after her and will be honest about her refills. She did receive from another provider somewhere in [place] #15 at one point which was called [...] strict records about this up here at [facility] in our charts. Please document any refills that you give her. Sincerely, Kameron Long M.D., Ph.D. Inlayer, Neurology and Otolaryngology [place]/narayan cc: [facility] [address] [facility] [place] [address] documented in this encounter Plan of Treatment Not on filedocumented as of this encounter Visit Diagnoses Not on filedocumented in this encounter"
--- OUTSIDE RECORDS SUMMARY | ~2018-07-26 | XMS | Encounter Summary ---
Demographics + + + | Address | [address] | | | [place] [address] | + + + | Home Phone [...] + + + | Author | [facility] | + + + | Organization | [facility] | + + + | Address | Unknown | + + + | Phone | Unavailable | + + + Support + + + + + | Name | Relationship | Address | Phone | + + + + + | Favio Smart | [address] | [place] | | | | | [address] | | + + + + + Care Team Providers + +------+ + | Care Global Chief Creative Officer Name | Role | Phone | [...] [address] | | | | | | [place], [place] | | | | | | [address] | | | | | | [phone] | | | +--------+ + + + [...] as of this encounter Progress Notes Interface, Gas Burner Operator In - 06/01/2006 3:12 AM PDT CLINIC [...] with one refill. Kameron Long M.D. Ph.D. Wrecker Driver, Neurology and Otolaryngology [place]:xavier documented in this encounter Plan of Treatment Not on filedocumented as of this encounter Visit Diagnoses Not on filedocumented in this encounter"
--- OUTSIDE RECORDS SUMMARY | ~2018-07-26 | XMS | Encounter Summary ---
Demographics + + + | Address | [address] | | | [place] [address] | + + + | Home Phone | | + + + | Preferred Language | Unknown | + + + | Marital Status | | + + + | Worship Affiliation | CHR | + + + | Race | White | + + + | Ethnic Group | Not or | + + + Author + + + | Author | [facility] | + + + | Organization | [facility] | + + + | Address | Unknown | + + + | Phone | Unavailable | + + + Support + + + + + | Name | Relationship | Address | Phone | + + + + + | Favio Smart | [address] | [place] | | | | | [address] | | + + + + + Care Team Providers + +------+ + | Care Book Trimmer Name | Role | Phone | [...] Clinic | | | | | | [facility], [address] | | | | | | [place], [place] | | | | | | [address] | | | | | | [phone] | | | +--------+ + + + [...] as of this encounter Progress Notes Interface, Brick Maker In - 05/15/2006 5:04 AM [facility] CLINIC DATE: 05/01/96 OTOLARYNGOLOGY CLINIC Beverly continues [...] springtime allergies as well. Dina Reinoso M.D. Chemical Laboratory Tester, Otolaryngology/Head and Neck Surgery LH/wts cc: LIAN VALLECILLO MD [address] [place] [address] 2 [place] [address] documented in this encounter Plan of Treatment Not on filedocumented as of this encounter Visit Diagnoses Not on filedocumented in this encounter"
--- OUTSIDE RECORDS SUMMARY | ~2018-07-26 | XMS | Encounter Summary ---
Demographics + + + | Address | [address] | | | [place] [address] | + + + | Home Phone | | + + + | Preferred Language | Unknown | + + + | Marital Status | | + + + | Amish Affiliation | CHR | + + + [...] [place] | | | | | [address] | | + + + + + Care Team Providers + +------+ + | Care Rope Laying Machine Operator Name | Role | Phone | + +------+ + PCP | Unavailable | + +------+ + Encounter Details +--------+ + + + + | Date | Type | Department | Care Team | Description | +--------+ + + + + | 07/22/ | Transcribed | Allergy Clinic at | Dictation, Other | Transcribed | | 1995 | | [facility] [address] | | | | | | [facility] | | | | | | Mailcode: OP34 [address] | | | | | | [place] | | | | | | [facility] | | | | | | [place] [address] | | | | | | [phone] | | | +--------+ + + + [...] as of this encounter Progress Notes Interface, Java Systems Analyst In - 06/06/2006 3:08 AM PDT [address] [address] or July 24, 1995 DINA DEY MD [facility] DEPT/ANU OP01 RE:AYE ETIENNE MR#:[id number] Dear Dina: I had the privilege of evaluating your patient, Aye Etienne, for headaches. 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 Typically her headaches, over the years, would occur once a month clustered around her menses. She had a total hysterectomy in 1994 and no longer has menses and that these no longer cluster in this way. For the past three months, she has been having headaches at an increased frequency of about 2-3 per week, and these have been very painful. This has been in association with a recurrent sinusitis and uvuloplasty for cyst. Patient states that her headaches are highly stereotyped. They are accompanied but not predicted by a feeling of blindness on her left side. These appear to be some type of scotoma, but this is not clear. This is then accompanied by a left frontal severe lancinating, throbbing pain associated with nausea and occasional vomiting. The left side of her face may feel numb. The headaches will generally last about 48 hours. Triggers she can identify include chocolate, alcohol, especially wine, and stress. She will usually wake up with a headache that gradually increases as the day goes on. She has been treated for these, over the years, with multiple trials. Apparently, she has been on a trial of Inderal eight years ago, has tried Esgic Plus, has tried Elavil, which produced significant side effects which she would like to avoid, Midrin, Prozac, and more recently Imitrex injections, which she states caused excessive tightness in the chest and did not affect her headache. Typically, she would go to the Emergency Room about once a year for a Demerol injection. Recently, this has been 2-3 times in the last three months. Currently, she is taking narcotic analgesics in the form of Vicodin, about 15-20 per week, which you have been providing. There is a positive family history of migraine in her grandmother and brother. Her mother also has headaches but these have not been diagnosed as migrainous. For the past three months, she has had a chronic upper respiratory infection and has been sleeping poorly. She has been followed by Dr. Meléndez, in [place], who has managed her headaches for many years. She currently has a significant upper respiratory infection and a sore throat. Current medications include Estrace, 3 mg q.d., prednisone, 5 mg q.d., hydrocodone, no more than 6 tabs q.d. when needed. She complains of inability to think, numbness of the arms and hands, and states that she has aspirin sensitivity and nasal polyps and has been told to avoid nonsteroidal anti-inflammatory agents. ON EXAMINATION, she is an alert, but stressed, chronically ill-appearing woman. Her history is given in a somewhat spotty manner, and she is mildly defensive about her narcotic use. Blood pressure was 130/70, with a regular pulse of 82. External auditory canals are clear. Tympanic membranes are normal. There is no ropiness of the temporal arteries. Jaw opening was in the midline, without clicks, pops, or crepitus. There was full cervical range of motion. There was mild upper trapezius muscle tightness. Carotid pulsations were normal, and there were no bruits. There was a shotty anterior cervical node on the left side. The oropharynx was slightly injected bilaterally, left greater than right. Visual bal were full to confrontation and extraocular motions were full. Pupils were equal and reactive to light bilaterally and optic fundi are benign. There is normal facial symmetry and sensation, gag was normal, and tongue protrusion was in the midline. General screening motor and sensory examinations were completely normal. Gait was normal, with symmetric arm swing. She was able to heel-toe and tandem-walk without difficulty. Rhorxk-xw-ixyd testing was normal bilaterally. Zldl-ml-xzhe performance was also normal. Deep tendon reflexes were 2+, with physiologic symmetry and toes were bilaterally down going. IMPRESSIONS: This patient has fairly typical classic migraine. Although she has not had an MRI scan, considering the long standing nature of her headaches, and of probable prior CT-scans of the sinuses, I do not think this is necessary. There is also a component now of narcotic dependence as a result of her recurrent migraines. These are undoubtedly being triggered by multiple factors including her recurrent upper respiratory infections, the stress, or the sleep deprivation related to them. She understands that she has a problem with regards to the narcotics and may be experiencing significant rebound. She agrees to, if under my care, a weaning or a cold turkey trial off the narcotics. We have established a contract. The terms of the contract are, that I will not desert her, will answer her questions, and respond to her and reassure her. I will not provide excess narcotic analgesics above the level of the tapering schedule. In exchange for this, she promises not to violate the terms of our contract by seeking narcotics elsewhere, altering prescriptions, etc. I am sending a copy of this to Dr. Meléndez to certify that this contract is in place. She understands that violation of the contract will violate our care and contract. I have written her a tapering schedule of Vicodin. She will be given enough to last five weeks, tapering down from 18 the first week; 14 the second week; 10 the third week; 7 the next week; 4 the last week; and then off. I will see her at the end of this time. She was given 60 Midrin, with one refill, and instructed on the use of this, taking 2 tabs at the start of the headache and then 1 tab every 90-120 minutes, to a maximum of 6 tabs. She was also given some Compazine suppositories. She was advised to try one dose of a nonsteroidal anti-inflammatory agent to see if this had any adverse effects and if it did not, to use this for pain control in between the Vicodin. Prescriptions were written for #53 Vicodin, which needs to last for the next five weeks. I will see her again at the end of that time. I appreciate the opportunity to participate in her care. The only thing that she has not tried are anticonvulsants for the treatment of her migraine. Considering the refractory nature of these in the past, I am not strongly encouraged as to the likelihood these will help. The use of methysergide, cyproheptadine, and other forms of migrainous therapy, which occasionally work, need to be discussed in the future once the narcotic issue is settled. Sincerely, Kameron Long M.D. Ph.D. Test Lead Application Testing, Neurology and Otolaryngology JLishaB:xavier cc: LIAN MELÉNDEZ MD [address] [place] [address] [place] [address] JOSÉ MIGUEL STRINGER JR, MD DEPARTMENT OF MEDICINE [id number] documented in this encounter Plan of Treatment Not on filedocumented as of this encounter Visit Diagnoses Not on filedocumented in this encounter"
--- OUTSIDE RECORDS SUMMARY | ~2018-07-26 | XMS | Encounter Summary ---
Demographics + + + | Address | [address] | | | [place] [address] | + + + | Home Phone [...] [place] | | | | | [address] | | + + + + + Care Team Providers + +------+ + | Care Unhairing Inspector Name | Role | Phone | [...] | Diagnoses | Xander | [facility] | | | Services | | Rash and | MD Larry | [address] | | | Required | | nonspecific | [address] [address] | Masoud Gr[place]ome | | | | | skin | [address] [place] | Mail Code: | | | | | eruption | 2010 | [facility] | | | | | Arthralgia | [place], [place] | for Health | | | | | Procedures | [address] | and Healing, | | | | | CONSULT TO | Phone: | 16th floor | | | | | DERM & DERM | [phone] | [facility] [place] | | | | | SURGERY | Fax: | [address] | | | | | eval & tx | [phone] | Phone: | | | | | | | [phone] | | | | | | | Fax: | | | | | | | [phone] | +--------+ + + + + + [...] 2012 | Visit | [facility] | [address] | skin eruption | | | | [address] | [place] [address] [facility], | (Primary Dx); | | | | [facility] | [place] [address] | Arthralgia | | | | Mailcode: OP09 | [phone] | | | | | [facility], | | | | | | 4th Floor | | | | | | [place], [place] | | | | | | [address] | | | | | | [phone] | | | +--------+---------+ + + + [...] rash too. She cou ld see our Android Ui Developer to see what they think about the skin lesions and the interpretatio n of the skin biopsy. LARRY TERRELL MD RHEUMATOLOGY ATTENDING [address] [place] [address] Mailcode: Pv35 [facility] [address] SANDRToLes davis MD - 10:00 AM PDT Rheumatology Clinic Office Visit on 05/23/2011 with Larry Terrell PCP is Shereen Lopes NP ID and Chief Complaint: Beverly Smart is a 56 y.o. female with a history of skin rash, depression who comes [facility] of rash suspicious for leukocytoclastic vasculitis. Her concerns recorded by the faculty i on call medical assistant today include: New patient consultation History from [...] markers and CK at times in the tn st when her symptoms have been most severe argue against a systemic inflammatory illness. S he does give a history of dry mouth/eyes with exam consistent, and fatigue, aches, and skin rash can sometimes be associated with Sjogren's syndrome. Would also like for her to see a automotive starter repairer here to weigh in on the skin [...] diffuse pain, weight loss. Slides available at [facility]. Pt lives in [place], is it possible for her to be [...] plan that I have documented were reviewed [facility] staff physician Larry Terrell MD at the [...] ([facility]) | [facility] | | [facility] | REGIONAL | | [address] | LABORATORY | | [place] [address] | | + + + + + + + + | Performing | Address | City/State/Zipcode | Phone Number | | Organization | | | | + + + + + | [facility] | [address] | [place] [address] | | | LABORATORY | | | [...] | | | | | Dawn Elliott, [facility] | | | | | | [address] | | | | | | [phone] | | | | | | | | | | | | [email or web address], Veronica | | | | | | [...] [facility] | [address] | [place], [place] | | | [facility] | | [address] | | + + + + + [...] | + + + + + | [facility] DEPARTMENT | [address] | [place] [address] | | | PATHOLOGY | [address] [...] | + + + + + | [facility] DEPARTMENT OF | [address] | [place] [address] | | | PATHOLOGY | [address] | | | + + + + + KERWIN ANTIBODIES IDENTIFICATION, SERUM (05/23/2011 11:31 AM PDT) + + + + + + | Component | Value | Ref Range | Performed | Pathologist | | | | | At | Signature | + + + + + + | SOCIAL WORK ADMINISTRATOR AB | Negative | Negative | [facility] [...] + + | [facility] DEPARTMENT OF | [address] | [place] [address] | | | PATHOLOGY | [address] [...]
--- OUTSIDE RECORDS SUMMARY | ~2018-07-26 | XMS | Encounter Summary ---
Demographics + + + | Address | [address] | | | [place] [address] | + + + | Home Phone | | + + + | Preferred Language | Unknown | + + + | Marital Status | | + + + | Confucianist Affiliation | CHR | + + + [...] [place] | | | | | [address] | | + + + + + Care Team Providers + +------+ + | Care Materials And Corrosion Engineer Name | Role | Phone | [...] thigh) | | | | [address] | | | | | Mailcode: GPC | [place], [place] | | | | | [facility] | [address] | | | | | [place], [place] | [phone] | | | | | [address] | | | | | | [phone] | | | +--------+ + + + [...]
--- OUTSIDE RECORDS SUMMARY | ~2018-07-26 | XMS | Encounter Summary ---
Demographics + + + | Address | [address] | | | [place] [address] | + + + | Home Phone | | + + + | Preferred Language | Unknown | + + + | Marital Status | | + + + | Pentecostalism Affiliation | Unknown | + + + | Race | Unknown | + + + | Ethnic Group | Unknown | + + + Author + + + | Author | [facility] | | | and [place] | + + + | Organization | [facility] | | | and [place] | + + + | Address | Unknown | + + + | Phone | Unavailable | + + + Support + + + + + | Name | Relationship | Address | Phone | + + + + + | Natasha Patino J | ECON | [address] | | | [place] | | [place] | | | | | [address] | | + + + + + | Danita Smart | ECON | Unknown | | + + + + + | Briseida Pedroza | ECON | Unknown | | + + + + + Care Team Providers + +------+ + | Care Windsurfing Instructor Name | Role | Phone | [...] kidney | Shereen Carrington NP | [address] | | | | | disease, | [address] | [place] | | | | | stage 3 | [address] | [address] [facility] | | | | | (moderate) | [facility], | [facility], [place] | | | | | (HCC) | [place] [address] | [address] Phone: | | | | | Hypertension | Phone: | [phone] | | | | | Acute | [phone] | Fax: | | | | | kidney | Fax: | [phone] | | | | | failure with | [phone] | | | | | | lesion of | | | | | | | tubular | | | | | | | necrosis | | | | | | | (HCC) | | | | | | | Procedures | | | | | | | [facility] OFFICE | | | | | | [...] NEPHROLOGY [address] | M, DO [address] | DISEASE STAGE III | | | | [address] | [place], [place] [address] | (MODERATE); | | | | [place], [place] | [place] | Essential | | | | [address] | [address] | hypertension with | | | | [phone] | | goal blood pressure | | [...] an [facility] left shoulder at [facility], on , which went well. She also underwent a minimally invasive laminectomy, L4-L5, 06/20/2017. She denies increased edema, SOB, nausea, anorexia or hiccups. 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 Additionally, she sustained a left femoral [...] tablets by mouth Daily. 180 tablet 3 [place]-3 Fatty Acids (OMEGA 3 PO) Take 2 [...] 12. 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 Plan: 1. I reviewed with Beverly and her RN, Caregiver, that her GFR is relatively stable for now . 2. It would be ideal to target her half-way BP goal < 130/80 mmHg. She will begin a home BP log and bring it with her at next visit, or when seen by her PCP, Dr. Walton. She may require an additional agent if her readings are not consistently at t his goal? 3. I reiterated with Beverly and her Caregiver, to avoid NSAID's half-way ,which could comp romise renal blood flow and acutely worsen her GFR. 4. Will plan to see her back in 5 months at the CKD Clinic at [place], [place]. She will have a CBC, CMP, PO4, HbA1c, iPTH, Vitamin D level, lipid profile, and spot Urine Pro/ Cr ratio one week prior to that. : MD Ricky Herrera MD, MD, [facility] documented in this e ncounter Plan of Treatment +--------+ + + + + | Date | Type | Specialty | Care Team | Description | +--------+ + + + + | 08/31/ | Off-Site | Nephrology | Deysi Martel | | | 2018 | Visit | | DO Mega [address] [place] [address] | | | | | | [facility] [address] | | | | | | [place] | | | | | | [address] | | | | | | | [...]
--- OUTSIDE RECORDS SUMMARY | ~2018-07-26 | XMS | Encounter Summary ---
Demographics + + + | Address | [address] | | | [place] [address] | + + + | Home Phone | | + + + | Preferred Language | Unknown | + + + | Marital Status | | + + + | Sabianist Affiliation | Unknown | + + + | Race | Unknown | + + + | Ethnic Group | Unknown | + + + Author + + + | Author | [facility] | | | and [place] | + + + | Organization | [facility] | | | and [place] | + + + | Address | Unknown | + + + | Phone | Unavailable | + + + Support + + + + + | Name | Relationship | Address | Phone | + + + + + | Natasha Patino J | ECON | [address] | | | [place] | | [place] | | | | | [address] | | + + + + + | Danita Smart | ECON | Unknown | | + + + + + | Briseida Pedroza | ECON | Unknown | | + + + + + Care Team Providers + +------+ + | Care Agricultural Sciences Professor Name | Role | Phone | + +------+ + | Jayson Walton MD | PCP | | + +------+ + Encounter Details +--------+ + + + + | Date | Type | Department | Care Team | Description | +--------+ + + + + | 07/18/ | Orders Only | [facility] [place] | Deysi Martel | Essential | | 2019 | | NEPHROLOGY [address] | M, DO [address] | hypertension; | | | | [address] | [place], [place] [address] | CHRONIC KIDNEY | | | | [place], [place] | [place], [place] | DISEASE STAGE III | | | | [address] | [address] | (MODERATE); Type 2 | | | | [phone] | | diabetes mellitus | | | [...] (HCC) | +--------+ + + + + Social [...] + documented as of this encounter Progress Deysi Ceballos DO - 07/18/2018 1447 PDTNEPHROLOGY Beverly called my Cell phone 2 days, c/o increased edema, and increased weight, despite bein g on 160 mg, lasix, BID. She denies taking any NSAID's in last 21 days. Will try increasing lasix to 240 mg, PO, BID and will give her metolazone 10 mg, daily for 2 days only, (with the lasix). This was E-Rx'd to Carmela Patel. I asked her to weigh herself daily and record these. Will check in with her Mon., 07/20/18. If not better, she may need to be hospitalized for IV diuretics? : Jayson Walton MD documented in this encounter Plan of Treatment +--------+ + + + + | Date | Type | Specialty | Care Team | Description | +--------+ + + + + | 08/31/ | Off-Site | Nephrology | Deysi Martel | | | 2018 | Visit | | DO [address] | | | | | | [address] | | | | | | [place] | | | | | | [id number] | | | | | | | | +--------+ + + + + documented as of this encounter Visit Diagnoses + + | Diagnosis | + + | Essential hypertension Unspecified essential hypertension | + + | CHRONIC KIDNEY DISEASE STAGE III (MODERATE) Chronic kidney disease, Stage III | | (moderate) | + + | Type 2 diabetes mellitus with hyperosmolarity without coma, without long-term current | | use of insulin (HCC) | + + | Secondary hyperparathyroidism of renal origin (HCC) Secondary hyperparathyroidism (of | | renal origin) | + + documented in this encounter"
--- OUTSIDE RECORDS SUMMARY | ~2018-07-26 | XMS | Encounter Summary ---
Demographics + + + | Address | [address] | | | [place] [address] | + + + | Home Phone [...] [place] | | | | | [address] | | + + + + + Care Team Providers + +------+ + | Care Medical Center Representative Name | Role | Phone | [...] | | | | | | [facility] Mailcode: | | | | | | [address] [place], [place] | | | | | | [address] | | | | | | [phone] | | | +--------+ + + + [...] | + + + + + | [facility] | [address] | [place] [address] | | | PATHOLOGY | [address] [...] | + + + + + | [facility] | [address] | [place] [address] | | | PATHOLOGY | [address] [...] | + + + + + | [facility] | [address] | [place] [address] | | | PATHOLOGY | [address] [...] | + + + + + | [facility] | [address] | [place] [address] | | | PATHOLOGY | [address] [...] | + + + + + | [facility] | [address] | [place] [address] | | | PATHOLOGY | [address] [...] | + + + + + | [facility] | [address] | [place] [address] | | | PATHOLOGY | [address] [...] | + + + + + | [facility] | [address] | [place] [address] | | | PATHOLOGY | [address] | | | + + + + + documented in this encounter Visit Diagnoses Not on filedocumented in this encounter"
--- OUTSIDE RECORDS SUMMARY | ~2018-07-26 | XMS | Encounter Summary ---
Demographics + + + | Address | [address] | | | [place] [address] | + + + | Home Phone [...] [place] | | | | | [address] | | + + + + + Care Team Providers + +------+ + | Care Undergraduate Internship Name | Role | Phone | + [...] | | | ON | [address] | [facility] | | | | | Mailcode: NIKIA | [place], [place] | | | | | [facility] | [address] | | | | | [place], [place] | [phone] | | | | | [address] | | | | | | [phone] | | | +--------+ + + + [...]
--- OUTSIDE RECORDS SUMMARY | ~2018-07-26 | XMS | Clinical Summary ---
Demographics + + + | Address | [address] | | | [place] [address] | + + + | Home Phone [...] [place] | | | | | [address] | | + + + + + Care Team Providers + +------+ + | Care Solid Waste Facility Operator Name | Role | Phone | + +------+ + PP | Unavailable | + +------+ + Source Comments GAYATRI is fully live on both [facility] Ambulatory and [facility] InPatient.[facility] Allergies + + + + + [...] PACIFICSOURCE | PACIFI | [phone] | | [phone] | [address] | [address] | | | [address] | | [phone] | | | [address] | | esent | | [place] | | | | | | | | , [place] | | | | | | | | [address] | | + +--------+ +--------+ + +------+ + +--------+ +--------+ + + | Guarantor Name | Accoun | Relation to | Date | Phone | Billing Address | | | t Type | Patient | of | | | | | | | | | | + +--------+ +--------+ + + | Beverly Smart | Person | Self | [birth year] | [address] | | | al/Fam | | 6 | [phone] | [place] [address] | | | don | | | 3 (Home) | | + +--------+ +--------+ + +
--- OUTSIDE RECORDS SUMMARY | ~2018-07-26 | XMS | Encounter Summary ---
Demographics + + + | Address | [address] | | | [place] [address] | + + + | Home Phone | | + + + | Preferred Language | Unknown | + + + | Marital Status | | + + + | Tenriism Affiliation | CHR | + + + [...] [place] | | | | | [address] | | + + + + + Care Team Providers + +------+ + | Care Quality System Manager Name | Role | Phone | [...] | | | | | | [facility], [address] | | | | | | [place], [place] | | | | | | [address] | | | | | | [phone] | | | +--------+ + + + [...] as of this encounter Progress Notes Interface, Health Educator In - 05/17/2006 3:10 AM [facility] DATE: 03/12/96 OTOLARYNGOLOGY CLINIC SUBJECTIVE: This [...] recurrent headaches, facial pain. She lives in [place]. I talked to her yesterday on the [...] and increase fluid intake. Dina Reinoso M.D. Business Test Analyst, Otolaryngology/Head and Neck Surgery LH:xavier cc: Kameron Long M.D. Ph.D. Business Test Analyst, Neurology and Otolaryngology LIAN VALLECILLO MD [address] [place] [address] [place] [address] documented in this encounter Plan of Treatment Not on filedocumented as of this encounter Visit Diagnoses Not on filedocumented in this encounter"
--- OUTSIDE RECORDS SUMMARY | ~2018-07-26 | XMS | Encounter Summary ---
Demographics + + + | Address | [address] | | | [place] [address] | + + + | Home Phone [...] [place] | | | | | [address] | | + + + + + Care Team Providers + +------+ + | Care Supplier Engineer Name | Role | Phone | + +------+ + | Riana Ko PA-C | PCP | | + +------+ + Reason for Visit + + + | Reason | Comments | + + + | Refill Request | Estradiol 2mg | + + + Encounter Details +--------+--------+ + + + | Date | Type | Department | Care Team | Description | +--------+--------+ + + + | 03/23/ | Refill | Family Medicine at | Riana Ko, | Refill Request | | 2007 | | [address] | [address] | (Estradiol 2mg) | | | | [address] [place] | [facility] | | | | | Mailcode: NIKIA | [place], [place] | | | | | [facility] | [address] | | | | | [place], [place] | [phone] | | | | | [address] | | | | | | [phone] | | | +--------+--------+ + + + [...] | Diagnosis | + + | Menopause - Primary Symptomatic menopausal or female climacteric states | + + documented in this encounter"
--- OUTSIDE RECORDS SUMMARY | ~2018-07-26 | XMS | Encounter Summary ---
Demographics + + + | Address | [address] | | | [place] [address] | + + + | Home Phone [...] + + + | Author | [facility] | + + + | Organization | [facility] | + + + | Address | Unknown | + + + | Phone | Unavailable | + + + Support + + + + + | Name | Relationship | Address | Phone | + + + + + | Favio Smart | [address] | [place] | | | | | [address] | | + + + + + Care Team Providers + +------+ + | Care Java Web User Interface Developer Name | Role | Phone | + [...] Clinic | | | | | | [facility], [address] | | | | | | [place], [place] | | | | | | [address] | | | | | | [phone] | | | +--------+ + + + [...] as of this encounter Progress Notes Interface, Spring Assembler Supervisor In - 06/16/2006 3:09 AM PDT CLINIC [...] previously by Dr. Joaquín Nath at the [facility]. She feels that she really had no [...] patent and draining well. Dina Reinoso M.D. Route Inspector, Otolaryngology Head and Neck Surgery/bm cc: Ismael Jacob M.D. Allergy Clinic [facility] [address] [place] EMPLOYEE RELATIONS ADVISOR [address] [place] [address] [place] [address] documented in this encounter Plan of Treatment Not on filedocumented as of this encounter Visit Diagnoses Not on filedocumented in this encounter"
--- OUTSIDE RECORDS SUMMARY | ~2018-07-26 | XMS | Encounter Summary ---
Demographics + + + | Address | [address] | | | [place] [address] | + + + | Home Phone | | + + + | Preferred Language | Unknown | + + + | Marital Status | | + + + | Samaritan Affiliation | CHR | + + + | Race | White | + + + | Ethnic Group | Not or | + + + Author + + + | Author | [facility] | + + + | Organization | [facility] | + + + | Address | Unknown | + + + | Phone | Unavailable | + + + Support + + + + + | Name | Relationship | Address | Phone | + + + + + | Favio Smart | [address] | [place] | | | | | [address] | | + + + + + Care Team Providers + +------+ + | Care Commercial Tire Service Technician Name | Role | Phone | [...] Description | +--------+--------+ + + + | 09/04/ | Refill | Family Medicine at | Riana Ko, | Refill Request | | 2006 | | [address] | [address] | | | | | [address] [place] | [facility] | | | | | Mailcode: NIKIA | [place], [place] | | | | | [facility] [address] | [address] | | | | | [place], [place] | [phone] | | | | | [address] | | | | | | [phone] | | | +--------+--------+ + + + [...]
--- OUTSIDE RECORDS SUMMARY | ~2018-07-26 | XMS | Encounter Summary ---
Demographics + + + | Address | [address] | | | [place] [address] | + + + | Home Phone [...] [place] | | | | | [address] | | + + + + + Care Team Providers + +------+ + | Care Emergency Room Doctor Name | Role | Phone | + +------+ + PCP | Unavailable | + +------+ + Encounter Details +--------+ + + + + | Date | Type | Department | Care Team | Description | +--------+ + + + + | 01/24/ | Results | Allergy Clinic at | Ismael Jacob MD | | | 1994 | Only | [facility] [address] | | | | | | [facility] | | | | | | Mailcode: [address] | | | | | | [place] | | | | | | [facility] | | | | | | [place] [address] | | | | | | [phone] | | | +--------+ + + + [...] | + +--------+ + + + | CT SINUSITIS SCREEN | Routin | 01/24/1995 | | Results for this | | | e | 1:15 PM | | procedure are in the | | | | PST | | results section. | + +--------+ + + + documented in this encounter Results CT SINUSITIS SCREEN (01/24/1995 1:15 PM PST) + + + + + + | Component | Value | Ref Range | Performed | Pathologist | | | | | At | Signature | + + + + + + | CT | Radiologist 1: MATTY, | | | | | SINUSITIS | Charis SIMONS-Radiologist | | | | | SCREEN | 2: JOSE ISBELL, | | | | | | ELLIOT, | | | | | | BEVERLY | | | | | | | | | | | | | | | | | | [birth year]7 | | | | | | 5 SINUSITIS | | | | | | SCREEN: 01/24/95 at | | | | | | 13:15 Dictated | | | | | | 01/28/95 | | | | | | PROCEDURE: Contiguous | | | | | | coronal images at | | | | | | intervals of 3 mm | | | | | | wereobtained from the | | | | | | frontal sinus through | | | | | | the sphenoid | | | | | | sinus. Bone andsoft | | | | | | tissue windows were | | | | | | utilized. | | | | | | FINDINGS: The left | | | | | | and right frontal | | | | | | sinuses are | | | | | | clear. There are | | | | | | noair-fluid levels or | | | | | | suggestion of mucosal | | | | | | thickening. There are | | | | | | postoperative changes in | | | | | | the ethmoid air | | | | | | cells. The patienthas | | | | | | undergone bilateral | | | | | | ethmoidectomies. Ther | | | | | | e is a central defect | | | | | | inthe nasal septum. | | | | | | Right and left maxillary | | | | | | sinuses are clear, | | | | | | without mucosal | | | | | | thickeningor air-fluid | | | | | | levels. There are | | | | | | bilateral middle meatal | | | | | | antrostomieswhich are | | | | | | widely patent. The | | | | | | sphenoid sinus is | | | | | | clear. There is no | | | | | | evidence of | | | | | | activesinusitis | | | | | | throughout the paranasal | | | | | | air spaces. Apart from | | | | | | postoperative changes, | | | | | | the facial bones are | | | | | | intact. Nofocal areas | | | | | | of bone destruction are | | | | | | identified. | | | | | | IMPRESSION: | | | | | | 1. Postoperative | | | | | | changes of bilateral | | | | | | ethmoidectomies, | | | | | | septoplastyand middle | | | | | | meatal antrostomies. | | | | | | 2. No evidence of | | | | | | active sinusitis. END | | | | | | OF IMPRESSION: | | | | + + + + + + + + | Specimen | + + | | + + + +---------+ + + | Performing | Address | City/State/Zipcode | Phone Number | | Organization | | | | + +---------+ + + | [facility] DEPARTMENT OF | | | | | RADIOLOGY | | | | + +---------+ + + documented in this encounter Visit Diagnoses Not on filedocumented in this encounter"
--- OUTSIDE RECORDS SUMMARY | ~2018-07-26 | XMS | Encounter Summary ---
Demographics + + + | Address | [address] | | | [place] [address] | + + + | Home Phone | | + + + | Preferred Language | Unknown | + + + | Marital Status | | + + + | Adventism Affiliation | Unknown | + + + | Race | Unknown | + + + | Ethnic Group | Unknown | + + + Author + + + | Author | [facility] | | | and [place] | + + + | Organization | [facility] | | | and [place] | + + + | Address | Unknown | + + + | Phone | Unavailable | + + + Support + + + + + | Name | Relationship | Address | Phone | + + + + + | Natasha Patino J | ECON | [address] | | | [place] | | [place] | | | | | [address] | | + + + + + | Danita Smart | ECON | Unknown | | + + + + + | Briseida Pedroza | ECON | Unknown | | + + + + + Care Team Providers + +------+ + | Care Teacher Hearing Impaired Name | Role | Phone | + [...] | | [address] | [place] | CHRONIC KIDNEY | | | | [place], [place] | [place], [place] | DISEASE STAGE III | | | | [address] | [address] | (MODERATE); Type 2 | | | | [phone] | | diabetes mellitus | | | [...] | Visit | | DO [address] | | | | | | [address] | | | | | | [place] | | | | | | [phone] | | | | | | | [...]
--- OUTSIDE RECORDS SUMMARY | ~2018-07-26 | XMS | Encounter Summary ---
Demographics + + + | Address | [address] | | | [place] [address] | + + + | Home Phone [...] [place] | | | | | [address] | | + + + + + Care Team Providers + +------+ + | Care Regional Otr Company Driver Name | Role | Phone | [...] Radiculopathy | | | | [address] | [place] [facility] | (Primary Dx); | | | | Mailcode: GPC | [place], [place] | [place]; | | | | [facility] | [address] | Hip Fracture (HCC) | | | | [place], [place] | [phone] | | | | | [address] | | | | | | [phone] | | | +--------+---------+ + + + [...] needed. documented in this encounter Progress Notes MaikelRiana F - 10/28/2006 8:45 AM PDTFormatting of this note might be different from t he original. SUBJECTIVE: [place] Smart is a 51 y.o. female here for follow up to R hip fracture healing and with n ew R shoulder and arm pain x 2 weeks. Doing PT for R hip three times per week in [place], includes hydrotherapy. Continues to have R leg [...] disability update. Part-time disability recently improved. [facility] Benefit Management Services [place] Disability Claim Office [address] [place] [address] F: [phone] P: [phone] ext [phone] R arm and shoulder pain, pain radiates [...] muscle str ength 4/5 and equal bilat. Typewriter Assembler strength 5/5 bilat. Radial pulses 2+ and [...]
--- OUTSIDE RECORDS SUMMARY | ~2018-07-26 | XMS | Encounter Summary ---
Demographics + + + | Address | [address] | | | [place] [address] | + + + | Home Phone [...] + + + | Author | [facility] | + + + | Organization | [facility] | + + + | Address | Unknown | + + + | Phone | Unavailable | + + + Support + + + + + | Name | Relationship | Address | Phone | + + + + + | Favio Smart | [address] | [place] | | | | | [address] | | + + + + + Care Team Providers + +------+ + | Care Bank Worker Name | Role | Phone | + +------+ + | Riana Ko PA-C | PCP | | + +------+ + Reason for Visit + + + | Reason | Comments | + + + | Follow-up visit | Hip fx | + + + Encounter Details +--------+---------+ + + + | Date | Type | Department | Care Team | Description | +--------+---------+ + + + | 12/09/ | Office | Family Medicine at | Ko, Riana F, | Hip Fracture (HCC) | | 2006 | Visit | [address] | [address] | (Primary Dx); | | | | [address] [place] | [facility] | Depression; Breast | | | | Mailcode: NIKIA | [facility] [place] | Cancer Screening; | | | | [facility] | [address] | Excess Weight | | | | [place], [place] | [phone] | | | | | [address] | | | | | | [phone] | | | +--------+---------+ + + + [...] + + + | Blood Pressure | 106/64 | 12/09/2006 8:42 AM | | | | | PDT | | + + + + + | Pulse | 92 | 12/09/2006 8:42 AM | | | | | PDT | | + + + + + | Temperature | 36.9 C (98.5 F) | 12/09/2006 8:42 AM | | | [...] + + + + | Weight | 77.5 kg (170 lb 13.7 | 12/09/2006 8:42 AM | | | | oz) | PDT | | + + + + + | Height | 167.6 cm (5' 6") | 12/09/2006 8:42 AM | | | | | PDT | | + + + + + | Body Mass Index | 27.58 | 12/09/2006 8:42 AM | | | | | PDT | | + + + + + documented in this encounter Patient Instructions Patient Instructions Riana Ko - 12/09/2006 9:10 AM PDTSlowly taper Abilify over ne xt 4 weeks. Start with once every other day, then one every three days, then once per week. If you notice a change in your depression, call me or come in. Then you can work on tapering off of your estrogen. You are due for a mammogram and your annual exam. documented in this encounter Progress Notes Riana Ko - 12/09/2006 10:25 AM PDTFormatting of this note might be different from t kaylen original. SUBJECTIVE: Beverly Smart is a 51 y.o. female here for follow up to hip pain and to discuss her weigh t. 1. Hip pain: Pt continues to work 4 hour shifts at [employer]. She is tolerating this well, but has pain and is fatigued when on her feet the entire four hours. She notices improvemen t in muscle strength and mobility with continued PT. She has maxed out her insurance covera [employer] for therapy, but continues to pay out of pocket because of its benefit. She has also sta rted a regular exercise program including cycling. 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 2. Weight: Despite improved mobility and increased exercise, Beverly's weight has plateaued at approx 170 lbs. She is frustrated by this. Goal weight is 145 lb.s She eats a diet of toast or oatmeal for breakfast, salad and/or yogurt for lunch, and meat and vegetables for dinner. Her last meal of the day is before 6pm. Drinks 2 sodas daily, no EtOH use, drinks 3-4 glasses water daily. Exercise as above. Labs drawn 08/27/06 all WNL. No new meds, but taking Abilify qd (and Wellbutrin) for depression. No other change in meds. 3. HM. ATA-BSO for frequent abnormal paps, but has been several years since annual exam. Takes 2mg estradiol daily for hot flashes and night sweats. Mom with breast cancer. MGM wi th hx [place]. Overdue for mammogram. Last Td unknown. Allergies Allergen Reactions Aspirin Asthma Nsaids Wheez/Dyspnea Sulfa (sulfonamides) Hives and Rash Keflex (cephalexin) Nausea/Vomiting Current outpatient prescriptions Medication Sig Dispense Refill Bupropion HCl (WELLBUTRIN SR) 150 mg Oral Tablet Sustained Release 1 tab po bid 60 12 Tramadol HCl (ULTRAM) 50 mg Oral Tablet take 1-2 tablet (50 mg) by oral route every 6 h ours as needed 120 12 Acrivastine-Pseudoephedrine (SEMPREX-D) 8-60 mg Oral Capsule take 1 capsule by oral rou te every 6 hours as needed 60 2 Rizatriptan Benzoate (MAXALT) 10 mg Oral Tablet take 1 tablet (10 mg) by oral route x 1 dose, may repeat at 2 hour intervals; do not exceed 30 mg in 24 hours 9 1 Varenicline (CHANTIX) 1 mg Oral Tablet take 1 tablet (1 mg) with a glass of water by or al route 2 times per day after meals 60 1 Estradiol 2 mg Oral Tablet take 1 tablet (2mg) by oral route once daily for 21 days off for 7 days, repeat cycle 21 5 Hydrochlorothiazide 12.5 mg Oral Capsule take 1 capsules by oral route once daily 90 3 Aripiprazole (ABILIFY) 5 mg Oral Tablet take 1 tablet (5 mg) by oral route once daily 30 2 OBJECTIVE: BP 106/64 | Pulse 92 | Temp (Src) 98.5 F (36.9 C) (Oral) | Ht 1.676 m (5' 6") | Wt 77.5 00 kg (170 lbs 13.7 oz) Body mass index is 27.58 kg/(m^2). Gen: NAD Heart: RRR no m/r/g Lungs: CTAB a/p no wheezes or crackles Gait without limp. Ambulation much improved. A/P: Encounter Diagnoses Code Name Primary? 820.8Q Hip Fracture Continue 4 hour work shifts x 6 weeks. Goal to return to 8 hour shifts, then Beverly can kanwal schaefer work and move to [place]. Continue PT as long as improvement noticed. Yes 311G Depression Plan: WELLBUTRIN SR 150 MG TAB 1 tab po bid V76.10C Breast Cancer Screening Plan: [place] DIGITAL MAMMOGRAMSCREEN BILATERAL WITH CAD 278.02A Excess Weight Discussed diet and exercise. Several small meals daily, may need to increase overall calor ie intake. Encourage daily exercise. Pt had limited mobility for several months following her injury and has only been consistently active for the last 3-4 months. Weight gain listed as AE of abilify. Pt would like to try tapering this medication. Start with qod dosing x 2 weeks, then every three days x 1 week, then once weekly before disconti nuing. Notify clinic with change in mood or worsening of depression. HM: Plans to schedule for pap same time coming back into town for mammogram. Will follow u p on weight then. Encouraged tapering of estrogen as well given FH breast cancer and cardia c hx. Will further discuss at follow up. RTC x 6 weeks, sooner prn. Riana Ko PA-C documented in this encou nter Plan of Treatment Not on filedocumented as of this encounter Visit Diagnoses + + | Diagnosis | + + | Hip fracture (HCC) - Primary Closed fracture of unspecified part of neck of femur | + + | Depression Depressive disorder, not elsewhere classified | + + | Breast cancer screening Breast screening, unspecified | + + | Excess weight Overweight | + + documented in this encounter
--- OUTSIDE RECORDS SUMMARY | ~2018-07-26 | XMS | Encounter Summary ---
Demographics + + + | Address | [address] | | | [place] [address] | + + + | Home Phone [...] [place] | | | | | [address] | | + + + + + Care Team Providers + +------+ + | Care Extractor Plant Operator Name | Role | Phone [...] Clinic | | | | | | [facility], [address] | | | | | | [place], [place] | | | | | | [address] | | | | | | [phone] | | | +--------+ + + + [...] as of this encounter Progress Notes Interface, Beverage Host In - 06/12/2006 5:02 AM PDT CLINIC [...] for this. I gave her Grossan nasal sodium chlorite operator tip. I would like the patient to [...] problems prior to that. Dina Reinoso M.D. [place] Senior Specialist, Otolaryngology Head and Neck Surgery /[facility] cc: JOSÉ MIGUEL STRINGER MDNETWORK RELATIONS CONSULTANT DEPARTMENT [facility] LIAN VALLECILLO MD [address] [place] [address] [address] [place] [address] documented in this encounter Plan of Treatment Not on filedocumented as of this encounter Visit Diagnoses Not on filedocumented in this encounter"
--- OUTSIDE RECORDS SUMMARY | ~2018-07-26 | XMS | Encounter Summary ---
Demographics + + + | Address | [address] | | | [place] [address] | + + + | Home Phone | | + + + | Preferred Language | Unknown | + + + | Marital Status | | + + + | Yazidi Affiliation | CHR | + + + [...] [place] | | | | | [address] | | + + + + + Care Team Providers + +------+ + | Care Pier Runner Name | Role | Phone | + +------+ + | Shereen Lopes NP | PCP | | + +------+ + Reason for Visit + + + | Reason | Comments | + + + | Medication | | | management | | + + + Encounter Details +--------+ + + + + | Date | Type | Department | Care Team | Description | +--------+ + + + + | 11/11/ | Telephone | Family Medicine at | Riana Ko, | Medication | | 2006 | | [address] | [address] | management | | | | [address] [place] | [facility] | | | | | Mailcode: NIKIA | [place], [place] | | | | | [facility] [address] | [address] | | | | | [place], [place] | [phone] | | | | | [address] | | | | | | [phone] | | | +--------+ + + + [...]
--- OUTSIDE RECORDS SUMMARY | ~2018-07-26 | XMS | Encounter Summary ---
Demographics + + + | Address | [address] | | | [place] [address] | + + + | Home Phone [...] [place] | | | | | [address] | | + + + + + Care Team Providers + +------+ + | Care Environmental Studies Faculty Member Name | Role | Phone | + [...] [facility] | | | | | [address] | | | | | | Mailcode: GPC | | | | | | [facility] | | | | | | [place], [place] | | | | | | [address] | | | | | | [phone] | | | +--------+ + + + [...]
--- OUTSIDE RECORDS SUMMARY | ~2018-07-26 | XMS | Encounter Summary ---
Demographics + + + | Address | [address] | | | [place] [address] | + + + | Home Phone | | + + + | Preferred Language | Unknown | + + + | Marital Status | | + + + | Restorationist Affiliation | CHR | + + + [...] [place] | | | | | [address] | | + + + + + Care Team Providers + +------+ + | Care Mason Helper Name | Role | Phone | + +------+ + | Riana Ko PA-C | PCP | | + +------+ + Reason for Visit + + + | Reason | Comments | + + + | Hip pain | R side | + + + Encounter Details +--------+---------+ + + + | Date | Type | Department | Care Team | Description | +--------+---------+ + + + | 03/17/ | Office | Family Medicine at | Delvin Esquivel, | Bursitis of Hip | | 2007 | Visit | [address] | DO [address] | (Primary Dx); Hip | | | | [address] [place] | [address] | Pain; Iliotibial | | | | Mailcode: GPC | [place] [address] | Band Syndrome | | | | Krystian [facility] | [phone] | | | | | [place], [place] | | | | | | [address] | | | | | | [phone] | | | +--------+---------+ + + + [...] + + + | Blood Pressure | 130/82 | 03/17/2007 1:09 PM | | | | | PST | | + + + + + | Pulse | 70 | 03/17/2007 1:09 PM | | | | | PST | [...] + + + + | Weight | 77.2 kg (170 lb 1.6 | 03/17/2007 1:09 PM | | | | oz) | PST | | + + + + + | Height | - | - | | + + + + + | Body Mass Index | 27.45 | 12/09/2006 8:42 AM | | | | | PDT | | + + + + + documented in this encounter Progress Notes Delvin Esquivel Do - 03/19/2007 3:31 PM PSTFormatting of this note might be different from t kaylen original. This is a sports medicine consult for hip pain from Mrs Ko. Clinic Date: 03/17/2007 Clinic: [facility] Medicine Chief Complaint: Beverly Smart is a 51 y.o. female who presents for hip pain, on the right side. History of Present Illness: Pt reports that she has had right hip pain for a while, and that she bagley stired avarious jason atments that are not getting much better, she is also conserned about a mass that she has on the right post-lat thigh that is close to the hip pain. She states the pain is worse after being on her feet day at work and that she has ongoing pain inte h hip, she states taht is afraind that something adrian be going on in maik hip that is cuasing her pain tal she was fo und to have a hip fractrue after she dustin been woaking on her hip after falling for sevveral days. She states she still has the hardware in the hip that she has from the surg. She als o has increased pain aftershe has long walks. 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 Arthritis Shingles Past Surgical History Procedure Date Hx external sinus surgery 1996 L Mars-Drew procedure Hx hysterectomy 1991 Hx carpal tunnel release Bilat Hx tonsil and adenoidectomy Hx hip surgery 02/2006 R hip fracture repair, no acute trauma, pt fell 10-06 Hx rafael and bso Hx frequent abnormal pap smears Current outpatient medications Medication Sig Dispense Refill Rizatriptan Benzoate (MAXALT) 10 mg Oral Tablet take 1 tablet (10 mg) by oral route x 1 dose, may repeat at 2 hour intervals; do not exceed 30 mg in 24 hours 9 1 Acrivastine-Pseudoephedrine (SEMPREX-D) 8-60 mg Oral Capsule take 1 capsule by oral rou te every 6 hours as needed 60 2 Tramadol HCl (ULTRAM) 50 mg Oral Tablet take 1-2 tablet (50 mg) by oral route every 6 h ours as needed 60 0 Bupropion HCl (WELLBUTRIN SR) 200 mg Oral Tablet Sustained Release 1 tab po bid 60 12 Estradiol 2 mg Oral Tablet take 1 tablet (2mg) by oral route once daily for 21 days off for 7 days, repeat cycle 21 5 Hydrochlorothiazide 12.5 mg Oral Capsule take 1 capsules by oral route once daily 90 3 Allergies: Aspirin, Nsaids, Sulfa (sulfonamides) and Keflex History Social History Marital Status: Single Spouse Name: N/A Number of Children: N/A Years of Education: N/A Occupational History On STD d/t hip pain [employer] Social History Main Topics Tobacco Use: Quit -- 0.8 packs/day for 18 years Quit date: 05/08/2006 Alcohol Use: No Drug Use: No Sexually Active: No Other Topics Concern Not on file Social History Narrative No narrative on file Family History Problem Relation Cancer Mother Breast Alcohol/Drug Maternal Grandmother Alcohol/Drug Maternal Grandfather Alcohol/Drug Sister Alcohol/Drug Daughter Diabetes Maternal Grandfather Diabetes Mother Heart Maternal Grandmother Review of Systems: General: No constitutional symptoms of fevers, fatigue, chills, weight loss or sweats. Eyes: No changes in vision loss, double vision, eye pain, eye irritation, discharge, blurr ed vision or light sensitivity. Ears, Nose and Throat: No hearing loss, ringing in the ears, ear discharge, earache, noseb meeta, nasal congestion, difficulty swallowing, hoarseness or sore throat. Respiratory: No shortness of breath, coughing up blood, excessive sputum, cough, chest dis comfort or wheezing. Musculoskeletal: No joint pain, swelling, stiffness, back pain, arthritis, muscle aches, m uscle cramps or loss of strength. Other than the HPI and the right hip. Cardiovascular: No chest pain, skipping beats, lightheadedness, difficulty breathing uprig ht or lying down, fatigue, near fainting or fainting, palpitations, weight gain, edema, leg cramps. Gastrointestinal: No loss of appetite, excessive appetite, indigestion, vomiting, nausea, constipation, gas, abdominal pain, hemorrhoids, diarrhea, bloating, bloody stools or dark ta rry stools. Genitourinary: No urinary frequency, blood in urine, difficulty in urination, discharge, p ainful urination, incontinence, urinary urgency, genital sores, missed periods, pelvic pain or vaginal bleeding. Neurologic: No unusual headaches, inability to speak, poor balance, numbness, tingling, tr emors, memory loss, disturbances in coordination or sensation of room spinning. Skin: No itching, rash, poor wound healing, night sweats, changes in skin color, dryness, flushing or suspicious lesions. Psychological: No abnormal anxiety, depression, thoughts of suicide or hallucinations. Heme/Lymphatic: No skin discoloration, abnormal bleeding or enlarged lymph nodes. Endrocrine: No heat intolerance, cold intolerance, excessive hunger or excessive thirst. Allergic: No seasonal allergies, hives or rash, persistent infections or HIV exposure. PHYSICAL EXAMINATION: BP 130/82 | Pulse 70 | Wt 77.157 kg (170 lbs 1.6 oz) | LMP Hysterectomy General: healthy, alert and cooperative HEENT: PERRLA, EOMI, fundi benign and Oropharynx clear without lesion or exudate Neck: Neck supple. No adenopathy. Thyroid symmetric & normal size. no jugular venous dist ention Cardiac: PMI normal. No lifts, heaves, or thrills. RRR. Heart sounds normal. No murmurs, clicks or gallops. Carotid and pedal pulses 4+ bilaterally. No arterial bruits. Extremities: Extremities normal. No deformities, edema, or skin discoloration. Peripheral pulses 2+ equal with peripheral filling less than 2 seconds. Abdomen: no hepatomegaly, nontender to palpation, no masses, aorta not grossly enlarged a nd rounded Respiratory: Good diaphragmatic excursion. Lungs clear to auscultation bilaterally Musculoskeletal: Spine ROM normal. Muscular strength intact. Neuro: Gait normal. Reflexes normal and symmetric. Sensation grossly intact, CN 2-[address] & full, motor 5/5 globally, DTRs 2+ globally w/o clonus RIGHT HIP: Positive Obers test on the right, she is point tnder overhte GT on the right, n o pain over the left, she has tight hamstrings to 140 degrees bilaterally, and has decreased ROM in the abductors fo the hip, no pain with internal or external rotation. X-ryas done today - healed fracture- no miss alignment of Hardware, no lesions int acet abulum or the femeral head ASSESSMENT/PLAN: Encounter Diagnoses Code Name Primary? 719.45F Hip Pain Yes Plan: HIP 2 VIEWS RIGHT ITB syndroem adn greater Trochanteric Bursitis, pt taught exercises from [facility] website adn to stretch the hip adn the qudsa snd the hmastrings, pt also taught to stretch maik ITB, tp elected for injection of steroid to help shrink the bureas as she is wnating to rt work as soon aspossible. Informed consent obatained and the area was prepped in the usual manner, then 2o mg of romy alog 2 cc of maricaine and 3 dcc of lidocaine were injected using a peppering tech into hte gt bursea on the right, pt tolerated procedure well no comlications, pt stated maik pain inte h hip was relieved. Pt to rtc in 3-4 weeks and contieu maik stretches that were taught int clinicn today. Pt voiced understanding. Thank you for this great sports medicdine referral. documented in this encou nter Plan of Treatment + + +--------+ + + | Name | Type | Priori | Associated Diagnoses | Order Schedule | | | | ty | | | + + +--------+ + + | PA DRAIN/INJECT | Procedures | Routin | Bursitis of Hip | Ordered: 03/19/2007 | | LARGE JOINT/BURSA | | e | | | + + +--------+ + + documented as of this encounter Procedures + +--------+ + + + | Procedure Name | Priori | Date/Time | Associated Diagnosis | Comments | | | ty | | | | + +--------+ + + + | X-RAY HIP 2 VIEWS | Routin | 03/17/2007 | Hip Pain | Results for this | | RIGHT | e | 1:40 PM | | procedure are in the | | | | PST | | results section. | + +--------+ + + + documented in this encounter Results HIP 2 VIEWS RIGHT (03/17/2007 1:40 PM PST) + + + + + + | Component | Value | Ref Range | Performed | Pathologist | | | | | At | Signature | + + + + + + | HIP 2 VIEWS | Radiologist 1: SUSY, | | | | | RIGHT | Modesta URENASTUDY: HIP 2 | | | | | | VIEWS RT 03/17/07 | | | | | | 13:40:00COMPARISON: | | | | | | 09/25/06.DISCUSSION:There | | | | | | is no change in normal | | | | | | postop alignment of the | | | | | | healed rightfemoral neck | | | | | | fracture with intact | | | | | | lateral plate and | | | | | | dynamic hipscrew | | | | | | fixation. The femoral | | | | | | head is smooth and | | | | | | round.Superolateral | | | | | | acetabular spurring and | | | | | | the suggestion of a | | | | | | shallowacetabulum are | | | | | | again | | | | | | noted. Heterotopic | | | | | | ossification medial | | | | | | tothe lesser trochanter | | | | | | is | | | | | | unchanged.Incidentally | | | | | | noted is possible | | | | | | pseudarthrosis between | | | | | | the lateralmass of L5 | | | | | | and S1 partially seen in | | | | | | the corner of the | | | | | | film. Thiscan be a | | | | | | pain | | | | | | generator.IMPRESSION:Hea | | | | | | led internally fixed | | | | | | right intertrochanteric | | | | | | fracture inunchanged, | | | | | | near anatomic, | | | | | | alignment. | | | | + + + + + + + + | Specimen | + + | | + + + +---------+ + + | Performing | Address | City/State/Zipcode | Phone Number | | Organization | | | | + +---------+ + + | [facility] DEPARTMENT OF | | | | | RADIOLOGY | | | | + +---------+ + + documented in this encounter Visit Diagnoses + + | Diagnosis | + + | Bursitis of hip - Primary Enthesopathy of hip region | + + | Hip pain Pain in joint, pelvic region and thigh | + + | Iliotibial band syndrome Other disorder of muscle, ligament, and fascia | + + documented in this encounter"
--- OUTSIDE RECORDS SUMMARY | ~2018-07-26 | XMS | Encounter Summary ---
Demographics + + + | Address | [address] | | | [place] [address] | + + + | Home Phone | | + + + | Preferred Language | Unknown | + + + | Marital Status | | + + + | Denominational Affiliation | CHR | + + + | Race | White | + + + | Ethnic Group | Not or | + + + Author + + + | Author | [facility] | + + + | Organization | [facility] | + + + | Address | Unknown | + + + | Phone | Unavailable | + + + Support + + + + + | Name | Relationship | Address | Phone | + + + + + | Favio Smart | [address] | [place] | | | | | [address] | | + + + + + Care Team Providers + +------+ + | Care Melt House Drag Operator Name | Role | Phone | [...] | | | | | | [facility] Mailcode: | | | | | | [address] [place], [place] | | | | | | [address] | | | | | | [phone] | | | +--------+ + + + [...] | | | | | | [place] [address] | | | | + + + + + + + + | Specimen | + + | | + + + + + + + | Performing | Address | City/State/Zipcode | Phone Number | | Organization | | | | + + + + + | [facility] | [address] | [place] [address] | | | PATHOLOGY | [address] | | | + + + + + documented in this encounter Visit Diagnoses Not on filedocumented in this encounter"
--- OUTSIDE RECORDS SUMMARY | ~2018-07-26 | XMS | Encounter Summary ---
Demographics + + + | Address | [address] | | | [place] [address] | + + + | Home Phone [...] [place] | | | | | [address] | | + + + + + Care Team Providers + +------+ + | Care Land Measurer Name | Role | Phone | + [...] Dx); | | | | [address] [place] | [facility] | Depression; Breast | | | | Mailcode: NIKIA | [facility] [place] | Cancer Screening; | | | | [facility] | [address] | Excess Weight | | | | [place], [place] | [phone] | | | | | [address] | | | | | | [phone] | | | +--------+---------+ + + + [...] continues to work 4 hour shifts at [employer]. She is tolerating this well, but has pain and is fatigued when on her feet the entire four hours. She notices improvemen t in muscle strength and mobility with continued PT. She has maxed out her insurance covera [facility] [employer] for therapy, but continues to pay out of pocket because of its benefit. She has also sta rted a regular exercise program including cycling. 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 2. Weight: [...] with breast cancer. [employer] [place] hx [place]. Overdue for mammogram. Last Td unknown. Allergies [...] can kanwal schaefer work and move to [place]. Continue PT as long as improvement noticed. [...]
--- OUTSIDE RECORDS SUMMARY | ~2018-07-26 | XMS | Encounter Summary ---
Demographics + + + | Address | [address] | | | [place] [address] | + + + | Home Phone | | + + + | Preferred Language | Unknown | + + + | Marital Status | | + + + | Scientology Affiliation | CHR | + + + [...] [place] | | | | | [address] | | + + + + + Care Team Providers + +------+ + | Care Respiratory Clinician Name | Role | Phone | + +------+ + | Shereen Lopes NP | PCP | | + +------+ + Reason for Visit +--------+ + | Reason | Comments | +--------+ + | Other | | +--------+ + Encounter Details +--------+ + + + + | Date | Type | Department | Care Team | Description | +--------+ + + + + | 01/10/ | Telephone | Family Medicine at | Riana Ko, | Other | | 2006 | | [address] | [address] | | | | | [place] | [facility] | | | | | Mailcode: GPC | [place], [place] | | | | | Krystian [facility] | [address] | | | | | [place], [place] | [phone] | | | | | [address] | | | | | | [phone] | | | +--------+ + + + [...]
--- OUTSIDE RECORDS SUMMARY | ~2018-07-26 | XMS | Encounter Summary ---
Demographics + + + | Address | [address] | | | [place] [address] | + + + | Home Phone [...] [place] | | | | | [address] | | + + + + + Care Team Providers + +------+ + | Care Underground Mine Superintendent Name | Role | Phone | [...] benefits | | | | [address] [place] [address] | reinstated) | | | | Mailcode: GPC | [place], [place] | | | | | [facility] | [address] | | | | | [place], [place] | [phone] | | | | | [address] | | | | | | [phone] | | | +--------+ + + + [...]
--- OUTSIDE RECORDS SUMMARY | ~2018-07-26 | XMS | Encounter Summary ---
Demographics + + + | Address | [address] | | | [place] [address] | + + + | Home Phone [...] [place] | | | | | [address] | | + + + + + Care Team Providers + +------+ + | Care Director Check Name | Role | Phone | + [...] | 2006 | Visit | Krystian [facility] | [address] [facility] [address] | Opioid Dependence | | | | [address] [place] | [address] | ([facility]); Fatigue; | | | | Mailcode: GPC | [place], [place] | Fractured Hip ([facility]) | | | | [facility] | [address] | | | | | [place], [place] | [phone] | | | | | [address] | | | | | | [phone] | | | +--------+---------+ + + + [...] | uIU/ml | | | | | [facility] | | | | | | Laboratories. | | | | + + + + + + + + | Specimen | + + | Blood | + + + + + + + | Performing | Address | City/State/Zipcode | Phone Number | | Organization | | | | + + + + + | [facility] | [address] | [place] [address] | | | LABORATORY | | | [...] Performed At | + + + | [id number] Estimated GFR > 60 mL/min/1.73 sq m if non- | [facility] | | [id number] Estimated GFR > 60 mL/min/1.73 sq m [...] | + + + + + | [facility] DEPARTMENT | [address] | [place] [address] | | | PATHOLOGY | [address] | | | + + + + + | [facility] DEPARTMENT OF | [address] | [place] [address] | | | PATHOLOGY | [address] | | | + + + + + SLIDE REVIEW (08/27/2006 1:45 PM PDT) + + | Specimen | + + | | + + + + + | Narrative | Performed At | + + + | * Corrected 08/27/06 18:20: JOSE M COMMENTS, prev report: Slide | [facility] | | review pending. | DEPARTMENT OF | | | PATHOLOGY | + + + + + + + + | Performing | Address | City/State/Zipcode | Phone Number | | Organization | | | | + + + + + | [facility] DEPARTMENT OF | [address] | [place] [address] | | | PATHOLOGY | [address] | | | + + + + + | [facility] DEPARTMENT OF | [address] | [place] [address] | | | PATHOLOGY | [address] [...] | + + + + + | [facility] DEPARTMENT OF | [address] [facility] | [place] [address] | | | PATHOLOGY | [address] | | | + + + + + | [facility] DEPARTMENT OF | [address] | [place] [address] | | | PATHOLOGY | [address] [...] DEPARTMENT OF | [address] | [place] [address] | | | PATHOLOGY | [address] | | | + + + + + | [facility] | [address] | [place] [address] | | | PATHOLOGY | [address] [...]
--- OUTSIDE RECORDS SUMMARY | ~2018-07-26 | XMS | Encounter Summary ---
Demographics + + + | Address | [address] | | | [place] [address] | + + + | Home Phone | | + + + | Preferred Language | Unknown | + + + | Marital Status | | + + + | Confucianist Affiliation | CHR | + + + | Race | White | + + + | Ethnic Group | Not or | + + + Author + + + | Author | [facility] | + + + | Organization | [facility] | + + + | Address | Unknown | + + + | Phone | Unavailable | + + + Support + + + + + | Name | Relationship | Address | Phone | + + + + + | Favio Smart | [address] | [place] | | | | | [address] | | + + + + + Care Team Providers + +------+ + | Care Word Processor Name | Role | Phone | [...] | Required | | fracture | [address] | | | | Other | | ([facility]) | [facility] | | | | | | Procedures | St | | | | | | CONSULT TO | [place], [place] | | | | | | REHABILITATI | [address] | | | | | | ON PHYSICAL | Phone: | | | | | | THERAPY (PT | [phone] | | | | | | EVAL AND | Fax: | | | | | | TREAT) | [phone] | | +--------+ + + + + [...] Dx); | | | | [address] [place] | [facility] | Menopause; HTN | | | | Mailcode: NIKIA | [place], [place] | (Hypertension); | | | | [facility] | [address] | Allergic Rhinitis; | | | | [place], [place] | [phone] | Depression | | | | [address] | | | | | | [phone] | | | +--------+---------+ + + + [...] fracture. Would like to see PT in [place] when she goes there. [facility], [address], [place] [address]. P: [phone] F: [phone] Going back to [place] to return to work on 10/06/06. 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 2. Dr. Pascual at [facility] took care of hip fx. DEXA scan [...] weekly support program when moves back to [place]. Pt is off all transitioning medications. 5. [...] the day F/u prn when back in [facility] metro or 6 weeks, sooner prn. Riana Ko PA-C documented in this enccenterpointe hospitaler Plan of Treatment Not on filedocumented as [...]
--- OUTSIDE RECORDS SUMMARY | ~2018-07-26 | XMS | Encounter Summary ---
Demographics + + + | Address | [address] | | | [place] [address] | + + + | Home Phone [...] [place] | | | | | [address] | | + + + + + Care Team Providers + +------+ + | Care Motorcycle Technician Name | Role | Phone | [...] | | | | | [address] [place] | [facility] | | | | | Mailcode: NIKIA | [place], [place] | | | | | Krystian [facility]wick [facility] | [address] | | | | | [place], [place] | [phone] | | | | | [address] | | | | | | [phone] | | | +--------+--------+ + + + [...]
--- OUTSIDE RECORDS SUMMARY | ~2018-07-26 | XMS | Clinical Summary ---
Demographics + + + | Address | [address] | | | [place] [address] | + + + | Home Phone | | + + + | Preferred Language | Unknown | + + + | Marital Status | | + + + | Roman Catholic Affiliation | Unknown | + + + | Race | Unknown | + + + | Ethnic Group | Unknown | + + + Author + + + | Author | [facility] | | | and [place] | + + + | Organization | [facility] | | | and [place] | + + + | Address | Unknown | + + + | Phone | Unavailable | + + + Support + + + + + | Name | Relationship | Address | Phone | + + + + + | Natasha Patino J | ECON | [address] | | | [place] | | [place] | | | | | [address] | | + + + + + | Danita Smart | ECON | Unknown | | + + + + + | Briseida Pedroza | ECON | Unknown | | + + + + + Care Team Providers + +------+ + | Care Allied Health Professional Name | Role | Phone | [...] | | + + + +---------+------+------+-------+ | [place]-3 Fatty | Take 2 tablets by | [...] | | | | | | (moderate) ([facility]), | | | | | | | [...] | | | | | | insulin ([facility]), S/P | | | | | | [...] + + + + | Overview: TANA [id number] Decision | + + + + + [...] 2019 | Visit | | DO Mega [address] [place] [address] | | | | | | [place] | | | | | | [place] | | | | | | [address] | | | | | | | [...] +-------+--------+ +--------+-------+---------+------+ | BCBS | BCBS | [id number] | 03/10/19 | | | PPO | [...] Person | Self | [birth year] | [address] | | | al/Fam | | 1956 | [phone] | [place] [address] | | | don | | | 3 (Home) | | + +--------+ +--------+ + + Advance Directives Patient has advance care planning documents on file. For more information, please contact:[facility] [place] [address]
--- OUTSIDE RECORDS SUMMARY | ~2018-07-26 | XMS | Encounter Summary ---
Demographics + + + | Address | [address] | | | [place] [address] | + + + | Home Phone [...] + + + | Author | [facility] | + + + | Organization | [facility] | + + + | Address | Unknown | + + + | Phone | Unavailable | + + + Support + + + + + | Name | Relationship | Address | Phone | + + + + + | Favio Smart | SHAINA | [place] | | | | | [address] | | + + + + + Care Team Providers + +------+ + | Care Warranty Manager Name | Role | Phone | [...] | | [facility], [address] | | | | | | [place], [place] | | | | | | [address] | | | | | | [phone] | | | +--------+ + + + [...] as of this encounter Progress Notes Interface, Design Quality Engineer In - 05/20/2006 1:07 AM PDT CLINIC DATE: 02/18/96 OTOLARYNGOLOGY CLINIC SUBJECTIVE: This patient lives in [place]. She comes in for recurrent left maxillary [...] two days later. She then went to [place] for three months and saw an ENT [...] gave her 40 tablets. Dina Reinoso M.D. Shuffle Board Operator, Otolaryngology/Head and Neck Surgery LINNEA/danielle cc: LIAN VALLECILLO MD [address] [place] [address] [place] [address] documented in this encounter Plan of Treatment Not on filedocumented as of this encounter Visit Diagnoses Not on filedocumented in this encounter"
--- OUTSIDE RECORDS SUMMARY | ~2018-07-26 | XMS | Encounter Summary ---
Demographics + + + | Address | [address] | | | [place] [address] | + + + | Home Phone | | + + + | Preferred Language | Unknown | + + + | Marital Status | | + + + | Pentecostalism Affiliation | CHR | + + + | Race | White | + + + | Ethnic Group | Not or | + + + Author + + + | Author | [facility] | + + + | Organization | [facility] | + + + | Address | Unknown | + + + | Phone | Unavailable | + + + Support + + + + + | Name | Relationship | Address | Phone | + + + + + | Favio Smart | SHAINA | [place] | | | | | [address] | | + + + + + Care Team Providers + +------+ + | Care Pathology Technician Name | Role | Phone | [...] | | | | | | [facility], [address] | | | | | | [place], [place] | | | | | | [address] | | | | | | [phone] | | | +--------+ + + + [...] as of this encounter Progress Notes Interface, Family Medicine Physician In - 06/04/2006 1:09 AM PDT CLINIC [...]
--- OUTSIDE RECORDS SUMMARY | ~2018-07-26 | XMS | Encounter Summary ---
Demographics + + + | Address | [address] | | | [place] [address] | + + + | Home Phone | | + + + | Preferred Language | Unknown | + + + | Marital Status | | + + + | Restoration Affiliation | CHR | + + + | Race | White | + + + | Ethnic Group | Not or | + + + Author + + + | Author | [facility] | + + + | Organization | [facility] | + + + | Address | Unknown | + + + | Phone | Unavailable | + + + Support + + + + + | Name | Relationship | Address | Phone | + + + + + | Favio Smart | SHAINA | [place] | | | | | [address] | | + + + + + Care Team Providers + +------+ + | Care Development Executive Name | Role | Phone | + [...] Clinic | | | | | | [facility], [address] | | | | | | [place], [place] | | | | | | [address] | | | | | | [phone] | | | +--------+ + + + [...] as of this encounter Progress Notes Interface, Kiln Hand In - 06/04/2006 1:09 AM PDT CLINIC [...]
--- OUTSIDE RECORDS SUMMARY | ~2018-07-26 | XMS | Encounter Summary ---
Demographics + + + | Address | [address] | | | [place] [address] | + + + | Home Phone [...] [place] | | | | | [address] | | + + + + + Care Team Providers + +------+ + | Care Area Field Worker Name | Role | Phone | [...] | | [address] [place] | [facility] | | | | | Mailcode: GPC | [place], [place] | | | | | [facility] | [address] | | | | | [place], [place] | [phone] | | | | | [address] | | | | | | [phone] | | | +--------+--------+ + + + [...]
--- OUTSIDE RECORDS SUMMARY | ~2018-07-26 | XMS | Encounter Summary ---
Demographics + + + | Address | [address] | | | [place] [address] | + + + | Home Phone | | + + + | Preferred Language | Unknown | + + + | Marital Status | | + + + | Amish Affiliation | CHR | + + + | Race | White | + + + | Ethnic Group | Not or | + + + Author + + + | Author | [facility] | + + + | Organization | [facility] | + + + | Address | Unknown | + + + | Phone | Unavailable | + + + Support + + + + + | Name | Relationship | Address | Phone | + + + + + | Favio Smart | SHAINA | [place] | | | | | [address] | | + + + + + Care Team Providers + +------+ + | Care Intelligence Operations Specialist Name | Role | Phone | + +------+ + | Riana Ko PA-C | PCP | | + +------+ + Reason for Referral Physical Therapy (Routine) +--------+---------+ + + + + | Status | Reason | Specialty | Diagnoses / | Referred By | Referred To | | | | | Procedures | Contact | Contact | +--------+---------+ + + + + | Closed | Other | | Diagnoses | Maikel | Non-[facility] | | | | | Hip pain | Riana Luna | Epic Dept | | | | | Lumbar | [address] | | | | | | radiculopath | [facility] | | | | | | y | St | | | | | | Procedures | [place], [place] | | | | | | PHYSICAL | [address] | | | | | | THERAPY | Phone: | | | | | | REFERRAL | [phone] | | | | | | | Fax: | | | | | | | [phone] | | +--------+---------+ + + + + Reason for Visit + + + | Reason | Comments | + + + | Follow-up visit | hip, and short term benefits paperwork | + + + Encounter Details +--------+---------+ + + + | Date | Type | Department | Care Team | Description | +--------+---------+ + + + | 07/22/ | Office | Family Medicine at | Riana Ko Jeremy, | Hip Pain; | | 2006 | Visit | [facility] | [address] | Lumbar Radiculopathy | | | | [address] [place] | [facility] | | | | | Mailcode: GPC | [place], [place] | | | | | Krystian [facility] | [address] | | | | | [place], [place] | [phone] | | | | | [address] | | | | | | [phone] | | | +--------+---------+ + + + [...] + + + | Blood Pressure | 108/70 | 07/22/2006 1:06 PM | | | | | PDT | | + + + + + | Pulse | 76 | 07/22/2006 1:06 PM | | | | | PDT | | + + + + + | Temperature | 37.1 C (98.7 F) | 07/22/2006 1:06 PM | | | | | PDT | | + + + + + | Respiratory Rate | 12 | 07/22/2006 1:06 PM | | | | | PDT | | + + + + + | Oxygen Saturation | - | - | | + + + + + | Inhaled Oxygen | - | - | | | Concentration | | | | + + + + + | Weight | 77.2 kg (170 lb 2 | 07/22/2006 1:06 PM | | | | oz) | PDT | | + + + + + | Height | - | - | | + + + + + | Body Mass Index | 27.46 | 07/15/2006 9:29 AM | | | | | PDT | | + + + + + documented in this encounter Progress Notes Riana Ko F - 07/22/2006 10:53 AM PDTFormatting of this note might be different from t kaylen original. SUBJECTIVE: Beverly Smart is a 51 y.o. female who complains of an injury causing back and R hip pain 6 months ago. The pain is positional with bending or lifting, with radiation down the back o f the R leg onto the anterior thigh. Mechanism of injury: fell at work. Surgical repair frac ture 02/12. Used cane until 1 mo ago. Needs rehab program to return to work. Recent x-ray s showed hardware in good position, degenerative changes, no acute fracture. Since last vis it, symptoms have been been stable. Pt also reports numbness and tingling in 4th and 5th to e. Doing well in IOP. OBJECTIVE: Gen: NAD BP 108/70 | Pulse 76 | Temp (Src) 98.7 F (37.1 C) (Oral) | Resp 12 | Wt 77.168 kg (170 lbs 2.0 oz) Antalgic gait noted. Lumbosacral spine area reveals no local tenderness or mass. Painful an d reduced AROM R hipnoted. Straight leg raise is positive at 90 degrees on right. Motor stre ngth and sensation normal, including heel and toe gait. R patellar DTR decreased compared t o L. Peripheral pulses are palpable. ASSESSMENT: Chronic R hip pain s/p ORIF with lumbar radiculopathy Hx narcotic abuse, currently in IOP PLAN: Encounter Diagnoses Code Name Primary? 719.45F Hip Pain Plan: PHYSICAL THERAPY REFERRAL - pt requests repeat x-rays to compare, GP machine down, pt declines going to [facility] for x-ra ys - will repeat films at next appt if needed, consider adding spine - FMLA paperwork completed, will re-eval time off needed after evaluating response to PT 724.4F Lumbar Radiculopathy Plan: PHYSICAL THERAPY REFERRAL RTC x 2-3 weeks after starting PT, sooner with concerns in meantime. Riana Ko PA-C documented in this encou nter Plan of Treatment Not on filedocumented as of this encounter Visit Diagnoses + + | Diagnosis | + + | Hip pain Pain in joint, pelvic region and thigh | + + | Lumbar radiculopathy Thoracic or lumbosacral neuritis or radiculitis, unspecified | + + documented in this encounter"
--- OUTSIDE RECORDS SUMMARY | ~2018-07-26 | XMS | Encounter Summary ---
Demographics + + + | Address | [address] | | | [place] [address] | + + + | Home Phone | | + + + | Preferred Language | Unknown | + + + | Marital Status | | + + + | Judaism Affiliation | CHR | + + + [...] [place] | | | | | [address] | | + + + + + Care Team Providers + +------+ + | Care Blacking Machine Operator Name | Role | Phone [...] Hip | | | | [address] [place] | [address] | Pain; Iliotibial | | | | Mailcode: GPC | [place] [address] | Band Syndrome | | | | [facility] | [phone] | | | | | [place], [place] | | | | | | [address] | | | | | | [phone] | | | +--------+---------+ + + + [...] from Mrs Ko. Clinic Date: 03/17/2007 Clinic: [facility] Medicine Chief Complaint: Beverly Smart is a [...] Diagnosis Date Narcotic Abuse 2005 Treated in [facility] 05/14-06/14, in IOP currently Chronic Pain [...] Occupational History On STD d/t [facility] Social History Main Topics Tobacco Use: Quit [...] greater Trochanteric Bursitis, pt taught exercises from [facility] website adn to stretch [...] | + + +--------+ + + | [place] DRAIN/INJECT | Procedures | Routin | Bursitis [...] | | + +---------+ + + | [facility] DEPARTMENT OF | | | | | [...]
--- OUTSIDE RECORDS SUMMARY | ~2018-07-26 | XMS | Encounter Summary ---
Demographics + + + | Address | [address] | | | [place] [address] | + + + | Home Phone [...] [place] | | | | | [address] | | + + + + + Care Team Providers + +------+ + | Care Data Management Engineer Name | Role | Phone | [...] | | | | Lumbar | [address] | | | | | | radiculopath | [facility] | | | | | | y | St | | | | | | Procedures | [place], [place] | | | | | | PHYSICAL | [address] | | | | | | THERAPY | Phone: | | | | | | REFERRAL | [phone] | | | | | | | Fax: | | | | | | | [phone] | | +--------+---------+ + + + + [...] Visit | [facility] | [address] | Lumbar Radiculopathy | | | | [address] [place] | [facility] | | | | | Mailcode: GPC | [place], [place] | | | | | Krystian [facility] | [address] | | | | | [place], [place] | [phone] | | | | | [address] | | | | | | [phone] | | | +--------+---------+ + + + [...] GP machine down, pt declines going to [facility] for x-ra ys - will repeat films [...]
--- OUTSIDE RECORDS SUMMARY | ~2018-07-26 | XMS | Encounter Summary ---
Demographics + + + | Address | [address] | | | [place] [address] | + + + | Home Phone | | + + + | Preferred Language | Unknown | + + + | Marital Status | | + + + | Faith Affiliation | CHR | + + + [...] [place] | | | | | [address] | | + + + + + Care Team Providers + +------+ + | Care Material Spreader Name | Role | Phone | + [...] | | | | | [facility] | | | | | | [place], [place] | | | | | | [address] | | | | | | [phone] | | | +--------+ + + + [...]
--- OUTSIDE RECORDS SUMMARY | ~2018-07-26 | XMS | Encounter Summary ---
Demographics + + + | Address | [address] | | | [place] [address] | + + + | Home Phone [...] [place] | | | | | [address] | | + + + + + Care Team Providers + +------+ + | Care Hand Baseball Sewer Name | Role | Phone | [...] [address] | | | | | | [facility] | | | | | | Mailcode: [address] | | | | | | [place] | | | | | | [facility] | | | | | | [place] [address] | | | | | | [phone] | | | +--------+ + + + [...] as of this encounter Progress Notes Interface, Neurology Director In - 06/04/2006 1:09 AM PDT [address] [address] or August 28, 1995 Dina Reinoso M.D. Manager Of Sales, Otolaryngology Head and Neck Surgery RE:Beverly Smart [...] to one month. Kameron Long M.D. Ph.D. Manager Of Sales, Neurology and Otolaryngology LIONEL /young A cc: RAYMUNDO POSEY MD PROFESSOR OF OTOLARYNGOLOGY HEAD AND NECK SURGERY LIAN VALLECILLO MD [address] [place] [address] JOSÉ MIGUEL STRINGER MD ANNUAL GIVING OFFICER HEAD ALLERGY AND CLINICAL IMMUNOLOGY documented in this encounter Plan of Treatment Not on filedocumented as of this encounter Visit Diagnoses Not on filedocumented in this encounter"
--- OUTSIDE RECORDS SUMMARY | ~2018-07-26 | XMS | Encounter Summary ---
Demographics + + + | Address | [address] | | | [place] [address] | + + + | Home Phone [...] [place] | | | | | [address] | | + + + + + Care Team Providers + +------+ + | Care Oil Well Service Unit Operator Name | Role | Phone | + +------+ + PCP | Unavailable | + +------+ + Encounter Details +--------+ + + + + | Date | Type | Department | Care Team | Description | +--------+ + + + + | 06/11/ | Procedure - | Dig[facility]ive [facility] | Record, Operation | Operative Report | | 1995 | | Center at [facility] [address] | | | | | Transcribed | Masoud Serrano | | | | | | Mailcode: Center | | | | | | for Health and | | | | | | Healing, [address] | | | | | | [facility] [place] | | | | | | [address] | | | | | | [phone] | | | +--------+ + + + [...] | + + | 06/12/1995 12:00 AM [facility] | | [facility] | | [address], [place] [address] | | [facility] | | | | OPERATION RECORD | | | | Med Rec No.: [id number] Date: 06/12/95 | | | | Name: Beverly Smart | | | | | | ATTENDING SURGEON: Dina Reinoso M.D. | | Scribing Machine Operator, Otolaryngology | | Head and Neck Surgery | | | | GREASE REFINER OPERATOR(S): Tony Blake M.D. | | Resident, Otolaryngology [...] | The patient was suspended from the [place] with a mirror. The nasopharynx | | [...] | | Dina Reinoso M.D. | | Scribing Machine Operator, Otolaryngology | | Head and Neck Surgery | | AYANA/robby | | | | A | | | | cc: | | | + + documented in this encounter Visit Diagnoses Not on filedocumented in this encounter"
--- OUTSIDE RECORDS SUMMARY | ~2018-07-26 | XMS | Encounter Summary ---
Demographics + + + | Address | [address] | | | [place] [address] | + + + | Home Phone | | + + + | Preferred Language | Unknown | + + + | Marital Status | | + + + | Buddhism Affiliation | CHR | + + + | Race | White | + + + | Ethnic Group | Not or | + + + Author + + + | Author | [facility] | + + + | Organization | [facility] | + + + | Address | Unknown | + + + | Phone | Unavailable | + + + Support + + + + + | Name | Relationship | Address | Phone | + + + + + | Favio Etienne | [address]AINA | [place] | | | | | [address] | | + + + + + Care Team Providers + +------+ + | Care Physiologist Name | Role | Phone | + +------+ + PCP | Unavailable | + +------+ + Encounter Details +--------+ + + + + | Date | Type | Department | Care Team | Description | +--------+ + + + + | 07/22/ | Transcribed | Allergy Clinic at | Dictation, Other | Transcribed | | 1995 | | [facility] [address] | | | | | | [facility] | | | | | | Mailcode: [address] | | | | | | [place] | | | | | | [facility] | | | | | | [place] [address] | | | | | | [phone] | | | +--------+ + + + [...] as of this encounter Progress Notes Interface, Software Developer Mid Level In - 06/06/2006 3:08 AM PDT [address] [address] or July 24, 1995 DINA DEY MD [facility] DEPT/ANU OP01 RE:AYE ETIENNE MR#:[id number] Dear Dina: I had the privilege of evaluating your patient, Aye Etienne, for headaches. 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 Meléndez, in [place], who has managed her headaches for many [...] able to heel-toe and tandem-walk without difficulty. Wlzgrz-rn-ndmj testing was normal bilaterally. Xawp-ze-estj performance was also normal. Deep tendon reflexes [...] the narcotic issue is settled. Sincerely, Kameron Logn M.D. Ph.D. Chamber Magistrate, Neurology and Otolaryngology JLishaB:xavier cc: LIAN MELÉNDEZ MD [address] [place] [address] [place] [address] JOSÉ MIGUEL STRINGER JR, MD DEPARTMENT OF MEDICINE [id number] documented in this encounter Plan of Treatment Not on filedocumented as of this encounter Visit Diagnoses Not on filedocumented in this encounter"
--- OUTSIDE RECORDS SUMMARY | ~2018-07-26 | XMS | Encounter Summary ---
Demographics + + + | Address | [address] | | | [place] [address] | + + + | Home Phone | | + + + | Preferred Language | Unknown | + + + | Marital Status | | + + + | Mandaeism Affiliation | Unknown | + + + | Race | Unknown | + + + | Ethnic Group | Unknown | + + + Author + + + | Author | [facility] | | | and [place] | + + + | Organization | [facility] | | | and [place] | + + + | Address | Unknown | + + + | Phone | Unavailable | + + + Support + + + + + | Name | Relationship | Address | Phone | + + + + + | Natasha Patino J | ECON | [address] | | | Md | | [place] | | | | | [address] | | + + + + + | Danita Smart | ECON | Unknown | | + + + + + | Briseida Pedroza | ECON | Unknown | | + + + + + Care Team Providers + +------+ + | Care Warehouse Receiver Name | Role | Phone | + [...] + + | 07/02/ | Telephone | [facility] | Deysi Martel | Ed[place] | | 2019 | | NEPHROLOGY [address] | M, DO [address] | | | | | [address] [facility] [address] | [place], [facility] [address] | | | | | [place], [place] | [place], [place] | | | | | [address] | [address] | | | | | [phone] | | | +--------+ + + + [...] | Visit | | DO Mega [address] | | | | | | [place] | | | | | | [place] | | | | | | [address] | | | | | | | [...]
--- OUTSIDE RECORDS SUMMARY | ~2018-07-26 | XMS | Encounter Summary ---
Demographics + + + | Address | [address] | | | [place] [address] | + + + | Home Phone [...] [place] | | | | | [address] | | + + + + + Care Team Providers + +------+ + | Care Hot Dimpling Machine Operator Name | Role | Phone [...] Clinic | | | | | | [facility], [address] | | | | | | [place], [place] | | | | | | [address] | | | | | | [phone] | | | +--------+ + + + [...] as of this encounter Progress Notes Interface, Respiratory Therapist Assistant In - 06/14/2006 3:04 AM PDT CLINIC [...] to follow her closely. Dina Reinoso M.D. [place], Otolaryngology Head and Neck Surgery LH/imani cc: Ismael Jacob M.D. Allergy and Clinical Immunology [facility] LIAN VALLECILLO MD [address] [place] [address] [address] [place] [address] documented in this encounter Plan of Treatment Not on filedocumented as of this encounter Visit Diagnoses Not on filedocumented in this encounter"
--- OUTSIDE RECORDS SUMMARY | ~2018-07-26 | XMS | Encounter Summary ---
Demographics + + + | Address | [address] | | | [place] [address] | + + + | Home Phone [...] [place] | | | | | [address] | | + + + + + Care Team Providers + +------+ + | Care Scrap Wheeler Name | Role | Phone | + [...] | | | | | [address] [place] | [facility] | | | | | Mailcode: NIKIA | [place], [place] | | | | | [facility] [address] [facility] | [address] | | | | | [place], [place] | [phone] | | | | | [address] | | | | | | [phone] | | | +--------+--------+ + + + [...]
--- OUTSIDE RECORDS SUMMARY | ~2018-07-26 | XMS | Encounter Summary ---
Demographics + + + | Address | [address] | | | [place] [address] | + + + | Home Phone [...] [place] | | | | | [address] | | + + + + + Care Team Providers + +------+ + | Care Electron Beam Welder Name | Role | Phone | + +------+ + PCP | Unavailable | + +------+ + Encounter Details +--------+ + + + + | Date | Type | Department | Care Team | Description | +--------+ + + + + | 01/24/ | Results | Allergy Clinic at | Ismael Jacob MD | | | 1994 | Only | [facility] [address] | | | | | | [facility] | | | | | | Mailcode: [address] | | | | | | [place] | | | | | | [facility] | | | | | | [place] [address] | | | | | | [phone] | | | +--------+ + + + [...] | | + +---------+ + + | [facility] DEPARTMENT OF | | | | | RADIOLOGY | | | | + +---------+ + + documented in this encounter Visit Diagnoses Not on filedocumented in this encounter"
--- OUTSIDE RECORDS SUMMARY | ~2018-07-26 | XMS | Encounter Summary ---
Demographics + + + | Address | [address] | | | [place] [address] | + + + | Home Phone [...] + + | Author | [facility] | + + + | Organization | [facility] | + + + | Address | Unknown | + + + | Phone | Unavailable | + + + Support + + + + + | Name | Relationship | Address | Phone | + + + + + | Favio Smart | [address] | [place] | | | | | [address] | | + + + + + Care Team Providers + +------+ + | Care Curbstone Setter Name | Role | Phone | [...] 2mg) | | | | [address] [place] | [facility] | | | | | Mailcode: NIKIA | [place], [place] | | | | | Krystian [facility] | [address] | | | | | [place], [place] | [phone] | | | | | [address] | | | | | | [phone] | | | +--------+--------+ + + + [...]
--- OUTSIDE RECORDS SUMMARY | ~2018-07-26 | XMS | Encounter Summary ---
Demographics + + + | Address | [address] | | | [place] [address] | + + + | Home Phone | | + + + | Preferred Language | Unknown | + + + | Marital Status | | + + + | Hinduism Affiliation | Unknown | + + + | Race | Unknown | + + + | Ethnic Group | Unknown | + + + Author + + + | Author | [facility] | | | and [place] | + + + | Organization | [facility] | | | and [place] | + + + | Address | Unknown | + + + | Phone | Unavailable | + + + Support + + + + + | Name | Relationship | Address | Phone | + + + + + | Natasha Patino J | ECON | [address] | | | [place] | | [place] | | | | | [address] | | + + + + + | Danita Smart | ECON | Unknown | | + + + + + | Briseida Pedroza | ECON | Unknown | | + + + + + Care Team Providers + +------+ + | Care Textiles And Clothing Teacher Name | Role | Phone | [...] kidney | Shereen Joe NP | [address] | | | | | disease, | [address] | [place] | | | | | stage 3 | [address] | [address] [facility] | | | | | (moderate) | [facility] | [facility], [place] | | | | | (HCC) | [place] [address] | [address] Phone: | | | | | Hypertension | Phone: | [phone] | | | | | Acute | [phone] | Fax: | | | | | kidney | Fax: | [phone] | | | | | failure with | [phone] | | | | | | lesion of | | | | | | | tubular | | | | | | | necrosis | | | | | | | (HCC) | | | | | | | Procedures | | | | | | | [place] OFFICE | | | | | | [...] | | [address] | [place], [place] [address] | (MODERATE) (Primary | | | | [place], [place] | [place], [place] | Dx); Essential | | | | [address] | [address] | hypertension; Edema | | | | [phone] | | due to hypervolemia; | | [...] 07/06/2018 14:00 PDTat the [facility] Clinic [place]. documented in this encounter Progress Notes [...] her left hip " prosthesis per her manager real estate, Georgie. Beverly is disappointed as she wan ts to be more active. Denies GODDARD, hiccups, or nausea. She states that she underwent an ORIF of the left shoulder at [facility], on . . She also underwent a minimally invasive laminectomy, L4-L5, 06/20/2017. She denies i ncreased edema, SOB, nausea, anorexia or hiccups. 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 A dditionally, she sustained a left [...] tablet Take 30 mg by mouth Daily. [place]-3 Fatty Acids (OMEGA 3 PO) Take 2 [...] 07/03/2018 MGEX 2.3 10/21/2015 PTHEX 46.13 03/30/2018 HZM0YEI 5.1 04/20/2017 Lab Results Component Value Date [...] 10. Osteoporosis-- on Vitamin D. 11. s/p SPEECH THERAPIST shunt, 01/14/2018-- improved clinically. Plan: 1. I [...] 2 months at the CKD Clinic at [place], [place]. She w ill have a CBC, CMP, PO4, Mg++, spot Urine Pro/Cr ratio one week prior to that. : MD Ricky Herrera MD, MD, [facility] documented in this e ncounter Plan of Treatment +--------+ + + + + | Date | Type | Specialty | Care Team | Description | +--------+ + + + + | 08/31/ | Off-Site | Nephrology | Deysi Martel | | | 2018 | Visit | | M, DO [address] | | | | | | [place] [address] | | | | | | [place] | | | | | | [address] | | | | | | | [...] | | | | | | | Jamaican, | | | | | | External [...]
--- OUTSIDE RECORDS SUMMARY | ~2018-07-26 | XMS | Encounter Summary ---
Demographics + + + | Address | [address] | | | [place] [address] | + + + | Home Phone [...] [place] | | | | | [address] | | + + + + + Care Team Providers + +------+ + | Care Film Color Tester Name | Role | Phone | + +------+ + | Shreeen Lopes NP | PCP | | + [...] | | | | | [place] | [facility] | | | | | Mailcode: GPC | [place], [place] | | | | | Krystian [facility] | [address] | | | | | [place], [place] | [phone] | | | | | [address] | | | | | | [phone] | | | +--------+ + + + [...]
--- OUTSIDE RECORDS SUMMARY | ~2018-07-26 | XMS | Encounter Summary ---
Demographics + + + | Address | [address] | | | [place] [address] | + + + | Home Phone [...] [place] | | | | | [address] | | + + + + + Care Team Providers + +------+ + | Care Energy Sales Broker Name | Role | Phone | + [...] Description | +--------+--------+ + + + | 03/02/ | Refill | Family Medicine at | Alberto Adan, | Refill Request | | 2007 | | [place] [address] | [address] [facility] | | | | | [address] [place] | [facility], [place] | | | | | Mailcode: NIKIA | [address] | | | | | [place] [facility] | [phone] | | | | | [place], [place] | | | | | | [address] | | | | | | [phone] | | | +--------+--------+ + + + [...]
--- OUTSIDE RECORDS SUMMARY | ~2018-07-26 | XMS | Encounter Summary ---
Demographics + + + | Address | [address] | | | [place] [address] | + + + | Home Phone [...] [place] | | | | | [address] | | + + + + + Care Team Providers + +------+ + | Care Mainspring Former Brace End Name | Role | Phone | + +------+ + | Riana Ko PA-C | PCP | | + +------+ + Encounter Details +--------+ + + + + | Date | Type | Department | Care Team | Description | +--------+ + + + + | 05/18/ | Exhibitions And Collections Manager | Family Medicine at | Riana Ko, | Cervical | | 2007 | | [place] [address] | [address] | Radiculopathy | | | | [address] [place] | [address] | (Primary Dx) | | | | Mailcode: GPC | [place], [place] | | | | | Krystian [facility] | [address] | | | | | [place], [place] | [phone] | | | | | [address] | | | | | | [phone] | | | +--------+ + + + [...]
--- OUTSIDE RECORDS SUMMARY | ~2018-07-26 | XMS | Encounter Summary ---
Demographics + + + | Address | [address] | | | [place] [address] | + + + | Home Phone | | + + + | Preferred Language | Unknown | + + + | Marital Status | | + + + | Religion Affiliation | Unknown | + + + | Race | Unknown | + + + | Ethnic Group | Unknown | + + + Author + + + | Author | [facility] | | | and [place] | + + + | Organization | [facility] | | | and [place] | + + + | Address | Unknown | + + + | Phone | Unavailable | + + + Support + + + + + | Name | Relationship | Address | Phone | + + + + + | Natasha Patino J | ECON | [address] | | | [place] | | [place] | | | | | [address] | | + + + + + | Danita Smart | ECON | Unknown | | + + + + + | Briseida Pedroza | ECON | Unknown | | + + + + + Care Team Providers + +------+ + | Care Case Work Aide Name | Role | Phone | + [...] NEPHROLOGY [address] | M, DO [address] | | | | | [address] [facility] | [place], [facility] 100 | | | | | [place], [place] | [place] | | | | | [address] | [address] | | | | | [phone] | | | +--------+ + + + [...] 2018 | Visit | | DO Mega [address] [place] [address] | | | | | | [place] [facility] | | | | | | [place] | | | | | | [address] | | | | | | | | +--------+ + + + + documented as of this encounter Visit Diagnoses Not on filedocumented in this encounter"
--- OUTSIDE RECORDS SUMMARY | ~2018-07-26 | XMS | Encounter Summary ---
Demographics + + + | Address | [address] | | | [place] [address] | + + + | Home Phone [...] [place] | | | | | [address] | | + + + + + Care Team Providers + +------+ + | Care Bank Credit Card Collection Clerk Name | Role | Phone | + [...] | | 2006 | | [place] | [address] | management | | | | [address] [place] | [facility] | | | | | Mailcode: NIKIA | [place], [place] | | | | | Krystian Hardwick [facility] | [address] | | | | | [place], [place] | [phone] | | | | | [address] | | | | | | [phone] | | | +--------+ + + + [...]
--- OUTSIDE RECORDS SUMMARY | ~2018-07-26 | XMS | Encounter Summary ---
Demographics + + + | Address | [address] | | | [place] [address] | + + + | Home Phone [...] [place] | | | | | [address] | | + + + + + Care Team Providers + +------+ + | Care Heavy Duty Custodian Name | Role | Phone | + [...] | | [address] | [address] [facility] | | | | | [address] [place] | [facility], [place] | | | | | Mailcode: NIKIA | [address] | | | | | Krystian Hardwick [facility] | [phone] | | | | | [place], [place] | | | | | | [address] | | | | | | [phone] | | | +--------+--------+ + + + [...]
--- OUTSIDE RECORDS SUMMARY | ~2018-07-26 | XMS | Encounter Summary ---
Demographics + + + | Address | [address] | | | [place] [address] | + + + | Home Phone | | + + + | Preferred Language | Unknown | + + + | Marital Status | | + + + | Mormon Affiliation | CHR | + + + [...] [place] | | | | | [address] | | + + + + + Care Team Providers + +------+ + | Care Systems Requirements Planner Name | Role | Phone | [...] 12.5mg) | | | | [address] | [facility] | | | | | Mailcode: GPC | [place], [place] | | | | | Krystian [facility] | [address] | | | | | [place], [place] | [phone] | | | | | [address] | | | | | | [phone] | | | +--------+--------+ + + + [...]
--- OUTSIDE RECORDS SUMMARY | ~2018-07-26 | XMS | Encounter Summary ---
Demographics + + + | Address | [address] | | | [place] [address] | + + + | Home Phone [...] [place] | | | | | [address] | | + + + + + Care Team Providers + +------+ + | Care Roadway Engineer Name | Role | Phone | [...] Clinic | | | | | | [facility], [address] | | | | | | [place], [place] | | | | | | [address] | | | | | | [phone] | | | +--------+ + + + [...] as of this encounter Progress Notes Interface, Dumper Bulk System In - 06/08/2006 5:09 AM PDT CLINIC [...] up for next week. Dina Reinoso M.D. Supervisor Insulation, Otolaryngology Head and Neck Clinic LH/cf cc: JOSÉ MIGUEL STRINGER MD PROFESSOR MEDICINE HEAD ALLERGY AND CLINICAL IMMUNOLOGY LIAN VALLECILLO MD [address] [place] [address] documented in this encounter Plan of Treatment Not on filedocumented as of this encounter Visit Diagnoses Not on filedocumented in this encounter"
--- OUTSIDE RECORDS SUMMARY | ~2018-07-26 | XMS | Encounter Summary ---
Demographics + + + | Address | [address] | | | [place] [address] | + + + | Home Phone [...] [place] | | | | | [address] | | + + + + + Care Team Providers + +------+ + | Care Job Honer Name | Role | Phone | + [...] Clinic | | | | | | [facility], [address] | | | | | | [place], [place] | | | | | | [address] | | | | | | [phone] | | | +--------+ + + + [...] as of this encounter Progress Notes Interface, Window Tinter In - 05/15/2006 5:04 AM [facility] CLINIC DATE: 04/16/96 OTOLARYNGOLOGY CLINIC: POSTOPERATIVE VISIT: [...] 10 to 12 days. Dina Reinoso M.D. Ground Systems Engineer, Otolaryngology/Head and Neck Surgery LINNEA/wander cc: Kameron Long M.D. Ph.D. Ground Systems Engineer, Neurology and Otolaryngology LIAN VALLECILLO MD [address] [place] [address] [address] [place] [address] documented in this encounter Plan of Treatment Not on filedocumented as of this encounter Visit Diagnoses Not on filedocumented in this encounter"
--- OUTSIDE RECORDS SUMMARY | ~2018-07-26 | XMS | Encounter Summary ---
Demographics + + + | Address | [address] | | | [place] [address] | + + + | Home Phone [...] [place] | | | | | [address] | | + + + + + Care Team Providers + +------+ + | Care Foreign Service Teacher Name | Role | Phone | [...] [address] | | | | | | [place], [place] | | | | | | [address] | | | | | | [phone] | | | +--------+ + + + [...] as of this encounter Progress Notes Interface, Cushion Worker In - 05/20/2006 1:07 AM PDT CLINIC [...] infection in the bone. Dina Reinoso M.D. Plant Biology Professor, Otolaryngology/Head and Neck Surgery /[facility] cc: Kameron Long M.D., Ph.D. Plant Biology Professor, Neurology and Otolaryngology documented in this encounter Plan of Treatment Not on filedocumented as of this encounter Visit Diagnoses Not on filedocumented in this encounter"
--- OUTSIDE RECORDS SUMMARY | 2018-07-26 18:28 | XMS ---
PreManage Notification: TEREZA ETIENNE Security Rn Production Events No recent Security Events currently on file CRITERIA MET - [facility] - Has Care Guidelines - PDMP - [facility] - 2 Visits in 30 Days CARE PROVIDERS [facility] 01/16/2018-Current PHONE: Unknown Les Watkins MD Primary Care Current PHONE: [phone] KRIS BRITTON Primary Care Current PHONE: Unknown LEGACY PATIENT Primary Care [employer] SERVICES PHONE: Unknown or_carlos Case or Stator Tester Current PHONE: Unknown Wandy has no Care Guidelines for this patient. Care History Medical/Surgical 01/16/2018 [facility] - Patient is currently established with [facility]. If patient is seen in the ED during business hours. Please contact [facility] at [facility]. Care Recommendation: This patient has had 5 [...] care. E.D. VISIT COUNT (12 MO.) [address] TOTAL 7 NOTE: Visits indicate total known visits. ED/UCC VISIT TRACKING (12 MO.) 07/26/2018 18:25 [facility] TYPE: Emergency COMPLAINT: - NOSE BLEED 07/10/2018 16:48 [facility] [place] [place] TYPE: Emergency COMPLAINT: - LEG SWELLING DIAGNOSES: - Personal history of nicotine dependence - Acquired absence of both cervix and uterus - Heart failure, unspecified - Localized edema - Allergy status to analgesic agent status - Allergy status to sulfonamides status - Allergy status to narcotic agent status - Hypertensive heart disease with heart failure - Unspecified kidney failure - Other terminal clerk (current) 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 - Type 2 diabetes mellitus without complications 03/07/2018 12:06 [facility] [place] TYPE: Emergency [...] heart disease with heart failure - Other terminal clerk (current) 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 - Allergy status to [...] status to narcotic agent status - Other terminal clerk (current) 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 - Dysuria - Heart failure, unspecified - Other symptoms and signs involving the genitourinary system 01/15/2018 19:29 [facility] [place] TYPE: Emergency COMPLAINT: - HIP PAIN DIAGNOSES: - Type 2 diabetes mellitus without complications - Other care home (current) 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 - Allergy status to other drugs, medicaments and biological substances status - Dislocation of internal left hip prosthesis, initial encounter - Dislocation of internal left hip prosthesis, initial encounter - terminal carman (current) use of opiate analgesic - Essential (primary) hypertension - Allergy status to analgesic agent status - Heart failure, unspecified - Exposure to other specified factors, initial encounter - Personal history of nicotine dependence - Allergy status to narcotic agent status 01/13/2018 06:35 [facility] TYPE: Emergency DIAGNOSES: - Hip Injury - C1 - Unspecified dislocation of left hip, initial encounter 10/06/2017 16:[address] [facility] [place] TYPE: Emergency COMPLAINT: - MULTIPLE FALLS [...] Allergy status to sulfonamides status - Other care home (current) 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 - Personal history of nicotine dependence - Heart failure, unspecified - Pain in left hip INPATIENT VISIT TRACKING (12 MO.) 02/02/2018 15:30 [facility] [place] TYPE: Surgery 01/14/2018 05:19 [facility] TYPE: Neuro Surgery DIAGNOSES: - (Idiopathic) normal pressure hydrocephalus 12/29/2017 17:30 [facility] [place] TYPE: Orthopedic DIAGNOSES: - L hip fracture [email or web address]
[2018-07-26] MEDS ORDERED: DULOXETINE HCL40 MG PO (18:48)
== END 2018-07-26 21:49 | disposition home or self-care (01) ==
LOC: ED 18:24
PROC: 093K7ZZ Control Bleeding in Nasal Mucosa and Soft Tissue, Via Natural or Artificial Opening (ICD-10-PCS; principal; 2018-07-26)
DX: R04.0 Epistaxis (principal); N18.6 End stage renal disease; E87.6 Hypokalemia; E11.22 Type 2 diabetes mellitus with diabetic chronic kidney disease; I50.9 Heart failure, unspecified; I13.0 Hypertensive heart and chronic kidney disease with heart failure and stage 1 through stage 4 chronic kidney disease, or unspecified chronic kidney disease; Z87.891 Personal history of nicotine dependence; Z90.710 Acquired absence of both cervix and uterus; Z90.49 Acquired absence of other specified parts of digestive tract; Z96.642 Presence of left artificial hip joint; Z88.6 Allergy status to analgesic agent; Z88.2 Allergy status to sulfonamides; Z88.5 Allergy status to narcotic agent; Z79.899 Other long term (current) 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
CPT/HCPCS: 30901; 80053; 85025; 85610; 85730; 99283-25

== ENCOUNTER 2020-08-20 16:13 | Emergency (ER) | payer BC ==
[~2020-08-20] VITALS: Ht 165.1 cm; Wt 70.3 kg
[~2020-08-20 16:13] MED LIST changes: +DULOXETINE HCL40 MG PO
--- OUTSIDE RECORDS SUMMARY | 2020-08-20 16:16 | XMS ---
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 Internal Medicine 01/16/2018-Current PHONE: Unknown Wandy has no Care Guidelines for this patient. Care History Medical/Surgical 01/16/2018 [facility] - Patient is currently established with [facility]. If patient is seen in the ED during business hours. Please contact [facility] at [facility]. Care Recommendation: This patient has had [...] care. E.D. VISIT COUNT (12 MO.) 1 [facility] TOTAL 1 NOTE: Visits indicate total known visits. ED/UCC VISIT TRACKING (12 MO.) 08/20/2020 16:14 [facility] [place] TYPE: Emergency COMPLAINT: - FELL AND INJURED LEFT LEG INPATIENT VISIT TRACKING (12 MO.) 03/16/2020 10:23 [facility] TYPE: Surgery DIAGNOSES: - Spinal stenosis, cervical region [email or web address]
[2020-08-20] MEDS ORDERED: ACID CONTROLLER20 MG PO (17:08)
== END 2020-08-20 19:45 | disposition home or self-care (01) ==
LOC: ED 16:13
DX: S93.402A Sprain of unspecified ligament of left ankle, initial encounter (principal); S83.92XA Sprain of unspecified site of left knee, initial encounter; S70.02XA Contusion of left hip, initial encounter; W01.10XA Fall on same level from slipping, tripping and stumbling with subsequent striking against unspecified object, initial encounter; E11.9 Type 2 diabetes mellitus without complications; I11.0 Hypertensive heart disease with heart failure; I50.9 Heart failure, unspecified; G43.909 Migraine, unspecified, not intractable, without status migrainosus; F17.200 Nicotine dependence, unspecified, uncomplicated; Z88.6 Allergy status to analgesic agent; Z88.8 Allergy status to other drugs, medicaments and biological substances; Z88.2 Allergy status to sulfonamides; Z88.5 Allergy status to narcotic agent; Z79.899 Other long term (current) 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
CPT/HCPCS: 72100; 73502; 73560; 73610; 99283-25